=== PATIENT | male | born 1930 | race Caucasian/White ===

== ENCOUNTER 2017-01-03 09:32 | Emergency (ER) | payer OTHER ==
[~2017-01-03 09:32] MED LIST: /ESOM40CA OR; /TAMS4CA; /TAMS4CA OR; /TIOT18INH INH; /WARF5TA; ACET65TA; ADVODART; ALBU17IN INH; ALBU83IN INH; ALBUTEROL; ALBUTEROL INH; ALBUTEROL NEBS INH; ALLE25CA OR; AMLO10TA OR; AMLO10TA PO; APAP325T PO; ARIC10TA; ASPI325T OR; ASPI325T PO; AUGM875T27 PO; AVOD0.5C; AVOD0.5C OR; AVOD0.5C PO; AVODART; BABY81CH; CEFT500T OR; CEPH25SS PO; CORE3.12; COUM10TA; COUMADIN; DEMA20TA; DICL500C OR; DYNAPEN PO; EUCECRE2 TOP; FISH300C2 OR; FISH500C PO; FLOMAX 0.4; FLOVENT110; FOLI1TAB OR; FOLITAB11 PO; FURO20TA2 PO; GENT0.1C2 TOP; ISOS30BRAN OR; KLOR10TA OR; LAMISIL; LASI40TA OR; MOM PO; MULTCAP PO; MULTIVIT PO; MYSO50TA; MYSOLINE50; Macrobid; PATA0.2S; PRED10TA2 OR; PRED10TA2 PO; PRED20TA PO; PRED50TA2 PO; PRED5SOL2 PO; PRED5TAB PO; PRIM250T3; PRIM250T3 OR; PRIM250T5 PO; PRIMI25TA; PROA1AER INH; PROCARDI; SPIR1CAP INH; SPIRIVA; TAMS0.4C2 PO; THERGRAN; THIA100T OR; TRAM50TA2; TRIA TOP; TYLE325T5 PO; VENTAER IN; VICO5TAB; VITA100T92 PO; ZEBE5TAB; ZEST10TA; ZEST10TA4 PO
--- NOTE | 2017-01-03 12:45 | REP ---
PA and lateral chest: Comparison is 07/24/2015. There is chronic cardiomegaly, unchanged. There is a single lead pacemaker, unchanged. There is minor discoid atelectasis versus scarring in the left costophrenic angle as an interval change. There is a 1 cm nodular density adjacent to the cardiac apex, unchanged from PA and lateral views dating to 04/16/2012, therefore likely benign. There are no acute infiltrates or pleural effusions. The vikram and mediastinum are unchanged. There is grade 1 wedge shaped compression deformity of a mid thoracic vertebral body, not definitely present on 07/24/2015. I suspect there is compression deformity of a lower thoracic/upper lumbar vertebra, obscured by the diaphragms. This may have increased from 07/24/2015. Signed by Tab Calvillo MD 01/03/2017 12:36 P
--- NOTE | 2017-01-03 12:50 | REP ---
Thoracic spine two views both lateral projection: Comparisons are the lumbar spine dated 12/11/2013 and PA and lateral chest dated 07/24/2015. There is grade 1 compression of the T8 vertebral body as a change from 07/24/2015. There is grade 4 compression of the L1 vertebral body. This was grade II compression on 12/11/2013. There is demineralization and mild kyphosis. There are no lytic, blastic or destructive changes. There is multilevel mild degenerative disc disease in the thoracic spine. There is advanced degenerative disc disease in the visualized lumbar spine. Signed by Tab Calvillo MD 01/03/2017 12:41 P
[2017-01-03 12:58] LABS: BASO % 0.4 % (0.0-1.0); EOS # 0.2 K/mm3 (0.0-0.50); EOS % 3.2 % (0.0-3.0); LARGE UNSTAINED CELL # 0.1 K/mm3 (0.0-0.4); LARGE UNSTAINED CELL % 1.6 % (0.0-4.0); LYMPH # 0.8 K/mm3 (1.5-4.5); MEAN CORPUSCULAR HEMOGLOBIN 29.7 pg (27.0-33.0); MEAN CORPUSCULAR HGB CONC 32.2 g/dl (32.0-36.5); MEAN CORPUSCULAR VOLUME 92.1 fl (80.0-96.0); MONO # 0.3 K/mm3 (0.0-0.8); NEUTROPHILS # 4.9 K/mm3 (1.8-7.7); NEUTROPHILS % 76.8 % (36.0-66.0); PLATELET COUNT, AUTOMATED 104 k/mm3 (150-450); RED CELL DISTRIBUTION WIDTH 12.8 % (11.5-14.5); WHITE BLOOD COUNT 6.4 K/mm3 (4.0-10.0)
--- NOTE | 2017-01-03 13:12 | REP ---
CERVICAL SPINE, SEVEN VIEWS: HISTORY: Neck pain. The examination is very limited. The cervical spine is visualized from C1 to the C4-5 level in the lateral radiographs. The C2-3 through C4-5 intervertebral discs are decreased in height consistent with disc degeneration. The neural foramina are not well seen, however, there appears to be narrowing of the C3-6 neural foramina secondary to uncinate process hypertrophy. There are 3 mm of anterior subluxation of C4 on 5. IMPRESSION: Limited examination demonstrating degenerative change as described above. Signed by Castro Marte MD 01/03/2017 01:22 P
[2017-01-03 13:27] LABS: ANION GAP 8 MEQ/L (8-16); BLOOD UREA NITROGEN 21 MG/DL (7-18); CALCIUM LEVEL 8.3 MG/DL (8.8-10.2); CARBON DIOXIDE LEVEL 28 MEQ/L (21-32); CHLORIDE LEVEL 103 MEQ/L (98-107); CREATININE FOR GFR 1.06 MG/DL (0.70-1.30); GLOMERULAR FILTRATION RATE > 60.0 (>35); GLUCOSE, FASTING 96 MG/DL (83-110); POTASSIUM SERUM 4.3 MEQ/L (3.5-5.1); SODIUM LEVEL 139 MEQ/L (136-145)
--- NOTE | 2017-01-03 14:24 | EDDOCDS ---
Physician Documentation [facility] Name: David Salcedo Age: 86 yrs Sex: Male : 1930 Arrival Date: 01/03/2017 Time: 09:32 Bed 9 Private MD: [facility] Disposition: 01/03/17 14:05 Discharged to Home/Self Care. Impression: Wedge compression fracture of first lumbar vertebra, Wedge compression fracture of T7-T8 vertebra - T8, Thrombocytopenia, unspecified. - Condition is Stable. - Discharge Instructions: Back, Compression Fracture, Thrombocytopenia. - Prescriptions for Ultram 50 mg Oral tablet - take 0.5 tablet by ORAL route every 6 hours As needed as needed; 10 tablet. - Medication Reconciliation, Local Pharmacy Hours form. - Follow up: Emergency Department; When: As needed; Reason: Worsening of conditions. Follow up: Private Physician; When: 2 - 3 days; Reason: Wound/Symptom Recheck, Recheck today's complaints, Continuance of care. - Problem is new. - Symptoms are unchanged. Historical: - Allergies: Codeine Sulfate; Xarelto; - Home Meds: 1. albuterol sulfate 2.5 mg /3 mL (0.083 %) Inhl nebu prn 2. amlodipine 10 mg Oral tab 1 tab once daily 3. aspirin 325 mg Oral tab once daily 4. Avodart 0.5 mg oral cap 1 cap once daily 5. Fish Oil 1,000 mg Oral cap twice a day 6. Lasix 20 mg Oral tab 1 tab once daily 7. multivitamin Oral tab 1 tab daily 8. Ocuvite oral tab daily 9. primidone 250 mg Oral tab 0.5 tab bid 10. Probiotic oral daily 11. Spiriva with HandiHaler 18 mcg Inhl CpDv 1 cap once daily 12. tamsulosin 0.4 mg oral cp24 1 cap once daily 13. Tylenol 500mg Oral 2 tabs bid (Last dose: 01/03/2017 07:00) 14. Visine 0.05 % ophthalmic drop as needed 15. cephalexin 500 mg Oral cap 1 cap every 6 hours (Last dose: 01/03/2017 07:00) - PMHx: Atrial Fib; COPD; Dementia; DVT; ETOH; UTI; - PSHx: Knee surgery- Left; Knee surgery- Right; Pacemaker Insertion; Venous filter placed; - Social history: Smoking status: Chewing Tobacco No barriers to communication noted, The patient speaks fluent Serbian, Speaks appropriately for age. - Family history: Not pertinent. - : The pt / caregiver states he / she is not on anticoagulants. Home medication list is obtained from the patient. - Exposure Risk Screening:: None identified. Vital Signs: 01/03 09:34 BP 127 / 68; Pulse 89; Resp 18; Temp 97.6(O); Pulse Ox 97% on R/A; Weight 74.39 kg / ct3 164 lbs (R); Height 5 ft. 6 in. (167.64 cm) (R); Pain 6/10; 14:08 BP 161 / 96 (auto/); jmk 14:08 Pulse 78 MON; Pulse Ox 95% ; jmk 14:08 Resp 20; Temp 97.4; jmk 09:34 Body Mass Index 26.47 (74.39 kg, 167.64 cm) ct3 MDM: 11:09 Financial registration complete. lg 11:30 ECG WITH READING ER PHYS+CARDIAG ordered. EDMS 11:42 IV Saline Lock ordered. dt4 11:43 Chest, 2 View (pa\E\lat) Ordered. EDMS 11:43 Spine, Thoracic 3 Views Ordered. EDMS 11:43 Spine, Cervical Ordered. EDMS 11:43 Troponin Ordered. EDMS 11:43 Cardiac Injury Profile Ordered. EDMS 11:43 CBC with Diff Ordered. EDMS 11:43 Basic Metabolic Profile Ordered. EDMS 11:49 Selector Packer ordered. dt4 13:20 [facility] Payment Agreement was scanned into [employer] and attached to record. lg Signatures: Dispatcher [employer] EDMS Jona Espinosa,RN RN Darrel Rubio, Reg Reg lg Homar Weldon RN RN mlb1 Nahed Frances, PA-C PA-C dt4 The chart was reviewed and I authenticate all verbal orders and agree with the evaluation and treatment provided.Attachments: 13:20 [facility] [place] Agreement lg MTDD
--- NOTE | 2017-01-03 14:24 | EDDOCDS ---
Nurse's Notes [facility] Name: David Salcedo Age: 86 yrs Sex: Male : 1930 Arrival Date: 01/03/2017 Time: 09:32 Bed 9 Private MD: [facility] Diagnosis: Wedge compression fracture of first lumbar vertebra;Wedge compression fracture of T7-T8 vertebra-T8;Thrombocytopenia, unspecified Presentation: 01/03 09:42 Presenting complaint: Patient states: awful pain in my back and legs don't feel right. mlb1 Daughter states took patient to urgent care and was told right lower leg cellulitis and is on antibiotics. Last night patient complained of pain in lower back as though he had fallen but daughter doesn't state a witnessed fall. Patient continued to complain of pain in lower back so daughter brings in for evaluation. Adult Sepsis Screening: The patient does not have new or worsening altered mentation. Patient's respiratory rate is less than 22. Systolic blood pressure is greater than 100. Patient has a qSOFA score of 0- Negative Sepsis Screen. Suicide/Homicide risk assessment- the patient denies having any suicidal and/or homicidal ideations and does not present with any other emotional, behavioral or mental health complaints. Status: Patient is not a dental service technician or dependent. Transition of care: patient was not received from another setting of care. 09:42 Acuity: HOPE Level 4 mlb1 09:42 Method Of Arrival: Walkin/Carried/Asstd mlb1 11:44 Acuity level changed due to complexity of care. mlb1 11:44 Acuity: HOPE Level 3 mlb1 Triage Assessment: 09:46 General: Appears in no apparent distress, Behavior is cooperative. Pain: Location: back mlb1 Pain currently is 5 out of 10 on a pain scale. Respiratory: Airway is patent Respiratory effort is even, unlabored, Respiratory pattern is regular, symmetrical. Historical: - Allergies: Codeine Sulfate; Xarelto; - Home Meds: 1. albuterol sulfate 2.5 mg /3 mL (0.083 %) Inhl nebu prn 2. amlodipine 10 mg Oral tab 1 tab once daily 3. aspirin 325 mg Oral tab once daily 4. Avodart 0.5 mg oral cap 1 cap once daily 5. Fish Oil 1,000 mg Oral cap twice a day 6. Lasix 20 mg Oral tab 1 tab once daily 7. multivitamin Oral tab 1 tab daily 8. Ocuvite oral tab daily 9. primidone 250 mg Oral tab 0.5 tab bid 10. Probiotic oral daily 11. Spiriva with HandiHaler 18 mcg Inhl CpDv 1 cap once daily 12. tamsulosin 0.4 mg oral cp24 1 cap once daily 13. Tylenol 500mg Oral 2 tabs bid (Last dose: 01/03/2017 07:00) 14. Visine 0.05 % ophthalmic drop as needed 15. cephalexin 500 mg Oral cap 1 cap every 6 hours (Last dose: 01/03/2017 07:00) - PMHx: Atrial Fib; COPD; Dementia; DVT; ETOH; UTI; - PSHx: Knee surgery- Left; Knee surgery- Right; Pacemaker Insertion; Venous filter placed; - Social history: Smoking status: Chewing Tobacco No barriers to communication noted, The patient speaks fluent Armenian, Speaks appropriately for age. - Family history: Not pertinent. - : The pt / caregiver states he / she is not on anticoagulants. Home medication list is obtained from the patient. - Exposure Risk Screening:: None identified. Screenin:11 Screening information is obtained from the patient. Fall risk: No risks identified. jmk Assistance ADL's: requires no assistance with activities of daily living. Abuse/DV Screen: The patient / caregiver reports he/she is: not in a situation that causes fear, pain or injury. Nutritional screening: No deficits noted. Advance Directives: Currently, there is no health care proxy. There is no active DNR order. There is no living will. There is no Power of Hospital Coordinator. Advance directive information has not previously been placed in an [facility] medical record. home support is adequate. Assessment: 13:08 General: Appears Skin warm and dry color satisfactory. Moist pink oral mucosa. Abdomen jmk obese and non distended with bowel sounds present x 4. Denies pain to abdomen or to chest. right leg is swollen with redness and swelling distal to mid calf area. pulse intact x 2. 2 abrasions noted to medial aspect of ankle. DSD was in place and crusty drainage noted. deneis injury or pain presently. . Cardiovascular: Capillary refill < 3 seconds Clubbing of nail beds is absent Heart tones S1 S2 present. Respiratory: No deficits noted. Airway is patent Respiratory effort is even, Respiratory pattern is regular, Breath sounds are clear bilaterally. GI: Abdomen is obese, Bowel sounds present X 4 quads. 14:20 General: Appears wound care provided and tolerated well, receptive to discharge. family k member provided instructions. discharged via WC. Vital Signs: 09:34 BP 127 / 68; Pulse 89; Resp 18; Temp 97.6(O); Pulse Ox 97% on R/A; Weight 74.39 kg (R); ct3 Height 5 ft. 6 in. (167.64 cm) (R); Pain 6/10; 14:08 BP 161 / 96 (auto/); jmk 14:08 Pulse 78 MON; Pulse Ox 95% ; jmk 14:08 Resp 20; Temp 97.4; k 09:34 Body Mass Index 26.47 (74.39 kg, 167.64 cm) ct3 Vitals: 09:34 Log In Time: January 03, 2017 at 09:32. ct3 ED Course: 09:34 Patient visited by Valarie Bell PCA. ct3 09:34 [facility] is Private Physician. ct3 09:34 Patient moved to Waiting ct3 09:37 Patient moved to Pre RCE ct3 09:44 Triage Initiated mlb1 09:59 Patient moved to Triage 2 mlb1 09:59 Patient moved to Pre RCE mlb1 10:49 Patient moved to Triage 2 ct3 10:58 Nahed Frances [facility]-C [facility]. dt4 10:58 Anmol Weller MD is Attending Physician. dt4 10:58 Patient visited by Nahed Frances PA-C. dt4 11:31 Patient moved to PR2 / 26 ttb 11:42 Patient visited by Valarie Bell PCA. ct3 11:42 EKG done. (by ED staff). Reviewed by Nahed Frances PA-C. ct3 11:44 Celine Byrnes, RN is Primary Nurse. mlb1 11:44 Vandana Prieto,GABBY is Primary Nurse. mlb1 11:44 Patient moved to I1 / M1 mlb1 11:49 Patient moved to 9 dt4 12:58 Chest, 2 View (pa\E\lat) Returned. EDMS 12:58 Spine, Thoracic 3 Views Returned. EDMS 13:11 Inserted saline lock: 20 gauge in left antecubital area. jmk 13:19 Patient name changed from David\S\\S\Denisse\S\ to David\S\ \S\Denisse. EDMS 13:20 [facility] Payment Agreement was scanned into [employer] and attached to record. lg 13:48 Spine, Cervical Returned. EDMS 13:52 Patient visited by Nahed Frances PA-C. dt4 14:08 The patient / caregiver is instructed regarding the plan of care and ED course. jmk 14:08 Discontinued lock intact, bleeding controlled, pressure dressing applied, No jmk redness/swelling at site. No procedures done that require assistance. 14:15 Pt greeted and oriented to ED. Patient advised of names of staff involved in care, rs6 location of call granda, wait times and NPO status. Accompanied by Family Member, Patient has correct armband on for positive identification. Placed in gown. Bed in low position. Call light in reach. Side rails up X 1. lease attendant on. Pulse ox on. NIBP on. 14:16 Patient visited by Tenisha Staley PCA. rs6 14:16 Assisted with urinal. rs6 Order Results: Lab Order: Troponin; SPEC'M 01/03/17 12:27 Test: TROPONIN I; Value: < 0.02; Range: < 0.10; Units: NG/ML; Status: F Test Note: ; Troponin I Reference Interval for [employer] LOCI: 99th Percentile= 0.00-0.045 ng/ml Risk Stratification: <= 0.10 ng/ml Decreased Risk for Adverse Clinical Events. 0.10-1.50 ng/ml Increased Risk for Adverse Clinical Events. Evaluation of additional criterion and/or repeat testing in 2-6 hours is suggested to rule out myocardial damage. >= 1.50 ng/ml Indicative of Myocardial Injury. Lab Order: Cardiac Injury Profile; SPEC'M 01/03/17 12:27 Test: CPK CREATINE PHOSPHOKINASE; Value: 54; Range: 39-308; Units: U/L; Status: F Test: CK-MB VALUE MASS; Value: 1.9; Range: 0.0-3.6; Units: NG/ML; Status: F Test: MB/CK RELATIVE INDEX; Value: 3.51; Range: < OR =4; Status: F Test Note: ; DIAGNOSIS CRITERIA MMB ng/ml Relative Index (RI) NON-AMI < or = 5 N/A SINGLETON ZONE > 5 < or = 4 AMI > 5 > 4 Lab Order: CBC with Diff; EDELMIRA'Mayda 01/03/17 12:27 Test: WHITE BLOOD COUNT; Value: 6.4; Range: 4.0-10.0; Units: K/mm3; Status: F Test: RED BLOOD COUNT; Value: 4.79; Range: 4.30-6.10; Units: M/mm3; Status: F Test: HEMOGLOBIN; Value: 14.2; Range: 14.0-18.0; Units: g/dl; Status: F Test: HEMATOCRIT; Value: 44.2; Range: 42.0-52.0; Units: %; Status: F Test: MEAN CORPUSCULAR VOLUME; Value: 92.1; Range: 80.0-96.0; Units: fl; Status: F Test: MEAN CORPUSCULAR HEMOGLOBIN; Value: 29.7; Range: 27.0-33.0; Units: pg; Status: F Test: MEAN CORPUSCULAR HGB CONC; Value: 32.2; Range: 32.0-36.5; Units: g/dl; Status: F Test: RED CELL DISTRIBUTION WIDTH; Value: 12.8; Range: 11.5-14.5; Units: %; Status: F Test: PLATELET COUNT, AUTOMATED; Value: 104; Range: 150-450; Abnormal: Below low normal; Units: k/mm3; Status: F Test: NEUTROPHILS %; Value: 76.8; Range: 36.0-66.0; Abnormal: Above high normal; Units: %; Status: F Test: LYMPH %; Value: 13.0; Range: 24.0-44.0; Abnormal: Below low normal; Units: %; Status: F Test: MONO %; Value: 5.0; Range: 0.0-5.0; Units: %; Status: F Test: EOS %; Value: 3.2; Range: 0.0-3.0; Abnormal: Above high normal; Units: %; Status: F Test: BASO %; Value: 0.4; Range: 0.0-1.0; Units: %; Status: F Test: LARGE UNSTAINED CELL %; Value: 1.6; Range: 0.0-4.0; Units: %; Status: F Test: NEUTROPHILS #; Value: 4.9; Range: 1.8-7.7; Units: K/mm3; Status: F Test: LYMPH #; Value: 0.8; Range: 1.5-4.5; Abnormal: Below low normal; Units: K/mm3; Status: F Test: MONO #; Value: 0.3; Range: 0.0-0.8; Units: K/mm3; Status: F Test: EOS #; Value: 0.2; Range: 0.0-0.50; Units: K/mm3; Status: F Test: BASO #; Value: 0.0; Range: 0.0-0.2; Units: K/mm3; Status: F Test: LARGE UNSTAINED CELL #; Value: 0.1; Range: 0.0-0.4; Units: K/mm3; Status: F Lab Order: Basic Metabolic Profile; [facility] 01/03/17 12:27 Test: GLUCOSE, FASTING; Value: 96; Range: 83-110; Units: MG/DL; Status: F Test: BLOOD UREA NITROGEN; Value: 21; Range: 7-18; Abnormal: Above high normal; Units: MG/DL; Status: F Test: CREATININE FOR GFR; Value: 1.06; Range: 0.70-1.30; Units: MG/DL; Status: F Test: GLOMERULAR FILTRATION RATE; Value: > 60.0; Range: >35; Status: F Test: SODIUM LEVEL; Value: 139; Range: 136-145; Units: MEQ/L; Status: F Test: POTASSIUM SERUM; Value: 4.3; Range: 3.5-5.1; Units: MEQ/L; Status: F Test: CHLORIDE LEVEL; Value: 103; Range: 98-107; Units: MEQ/L; Status: F Test: CARBON DIOXIDE LEVEL; Value: 28; Range: 21-32; Units: MEQ/L; Status: F Test: ANION GAP; Value: 8; Range: 8-16; Units: MEQ/L; Status: F Test: CALCIUM LEVEL; Value: 8.3; Range: 8.8-10.2; Abnormal: Below low normal; Units: MG/DL; Status: F Test Note: ; Units are mL/min/1.73 m2 Chronic Kidney Disease Staging per NKF: Stage I & II GFR >=60 Normal to Mildly Decreased Stage III GFR 30-59 Moderately Decreased Stage IV GFR 15-29 Severely Decreased Stage V GFR <15 Very Little GFR Left ESRD GFR <15 on FREN[facility]ORD BINDER Radiology Order: Chest, 2 View (pa\E\lat) Test: Chest, 2 View (pa\E\lat) REASON FOR EXAMINATION: Chest Pain;Shortness of Breath; PA and lateral chest:; ; Comparison is 07/24/2015.; ; There is chronic cardiomegaly, unchanged. There is a single lead pacemaker,; unchanged.; ; There is minor discoid atelectasis versus scarring in the left costophrenic angle; as an interval change.; ; There is a 1 cm nodular density adjacent to the cardiac apex, unchanged from PA; and lateral views dating to 04/16/2012, therefore likely benign.; ; There are no acute infiltrates or pleural effusions. The vikram and mediastinum; are unchanged.; ; There is grade 1 wedge shaped compression deformity of a mid thoracic vertebral; body, not definitely present on 07/24/2015.; ; I suspect there is compression deformity of a lower thoracic/upper lumbar; vertebra, obscured by the diaphragms. This may have increased from 07/24/2015.; ; ; Signed by; Tab Calvillo MD 01/03/2017 12:36 P; Radiology Order: Spine, Thoracic 3 Views Test: Spine, Thoracic 3 Views REASON FOR EXAMINATION: upper back pain; Thoracic spine two views both lateral projection:; ; Comparisons are the lumbar spine dated 12/11/2013 and PA and lateral chest dated; 07/24/2015.; ; There is grade 1 compression of the T8 vertebral body as a change from; 07/24/2015.; ; There is grade 4 compression of the L1 vertebral body. This was grade II; compression on 12/11/2013.; ; There is demineralization and mild kyphosis.; ; There are no lytic, blastic or destructive changes. There is multilevel mild; degenerative disc disease in the thoracic spine.; ; There is advanced degenerative disc disease in the visualized lumbar spine.; ; ; Signed by; Tab Calvillo MD 01/03/2017 12:41 P; Radiology Order: Spine, Cervical Test: Spine, Cervical REASON FOR EXAMINATION: upper back, lower c-spine pain; CERVICAL SPINE, SEVEN VIEWS:; ; HISTORY: Neck pain.; ; The examination is very limited. The cervical spine is visualized from C1 to the; C4-5 level in the lateral radiographs. The C2-3 through C4-5 intervertebral; discs are decreased in height consistent with disc degeneration. The neural; foramina are not well seen, however, there appears to be narrowing of the C3-6; neural foramina secondary to uncinate process hypertrophy. There are 3 mm of; anterior subluxation of C4 on 5.; ; IMPRESSION:; ; Limited examination demonstrating degenerative change as described above.; ; ; Signed by; Castro Marte MD 01/03/2017 01:22 P; Outcome: 14:05 Discharge ordered by Provider. dt4 14:08 Discharge Assessment: Patient awake, alert and oriented x 3. No cognitive and/or k functional deficits noted. Patient verbalized understanding of disposition instructions. patient administered narcotics - no. The following High Risk Discharge criteria are identified: None. Discharged to home via wheelchair, with family. Condition: good. Discharge instructions given to patient, Instructed on discharge instructions, follow up and referral plans. medication usage, Demonstrated understanding of instructions, medications, Pt was receptive of discharge instructions/ teaching. Prescriptions given X 1. No special radiology studies were completed. Property :Personal belongings accompany Pt. 14:23 Patient left the ED. [facility] Signatures: Dispatcher [employer] EDMS Jona Espinosa,RN Darrel George, Homar Liu lg RN RN mlb1 Valarie Bell, DRIVER ENGINEER DRIVER ENGINEER ct3 Lizzette Renee RN RN dianab Nahed Frances, PA-C PA-C dt4 Tenisha Staley, DRIVER ENGINEER DRIVER ENGINEER rs6 [facility]
--- NOTE | 2017-01-03 21:55 | ECGEPIP ---
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
[2017-01-04] MEDS ORDERED: METAL LOCK LOOP XX ONE (02:52)
--- NOTE | 2017-01-05 15:24 | EDDOCDS ---
Physician Documentation [facility] Name: David Salcedo Age: 86 yrs Sex: Male : 1930 Arrival Date: 01/03/2017 Time: 09:32 Bed 9 Private MD: Dennis [facility] Disposition: 01/03/17 14:05 Discharged to Home/Self Care. Impression: Wedge compression fracture of first lumbar vertebra, Wedge compression fracture of T7-T8 vertebra - T8, Thrombocytopenia, unspecified. - Condition is Stable. - Discharge Instructions: Back, Compression Fracture, Thrombocytopenia. - Prescriptions for Ultram 50 mg Oral tablet - take 0.5 tablet by ORAL route every 6 hours As needed as needed; 10 tablet. - Medication Reconciliation, Local Pharmacy Hours form. - Follow up: Emergency Department; When: As needed; Reason: Worsening of conditions. Follow up: Private Physician; When: 2 - 3 days; Reason: Wound/Symptom Recheck, Recheck today's complaints, Continuance of care. - Problem is new. - Symptoms are unchanged. Historical: - Allergies: Codeine Sulfate; Xarelto; - Home Meds: 1. albuterol sulfate 2.5 mg /3 mL (0.083 %) Inhl nebu prn 2. amlodipine 10 mg Oral tab 1 tab once daily 3. aspirin 325 mg Oral tab once daily 4. Avodart 0.5 mg oral cap 1 cap once daily 5. Fish Oil 1,000 mg Oral cap twice a day 6. Lasix 20 mg Oral tab 1 tab once daily 7. multivitamin Oral tab 1 tab daily 8. Ocuvite oral tab daily 9. primidone 250 mg Oral tab 0.5 tab bid 10. Probiotic oral daily 11. Spiriva with HandiHaler 18 mcg Inhl CpDv 1 cap once daily 12. tamsulosin 0.4 mg oral cp24 1 cap once daily 13. Tylenol 500mg Oral 2 tabs bid (Last dose: 01/03/2017 07:00) 14. Visine 0.05 % ophthalmic drop as needed 15. cephalexin 500 mg Oral cap 1 cap every 6 hours (Last dose: 01/03/2017 07:00) - PMHx: Atrial Fib; COPD; Dementia; DVT; ETOH; UTI; - PSHx: Knee surgery- Left; Knee surgery- Right; Pacemaker Insertion; Venous filter placed; - Social history: Smoking status: Chewing Tobacco No barriers to communication noted, The patient speaks fluent Serbian, Speaks appropriately for age. - Family history: Not pertinent. - : The pt / caregiver states he / she is not on anticoagulants. Home medication list is obtained from the patient. - Exposure Risk Screening:: None identified. Vital Signs: 01/03 09:34 BP 127 / 68; Pulse 89; Resp 18; Temp 97.6(O); Pulse Ox 97% on R/A; Weight 74.39 kg / ct3 164 lbs (R); Height 5 ft. 6 in. (167.64 cm) (R); Pain 6/10; 14:08 BP 161 / 96 (auto/); jmk 14:08 Pulse 78 MON; Pulse Ox 95% ; jmk 14:08 Resp 20; Temp 97.4; jmk 09:34 Body Mass Index 26.47 (74.39 kg, 167.64 cm) ct3 MDM: 11:09 Financial registration complete. lg 11:30 ECG WITH READING ER PHYS+CARDIAG ordered. EDMS 11:42 IV Saline Lock ordered. dt4 11:43 Chest, 2 View (pa\E\lat) Ordered. EDMS 11:43 Spine, Thoracic 3 Views Ordered. EDMS 11:43 Spine, Cervical Ordered. EDMS 11:43 Troponin Ordered. EDMS 11:43 Cardiac Injury Profile Ordered. EDMS 11:43 CBC with Diff Ordered. EDMS 11:43 Basic Metabolic Profile Ordered. EDMS 11:49 [place] ordered. dt4 13:20 [facility] Payment Agreement was scanned into [employer] and attached to record. lg 01/04 09:15 T-Sheet-- Draft Copy was scanned into [employer]ku and attached to record. gb 09:15 ECG/EKG was scanned into [employer] and attached to record. gb 09:16 Radiology Report was scanned into [employer] and attached to record. gb Signatures: Dispatcher [employer] EDJona Ch,Karlie Fragoso RN, Reg Reg gb Darrel Andrade, Reg Reg lg Homar Weldon RN RN mlb1 Nahed Frances, PAAntoinetteC PA-C dt4 The chart was reviewed and I authenticate all verbal orders and agree with the evaluation and treatment provided.Attachments: 01/03 13:20 [facility] Payment Agreement lg 01/04 09:15 T-Sheet-- Draft Copy gb 09:15 ECG/EKG gb Chart Complete MTDD
--- NOTE | 2017-01-05 15:24 | EDDOCDS ---
Physician Documentation [facility] Name: David Salcedo Age: 86 yrs Sex: Male : 1930 Arrival Date: 01/03/2017 Time: 09:32 Bed 9 Private MD: Dennis [facility] Disposition: 01/03/17 14:05 Discharged to Home/Self Care. Impression: Wedge compression fracture of first lumbar vertebra, Wedge compression fracture of T7-T8 vertebra - T8, Thrombocytopenia, unspecified. - Condition is Stable. - Discharge Instructions: Back, Compression Fracture, Thrombocytopenia. - Prescriptions for Ultram 50 mg Oral tablet - take 0.5 tablet by ORAL route every 6 hours As needed as needed; 10 tablet. - Medication Reconciliation, Local Pharmacy Hours form. - Follow up: Emergency Department; When: As needed; Reason: Worsening of conditions. Follow up: Private Physician; When: 2 - 3 days; Reason: Wound/Symptom Recheck, Recheck today's complaints, Continuance of care. - Problem is new. - Symptoms are unchanged. Historical: - Allergies: Codeine Sulfate; Xarelto; - Home Meds: 1. albuterol sulfate 2.5 mg /3 mL (0.083 %) Inhl nebu prn 2. amlodipine 10 mg Oral tab 1 tab once daily 3. aspirin 325 mg Oral tab once daily 4. Avodart 0.5 mg oral cap 1 cap once daily 5. Fish Oil 1,000 mg Oral cap twice a day 6. Lasix 20 mg Oral tab 1 tab once daily 7. multivitamin Oral tab 1 tab daily 8. Ocuvite oral tab daily 9. primidone 250 mg Oral tab 0.5 tab bid 10. Probiotic oral daily 11. Spiriva with HandiHaler 18 mcg Inhl CpDv 1 cap once daily 12. tamsulosin 0.4 mg oral cp24 1 cap once daily 13. Tylenol 500mg Oral 2 tabs bid (Last dose: 01/03/2017 07:00) 14. Visine 0.05 % ophthalmic drop as needed 15. cephalexin 500 mg Oral cap 1 cap every 6 hours (Last dose: 01/03/2017 07:00) - PMHx: Atrial Fib; COPD; Dementia; DVT; ETOH; UTI; - PSHx: Knee surgery- Left; Knee surgery- Right; Pacemaker Insertion; Venous filter placed; - Social history: Smoking status: Chewing Tobacco No barriers to communication noted, The patient speaks fluent Kazakh, Speaks appropriately for age. - Family history: Not pertinent. - : The pt / caregiver states he / she is not on anticoagulants. Home medication list is obtained from the patient. - Exposure Risk Screening:: None identified. Vital Signs: 01/03 09:34 BP 127 / 68; Pulse 89; Resp 18; Temp 97.6(O); Pulse Ox 97% on R/A; Weight 74.39 kg / ct3 164 lbs (R); Height 5 ft. 6 in. (167.64 cm) (R); Pain 6/10; 14:08 BP 161 / 96 (auto/); jmk 14:08 Pulse 78 MON; Pulse Ox 95% ; jmk 14:08 Resp 20; Temp 97.4; jmk 09:34 Body Mass Index 26.47 (74.39 kg, 167.64 cm) ct3 MDM: 11:09 Financial registration complete. lg 11:30 ECG WITH READING ER PHYS+CARDIAG ordered. EDMS 11:42 IV Saline Lock ordered. dt4 11:43 Chest, 2 View (pa\E\lat) Ordered. EDMS 11:43 Spine, Thoracic 3 Views Ordered. EDMS 11:43 Spine, Cervical Ordered. EDMS 11:43 Troponin Ordered. EDMS 11:43 Cardiac Injury Profile Ordered. EDMS 11:43 CBC with Diff Ordered. EDMS 11:43 Basic Metabolic Profile Ordered. EDMS 11:49 Supervisor Pole [employer] ordered. dt4 13:20 [facility] Payment Agreement was scanned into [employer] and attached to record. lg 01/04 09:15 T-Sheet-- Draft Copy was scanned into [employer] and attached to record. gb 09:15 ECG/EKG was scanned into [employer] and attached to record. gb 09:16 Radiology Report was scanned into [employer] and attached to record. gb Signatures: Dispatcher [employer] EDJona Ch,Karlie Fragoso RN, Reg Reg gb Darrel Andrade, Reg Reg lg Homar Weldon RN RN mlb1 Nahed Frances, PAAntoinetteC PA-C dt4 The chart was reviewed and I authenticate all verbal orders and agree with the evaluation and treatment provided.Attachments: 01/03 13:20 [facility] Payment Agreement lg 01/04 09:15 T-Sheet-- Draft Copy gb 09:15 ECG/EKG gb Chart Complete MTDD
--- NOTE | 2017-01-05 15:24 | EDDOCDS ---
Nurse's Notes [facility] Name: David Velazquez Age: 86 yrs Sex: Male : 1930 Arrival Date: 01/03/2017 Time: 09:32 Bed 9 Private MD: Dennis [facility] Diagnosis: Wedge compression fracture of first lumbar vertebra;Wedge compression fracture of T7-T8 vertebra-T8;Thrombocytopenia, unspecified Presentation: 01/03 09:42 Presenting complaint: Patient states: awful pain in my back and legs don't feel right. mlb1 Daughter states took patient to urgent care and was told right lower leg cellulitis and is on antibiotics. Last night patient complained of pain in lower back as though he had fallen but daughter doesn't state a witnessed fall. Patient continued to complain of pain in lower back so daughter brings in for evaluation. Adult Sepsis Screening: The patient does not have new or worsening altered mentation. Patient's respiratory rate is less than 22. Systolic blood pressure is greater than 100. Patient has a qSOFA score of 0- Negative Sepsis Screen. Suicide/Homicide risk assessment- the patient denies having any suicidal and/or homicidal ideations and does not present with any other emotional, behavioral or mental health complaints. Status: Patient is not a automotive service professional or dependent. Transition of care: patient was not received from another setting of care. 09:42 Acuity: HOPE Level 4 mlb1 09:42 Method Of Arrival: Walkin/Carried/Asstd mlb1 11:44 Acuity level changed due to complexity of care. mlb1 11:44 Acuity: HOPE Level 3 mlb1 Triage Assessment: 09:46 General: Appears in no apparent distress, Behavior is cooperative. Pain: Location: back mlb1 Pain currently is 5 out of 10 on a pain scale. Respiratory: Airway is patent Respiratory effort is even, unlabored, Respiratory pattern is regular, symmetrical. Historical: - Allergies: Codeine Sulfate; Xarelto; - Home Meds: 1. albuterol sulfate 2.5 mg /3 mL (0.083 %) Inhl nebu prn 2. amlodipine 10 mg Oral tab 1 tab once daily 3. aspirin 325 mg Oral tab once daily 4. Avodart 0.5 mg oral cap 1 cap once daily 5. Fish Oil 1,000 mg Oral cap twice a day 6. Lasix 20 mg Oral tab 1 tab once daily 7. multivitamin Oral tab 1 tab daily 8. Ocuvite oral tab daily 9. primidone 250 mg Oral tab 0.5 tab bid 10. Probiotic oral daily 11. Spiriva with HandiHaler 18 mcg Inhl CpDv 1 cap once daily 12. tamsulosin 0.4 mg oral cp24 1 cap once daily 13. Tylenol 500mg Oral 2 tabs bid (Last dose: 01/03/2017 07:00) 14. Visine 0.05 % ophthalmic drop as needed 15. cephalexin 500 mg Oral cap 1 cap every 6 hours (Last dose: 01/03/2017 07:00) - PMHx: Atrial Fib; COPD; Dementia; DVT; ETOH; UTI; - PSHx: Knee surgery- Left; Knee surgery- Right; Pacemaker Insertion; Venous filter placed; - Social history: Smoking status: Chewing Tobacco No barriers to communication noted, The patient speaks fluent Divehi, Speaks appropriately for age. - Family history: Not pertinent. - : The pt / caregiver states he / she is not on anticoagulants. Home medication list is obtained from the patient. - Exposure Risk Screening:: None identified. Screenin:11 Screening information is obtained from the patient. Fall risk: No risks identified. jmk Assistance ADL's: requires no assistance with activities of daily living. Abuse/DV Screen: The patient / caregiver reports he/she is: not in a situation that causes fear, pain or injury. Nutritional screening: No deficits noted. Advance Directives: Currently, there is no health care proxy. There is no active DNR order. There is no living will. There is no Power of Heavy Mobile Equipment Operator. Advance directive information has not previously been placed in an [facility] medical record. home support is adequate. Assessment: 13:08 General: Appears Skin warm and dry color satisfactory. Moist pink oral mucosa. Abdomen jmk obese and non distended with bowel sounds present x 4. Denies pain to abdomen or to chest. right leg is swollen with redness and swelling distal to mid calf area. pulse intact x 2. 2 abrasions noted to medial aspect of ankle. DSD was in place and crusty drainage noted. deneis injury or pain presently. . Cardiovascular: Capillary refill < 3 seconds Clubbing of nail beds is absent Heart tones S1 S2 present. Respiratory: No deficits noted. Airway is patent Respiratory effort is even, Respiratory pattern is regular, Breath sounds are clear bilaterally. GI: Abdomen is obese, Bowel sounds present X 4 quads. 14:20 General: Appears wound care provided and tolerated well, receptive to discharge. family k member provided instructions. discharged via WC. Vital Signs: 09:34 BP 127 / 68; Pulse 89; Resp 18; Temp 97.6(O); Pulse Ox 97% on R/A; Weight 74.39 kg (R); ct3 Height 5 ft. 6 in. (167.64 cm) (R); Pain 6/10; 14:08 BP 161 / 96 (auto/); jmk 14:08 Pulse 78 MON; Pulse Ox 95% ; jmk 14:08 Resp 20; Temp 97.4; k 09:34 Body Mass Index 26.47 (74.39 kg, 167.64 cm) ct3 Vitals: 09:34 Log In Time: January 03, 2017 at 09:32. ct3 ED Course: 09:34 Patient visited by Valarie Bell PCA. ct3 09:34 [facility] is Private Physician. ct3 09:34 Patient moved to Waiting ct3 09:37 Patient moved to Pre RCE ct3 09:44 Triage Initiated mlb1 09:59 Patient moved to Triage 2 mlb1 09:59 Patient moved to Pre RCE mlb1 10:49 Patient moved to Triage 2 ct3 10:58 Nahed Frances [facility]. dt4 10:58 Anmol Weller MD is Attending Physician. dt4 10:58 Patient visited by Nahed Frances PA-C. dt4 11:31 Patient moved to PR2 / 26 ttb 11:42 Patient visited by Valarie Bell PCA. ct3 11:42 EKG done. (by ED staff). Reviewed by Nahed Frances PA-C. ct3 11:44 Celine Byrnes, RN is Primary Nurse. mlb1 11:44 Vandana Prieto,GABBY is Primary Nurse. mlb1 11:44 Patient moved to I1 / M1 mlb1 11:49 Patient moved to 9 dt4 12:58 Chest, 2 View (pa\E\lat) Returned. EDMS 12:58 Spine, Thoracic 3 Views Returned. EDMS 13:11 Inserted saline lock: 20 gauge in left antecubital area. jmk 13:19 Patient name changed from David\S\\S\Lidiacibrandi\S\ to David\S\ \S\Denisse. EDMS 13:20 [facility] Payment Agreement was scanned into [employer] and attached to record. lg 13:48 Spine, Cervical Returned. EDMS 13:52 Patient visited by Nahed Frances PA-C. dt4 14:08 The patient / caregiver is instructed regarding the plan of care and ED course. jmk 14:08 Discontinued lock intact, bleeding controlled, pressure dressing applied, No jmk redness/swelling at site. No procedures done that require assistance. 14:15 Pt greeted and oriented to ED. Patient advised of names of staff involved in care, rs6 location of call granda, wait times and NPO status. Accompanied by Family Member, Patient has correct armband on for positive identification. Placed in gown. Bed in low position. Call light in reach. Side rails up X 1. panel monitor on. Pulse ox on. NIBP on. 14:16 Patient visited by Tenisha Staley PCA. rs6 14:16 Assisted with urinal. rs6 22:11 EKG-ADULT Returned. EDMS 02/09 09:15 T-Sheet-- Draft Copy was scanned into Global Active and attached to record. gb 09:15 ECG/EKG was scanned into Global Active and attached to record. gb 09:16 Radiology Report was scanned into Global Active and attached to record. gb Order Results: Lab Order: Troponin; SPEC'M 01/03/17 12:27 Test: TROPONIN I; Value: < 0.02; Range: < 0.10; Units: NG/ML; Status: F Test Note: ; Troponin I Reference Interval for [employer] LOCI: 99th Percentile= 0.00-0.045 ng/ml Risk Stratification: <= 0.10 ng/ml Decreased Risk for Adverse Clinical Events. 0.10-1.50 ng/ml Increased Risk for Adverse Clinical Events. Evaluation of additional criterion and/or repeat testing in 2-6 hours is suggested to rule out myocardial damage. >= 1.50 ng/ml Indicative of Myocardial Injury. Lab Order: Cardiac Injury Profile; SPEC'M 01/03/17 12:27 Test: CPK CREATINE PHOSPHOKINASE; Value: 54; Range: 39-308; Units: U/L; Status: F Test: CK-MB VALUE MASS; Value: 1.9; Range: 0.0-3.6; Units: NG/ML; Status: F Test: MB/CK RELATIVE INDEX; Value: 3.51; Range: < OR =4; Status: F Test Note: ; DIAGNOSIS CRITERIA MMB ng/ml Relative Index (RI) NON-AMI < or = 5 N/A SINGLETON ZONE > 5 < or = 4 AMI > 5 > 4 Lab Order: CBC with Diff; SPEC'M 01/03/17 12:27 Test: WHITE BLOOD COUNT; Value: 6.4; Range: 4.0-10.0; Units: K/mm3; Status: F Test: RED BLOOD COUNT; Value: 4.79; Range: 4.30-6.10; Units: M/mm3; Status: F Test: HEMOGLOBIN; Value: 14.2; Range: 14.0-18.0; Units: g/dl; Status: F Test: HEMATOCRIT; Value: 44.2; Range: 42.0-52.0; Units: %; Status: F Test: MEAN CORPUSCULAR VOLUME; Value: 92.1; Range: 80.0-96.0; Units: fl; Status: F Test: MEAN CORPUSCULAR HEMOGLOBIN; Value: 29.7; Range: 27.0-33.0; Units: pg; Status: F Test: MEAN CORPUSCULAR HGB CONC; Value: 32.2; Range: 32.0-36.5; Units: g/dl; Status: F Test: RED CELL DISTRIBUTION WIDTH; Value: 12.8; Range: 11.5-14.5; Units: %; Status: F Test: PLATELET COUNT, AUTOMATED; Value: 104; Range: 150-450; Abnormal: Below low normal; Units: k/mm3; Status: F Test: NEUTROPHILS %; Value: 76.8; Range: 36.0-66.0; Abnormal: Above high normal; Units: %; Status: F Test: LYMPH %; Value: 13.0; Range: 24.0-44.0; Abnormal: Below low normal; Units: %; Status: F Test: MONO %; Value: 5.0; Range: 0.0-5.0; Units: %; Status: F Test: EOS %; Value: 3.2; Range: 0.0-3.0; Abnormal: Above high normal; Units: %; Status: F Test: BASO %; Value: 0.4; Range: 0.0-1.0; Units: %; Status: F Test: LARGE UNSTAINED CELL %; Value: 1.6; Range: 0.0-4.0; Units: %; Status: F Test: NEUTROPHILS #; Value: 4.9; Range: 1.8-7.7; Units: K/mm3; Status: F Test: LYMPH #; Value: 0.8; Range: 1.5-4.5; Abnormal: Below low normal; Units: K/mm3; Status: F Test: MONO #; Value: 0.3; Range: 0.0-0.8; Units: K/mm3; Status: F Test: EOS #; Value: 0.2; Range: 0.0-0.50; Units: K/mm3; Status: F Test: BASO #; Value: 0.0; Range: 0.0-0.2; Units: K/mm3; Status: F Test: LARGE UNSTAINED CELL #; Value: 0.1; Range: 0.0-0.4; Units: K/mm3; Status: F Lab Order: Basic Metabolic Profile; SPEC'M 01/03/17 12:27 Test: GLUCOSE, FASTING; Value: 96; Range: 83-110; Units: MG/DL; Status: F Test: BLOOD UREA NITROGEN; Value: 21; Range: 7-18; Abnormal: Above high normal; Units: MG/DL; Status: F Test: CREATININE FOR GFR; Value: 1.06; Range: 0.70-1.30; Units: MG/DL; Status: F Test: GLOMERULAR FILTRATION RATE; Value: > 60.0; Range: >35; Status: F Test: SODIUM LEVEL; Value: 139; Range: 136-145; Units: MEQ/L; Status: F Test: POTASSIUM SERUM; Value: 4.3; Range: 3.5-5.1; Units: MEQ/L; Status: F Test: CHLORIDE LEVEL; Value: 103; Range: 98-107; Units: MEQ/L; Status: F Test: CARBON DIOXIDE LEVEL; Value: 28; Range: 21-32; Units: MEQ/L; Status: F Test: ANION GAP; Value: 8; Range: 8-16; Units: MEQ/L; Status: F Test: CALCIUM LEVEL; Value: 8.3; Range: 8.8-10.2; Abnormal: Below low normal; Units: MG/DL; Status: F Test Note: ; Units are mL/min/1.73 m2 Chronic Kidney Disease Staging per NKF: Stage I & II GFR >=60 Normal to Mildly Decreased Stage III GFR 30-59 Moderately Decreased Stage IV GFR 15-29 Severely Decreased Stage V GFR <15 Very Little GFR Left ESRD GFR <15 on SENIOR REVENUE ACCOUNTANT Radiology Order: EKG-ADULT Test: EKG-ADULT REASON FOR EXAMINATION: Chest Pain;Shortness of Breath; Stationary ECG Study; [facility] - ED; ; Test Date: 2017-01-03; Pat Name: DAVID VELAZQUEZ Department:; Room: -; Gender: M Lehr Cutter: ct; : 1930 Requested By: NAHED Bloom PA-C; Order Number: [id number] Reading MD: Sophie De La Cruz; Measurements; Intervals Lutts; Rate: 78 P: 106; SC: 259 QRS: -86; QRSD: 179 T: 84; QT: 446; QTc: 509; Interpretive Statements; ELECTRONIC VENTRICULAR PACEMAKER; ABNORMAL RHYTHM ECG; AFIB UNDERLYING; SIMILAR 04/21/15; Electronically Signed On 01-03-2017 21:55:27 EST by Sophie De La Cruz; Radiology Order: Chest, 2 View (pa\E\lat) Test: Chest, 2 View (pa\E\lat) REASON FOR EXAMINATION: Chest Pain;Shortness of Breath; PA and lateral chest:; ; Comparison is 07/24/2015.; ; There is chronic cardiomegaly, unchanged. There is a single lead pacemaker,; unchanged.; ; There is minor discoid atelectasis versus scarring in the left costophrenic angle; as an interval change.; ; There is a 1 cm nodular density adjacent to the cardiac apex, unchanged from PA; and lateral views dating to 04/16/2012, therefore likely benign.; ; There are no acute infiltrates or pleural effusions. The vikram and mediastinum; are unchanged.; ; There is grade 1 wedge shaped compression deformity of a mid thoracic vertebral; body, not definitely present on 07/24/2015.; ; I suspect there is compression deformity of a lower thoracic/upper lumbar; vertebra, obscured by the diaphragms. This may have increased from 07/24/2015.; ; ; Signed by; Tab Calvillo MD 01/03/2017 12:36 P; Radiology Order: Spine, Thoracic 3 Views Test: Spine, Thoracic 3 Views REASON FOR EXAMINATION: upper back pain; Thoracic spine two views both lateral projection:; ; Comparisons are the lumbar spine dated 12/11/2013 and PA and lateral chest dated; 07/24/2015.; ; There is grade 1 compression of the T8 vertebral body as a change from; 07/24/2015.; ; There is grade 4 compression of the L1 vertebral body. This was grade II; compression on 12/11/2013.; ; There is demineralization and mild kyphosis.; ; There are no lytic, blastic or destructive changes. There is multilevel mild; degenerative disc disease in the thoracic spine.; ; There is advanced degenerative disc disease in the visualized lumbar spine.; ; ; Signed by; Tab Calvillo MD 01/03/2017 12:41 P; Radiology Order: Spine, Cervical Test: Spine, Cervical REASON FOR EXAMINATION: upper back, lower c-spine pain; CERVICAL SPINE, SEVEN VIEWS:; ; HISTORY: Neck pain.; ; The examination is very limited. The cervical spine is visualized from C1 to the; C4-5 level in the lateral radiographs. The C2-3 through C4-5 intervertebral; discs are decreased in height consistent with disc degeneration. The neural; foramina are not well seen, however, there appears to be narrowing of the C3-6; neural foramina secondary to uncinate process hypertrophy. There are 3 mm of; anterior subluxation of C4 on 5.; ; IMPRESSION:; ; Limited examination demonstrating degenerative change as described above.; ; ; Signed by; Castro Marte MD 01/03/2017 01:22 P; Outcome: 01/03 14:05 Discharge ordered by Provider. dt4 14:08 Discharge Assessment: Patient awake, alert and oriented x 3. No cognitive and/or jmk functional deficits noted. Patient verbalized understanding of disposition instructions. patient administered narcotics - no. The following High Risk Discharge criteria are identified: None. Discharged to home via wheelchair, with family. Condition: good. Discharge instructions given to patient, Instructed on discharge instructions, follow up and referral plans. medication usage, Demonstrated understanding of instructions, medications, Pt was receptive of discharge instructions/ teaching. Prescriptions given X 1. No special radiology studies were completed. Property :Personal belongings accompany Pt. 14:23 Patient left the ED. justo Signatures: Dispatcher Med[employer] EDMS Jona Espinosa,RN RN Karlie Lazaro, Reg Reg gb Darrel Andrade, Reg Reg lg Homar Weldon RN RN mlb1 Valarie Bell, FISHERIES ENFORCEMENT OFFICER FISHERIES ENFORCEMENT OFFICER ct3 Lizzette Renee, RN RN ttb Nahed Frances, PA-C PA-C dt4 Tenisha Staley, FISHERIES ENFORCEMENT OFFICER FISHERIES ENFORCEMENT OFFICER rs6 Chart Complete MTDD
== END 2017-01-03 14:23 | disposition home or self-care (01) ==
LOC: M ED 09:32
DX: S22.060A Wedge compression fracture of T7-T8 vertebra, initial encounter for closed fracture (principal); S32.010A Wedge compression fracture of first lumbar vertebra, initial encounter for closed fracture; X58.XXXA Exposure to other specified factors, initial encounter; Y92.89 Other specified places as the place of occurrence of the external cause; Y93.89 Activity, other specified; Y99.8 Other external cause status; M54.9 Dorsalgia, unspecified; D69.6 Thrombocytopenia, unspecified; R07.9 Chest pain, unspecified; R06.02 Shortness of breath; I48.91 Unspecified atrial fibrillation; J44.9 Chronic obstructive pulmonary disease, unspecified; F03.90 Unspecified dementia, unspecified severity, without behavioral disturbance, psychotic disturbance, mood disturbance, and anxiety; Z95.0 Presence of cardiac pacemaker; F17.220 Nicotine dependence, chewing tobacco, uncomplicated; Z88.8 Allergy status to other drugs, medicaments and biological substances; Z88.5 Allergy status to narcotic agent; Z86.718 Personal history of other venous thrombosis and embolism; Z87.440 Personal history of urinary (tract) infections; Z79.899 Other long term (current) drug therapy; Z79.82 Long term (current) use of aspirin; Z79.2 Long term (current) use of antibiotics

== ENCOUNTER 2017-01-07 23:34 | Emergency (ER) | payer OTHER ==
[2017-01-08] MEDS ORDERED: fentaNYL 100 MCG/2 ML INJECTION (J3010) As Ordered ONE (00:09)
[2017-01-08 00:33] LABS: BASO % 0.6 % (0.0-1.0); EOS # 0.3 K/mm3 (0.0-0.50); EOS % 4.7 % (0.0-3.0); LARGE UNSTAINED CELL # 0.1 K/mm3 (0.0-0.4); LARGE UNSTAINED CELL % 1.2 % (0.0-4.0); LYMPH # 0.9 K/mm3 (1.5-4.5); LYMPH % 13.3 % (24.0-44.0); MEAN CORPUSCULAR HEMOGLOBIN 29.1 pg (27.0-33.0); MEAN CORPUSCULAR VOLUME 90.9 fl (80.0-96.0); MONO # 0.4 K/mm3 (0.0-0.8); NEUTROPHILS # 4.7 K/mm3 (1.8-7.7); NEUTROPHILS % 74.2 % (36.0-66.0); PLATELET COUNT, AUTOMATED 104 k/mm3 (150-450); RED CELL DISTRIBUTION WIDTH 12.9 % (11.5-14.5); WHITE BLOOD COUNT 6.3 K/mm3 (4.0-10.0)
[2017-01-08 00:52] LABS: ANION GAP 9 MEQ/L (8-16); BLOOD UREA NITROGEN 32 MG/DL (7-18); CALCIUM LEVEL 8.2 MG/DL (8.8-10.2); CARBON DIOXIDE LEVEL 26 MEQ/L (21-32); CHLORIDE LEVEL 103 MEQ/L (98-107); CREATININE FOR GFR 1.19 MG/DL (0.70-1.30); GLOMERULAR FILTRATION RATE > 60.0 (>35); GLUCOSE, FASTING 95 MG/DL (83-110); POTASSIUM SERUM 4.4 MEQ/L (3.5-5.1); SODIUM LEVEL 138 MEQ/L (136-145)
[2017-01-08] MEDS ORDERED: IPRATROPIUM 0.5MG/ALBUTEROL 2.5MG INH SOL UD 3ML (DUONEB)(J7620) As Ordered ONE (01:45)
[2017-01-08] MEDS ORDERED: ISOVUE-370 76% 100ML VIAL (Q9967) As Ordered ONE (02:17)
--- NOTE | 2017-01-08 03:20 | REPUSA ---
CLINICAL HISTORY: Dyspnea, exclude PE. TECHNIQUE: Multiple incremental axial, coronal and oblique images are obtained from the thoracic inle t to the upper abdomen. Intravenous contrast material was administered as per pulmonary embolism prot ocol. COMMENTS: There is excellent opacification of pulmonary arterial system without evidence for pulmonary embolism . Aorta is of normal caliber without evidence for dissection or aneurysm. There is no evidence of pleural or parenchymal mass. Small left pleural effusion. Left lower lobe con solidation more prominent in the posterior/medial aspect of the left lower lobe. There is no evidence of hilar or mediastinal lymphadenopathy. The heart and great vessels are within normal limits. Pacem susana wires are in good position. Images of the upper abdomen demonstrate no evidence of adrenal mass. The bony structures are free of lytic or blastic lesions. Multilevel degenerative changes are seen in volving the visualized thoracolumbar spine. Atelectatic changes of the right lower lobe. Scattered calcifications are seen involving the aorta and major branches compatible with atherosclero sis. Interposition of the colon to the liver and the right hemidiaphragm. IMPRESSION: No evidence for pulmonary embolism. Left lower lobe consolidation. Please evaluate to exclude pneumonia. Small left pleural effusion. Thank you for your kind referral of this patient.
[2017-01-08] MEDS ORDERED: OXYCODONE/APAP 5MG/325MG(BULK) 1 TAB TAB As Ordered ONE (04:02)
--- NOTE | 2017-01-08 04:39 | EDDOCDS ---
Physician Documentation [facility] Name: David Salcedo Age: 86 yrs Sex: Male : 1930 Arrival Date: 01/07/2017 Time: 23:34 Bed 3 Private MD: [facility] Disposition: 01/08/17 03:46 Discharged to Home/Self Care. Impression: Low back pain - due to multiple subacute compression fractures previously diagnosed, Shortness of breath - due to back pain, improved.. - Condition is Stable. - Discharge Instructions: Back, Compression Fracture, Shortness of Breath, Shortness of Breath, [id number]. - Prescriptions for Percocet 5- 325 mg Oral Tablet - take 1 tablet by ORAL route every 6 hours As needed MDD: 4 tabs; 20 tablet. - Medication Reconciliation, Local Pharmacy Hours form. - Follow up: [facility]; When: 2 - 3 days; Reason: Continuance of care. - Problem is an acute exacerbation. - Symptoms have improved. Historical: - Allergies: Codeine Sulfate; Xarelto; - Home Meds: 1. cephalexin 500 mg Oral cap 1 cap every 6 hours 2. albuterol sulfate 2.5 mg /3 mL (0.083 %) Inhl nebu prn 3. amlodipine 10 mg Oral tab 1 tab once daily 4. aspirin 325 mg Oral tab once daily 5. tamsulosin 0.4 mg oral cp24 1 cap once daily 6. Lasix 20 mg Oral tab 1 tab once daily 7. Avodart 0.5 mg oral cap 1 cap once daily 8. Visine 0.05 % ophthalmic drop as needed 9. primidone 250 mg Oral tab 0.5 tab bid 10. amlodipine 10 mg Oral tab 1 tab once daily 11. Spiriva with HandiHaler 18 mcg Inhl CpDv 1 cap once daily 12. Fish Oil 1,000 mg Oral cap twice a day 13. Probiotic oral daily 14. multivitamin Oral tab 1 tab daily 15. Ocuvite oral tab daily 16. 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 - Family history: Not pertinent. - : The pt / caregiver states he / she is not on anticoagulants. Home medication list is obtained from family members. - Exposure Risk Screening:: None identified. Vital Signs: 01/07 23:41 BP 177 / 101 RA Sitting (auto/reg); Pulse 83 MON; Resp 22 S; Temp 98.7(TE); Pulse Ox cln 98% on R/A; Weight 83.91 kg / 184.99 lbs (R); Height 5 ft. 9 in. (175.26 cm) (R); Pain 7/10; 01/08 00:00 BP 174 / 84 (auto/); tm5 00:00 Pulse 71 MON; Pulse Ox 95% ; tm5 00:18 BP 174 / 84; Pulse 78; Resp 22; Pulse Ox 95% on R/A; tm5 00:18 BP 157 / 86 (auto/); tm5 00:18 Pulse 80 MON; Pulse Ox 94% ; tm5 00:48 BP 151 / 84 (auto/); tm5 00:48 Pulse 71 MON; Resp 22 S; Pulse Ox 93% on R/A; Pain 0/10; tm5 01:18 BP 160 / 83 (auto/); tm5 01:18 Pulse 75 MON; Pulse Ox 96% ; tm5 01:48 BP 158 / 84 (auto/); tm5 01:48 Pulse 71 MON; Resp 22 S; Pulse Ox 95% on R/A; Pain 0/10; tm5 02:24 BP 153 / 77 (auto/); tm5 02:24 Pulse 82 MON; tm5 02:54 BP 165 / 84 (auto/); tm5 02:54 Pulse 75 MON; Resp 22 S; Pulse Ox 94% on R/A; tm5 04:36 BP 152 / 78; Pulse 70; Resp 18; Temp 98.6(O); Pulse Ox 95% on R/A; Pain 0/10; tm5 01/07 23:41 Body Mass Index 27.32 (83.91 kg, 175.26 cm) cln MDM: 01/07 23:45 ECG WITH READING ER PHYS+CARDIAG ordered. EDMS 01/08 00:07 Cashier Ticket Selling/Pulse Ox/q 30 min VS ordered. mm11 00:07 IV Saline Lock ordered. mm11 00:07 Rhythm Strip to chart ordered. mm11 00:07 Undress patient appropriately for examination ordered. mm11 00:07 fentaNYL (PF) 75 mcg IVP once ordered. mm11 00:08 B-Type Natiuretic Peptide Ordered. EDMS 00:08 Basic Metabolic Profile Ordered. EDMS 00:08 CBC with Diff Ordered. EDMS 00:08 Cardiac Injury Profile Ordered. EDMS 00:08 Troponin Ordered. EDMS 00:08 portable chest Ordered. EDMS 00:53 Basic Metabolic Profile Reviewed. mm11 00:53 CBC with Diff Reviewed. mm11 00:53 Cardiac Injury Profile Reviewed. mm11 00:53 Troponin Reviewed. mm11 00:59 CT Chest Angio R/O PE Ordered. EDMS 01:05 Financial registration complete. slh 01:35 B-Type Natiuretic Peptide Reviewed. mm11 01:36 Albuterol-Ipratropium 3 ml Inhalation once ordered. mm11 01:36 Call Respiratory ordered. mm11 01:40 Call Respiratory complete. tm5 01:49 [facility] Payment Agreement was scanned into [employer] and attached to record. [facility] 03:39 oxyCODONE-acetaminophen 4 pack 5 mg-325 mg 1 packets PO once; Dispense with pt, take as mm11 per instruction on package ordered. Administered Medications: 00:18 Drug: fentaNYL (PF) 75 mcg [fentanyl (PF) 50 mcg/mL injection solution (1.5 mL)] Route: tm5 IVP; Site: right forearm; 00:45 Follow up: Response: No Adverse Reaction; Pain is resolved tm5 01:49 Drug: Albuterol-Ipratropium 3 ml [ipratropium-albuterol 0.5 mg-3 mg(2.5 mg base)/3 mL [facility] nebulization soln (3 mL)] Route: Inhalation; 04:35 Drug: oxyCODONE-acetaminophen 4 pack 1 packets [oxycodone-acetaminophen 5 mg-325 mg 5 tablet (1 tabs)] {Co-Signature: mv5 (Yanira Ann RN).} {Note: dispensed to pt's daughter for pt's pain control at home.} Route: PO; 04:36 Follow up: Response: Med's dispensed home tm5 Signatures: Dispatcher [employer] EDKY Brandon Nunez DO DO mm11 Rosalinda Dia [facility] Tatianna Pulliam RN RN 5 Joey Dove jh6 Yanira Ann RN mv5 The chart was reviewed and I authenticate all verbal orders and agree with the evaluation and treatment provided.Attachments: 01:49 [facility] [place] [facility] MTDD
--- NOTE | 2017-01-08 04:39 | EDDOCDS ---
Nurse's Notes [facility] Name: David Salcedo Age: 86 yrs Sex: Male : 1930 Arrival Date: 01/07/2017 Time: 23:34 Bed 3 Private MD: [facility] Diagnosis: Low back pain-due to multiple subacute compression fractures previously diagnosed;Shortness of breath-due to back pain, improved. Presentation: 01/07 23:37 Presenting complaint: EMS states: per EMS pt here with SOB tonight, initial Resp rate tm5 was 38, "hurts to breath x 2 days" per pt, O2 NRB was placed on pt with 99% O2 sat, IV saline lock #22 to right wrist, Paced on monitoring and evaluation advisor, BG FS 83, no meds given by EMS. Adult Sepsis Screening: The patient does not have new or worsening altered mentation. Patient's respiratory rate is less than 22. Systolic blood pressure is less than or equal to 100 (1 point). Patient has a qSOFA score of 0- Negative Sepsis Screen. Suicide/Homicide risk assessment- the patient denies having any suicidal and/or homicidal ideations and does not present with any other emotional, behavioral or mental health complaints. Status: Patient is not a public services assistant or dependent. Transition of care: patient was not received from another setting of care. 23:37 Acuity: HOPE Level 3 tm5 23:37 Method Of Arrival: Ambulance tm5 Triage Assessment: 23:46 General: Appears in no apparent distress, Behavior is appropriate for age, cooperative. tm5 Pain: Denies pain. The patient is triaged at the bedside. See Assessment in Nurses Notes section of ED record. Neurological: Level of Consciousness is awake, alert, Oriented to person, place, time. Cardiovascular: Rhythm is with capture. Respiratory: Onset: The symptoms/episode began/occurred 2 days ago or more, Airway is patent Respiratory effort is even, unlabored, Respiratory pattern is regular, symmetrical, Breath sounds are clear bilaterally. Breath sounds are diminished bilaterally. GI: No deficits noted. : No deficits noted. Derm: Skin is pink, warm & dry. Historical: - Allergies: Codeine Sulfate; Xarelto; - Home Meds: 1. cephalexin 500 mg Oral cap 1 cap every 6 hours 2. albuterol sulfate 2.5 mg /3 mL (0.083 %) Inhl nebu prn 3. amlodipine 10 mg Oral tab 1 tab once daily 4. aspirin 325 mg Oral tab once daily 5. tamsulosin 0.4 mg oral cp24 1 cap once daily 6. Lasix 20 mg Oral tab 1 tab once daily 7. Avodart 0.5 mg oral cap 1 cap once daily 8. Visine 0.05 % ophthalmic drop as needed 9. primidone 250 mg Oral tab 0.5 tab bid 10. amlodipine 10 mg Oral tab 1 tab once daily 11. Spiriva with HandiHaler 18 mcg Inhl CpDv 1 cap once daily 12. Fish Oil 1,000 mg Oral cap twice a day 13. Probiotic oral daily 14. multivitamin Oral tab 1 tab daily 15. Ocuvite oral tab daily 16. 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 - Family history: Not pertinent. - : The pt / caregiver states he / she is not on anticoagulants. Home medication list is obtained from family members. - Exposure Risk Screening:: None identified. Screenin:49 Screening information is obtained from the patient. Fall risk: At risk due to prior tm5 history of falls. Assistance ADL's: requires no assistance with activities of daily living. Abuse/DV Screen: The patient / caregiver reports he/she is: not in a situation that causes fear, pain or injury. Nutritional screening: No deficits noted. Advance Directives: Currently, there is a health care proxy, Daughter Komal. There is an active DNR order but there is no copy available at this time. home support is adequate. Assessment: 23:49 General: see triage assessment . Cardiovascular: Rhythm is with capture. tm5 01/08 04:36 Reassessment: Patient appears in no apparent distress at this time. Patient states tm5 feeling better. Patient states symptoms have improved. Vital Signs: 01/07 23:41 BP 177 / 101 RA Sitting (auto/reg); Pulse 83 MON; Resp 22 S; Temp 98.7(TE); Pulse Ox cln 98% on R/A; Weight 83.91 kg (R); Height 5 ft. 9 in. (175.26 cm) (R); Pain 7/10; 01/08 00:00 BP 174 / 84 (auto/); tm5 00:00 Pulse 71 MON; Pulse Ox 95% ; tm5 00:18 BP 174 / 84; Pulse 78; Resp 22; Pulse Ox 95% on R/A; tm5 00:18 BP 157 / 86 (auto/); tm5 00:18 Pulse 80 MON; Pulse Ox 94% ; tm5 00:48 BP 151 / 84 (auto/); tm5 00:48 Pulse 71 MON; Resp 22 S; Pulse Ox 93% on R/A; Pain 0/10; tm5 01:18 BP 160 / 83 (auto/); tm5 01:18 Pulse 75 MON; Pulse Ox 96% ; tm5 01:48 BP 158 / 84 (auto/); tm5 01:48 Pulse 71 MON; Resp 22 S; Pulse Ox 95% on R/A; Pain 0/10; tm5 02:24 BP 153 / 77 (auto/); tm5 02:24 Pulse 82 MON; tm5 02:54 BP 165 / 84 (auto/); tm5 02:54 Pulse 75 MON; Resp 22 S; Pulse Ox 94% on R/A; tm5 04:36 BP 152 / 78; Pulse 70; Resp 18; Temp 98.6(O); Pulse Ox 95% on R/A; Pain 0/10; tm5 02 23:41 Body Mass Index 27.32 (83.91 kg, 175.26 cm) cln Vitals: 01/07 23:46 Log In Time N/A - ambulance arrival. tm5 ED Course: 23:35 Patient visited by Meghan Acosta PCA. wallace 23:35 Patient moved to Waiting wallace 23:36 [facility] is Private Physician. wallace 23:36 Patient moved to 3 wallace 23:37 Brandon Nunez DO is Attending Physician. mm11 23:37 Patient visited by Brandon Nunez DO. mm11 23:37 Patient visited by Tatianna Pulliam RN. tm5 23:41 Triage Initiated tm5 23:42 Patient visited by Vicki Jacobson PCA. cln 23:42 Pt greeted and oriented to ED. Patient advised of names of staff involved in care, cln location of call granda, wait times and NPO status. Accompanied by Family Member, Patient has correct armband on for positive identification. Placed in gown. Bed in low position. Call light in reach. Side rails up X 1. 23:46 Family accompanied patient. tm5 23:49 Awaiting ED physician evaluation. tm5 23:49 The patient / caregiver is instructed regarding the plan of care and ED course. Cardiac tm5 monitor on. Pulse ox on. NIBP on. Warm blanket given. Pillow given. 23:49 Maintain field IV. Dressing intact. Good blood return noted. Site clean & dry. Gauge & tm5 site: #22 left lower forearm . EKG done. (by ED staff). Reviewed by Brandon Nunez DO. 01/08 00:06 Patient visited by Brandon Nunez DO. mm11 00:17 Patient visited by Tatianna Pulliam RN. tm5 00:18 Troponin Sent. tm5 00:18 Cardiac Injury Profile Sent. tm5 00:18 CBC with Diff Sent. tm5 00:18 Basic Metabolic Profile Sent. tm5 00:18 B-Type Natiuretic Peptide Sent. tm5 00:18 Labs drawn. (by ED staff). Sent per order to lab. tm5 00:58 Patient visited by Brandon Nunez DO. mm11 01:14 Patient visited by Tatianna Pulliam,GABBY. tm5 01:14 Inserted saline lock: 18 gauge in right forearm The patient tolerated the procedure tm5 well. 01:48 Patient name changed from David\\S\\\\S\\Denisse\\S\\ to David\\S\\ \\S\\Denisse. EDMS 01:49 [place] [place] was scanned into ([employer] and attached to record. [facility] 02:20 Patient visited by Brandon Nunez DO. mm11 02:56 Patient visited by Tatianna Pulliam,GABBY. tm5 03:33 CT Chest Angio R/O PE Returned. EDMS 03:39 Patient visited by Brandon Nunez DO. mm11 03:45 [facility] is Referral Physician. mm11 04:36 Discontinued lock intact, bleeding controlled, pressure dressing applied, No tm5 redness/swelling at site. 04:36 No procedures done that require assistance. tm5 Administered Medications: 00:18 Drug: fentaNYL (PF) 75 mcg [fentanyl (PF) 50 mcg/mL injection solution (1.5 mL)] Route: tm5 IVP; Site: right forearm; 00:45 Follow up: Response: No Adverse Reaction; Pain is resolved tm5 01:49 Drug: Albuterol-Ipratropium 3 ml [ipratropium-albuterol 0.5 mg-3 mg(2.5 mg base)/3 mL jh6 nebulization soln (3 mL)] Route: Inhalation; 04:35 Drug: oxyCODONE-acetaminophen 4 pack 1 packets [oxycodone-acetaminophen 5 mg-325 mg tm5 tablet (1 tabs)] {Co-Signature: mv5 (Yanira Ann RN).} {Note: dispensed to pt's daughter for pt's pain control at home.} Route: PO; 04:36 Follow up: Response: Med's dispensed home tm5 RT: 01:49 Initial Med Neb Given as ordered Patient was instructed and evaluated on procedure jh6 Patient tolerated procedure well without adverse effect. Respiratory: Airway is patent Respiratory effort is even, unlabored, Respiratory pattern is regular symmetrical, Breath sounds are diminished in right upper lobe, left upper lobe, right middle lobe, left lower lobe and right lower lobe Breath sounds with wheezes in right upper lobe, left upper lobe, right middle lobe, left lower lobe and right lower lobe at expiration. 02:01 Respiratory: Airway is patent Respiratory effort is even, unlabored, Respiratory jh6 pattern is regular symmetrical, Breath sounds are coarse in right upper lobe, left upper lobe, right middle lobe, left lower lobe and right lower lobe. Order Results: Lab Order: B-Type Natiuretic Peptide; SPEC'M 01/08/17 00:17 Test: BRAIN NATRIURETIC PEPTIDE; Value: 227; Range: <100; Abnormal: Above high normal; Units: PG/ML; Status: F Lab Order: Basic Metabolic Profile; SPEC'M 01/08/17 00:17 Test: GLUCOSE, FASTING; Value: 95; Range: 83-110; Units: MG/DL; Status: F Test: BLOOD UREA NITROGEN; Value: 32; Range: 7-18; Abnormal: Above high normal; Units: MG/DL; Status: F Test: CREATININE FOR GFR; Value: 1.19; Range: 0.70-1.30; Units: MG/DL; Status: F Test: GLOMERULAR FILTRATION RATE; Value: > 60.0; Range: >35; Status: F Test: SODIUM LEVEL; Value: 138; Range: 136-145; Units: MEQ/L; Status: F Test: POTASSIUM SERUM; Value: 4.4; Range: 3.5-5.1; Units: MEQ/L; Status: F Test: CHLORIDE LEVEL; Value: 103; Range: 98-107; Units: MEQ/L; Status: F Test: CARBON DIOXIDE LEVEL; Value: 26; Range: 21-32; Units: MEQ/L; Status: F Test: ANION GAP; Value: 9; Range: 8-16; Units: MEQ/L; Status: F Test: CALCIUM LEVEL; Value: 8.2; Range: 8.8-10.2; Abnormal: Below low normal; Units: MG/DL; Status: F Test Note: ; Units are mL/min/1.73 m2 Chronic Kidney Disease Staging per NKF: Stage I & II GFR >=60 Normal to Mildly Decreased Stage III GFR 30-59 Moderately Decreased Stage IV GFR 15-29 Severely Decreased Stage V GFR <15 Very Little GFR Left ESRD GFR <15 on SHANK BONER Lab Order: CBC with Diff; SPEC'M 01/08/17 00:17 Test: WHITE BLOOD COUNT; Value: 6.3; Range: 4.0-10.0; Units: K/mm3; Status: F Test: RED BLOOD COUNT; Value: 4.80; Range: 4.30-6.10; Units: M/mm3; Status: F Test: HEMOGLOBIN; Value: 14.0; Range: 14.0-18.0; Units: g/dl; Status: F Test: HEMATOCRIT; Value: 43.6; Range: 42.0-52.0; Units: %; Status: F Test: MEAN CORPUSCULAR VOLUME; Value: 90.9; Range: 80.0-96.0; Units: fl; Status: F Test: MEAN CORPUSCULAR HEMOGLOBIN; Value: 29.1; Range: 27.0-33.0; Units: pg; Status: F Test: MEAN CORPUSCULAR HGB CONC; Value: 32.0; Range: 32.0-36.5; Units: g/dl; Status: F Test: RED CELL DISTRIBUTION WIDTH; Value: 12.9; Range: 11.5-14.5; Units: %; Status: F Test: PLATELET COUNT, AUTOMATED; Value: 104; Range: 150-450; Abnormal: Below low normal; Units: k/mm3; Status: F Test: NEUTROPHILS %; Value: 74.2; Range: 36.0-66.0; Abnormal: Above high normal; Units: %; Status: F Test: LYMPH %; Value: 13.3; Range: 24.0-44.0; Abnormal: Below low normal; Units: %; Status: F Test: MONO %; Value: 6.0; Range: 0.0-5.0; Abnormal: Above high normal; Units: %; Status: F Test: EOS %; Value: 4.7; Range: 0.0-3.0; Abnormal: Above high normal; Units: %; Status: F Test: BASO %; Value: 0.6; Range: 0.0-1.0; Units: %; Status: F Test: LARGE UNSTAINED CELL %; Value: 1.2; Range: 0.0-4.0; Units: %; Status: F Test: NEUTROPHILS #; Value: 4.7; Range: 1.8-7.7; Units: K/mm3; Status: F Test: LYMPH #; Value: 0.9; Range: 1.5-4.5; Abnormal: Below low normal; Units: K/mm3; Status: F Test: MONO #; Value: 0.4; Range: 0.0-0.8; Units: K/mm3; Status: F Test: EOS #; Value: 0.3; Range: 0.0-0.50; Units: K/mm3; Status: F Test: BASO #; Value: 0.0; Range: 0.0-0.2; Units: K/mm3; Status: F Test: LARGE UNSTAINED CELL #; Value: 0.1; Range: 0.0-0.4; Units: K/mm3; Status: F Lab Order: Cardiac Injury Profile; SPEC'M 01/08/17 00:17 Test: CPK CREATINE PHOSPHOKINASE; Value: 59; Range: 39-308; Units: U/L; Status: F Test: CK-MB VALUE MASS; Value: 2.0; Range: 0.0-3.6; Units: NG/ML; Status: F Test: MB/CK RELATIVE INDEX; Value: 3.38; Range: < OR =4; Status: F Test Note: ; DIAGNOSIS CRITERIA MMB ng/ml Relative Index (RI) NON-AMI < or = 5 N/A SINGLETON ZONE > 5 < or = 4 AMI > 5 > 4 Lab Order: Troponin; SPEC'M 01/08/17 00:17 Test: TROPONIN I; Value: < 0.02; Range: < 0.10; Units: NG/ML; Status: F Test Note: ; Troponin I Reference Interval for [facility] LOCI: 99th Percentile= 0.00-0.045 ng/ml Risk Stratification: <= 0.10 ng/ml Decreased Risk for Adverse Clinical Events. 0.10-1.50 ng/ml Increased Risk for Adverse Clinical Events. Evaluation of additional criterion and/or repeat testing in 2-6 hours is suggested to rule out myocardial damage. >= 1.50 ng/ml Indicative of Myocardial Injury. Radiology Order: CT Chest Angio R/O PE Test: CT Chest Angio R/O PE REASON FOR EXAMINATION: Shortness of Breath; ; CLINICAL HISTORY: Dyspnea, exclude PE.; TECHNIQUE: Multiple incremental axial, coronal and oblique images are obtained from the thoracic inle; t to the upper abdomen. Intravenous contrast material was administered as per pulmonary embolism prot; ocol.; COMMENTS:; There is excellent opacification of pulmonary arterial system without evidence for pulmonary embolism; . Aorta is of normal caliber without evidence for dissection or aneurysm.; There is no evidence of pleural or parenchymal mass. Small left pleural effusion. Left lower lobe con; solidation more prominent in the posterior/medial aspect of the left lower lobe. There is no evidence; of hilar or mediastinal lymphadenopathy. The heart and great vessels are within normal limits. Pacem; susana wires are in good position.; Images of the upper abdomen demonstrate no evidence of adrenal mass.; The bony structures are free of lytic or blastic lesions. Multilevel degenerative changes are seen in; volving the visualized thoracolumbar spine.; Atelectatic changes of the right lower lobe.; Scattered calcifications are seen involving the aorta and major branches compatible with atherosclero; sis.; Interposition of the colon to the liver and the right hemidiaphragm.; IMPRESSION:; No evidence for pulmonary embolism.; Left lower lobe consolidation. Please evaluate to exclude pneumonia.; Small left pleural effusion.; Thank you for your kind referral of this patient.; ; Outcome: 03:46 Discharge ordered by Provider. mm11 04:36 Discharge Assessment: Patient awake, alert and oriented x 3. No cognitive and/or tm5 functional deficits noted. Patient verbalized understanding of disposition instructions. patient administered narcotics - yes. Pt provided with safe discharge. The following High Risk Discharge criteria are identified: None. Discharged to home via wheelchair, with family. Condition: good Condition: stable Condition: improved. Discharge instructions given to patient, Instructed on discharge instructions, follow up and referral plans. medication usage, no driving heavy equipment, Demonstrated understanding of instructions, medications, Pt was receptive of discharge instructions/ teaching. Prescriptions given X 1. CT Study completed. Property :Personal belongings accompany Pt. 04:37 Patient left the ED. tm5 Signatures: Dispatcher [employer] EDMS Brandon Nunez, DO mm11 Meghan Acosta, ELECTRIC REFRIGERATOR PREPARER ELECTRIC REFRIGERATOR PREPARER Joey Dimas jh6 Rosalinda Dia Crystal, ELECTRIC REFRIGERATOR PREPARER ELECTRIC REFRIGERATOR PREPARER Tatianna Henderson RN RN tm5 Yanira Ann RN mv5 MTDD
--- NOTE | 2017-01-08 08:02 | REP ---
Clinical: Acute shortness of breath . Comparison: 01/03/2017 . Findings: The mediastinum and cardiac silhouette are stable and within normal limits for portable technique. Pacemaker in stable position. Left lower lobe/retrocardiac consolidation cannot be excluded. No effusion. No pneumothorax. Chronic stable changes noted. Skeletal structures are intact. Impression: Cannot exclude medial left lower lobe/retrocardiac infiltrate. Signed by Collin Rod MD 01/08/2017 07:53 A
--- NOTE | 2017-01-08 08:32 | ECGEPIP ---
Stationary ECG Study [facility] - ED Test Date: 2017-01-07 Pat Name: YESICA VELAZQUEZ Department: Room: - Gender: M Violin Repairer: : 1930 Requested By: NYASIA Barber Order Number: [id number] Reading MD: Sophie De La Cruz Measurements Intervals [place] Rate: 75 P: GA: 0 QRS: -82 QRSD: 180 T: 85 QT: 449 QTc: 503 Interpretive Statements ELECTRONIC VENTRICULAR PACEMAKER ABNORMAL RHYTHM ECG UNDERLYING ATRIAL FIB SIMILAR 01/03/17 Electronically Signed On 01-08-2017 8:32:05 EST by Sophie De La Cruz
--- NOTE | 2017-01-10 05:39 | EDDOCDS ---
Physician Documentation [facility] Name: Daivd Salcedo Age: 86 yrs Sex: Male : 1930 Arrival Date: 01/07/2017 Time: 23:34 Bed 3 Private MD: [facility] Disposition: 01/08/17 03:46 Discharged to Home/Self Care. Impression: Low back pain - due to multiple subacute compression fractures previously diagnosed, Shortness of breath - due to back pain, improved.. - Condition is Stable. - Discharge Instructions: Back, Compression Fracture, Shortness of Breath, Shortness of Breath, [id number]. - Prescriptions for Percocet 5- 325 mg Oral Tablet - take 1 tablet by ORAL route every 6 hours As needed MDD: 4 tabs; 20 tablet. - Medication Reconciliation, Local Pharmacy Hours form. - Follow up: [facility]; When: 2 - 3 days; Reason: Continuance of care. - Problem is an acute exacerbation. - Symptoms have improved. Historical: - Allergies: Codeine Sulfate; Xarelto; - Home Meds: 1. cephalexin 500 mg Oral cap 1 cap every 6 hours 2. albuterol sulfate 2.5 mg /3 mL (0.083 %) Inhl nebu prn 3. amlodipine 10 mg Oral tab 1 tab once daily 4. aspirin 325 mg Oral tab once daily 5. tamsulosin 0.4 mg oral cp24 1 cap once daily 6. Lasix 20 mg Oral tab 1 tab once daily 7. Avodart 0.5 mg oral cap 1 cap once daily 8. Visine 0.05 % ophthalmic drop as needed 9. primidone 250 mg Oral tab 0.5 tab bid 10. amlodipine 10 mg Oral tab 1 tab once daily 11. Spiriva with HandiHaler 18 mcg Inhl CpDv 1 cap once daily 12. Fish Oil 1,000 mg Oral cap twice a day 13. Probiotic oral daily 14. multivitamin Oral tab 1 tab daily 15. Ocuvite oral tab daily 16. 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 - Family history: Not pertinent. - : The pt / caregiver states he / she is not on anticoagulants. Home medication list is obtained from family members. - Exposure Risk Screening:: None identified. Vital Signs: 01/07 23:41 BP 177 / 101 RA Sitting (auto/reg); Pulse 83 MON; Resp 22 S; Temp 98.7(TE); Pulse Ox cln 98% on R/A; Weight 83.91 kg / 184.99 lbs (R); Height 5 ft. 9 in. (175.26 cm) (R); Pain 7/10; 01/08 00:00 BP 174 / 84 (auto/); tm5 00:00 Pulse 71 MON; Pulse Ox 95% ; tm5 00:18 BP 174 / 84; Pulse 78; Resp 22; Pulse Ox 95% on R/A; tm5 00:18 BP 157 / 86 (auto/); tm5 00:18 Pulse 80 MON; Pulse Ox 94% ; tm5 00:48 BP 151 / 84 (auto/); tm5 00:48 Pulse 71 MON; Resp 22 S; Pulse Ox 93% on R/A; Pain 0/10; tm5 01:18 BP 160 / 83 (auto/); tm5 01:18 Pulse 75 MON; Pulse Ox 96% ; tm5 01:48 BP 158 / 84 (auto/); tm5 01:48 Pulse 71 MON; Resp 22 S; Pulse Ox 95% on R/A; Pain 0/10; tm5 02:24 BP 153 / 77 (auto/); tm5 02:24 Pulse 82 MON; tm5 02:54 BP 165 / 84 (auto/); tm5 02:54 Pulse 75 MON; Resp 22 S; Pulse Ox 94% on R/A; tm5 04:36 BP 152 / 78; Pulse 70; Resp 18; Temp 98.6(O); Pulse Ox 95% on R/A; Pain 0/10; tm5 01/07 23:41 Body Mass Index 27.32 (83.91 kg, 175.26 cm) cln MDM: 01/07 23:45 ECG WITH READING ER PHYS+CARDIAG ordered. EDMS 01/08 00:07 Bedspread Cutter Hand/Pulse Ox/q 30 min VS ordered. mm11 00:07 IV Saline Lock ordered. mm11 00:07 Rhythm Strip to chart ordered. mm11 00:07 Undress patient appropriately for examination ordered. mm11 00:07 fentaNYL (PF) 75 mcg IVP once ordered. mm11 00:08 B-Type Natiuretic Peptide Ordered. EDMS 00:08 Basic Metabolic Profile Ordered. EDMS 00:08 CBC with Diff Ordered. EDMS 00:08 Cardiac Injury Profile Ordered. EDMS 00:08 Troponin Ordered. EDMS 00:08 portable chest Ordered. EDMS 00:53 Basic Metabolic Profile Reviewed. mm11 00:53 CBC with Diff Reviewed. mm11 00:53 Cardiac Injury Profile Reviewed. mm11 00:53 Troponin Reviewed. mm11 00:59 CT Chest Angio R/O PE Ordered. EDMS 01:05 Financial registration complete. slh 01:35 B-Type Natiuretic Peptide Reviewed. mm11 01:36 Albuterol-Ipratropium 3 ml Inhalation once ordered. mm11 01:36 Call Respiratory ordered. mm11 01:40 Call Respiratory complete. tm5 01:49 [facility] [place] Agreement was scanned into [employer] and attached to record. [facility] 03:39 oxyCODONE-acetaminophen 4 pack 5 mg-325 mg 1 packets PO once; Dispense with pt, take as mm11 per instruction on package ordered. 11:00 T-Sheet-- Draft Copy was scanned into [employer] and attached to record. gb 11:00 ECG/EKG was scanned into [employer] and attached to record. 11:00 PCR was scanned into [employer] and attached to record. 11: Rhythm Strip was scanned into [employer] and attached to record. 01/09 15:23 PCR was scanned into [employer] and attached to record. gb Administered Medications: 01/08 00:18 Drug: fentaNYL (PF) 75 mcg [fentanyl (PF) 50 mcg/mL injection solution (1.5 mL)] Route: tm5 IVP; Site: right forearm; 00:45 Follow up: Response: No Adverse Reaction; Pain is resolved tm5 01:49 Drug: Albuterol-Ipratropium 3 ml [ipratropium-albuterol 0.5 mg-3 mg(2.5 mg base)/3 mL jh6 nebulization soln (3 mL)] Route: Inhalation; 04:35 Drug: oxyCODONE-acetaminophen 4 pack 1 packets [oxycodone-acetaminophen 5 mg-325 mg tm5 tablet (1 tabs)] {Co-Signature: mv5 (Yanira Ann RN).} {Note: dispensed to pt's daughter for pt's pain control at home.} Route: PO; 04:36 Follow up: Response: Med's dispensed home tm5 Signatures: Dispatcher [employer] EDKarlie Vides, Reg Reg gb Brandon Nunez, DO mm11 Rosalinda Dia [facility] Tatianna Pulliam RN RN tm5 Joey Dove 6 Yanira Ann RN mv5 The chart was reviewed and I authenticate all verbal orders and agree with the evaluation and treatment provided.Attachments: 01:49 [facility] Payment Agreement [facility] 11:00 T-Sheet-- Draft Copy 11:00 ECG/EKG Chart Complete MTDD
--- NOTE | 2017-01-10 05:39 | EDDOCDS ---
Nurse's Notes [facility] Name: David Velazquez Age: 86 yrs Sex: Male : 1930 Arrival Date: 01/07/2017 Time: 23:34 Bed 3 Private MD: [facility] Diagnosis: Low back pain-due to multiple subacute compression fractures previously diagnosed;Shortness of breath-due to back pain, improved. Presentation: 01/07 23:37 Presenting complaint: EMS states: per EMS pt here with SOB tonight, initial Resp rate tm5 was 38, "hurts to breath x 2 days" per pt, O2 NRB was placed on pt with 99% O2 sat, IV saline lock #22 to right wrist, Paced on air sampling and monitoring, BG FS 83, no meds given by EMS. Adult Sepsis Screening: The patient does not have new or worsening altered mentation. Patient's respiratory rate is less than 22. Systolic blood pressure is less than or equal to 100 (1 point). Patient has a qSOFA score of 0- Negative Sepsis Screen. Suicide/Homicide risk assessment- the patient denies having any suicidal and/or homicidal ideations and does not present with any other emotional, behavioral or mental health complaints. Status: Patient is not a sales and service technician or dependent. Transition of care: patient was not received from another setting of care. 23:37 Acuity: HOPE Level 3 tm5 23:37 Method Of Arrival: Ambulance tm5 Triage Assessment: 23:46 General: Appears in no apparent distress, Behavior is appropriate for age, cooperative. tm5 Pain: Denies pain. The patient is triaged at the bedside. See Assessment in Nurses Notes section of ED record. Neurological: Level of Consciousness is awake, alert, Oriented to person, place, time. Cardiovascular: Rhythm is with capture. Respiratory: Onset: The symptoms/episode began/occurred 2 days ago or more, Airway is patent Respiratory effort is even, unlabored, Respiratory pattern is regular, symmetrical, Breath sounds are clear bilaterally. Breath sounds are diminished bilaterally. GI: No deficits noted. : No deficits noted. Derm: Skin is pink, warm & dry. Historical: - Allergies: Codeine Sulfate; Xarelto; - Home Meds: 1. cephalexin 500 mg Oral cap 1 cap every 6 hours 2. albuterol sulfate 2.5 mg /3 mL (0.083 %) Inhl nebu prn 3. amlodipine 10 mg Oral tab 1 tab once daily 4. aspirin 325 mg Oral tab once daily 5. tamsulosin 0.4 mg oral cp24 1 cap once daily 6. Lasix 20 mg Oral tab 1 tab once daily 7. Avodart 0.5 mg oral cap 1 cap once daily 8. Visine 0.05 % ophthalmic drop as needed 9. primidone 250 mg Oral tab 0.5 tab bid 10. amlodipine 10 mg Oral tab 1 tab once daily 11. Spiriva with HandiHaler 18 mcg Inhl CpDv 1 cap once daily 12. Fish Oil 1,000 mg Oral cap twice a day 13. Probiotic oral daily 14. multivitamin Oral tab 1 tab daily 15. Ocuvite oral tab daily 16. 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 - Family history: Not pertinent. - : The pt / caregiver states he / she is not on anticoagulants. Home medication list is obtained from family members. - Exposure Risk Screening:: None identified. Screenin:49 Screening information is obtained from the patient. Fall risk: At risk due to prior tm5 history of falls. Assistance ADL's: requires no assistance with activities of daily living. Abuse/DV Screen: The patient / caregiver reports he/she is: not in a situation that causes fear, pain or injury. Nutritional screening: No deficits noted. Advance Directives: Currently, there is a health care proxy, Daughter Komal. There is an active DNR order but there is no copy available at this time. home support is adequate. Assessment: 23:49 General: see triage assessment . Cardiovascular: Rhythm is with capture. tm5 01/08 04:36 Reassessment: Patient appears in no apparent distress at this time. Patient states tm5 feeling better. Patient states symptoms have improved. Vital Signs: 01/07 23:41 BP 177 / 101 RA Sitting (auto/reg); Pulse 83 MON; Resp 22 S; Temp 98.7(TE); Pulse Ox cln 98% on R/A; Weight 83.91 kg (R); Height 5 ft. 9 in. (175.26 cm) (R); Pain 7/10; 01/08 00:00 BP 174 / 84 (auto/); tm5 00:00 Pulse 71 MON; Pulse Ox 95% ; tm5 00:18 BP 174 / 84; Pulse 78; Resp 22; Pulse Ox 95% on R/A; tm5 00:18 BP 157 / 86 (auto/); tm5 00:18 Pulse 80 MON; Pulse Ox 94% ; tm5 00:48 BP 151 / 84 (auto/); tm5 00:48 Pulse 71 MON; Resp 22 S; Pulse Ox 93% on R/A; Pain 0/10; tm5 01:18 BP 160 / 83 (auto/); tm5 01:18 Pulse 75 MON; Pulse Ox 96% ; tm5 01:48 BP 158 / 84 (auto/); tm5 01:48 Pulse 71 MON; Resp 22 S; Pulse Ox 95% on R/A; Pain 0/10; tm5 02:24 BP 153 / 77 (auto/); tm5 02:24 Pulse 82 MON; tm5 02:54 BP 165 / 84 (auto/); tm5 02:54 Pulse 75 MON; Resp 22 S; Pulse Ox 94% on R/A; tm5 04:36 BP 152 / 78; Pulse 70; Resp 18; Temp 98.6(O); Pulse Ox 95% on R/A; Pain 0/10; tm5 02 23:41 Body Mass Index 27.32 (83.91 kg, 175.26 cm) cln Vitals: 01/07 23:46 Log In Time N/A - ambulance arrival. tm5 ED Course: 23:35 Patient visited by Meghan Acosta PCA. wallace 23:35 Patient moved to Waiting wallace 23:36 [facility] is Private Physician. wallace 23:36 Patient moved to 3 wallace 23:37 Nyasia Nunez DO is Attending Physician. mm11 23:37 Patient visited by Nyasia Nunez DO. mm11 23:37 Patient visited by Tatianna Pulliam RN. tm5 23:41 Triage Initiated tm5 23:42 Patient visited by Vicki Jacobson PCA. cln 23:42 Pt greeted and oriented to ED. Patient advised of names of staff involved in care, cln location of call granda, wait times and NPO status. Accompanied by Family Member, Patient has correct armband on for positive identification. Placed in gown. Bed in low position. Call light in reach. Side rails up X 1. 23:46 Family accompanied patient. tm5 23:49 Awaiting ED physician evaluation. tm5 23:49 The patient / caregiver is instructed regarding the plan of care and ED course. Cardiac tm5 monitor on. Pulse ox on. NIBP on. Warm blanket given. Pillow given. 23:49 Maintain field IV. Dressing intact. Good blood return noted. Site clean & dry. Gauge & tm5 site: #22 left lower forearm . EKG done. (by ED staff). Reviewed by Nyasia Nunez DO. 01/08 00:06 Patient visited by Nyasia Nunez DO. mm11 00:17 Patient visited by Tatianna Pulliam,GABBY. tm5 00:18 Troponin Sent. tm5 00:18 Cardiac Injury Profile Sent. tm5 00:18 CBC with Diff Sent. tm5 00:18 Basic Metabolic Profile Sent. tm5 00:18 B-Type Natiuretic Peptide Sent. tm5 00:18 Labs drawn. (by ED staff). Sent per order to lab. tm5 00:58 Patient visited by Nyasia Nunez DO. mm11 01:14 Patient visited by Tatianna Pulliam,GABBY. tm5 01:14 Inserted saline lock: 18 gauge in right forearm The patient tolerated the procedure tm5 well. 01:48 Patient name changed from David\\S\\\\S\\Denisse\\S\\ to David\\S\\ \\S\\Denisse. EDMS 01:49 [facility] Payment Agreement was scanned into [employer] and attached to record. [facility] 02:20 Patient visited by Nyasia Nunez DO. mm11 02:56 Patient visited by Tatianna Pulliam,GABBY. tm5 03:33 CT Chest Angio R/O PE Returned. EDMS 03:39 Patient visited by Nyasia Nunez DO. mm11 03:45 [facility] is Referral Physician. mm11 04:36 Discontinued lock intact, bleeding controlled, pressure dressing applied, No tm5 redness/swelling at site. 04:36 No procedures done that require assistance. tm5 08:10 portable chest Returned. EDMS 08:34 EKG-ADULT Returned. EDMS 11:00 T-Sheet-- Draft Copy was scanned into [employer] and attached to record. gb 11:00 ECG/EKG was scanned into [employer] and attached to record. gb 11:00 PCR was scanned into [employer] and attached to record. gb 11:01 Rhythm Strip was scanned into [employer] and attached to record. gb 01/09 15:23 PCR was scanned into [employer] and attached to record. gb Administered Medications: 01/08 00:18 Drug: fentaNYL (PF) 75 mcg [fentanyl (PF) 50 mcg/mL injection solution (1.5 mL)] Route: tm5 IVP; Site: right forearm; 00:45 Follow up: Response: No Adverse Reaction; Pain is resolved tm5 01:49 Drug: Albuterol-Ipratropium 3 ml [ipratropium-albuterol 0.5 mg-3 mg(2.5 mg base)/3 mL jh6 nebulization soln (3 mL)] Route: Inhalation; 04:35 Drug: oxyCODONE-acetaminophen 4 pack 1 packets [oxycodone-acetaminophen 5 mg-325 mg tm5 tablet (1 tabs)] {Co-Signature: mv5 (Yanira Ann RN).} {Note: dispensed to pt's daughter for pt's pain control at home.} Route: PO; 04:36 Follow up: Response: Med's dispensed home tm5 Attachments: 11:01 Rhythm Strip gb RT: 01/08 01:49 Initial Med Neb Given as ordered Patient was instructed and evaluated on procedure jh6 Patient tolerated procedure well without adverse effect. Respiratory: Airway is patent Respiratory effort is even, unlabored, Respiratory pattern is regular symmetrical, Breath sounds are diminished in right upper lobe, left upper lobe, right middle lobe, left lower lobe and right lower lobe Breath sounds with wheezes in right upper lobe, left upper lobe, right middle lobe, left lower lobe and right lower lobe at expiration. 02:01 Respiratory: Airway is patent Respiratory effort is even, unlabored, Respiratory 6 pattern is regular symmetrical, Breath sounds are coarse in right upper lobe, left upper lobe, right middle lobe, left lower lobe and right lower lobe. Order Results: Lab Order: B-Type Natiuretic Peptide; SPEC'M 01/08/17 00:17 Test: BRAIN NATRIURETIC PEPTIDE; Value: 227; Range: <100; Abnormal: Above high normal; Units: PG/ML; Status: F Lab Order: Basic Metabolic Profile; SPEC01/08/17 00:17 Test: GLUCOSE, FASTING; Value: 95; Range: 83-110; Units: MG/DL; Status: F Test: BLOOD UREA NITROGEN; Value: 32; Range: 7-18; Abnormal: Above high normal; Units: MG/DL; Status: F Test: CREATININE FOR GFR; Value: 1.19; Range: 0.70-1.30; Units: MG/DL; Status: F Test: GLOMERULAR FILTRATION RATE; Value: > 60.0; Range: >35; Status: F Test: SODIUM LEVEL; Value: 138; Range: 136-145; Units: MEQ/L; Status: F Test: POTASSIUM SERUM; Value: 4.4; Range: 3.5-5.1; Units: MEQ/L; Status: F Test: CHLORIDE LEVEL; Value: 103; Range: 98-107; Units: MEQ/L; Status: F Test: CARBON DIOXIDE LEVEL; Value: 26; Range: 21-32; Units: MEQ/L; Status: F Test: ANION GAP; Value: 9; Range: 8-16; Units: MEQ/L; Status: F Test: CALCIUM LEVEL; Value: 8.2; Range: 8.8-10.2; Abnormal: Below low normal; Units: MG/DL; Status: F Test Note: ; Units are mL/min/1.73 m2 Chronic Kidney Disease Staging per NKF: Stage I & II GFR >=60 Normal to Mildly Decreased Stage III GFR 30-59 Moderately Decreased Stage IV GFR 15-29 Severely Decreased Stage V GFR <15 Very Little GFR Left ESRD GFR <15 on SECONDARY SPANISH TEACHER Lab Order: CBC with Diff; SPEC01/08/17 00:17 Test: WHITE BLOOD COUNT; Value: 6.3; Range: 4.0-10.0; Units: K/mm3; Status: F Test: RED BLOOD COUNT; Value: 4.80; Range: 4.30-6.10; Units: M/mm3; Status: F Test: HEMOGLOBIN; Value: 14.0; Range: 14.0-18.0; Units: g/dl; Status: F Test: HEMATOCRIT; Value: 43.6; Range: 42.0-52.0; Units: %; Status: F Test: MEAN CORPUSCULAR VOLUME; Value: 90.9; Range: 80.0-96.0; Units: fl; Status: F Test: MEAN CORPUSCULAR HEMOGLOBIN; Value: 29.1; Range: 27.0-33.0; Units: pg; Status: F Test: MEAN CORPUSCULAR HGB CONC; Value: 32.0; Range: 32.0-36.5; Units: g/dl; Status: F Test: RED CELL DISTRIBUTION WIDTH; Value: 12.9; Range: 11.5-14.5; Units: %; Status: F Test: PLATELET COUNT, AUTOMATED; Value: 104; Range: 150-450; Abnormal: Below low normal; Units: k/mm3; Status: F Test: NEUTROPHILS %; Value: 74.2; Range: 36.0-66.0; Abnormal: Above high normal; Units: %; Status: F Test: LYMPH %; Value: 13.3; Range: 24.0-44.0; Abnormal: Below low normal; Units: %; Status: F Test: MONO %; Value: 6.0; Range: 0.0-5.0; Abnormal: Above high normal; Units: %; Status: F Test: EOS %; Value: 4.7; Range: 0.0-3.0; Abnormal: Above high normal; Units: %; Status: F Test: BASO %; Value: 0.6; Range: 0.0-1.0; Units: %; Status: F Test: LARGE UNSTAINED CELL %; Value: 1.2; Range: 0.0-4.0; Units: %; Status: F Test: NEUTROPHILS #; Value: 4.7; Range: 1.8-7.7; Units: K/mm3; Status: F Test: LYMPH #; Value: 0.9; Range: 1.5-4.5; Abnormal: Below low normal; Units: K/mm3; Status: F Test: MONO #; Value: 0.4; Range: 0.0-0.8; Units: K/mm3; Status: F Test: EOS #; Value: 0.3; Range: 0.0-0.50; Units: K/mm3; Status: F Test: BASO #; Value: 0.0; Range: 0.0-0.2; Units: K/mm3; Status: F Test: LARGE UNSTAINED CELL #; Value: 0.1; Range: 0.0-0.4; Units: K/mm3; Status: F Lab Order: Cardiac Injury Profile; SPEC'M 01/08/17 00:17 Test: CPK CREATINE PHOSPHOKINASE; Value: 59; Range: 39-308; Units: U/L; Status: F Test: CK-MB VALUE MASS; Value: 2.0; Range: 0.0-3.6; Units: NG/ML; Status: F Test: MB/CK RELATIVE INDEX; Value: 3.38; Range: < OR =4; Status: F Test Note: ; DIAGNOSIS CRITERIA MMB ng/ml Relative Index (RI) NON-AMI < or = 5 N/A SINGLETON ZONE > 5 < or = 4 AMI > 5 > 4 Lab Order: Troponin; SPEC'M 01/08/17 00:17 Test: TROPONIN I; Value: < 0.02; Range: < 0.10; Units: NG/ML; Status: F Test Note: ; Troponin I Reference Interval for [employer] LOCI: 99th Percentile= 0.00-0.045 ng/ml Risk Stratification: <= 0.10 ng/ml Decreased Risk for Adverse Clinical Events. 0.10-1.50 ng/ml Increased Risk for Adverse Clinical Events. Evaluation of additional criterion and/or repeat testing in 2-6 hours is suggested to rule out myocardial damage. >= 1.50 ng/ml Indicative of Myocardial Injury. Radiology Order: EKG-ADULT Test: EKG-ADULT REASON FOR EXAMINATION: Shortness of Breath; Stationary ECG Study; [facility] - ED; ; Test Date: 2017-01-07; Pat Name: DAVID VELAZQUEZ Department:; Room: -; Gender: M Environmental [employer] Sanitarian: ct; : 1930 Requested By: NYASIA Barber; Order Number: [id number] Reading MD: Sophie De La Cruz; Measurements; Intervals [place]; Rate: 75 P:; ND: 0 QRS: -82; QRSD: 180 T: 85; QT: 449; QTc: 503; Interpretive Statements; ELECTRONIC VENTRICULAR PACEMAKER; ABNORMAL RHYTHM ECG; UNDERLYING ATRIAL FIB; SIMILAR 01/03/17; Electronically Signed On 01-08-2017 8:32:05 EST by Sophie De La Cruz; Radiology Order: portable chest Test: portable chest REASON FOR EXAMINATION: Shortness of Breath; Clinical: Acute shortness of breath .; ; Comparison: 01/03/2017 .; ; Findings:; The mediastinum and cardiac silhouette are stable and within normal limits for; portable technique. Pacemaker in stable position. Left lower lobe/retrocardiac; consolidation cannot be excluded. No effusion. No pneumothorax. Chronic stable; changes noted. Skeletal structures are intact.; ; Impression:; Cannot exclude medial left lower lobe/retrocardiac infiltrate.; ; ; Signed by; Collin Rod MD 01/08/2017 07:53 A; Radiology Order: CT Chest Angio R/O PE Test: CT Chest Angio R/O PE REASON FOR EXAMINATION: Shortness of Breath; ; CLINICAL HISTORY: Dyspnea, exclude PE.; TECHNIQUE: Multiple incremental axial, coronal and oblique images are obtained from the thoracic inle; t to the upper abdomen. Intravenous contrast material was administered as per pulmonary embolism prot; ocol.; COMMENTS:; There is excellent opacification of pulmonary arterial system without evidence for pulmonary embolism; . Aorta is of normal caliber without evidence for dissection or aneurysm.; There is no evidence of pleural or parenchymal mass. Small left pleural effusion. Left lower lobe con; solidation more prominent in the posterior/medial aspect of the left lower lobe. There is no evidence; of hilar or mediastinal lymphadenopathy. The heart and great vessels are within normal limits. Pacem; susana wires are in good position.; Images of the upper abdomen demonstrate no evidence of adrenal mass.; The bony structures are free of lytic or blastic lesions. Multilevel degenerative changes are seen in; volving the visualized thoracolumbar spine.; Atelectatic changes of the right lower lobe.; Scattered calcifications are seen involving the aorta and major branches compatible with atherosclero; sis.; Interposition of the colon to the liver and the right hemidiaphragm.; IMPRESSION:; No evidence for pulmonary embolism.; Left lower lobe consolidation. Please evaluate to exclude pneumonia.; Small left pleural effusion.; Thank you for your kind referral of this patient.; ; Outcome: 03:46 Discharge ordered by Provider. mm11 04:36 Discharge Assessment: Patient awake, alert and oriented x 3. No cognitive and/or tm5 functional deficits noted. Patient verbalized understanding of disposition instructions. patient administered narcotics - yes. Pt provided with safe discharge. The following High Risk Discharge criteria are identified: None. Discharged to home via wheelchair, with family. Condition: good Condition: stable Condition: improved. Discharge instructions given to patient, Instructed on discharge instructions, follow up and referral plans. medication usage, no driving heavy equipment, Demonstrated understanding of instructions, medications, Pt was receptive of discharge instructions/ teaching. Prescriptions given X 1. CT Study completed. Property :Personal belongings accompany Pt. 04:37 Patient left the ED. tm5 Signatures: Dispatcher [employer] EDMS Karlie Soriano, Reg Reg Nyasia Coreas, DO WOLFF mm11 Meghan Acosta, WINDOWS SERVER ENGINEER WINDOWS SERVER ENGINEER Joey Dimas jh6 Rosalinda Dia Crystal, WINDOWS SERVER ENGINEER WINDOWS SERVER ENGINEER Tatianna Henderson RN RN tm5 Yanira Ann RN mv5 Chart Complete NUVANCE HEALTHElisabeth
--- NOTE | 2017-01-10 05:39 | EDDOCDS ---
Physician Documentation Name: David Salcedo Age: 86 yrs Sex: Male : 1930 Arrival Date: 01/07/2017 Time: 23:34 Bed 3 Private MD: [facility] Disposition: 01/08/17 03:46 Discharged to Home/Self Care. Impression: Low back pain - due to multiple subacute compression fractures previously diagnosed, Shortness of breath - due to back pain, improved.. - Condition is Stable. - Discharge Instructions: Back, Compression Fracture, Shortness of Breath, Shortness of Breath, Vato-mq-Wxow. - Prescriptions for Percocet 5- 325 mg Oral Tablet - take 1 tablet by ORAL route every 6 hours As needed MDD: 4 tabs; 20 tablet. - Medication Reconciliation, Local Pharmacy Hours form. - Follow up: [facility]; When: 2 - 3 days; Reason: Continuance of care. - Problem is an acute exacerbation. - Symptoms have improved. Historical: - Allergies: Codeine Sulfate; Xarelto; - Home Meds: 1. cephalexin 500 mg Oral cap 1 cap every 6 hours 2. albuterol sulfate 2.5 mg /3 mL (0.083 %) Inhl nebu prn 3. amlodipine 10 mg Oral tab 1 tab once daily 4. aspirin 325 mg Oral tab once daily 5. tamsulosin 0.4 mg oral cp24 1 cap once daily 6. Lasix 20 mg Oral tab 1 tab once daily 7. Avodart 0.5 mg oral cap 1 cap once daily 8. Visine 0.05 % ophthalmic drop as needed 9. primidone 250 mg Oral tab 0.5 tab bid 10. amlodipine 10 mg Oral tab 1 tab once daily 11. Spiriva with HandiHaler 18 mcg Inhl CpDv 1 cap once daily 12. Fish Oil 1,000 mg Oral cap twice a day 13. Probiotic oral daily 14. multivitamin Oral tab 1 tab daily 15. Ocuvite oral tab daily 16. 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 - Family history: Not pertinent. - : The pt / caregiver states he / she is not on anticoagulants. Home medication list is obtained from family members. - Exposure Risk Screening:: None identified. Vital Signs: 01/07 23:41 BP 177 / 101 RA Sitting (auto/reg); Pulse 83 MON; Resp 22 S; Temp 98.7(TE); Pulse Ox cln 98% on R/A; Weight 83.91 kg / 184.99 lbs (R); Height 5 ft. 9 in. (175.26 cm) (R); Pain 7/10; 01/08 00:00 BP 174 / 84 (auto/); tm5 00:00 Pulse 71 MON; Pulse Ox 95% ; tm5 00:18 BP 174 / 84; Pulse 78; Resp 22; Pulse Ox 95% on R/A; tm5 00:18 BP 157 / 86 (auto/); tm5 00:18 Pulse 80 MON; Pulse Ox 94% ; tm5 00:48 BP 151 / 84 (auto/); tm5 00:48 Pulse 71 MON; Resp 22 S; Pulse Ox 93% on R/A; Pain 0/10; tm5 01:18 BP 160 / 83 (auto/); tm5 01:18 Pulse 75 MON; Pulse Ox 96% ; tm5 01:48 BP 158 / 84 (auto/); tm5 01:48 Pulse 71 MON; Resp 22 S; Pulse Ox 95% on R/A; Pain 0/10; tm5 02:24 BP 153 / 77 (auto/); tm5 02:24 Pulse 82 MON; tm5 02:54 BP 165 / 84 (auto/); tm5 02:54 Pulse 75 MON; Resp 22 S; Pulse Ox 94% on R/A; tm5 04:36 BP 152 / 78; Pulse 70; Resp 18; Temp 98.6(O); Pulse Ox 95% on R/A; Pain 0/10; tm5 01/07 23:41 Body Mass Index 27.32 (83.91 kg, 175.26 cm) cln MDM: 01/07 23:45 ECG WITH READING ER PHYS+CARDIAG ordered. EDMS 01/08 00:07 Roll Forming Machine Set Up Mechanic/Pulse Ox/q 30 min VS ordered. mm11 00:07 IV Saline Lock ordered. mm11 00:07 Rhythm Strip to chart ordered. mm11 00:07 Undress patient appropriately for examination ordered. mm11 00:07 fentaNYL (PF) 75 mcg IVP once ordered. mm11 00:08 B-Type Natiuretic Peptide Ordered. EDMS 00:08 Basic Metabolic Profile Ordered. EDMS 00:08 CBC with Diff Ordered. EDMS 00:08 Cardiac Injury Profile Ordered. EDMS 00:08 Troponin Ordered. EDMS 00:08 portable chest Ordered. EDMS 00:53 Basic Metabolic Profile Reviewed. mm11 00:53 CBC with Diff Reviewed. mm11 00:53 Cardiac Injury Profile Reviewed. mm11 00:53 Troponin Reviewed. mm11 00:59 CT Chest Angio R/O PE Ordered. EDMS 01:05 Financial registration complete. slh 01:35 B-Type Natiuretic Peptide Reviewed. mm11 01:36 Albuterol-Ipratropium 3 ml Inhalation once ordered. mm11 01:36 Call Respiratory ordered. mm11 01:40 Call Respiratory complete. tm5 01:49 [place] Agreement was scanned into [employer] and attached to record. [facility] 03:39 oxyCODONE-acetaminophen 4 pack 5 mg-325 mg 1 packets PO once; Dispense with pt, take as mm11 per instruction on package ordered. 11:00 T-Sheet-- Draft Copy was scanned into [employer] and attached to record. gb 11:00 ECG/EKG was scanned into [employer] and attached to record. 11:00 PCR was scanned into [employer] and attached to record. 11: Rhythm Strip was scanned into [employer] and attached to record. 01/09 15:23 PCR was scanned into [employer] and attached to record. gb Administered Medications: 01/08 00:18 Drug: fentaNYL (PF) 75 mcg [fentanyl (PF) 50 mcg/mL injection solution (1.5 mL)] Route: tm5 IVP; Site: right forearm; 00:45 Follow up: Response: No Adverse Reaction; Pain is resolved tm5 01:49 Drug: Albuterol-Ipratropium 3 ml [ipratropium-albuterol 0.5 mg-3 mg(2.5 mg base)/3 mL jh6 nebulization soln (3 mL)] Route: Inhalation; 04:35 Drug: oxyCODONE-acetaminophen 4 pack 1 packets [oxycodone-acetaminophen 5 mg-325 mg tm5 tablet (1 tabs)] {Co-Signature: [email or web address] (Yanira Ann RN).} {Note: dispensed to pt's daughter for pt's pain control at home.} Route: PO; 04:36 Follow up: Response: Med's dispensed home tm5 Signatures: Dispatcher [employer] EDKarlie Vides, Reg Reg gb Brandon Nunez, DO mm11 Rosalinda Dia [facility] Tatianna Pulliam RN RN tm5 Joey Dove 6 Yanira Ann RN mv5 The chart was reviewed and I authenticate all verbal orders and agree with the evaluation and treatment provided.Attachments: 01:49 [facility] Payment Agreement [facility] 11:00 T-Sheet-- Draft Copy 11:00 ECG/EKG Chart Complete MTDD
--- NOTE | 2017-01-10 15:55 | EDDOCDS ---
Physician Documentation [facility] Name: David Salcedo Age: 86 yrs Sex: Male : 1930 Arrival Date: 01/07/2017 Time: 23:34 Bed 3 Private MD: [facility] Disposition: 01/08/17 03:46 Discharged to Home/Self Care. Impression: Low back pain - due to multiple subacute compression fractures previously diagnosed, Shortness of breath - due to back pain, improved.. - Condition is Stable. - Discharge Instructions: Back, Compression Fracture, Shortness of Breath, Shortness of Breath, Qget-my-Lxfm. - Prescriptions for Percocet 5- 325 mg Oral Tablet - take 1 tablet by ORAL route every 6 hours As needed MDD: 4 tabs; 20 tablet. - Medication Reconciliation, Local Pharmacy Hours form. - Follow up: [facility]; When: 2 - 3 days; Reason: Continuance of care. - Problem is an acute exacerbation. - Symptoms have improved. Historical: - Allergies: Codeine Sulfate; Xarelto; - Home Meds: 1. cephalexin 500 mg Oral cap 1 cap every 6 hours 2. albuterol sulfate 2.5 mg /3 mL (0.083 %) Inhl nebu prn 3. amlodipine 10 mg Oral tab 1 tab once daily 4. aspirin 325 mg Oral tab once daily 5. tamsulosin 0.4 mg oral cp24 1 cap once daily 6. Lasix 20 mg Oral tab 1 tab once daily 7. Avodart 0.5 mg oral cap 1 cap once daily 8. Visine 0.05 % ophthalmic drop as needed 9. primidone 250 mg Oral tab 0.5 tab bid 10. amlodipine 10 mg Oral tab 1 tab once daily 11. Spiriva with HandiHaler 18 mcg Inhl CpDv 1 cap once daily 12. Fish Oil 1,000 mg Oral cap twice a day 13. Probiotic oral daily 14. multivitamin Oral tab 1 tab daily 15. Ocuvite oral tab daily 16. 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 - Family history: Not pertinent. - : The pt / caregiver states he / she is not on anticoagulants. Home medication list is obtained from family members. - Exposure Risk Screening:: None identified. Vital Signs: 01/07 23:41 BP 177 / 101 RA Sitting (auto/reg); Pulse 83 MON; Resp 22 S; Temp 98.7(TE); Pulse Ox cln 98% on R/A; Weight 83.91 kg / 184.99 lbs (R); Height 5 ft. 9 in. (175.26 cm) (R); Pain 7/10; 01/08 00:00 BP 174 / 84 (auto/); tm5 00:00 Pulse 71 MON; Pulse Ox 95% ; tm5 00:18 BP 174 / 84; Pulse 78; Resp 22; Pulse Ox 95% on R/A; tm5 00:18 BP 157 / 86 (auto/); tm5 00:18 Pulse 80 MON; Pulse Ox 94% ; tm5 00:48 BP 151 / 84 (auto/); tm5 00:48 Pulse 71 MON; Resp 22 S; Pulse Ox 93% on R/A; Pain 0/10; tm5 01:18 BP 160 / 83 (auto/); tm5 01:18 Pulse 75 MON; Pulse Ox 96% ; tm5 01:48 BP 158 / 84 (auto/); tm5 01:48 Pulse 71 MON; Resp 22 S; Pulse Ox 95% on R/A; Pain 0/10; tm5 02:24 BP 153 / 77 (auto/); tm5 02:24 Pulse 82 MON; tm5 02:54 BP 165 / 84 (auto/); tm5 02:54 Pulse 75 MON; Resp 22 S; Pulse Ox 94% on R/A; tm5 04:36 BP 152 / 78; Pulse 70; Resp 18; Temp 98.6(O); Pulse Ox 95% on R/A; Pain 0/10; tm5 01/07 23:41 Body Mass Index 27.32 (83.91 kg, 175.26 cm) cln MDM: 01/07 23:45 ECG WITH READING ER PHYS+CARDIAG ordered. EDMS 01/08 00:07 Scales Inspector/Pulse Ox/q 30 min VS ordered. mm11 00:07 IV Saline Lock ordered. mm11 00:07 Rhythm Strip to chart ordered. mm11 00:07 Undress patient appropriately for examination ordered. mm11 00:07 fentaNYL (PF) 75 mcg IVP once ordered. mm11 00:08 B-Type Natiuretic Peptide Ordered. EDMS 00:08 Basic Metabolic Profile Ordered. EDMS 00:08 CBC with Diff Ordered. EDMS 00:08 Cardiac Injury Profile Ordered. EDMS 00:08 Troponin Ordered. EDMS 00:08 portable chest Ordered. EDMS 00:53 Basic Metabolic Profile Reviewed. mm11 00:53 CBC with Diff Reviewed. mm11 00:53 Cardiac Injury Profile Reviewed. mm11 00:53 Troponin Reviewed. mm11 00:59 CT Chest Angio R/O PE Ordered. EDMS 01:05 Financial registration complete. slh 01:35 B-Type Natiuretic Peptide Reviewed. mm11 01:36 Albuterol-Ipratropium 3 ml Inhalation once ordered. mm11 01:36 Call Respiratory ordered. mm11 01:40 Call Respiratory complete. tm5 01:49 [facility] [place] Payment Agreement was scanned into sharing.it and attached to record. [facility] 03:39 oxyCODONE-acetaminophen 4 pack 5 mg-325 mg 1 packets PO once; Dispense with pt, take as mm11 per instruction on package ordered. 11:00 T-Sheet-- Draft Copy was scanned into sharing[employer]it and attached to record. gb 11:00 ECG/EKG was scanned into sharing[employer]it and attached to record. 11:00 PCR was scanned into sharing[employer]it and attached to record. 11: Rhythm Strip was scanned into sharing[employer]it and attached to record. 01/09 15:23 PCR was scanned into sharing[employer]it and attached to record. gb Administered Medications: 01/08 00:18 Drug: fentaNYL (PF) 75 mcg [fentanyl (PF) 50 mcg/mL injection solution (1.5 mL)] Route: tm5 IVP; Site: right forearm; 00:45 Follow up: Response: No Adverse Reaction; Pain is resolved tm5 01:49 Drug: Albuterol-Ipratropium 3 ml [ipratropium-albuterol 0.5 mg-3 mg(2.5 mg base)/3 mL jh6 nebulization soln (3 mL)] Route: Inhalation; 04:35 Drug: oxyCODONE-acetaminophen 4 pack 1 packets [oxycodone-acetaminophen 5 mg-325 mg tm5 tablet (1 tabs)] {Co-Signature: [email or web address] (Yanira Ann RN).} {Note: dispensed to pt's daughter for pt's pain control at home.} Route: PO; 04:36 Follow up: Response: Med's dispensed home tm5 Addendum: 01/10/2017 15:54 Radiology Callback: Radiology results faxed to primary care physician/provider. [facility] faxed formal report of cxr for fu mlg. Signatures: Dispatcher [employer] Ansley Rainey MD MD Karlie Soriano, Reg Reg gb Brandon Nunez, DO mm11 Rosalinda Dia TonyaRN RN tm5 Joey Dove 6 Yanira Ann RN mv5 The chart was reviewed and I authenticate all verbal orders and agree with the evaluation and treatment provided.Attachments: 01/08 01:49 [facility] Payment Agreement [facility] 11:00 T-Sheet-- Draft Copy 11:00 ECG/EKG MTDD
--- NOTE | 2017-01-10 15:55 | EDDOCDS ---
Physician Documentation [facility] Name: David Salcedo Age: 86 yrs Sex: Male : 1930 Arrival Date: 01/07/2017 Time: 23:34 Bed 3 Private MD: [facility] Disposition: 01/08/17 03:46 Discharged to Home/Self Care. Impression: Low back pain - due to multiple subacute compression fractures previously diagnosed, Shortness of breath - due to back pain, improved.. - Condition is Stable. - Discharge Instructions: Back, Compression Fracture, Shortness of Breath, Shortness of Breath, Qqvt-fz-Xymg. - Prescriptions for Percocet 5- 325 mg Oral Tablet - take 1 tablet by ORAL route every 6 hours As needed MDD: 4 tabs; 20 tablet. - Medication Reconciliation, Local Pharmacy Hours form. - Follow up: [facility]; When: 2 - 3 days; Reason: Continuance of care. - Problem is an acute exacerbation. - Symptoms have improved. Historical: - Allergies: Codeine Sulfate; Xarelto; - Home Meds: 1. cephalexin 500 mg Oral cap 1 cap every 6 hours 2. albuterol sulfate 2.5 mg /3 mL (0.083 %) Inhl nebu prn 3. amlodipine 10 mg Oral tab 1 tab once daily 4. aspirin 325 mg Oral tab once daily 5. tamsulosin 0.4 mg oral cp24 1 cap once daily 6. Lasix 20 mg Oral tab 1 tab once daily 7. Avodart 0.5 mg oral cap 1 cap once daily 8. Visine 0.05 % ophthalmic drop as needed 9. primidone 250 mg Oral tab 0.5 tab bid 10. amlodipine 10 mg Oral tab 1 tab once daily 11. Spiriva with HandiHaler 18 mcg Inhl CpDv 1 cap once daily 12. Fish Oil 1,000 mg Oral cap twice a day 13. Probiotic oral daily 14. multivitamin Oral tab 1 tab daily 15. Ocuvite oral tab daily 16. 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 - Family history: Not pertinent. - : The pt / caregiver states he / she is not on anticoagulants. Home medication list is obtained from family members. - Exposure Risk Screening:: None identified. Vital Signs: 01/07 23:41 BP 177 / 101 RA Sitting (auto/reg); Pulse 83 MON; Resp 22 S; Temp 98.7(TE); Pulse Ox cln 98% on R/A; Weight 83.91 kg / 184.99 lbs (R); Height 5 ft. 9 in. (175.26 cm) (R); Pain 7/10; 01/08 00:00 BP 174 / 84 (auto/); tm5 00:00 Pulse 71 MON; Pulse Ox 95% ; tm5 00:18 BP 174 / 84; Pulse 78; Resp 22; Pulse Ox 95% on R/A; tm5 00:18 BP 157 / 86 (auto/); tm5 00:18 Pulse 80 MON; Pulse Ox 94% ; tm5 00:48 BP 151 / 84 (auto/); tm5 00:48 Pulse 71 MON; Resp 22 S; Pulse Ox 93% on R/A; Pain 0/10; tm5 01:18 BP 160 / 83 (auto/); tm5 01:18 Pulse 75 MON; Pulse Ox 96% ; tm5 01:48 BP 158 / 84 (auto/); tm5 01:48 Pulse 71 MON; Resp 22 S; Pulse Ox 95% on R/A; Pain 0/10; tm5 02:24 BP 153 / 77 (auto/); tm5 02:24 Pulse 82 MON; tm5 02:54 BP 165 / 84 (auto/); tm5 02:54 Pulse 75 MON; Resp 22 S; Pulse Ox 94% on R/A; tm5 04:36 BP 152 / 78; Pulse 70; Resp 18; Temp 98.6(O); Pulse Ox 95% on R/A; Pain 0/10; tm5 01/07 23:41 Body Mass Index 27.32 (83.91 kg, 175.26 cm) cln MDM: 01/07 23:45 ECG WITH READING ER PHYS+CARDIAG ordered. EDMS 01/08 00:07 Raw Stock Machine Loader/Pulse Ox/q 30 min VS ordered. mm11 00:07 IV Saline Lock ordered. mm11 00:07 Rhythm Strip to chart ordered. mm11 00:07 Undress patient appropriately for examination ordered. mm11 00:07 fentaNYL (PF) 75 mcg IVP once ordered. mm11 00:08 B-Type Natiuretic Peptide Ordered. EDMS 00:08 Basic Metabolic Profile Ordered. EDMS 00:08 CBC with Diff Ordered. EDMS 00:08 Cardiac Injury Profile Ordered. EDMS 00:08 Troponin Ordered. EDMS 00:08 portable chest Ordered. EDMS 00:53 Basic Metabolic Profile Reviewed. mm11 00:53 CBC with Diff Reviewed. mm11 00:53 Cardiac Injury Profile Reviewed. mm11 00:53 Troponin Reviewed. mm11 00:59 CT Chest Angio R/O PE Ordered. EDMS 01:05 Financial registration complete. slh 01:35 B-Type Natiuretic Peptide Reviewed. mm11 01:36 Albuterol-Ipratropium 3 ml Inhalation once ordered. mm11 01:36 Call Respiratory ordered. mm11 01:40 Call Respiratory complete. tm5 01:49 [facility] [place] Payment Agreement was scanned into [employer] and attached to record. [facility] 03:39 oxyCODONE-acetaminophen 4 pack 5 mg-325 mg 1 packets PO once; Dispense with pt, take as mm11 per instruction on package ordered. 11:00 T-Sheet-- Draft Copy was scanned into [employer] and attached to record. gb 11:00 ECG/EKG was scanned into [employer] and attached to record. 11:00 PCR was scanned into [employer] and attached to record. 11: Rhythm Strip was scanned into [employer] and attached to record. 01/09 15:23 PCR was scanned into [employer] and attached to record. gb Administered Medications: 01/08 00:18 Drug: fentaNYL (PF) 75 mcg [fentanyl (PF) 50 mcg/mL injection solution (1.5 mL)] Route: tm5 IVP; Site: right forearm; 00:45 Follow up: Response: No Adverse Reaction; Pain is resolved tm5 01:49 Drug: Albuterol-Ipratropium 3 ml [ipratropium-albuterol 0.5 mg-3 mg(2.5 mg base)/3 mL jh6 nebulization soln (3 mL)] Route: Inhalation; 04:35 Drug: oxyCODONE-acetaminophen 4 pack 1 packets [oxycodone-acetaminophen 5 mg-325 mg tm5 tablet (1 tabs)] {Co-Signature: [email or web address] (Yanira Ann RN).} {Note: dispensed to pt's daughter for pt's pain control at home.} Route: PO; 04:36 Follow up: Response: Med's dispensed home tm5 Addendum: 01/10/2017 15:54 Radiology Callback: Radiology results faxed to primary care physician/provider. [facility] faxed formal report of cxr for fu mlg. Signatures: Dispatcher [employer] Ansley Rainey MD MD Karlie Soriano, Reg Reg gb Brandon Nunez, DO mm11 Rosalinda Dia TonyaRN RN tm5 Joey Dove 6 Yanira Ann RN mv5 The chart was reviewed and I authenticate all verbal orders and agree with the evaluation and treatment provided.Attachments: 01/08 01:49 [facility] Payment Agreement [facility] 11:00 T-Sheet-- Draft Copy 11:00 ECG/EKG MTDD
--- NOTE | 2017-01-10 15:56 | EDDOCDS ---
Physician Documentation [facility] Name: David Salcedo Age: 86 yrs Sex: Male : 1930 Arrival Date: 01/07/2017 Time: 23:34 Bed 3 Private MD: [facility] Disposition: 01/08/17 03:46 Discharged to Home/Self Care. Impression: Low back pain - due to multiple subacute compression fractures previously diagnosed, Shortness of breath - due to back pain, improved.. - Condition is Stable. - Discharge Instructions: Back, Compression Fracture, Shortness of Breath, Shortness of Breath, Gjbv-gd-Pefw. - Prescriptions for Percocet 5- 325 mg Oral Tablet - take 1 tablet by ORAL route every 6 hours As needed MDD: 4 tabs; 20 tablet. - Medication Reconciliation, Local Pharmacy Hours form. - Follow up: [facility]; When: 2 - 3 days; Reason: Continuance of care. - Problem is an acute exacerbation. - Symptoms have improved. Historical: - Allergies: Codeine Sulfate; Xarelto; - Home Meds: 1. cephalexin 500 mg Oral cap 1 cap every 6 hours 2. albuterol sulfate 2.5 mg /3 mL (0.083 %) Inhl nebu prn 3. amlodipine 10 mg Oral tab 1 tab once daily 4. aspirin 325 mg Oral tab once daily 5. tamsulosin 0.4 mg oral cp24 1 cap once daily 6. Lasix 20 mg Oral tab 1 tab once daily 7. Avodart 0.5 mg oral cap 1 cap once daily 8. Visine 0.05 % ophthalmic drop as needed 9. primidone 250 mg Oral tab 0.5 tab bid 10. amlodipine 10 mg Oral tab 1 tab once daily 11. Spiriva with HandiHaler 18 mcg Inhl CpDv 1 cap once daily 12. Fish Oil 1,000 mg Oral cap twice a day 13. Probiotic oral daily 14. multivitamin Oral tab 1 tab daily 15. Ocuvite oral tab daily 16. 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 - Family history: Not pertinent. - : The pt / caregiver states he / she is not on anticoagulants. Home medication list is obtained from family members. - Exposure Risk Screening:: None identified. Vital Signs: 01/07 23:41 BP 177 / 101 RA Sitting (auto/reg); Pulse 83 MON; Resp 22 S; Temp 98.7(TE); Pulse Ox cln 98% on R/A; Weight 83.91 kg / 184.99 lbs (R); Height 5 ft. 9 in. (175.26 cm) (R); Pain 7/10; 01/08 00:00 BP 174 / 84 (auto/); tm5 00:00 Pulse 71 MON; Pulse Ox 95% ; tm5 00:18 BP 174 / 84; Pulse 78; Resp 22; Pulse Ox 95% on R/A; tm5 00:18 BP 157 / 86 (auto/); tm5 00:18 Pulse 80 MON; Pulse Ox 94% ; tm5 00:48 BP 151 / 84 (auto/); tm5 00:48 Pulse 71 MON; Resp 22 S; Pulse Ox 93% on R/A; Pain 0/10; tm5 01:18 BP 160 / 83 (auto/); tm5 01:18 Pulse 75 MON; Pulse Ox 96% ; tm5 01:48 BP 158 / 84 (auto/); tm5 01:48 Pulse 71 MON; Resp 22 S; Pulse Ox 95% on R/A; Pain 0/10; tm5 02:24 BP 153 / 77 (auto/); tm5 02:24 Pulse 82 MON; tm5 02:54 BP 165 / 84 (auto/); tm5 02:54 Pulse 75 MON; Resp 22 S; Pulse Ox 94% on R/A; tm5 04:36 BP 152 / 78; Pulse 70; Resp 18; Temp 98.6(O); Pulse Ox 95% on R/A; Pain 0/10; tm5 01/07 23:41 Body Mass Index 27.32 (83.91 kg, 175.26 cm) cln MDM: 01/07 23:45 ECG WITH READING ER PHYS+CARDIAG ordered. EDMS 01/08 00:07 Deputy Prosecuting Attorney/Pulse Ox/q 30 min VS ordered. mm11 00:07 IV Saline Lock ordered. mm11 00:07 Rhythm Strip to chart ordered. mm11 00:07 Undress patient appropriately for examination ordered. mm11 00:07 fentaNYL (PF) 75 mcg IVP once ordered. mm11 00:08 B-Type Natiuretic Peptide Ordered. EDMS 00:08 Basic Metabolic Profile Ordered. EDMS 00:08 CBC with Diff Ordered. EDMS 00:08 Cardiac Injury Profile Ordered. EDMS 00:08 Troponin Ordered. EDMS 00:08 portable chest Ordered. EDMS 00:53 Basic Metabolic Profile Reviewed. mm11 00:53 CBC with Diff Reviewed. mm11 00:53 Cardiac Injury Profile Reviewed. mm11 00:53 Troponin Reviewed. mm11 00:59 CT Chest Angio R/O PE Ordered. EDMS 01:05 Financial registration complete. slh 01:35 B-Type Natiuretic Peptide Reviewed. mm11 01:36 Albuterol-Ipratropium 3 ml Inhalation once ordered. mm11 01:36 Call Respiratory ordered. mm11 01:40 Call Respiratory complete. tm5 01:49 [facility] [place] Agreement was scanned into [employer] and attached to record. [facility] 03:39 oxyCODONE-acetaminophen 4 pack 5 mg-325 mg 1 packets PO once; Dispense with pt, take as mm11 per instruction on package ordered. 11:00 T-Sheet-- Draft Copy was scanned into MY[employer] and attached to record. gb 11:00 ECG/EKG was scanned into [employer] and attached to record. 11:00 PCR was scanned into [employer] and attached to record. 11: Rhythm Strip was scanned into [employer] and attached to record. 01/09 15:23 PCR was scanned into [employer] and attached to record. gb Administered Medications: 01/08 00:18 Drug: fentaNYL (PF) 75 mcg [fentanyl (PF) 50 mcg/mL injection solution (1.5 mL)] Route: tm5 IVP; Site: right forearm; 00:45 Follow up: Response: No Adverse Reaction; Pain is resolved tm5 01:49 Drug: Albuterol-Ipratropium 3 ml [ipratropium-albuterol 0.5 mg-3 mg(2.5 mg base)/3 mL jh6 nebulization soln (3 mL)] Route: Inhalation; 04:35 Drug: oxyCODONE-acetaminophen 4 pack 1 packets [oxycodone-acetaminophen 5 mg-325 mg tm5 tablet (1 tabs)] {Co-Signature: [email or web address] (Yanira Ann RN).} {Note: dispensed to pt's daughter for pt's pain control at home.} Route: PO; 04:36 Follow up: Response: Med's dispensed home tm5 Addendum: 01/10/2017 15:54 Radiology Callback: Radiology results faxed to primary care physician/provider. [facility] faxed formal report of cxr for fu mlg. Signatures: Dispatcher [employer] Ansley Rainey MD MD Karlie Soriano, Reg Reg Brandon Coreas, DO mm11 Rosalinda Dia [facility] Tatianna PulliamRN RN tm5 Joey Dove [facility] Yanira Ann RN mv5 The chart was reviewed and I authenticate all verbal orders and agree with the evaluation and treatment provided.Corrections: (The following items were deleted from the chart) 15:55 15:54 Radiology Callback: Radiology results faxed to primary care physician/provider. [facility] faxed formal report of cxr for fu mlg, ml Attachments: 01/08 01:49 [facility] Payment Agreement [facility] 11:00 T-Sheet-- Draft Copy 11:00 ECG/EKG MTDD
--- NOTE | 2017-01-10 15:56 | EDDOCDS ---
Nurse's Notes [facility] Name: David Velazquez Age: 86 yrs Sex: Male : 1930 Arrival Date: 01/07/2017 Time: 23:34 Bed 3 Private MD: [facility] Diagnosis: Low back pain-due to multiple subacute compression fractures previously diagnosed;Shortness of breath-due to back pain, improved. Presentation: 01/07 23:37 Presenting complaint: EMS states: per EMS pt here with SOB tonight, initial Resp rate tm5 was 38, "hurts to breath x 2 days" per pt, O2 NRB was placed on pt with 99% O2 sat, IV saline lock #22 to right wrist, Paced on vehicle monitor technician, BG FS 83, no meds given by EMS. Adult Sepsis Screening: The patient does not have new or worsening altered mentation. Patient's respiratory rate is less than 22. Systolic blood pressure is less than or equal to 100 (1 point). Patient has a qSOFA score of 0- Negative Sepsis Screen. Suicide/Homicide risk assessment- the patient denies having any suicidal and/or homicidal ideations and does not present with any other emotional, behavioral or mental health complaints. Status: Patient is not a general service technician or dependent. Transition of care: patient was not received from another setting of care. 23:37 Acuity: HOPE Level 3 tm5 23:37 Method Of Arrival: Ambulance tm5 Triage Assessment: 23:46 General: Appears in no apparent distress, Behavior is appropriate for age, cooperative. tm5 Pain: Denies pain. The patient is triaged at the bedside. See Assessment in Nurses Notes section of ED record. Neurological: Level of Consciousness is awake, alert, Oriented to person, place, time. Cardiovascular: Rhythm is with capture. Respiratory: Onset: The symptoms/episode began/occurred 2 days ago or more, Airway is patent Respiratory effort is even, unlabored, Respiratory pattern is regular, symmetrical, Breath sounds are clear bilaterally. Breath sounds are diminished bilaterally. GI: No deficits noted. : No deficits noted. Derm: Skin is pink, warm & dry. Historical: - Allergies: Codeine Sulfate; Xarelto; - Home Meds: 1. cephalexin 500 mg Oral cap 1 cap every 6 hours 2. albuterol sulfate 2.5 mg /3 mL (0.083 %) Inhl nebu prn 3. amlodipine 10 mg Oral tab 1 tab once daily 4. aspirin 325 mg Oral tab once daily 5. tamsulosin 0.4 mg oral cp24 1 cap once daily 6. Lasix 20 mg Oral tab 1 tab once daily 7. Avodart 0.5 mg oral cap 1 cap once daily 8. Visine 0.05 % ophthalmic drop as needed 9. primidone 250 mg Oral tab 0.5 tab bid 10. amlodipine 10 mg Oral tab 1 tab once daily 11. Spiriva with HandiHaler 18 mcg Inhl CpDv 1 cap once daily 12. Fish Oil 1,000 mg Oral cap twice a day 13. Probiotic oral daily 14. multivitamin Oral tab 1 tab daily 15. Ocuvite oral tab daily 16. 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 - Family history: Not pertinent. - : The pt / caregiver states he / she is not on anticoagulants. Home medication list is obtained from family members. - Exposure Risk Screening:: None identified. Screenin:49 Screening information is obtained from the patient. Fall risk: At risk due to prior tm5 history of falls. Assistance ADL's: requires no assistance with activities of daily living. Abuse/DV Screen: The patient / caregiver reports he/she is: not in a situation that causes fear, pain or injury. Nutritional screening: No deficits noted. Advance Directives: Currently, there is a health care proxy, Daughter Komal. There is an active DNR order but there is no copy available at this time. home support is adequate. Assessment: 23:49 General: see triage assessment . Cardiovascular: Rhythm is with capture. tm5 01/08 04:36 Reassessment: Patient appears in no apparent distress at this time. Patient states tm5 feeling better. Patient states symptoms have improved. Vital Signs: 01/07 23:41 BP 177 / 101 RA Sitting (auto/reg); Pulse 83 MON; Resp 22 S; Temp 98.7(TE); Pulse Ox cln 98% on R/A; Weight 83.91 kg (R); Height 5 ft. 9 in. (175.26 cm) (R); Pain 7/10; 01/08 00:00 BP 174 / 84 (auto/); tm5 00:00 Pulse 71 MON; Pulse Ox 95% ; tm5 00:18 BP 174 / 84; Pulse 78; Resp 22; Pulse Ox 95% on R/A; tm5 00:18 BP 157 / 86 (auto/); tm5 00:18 Pulse 80 MON; Pulse Ox 94% ; tm5 00:48 BP 151 / 84 (auto/); tm5 00:48 Pulse 71 MON; Resp 22 S; Pulse Ox 93% on R/A; Pain 0/10; tm5 01:18 BP 160 / 83 (auto/); tm5 01:18 Pulse 75 MON; Pulse Ox 96% ; tm5 01:48 BP 158 / 84 (auto/); tm5 01:48 Pulse 71 MON; Resp 22 S; Pulse Ox 95% on R/A; Pain 0/10; tm5 02:24 BP 153 / 77 (auto/); tm5 02:24 Pulse 82 MON; tm5 02:54 BP 165 / 84 (auto/); tm5 02:54 Pulse 75 MON; Resp 22 S; Pulse Ox 94% on R/A; tm5 04:36 BP 152 / 78; Pulse 70; Resp 18; Temp 98.6(O); Pulse Ox 95% on R/A; Pain 0/10; tm5 02 23:41 Body Mass Index 27.32 (83.91 kg, 175.26 cm) cln Vitals: 01/07 23:46 Log In Time N/A - ambulance arrival. tm5 ED Course: 23:35 Patient visited by Meghan Acosta PCA. wallace 23:35 Patient moved to Waiting wallace 23:36 [facility] is Private Physician. wallace 23:36 Patient moved to 3 wallace 23:37 Nyasia Nunez DO is Attending Physician. mm11 23:37 Patient visited by Nyasia Nunez DO. mm11 23:37 Patient visited by Tatianna Pulliam RN. tm5 23:41 Triage Initiated tm5 23:42 Patient visited by Vicki Jacobson PCA. cln 23:42 Pt greeted and oriented to ED. Patient advised of names of staff involved in care, cln location of call granda, wait times and NPO status. Accompanied by Family Member, Patient has correct armband on for positive identification. Placed in gown. Bed in low position. Call light in reach. Side rails up X 1. 23:46 Family accompanied patient. tm5 23:49 Awaiting ED physician evaluation. tm5 23:49 The patient / caregiver is instructed regarding the plan of care and ED course. Cardiac tm5 monitor on. Pulse ox on. NIBP on. Warm blanket given. Pillow given. 23:49 Maintain field IV. Dressing intact. Good blood return noted. Site clean & dry. Gauge & tm5 site: #22 left lower forearm . EKG done. (by ED staff). Reviewed by Nyasia Nunez DO. 01/08 00:06 Patient visited by Nyasia Nunez DO. mm11 00:17 Patient visited by Tatianna Pulliam,GABBY. tm5 00:18 Troponin Sent. tm5 00:18 Cardiac Injury Profile Sent. tm5 00:18 CBC with Diff Sent. tm5 00:18 Basic Metabolic Profile Sent. tm5 00:18 B-Type Natiuretic Peptide Sent. tm5 00:18 Labs drawn. (by ED staff). Sent per order to lab. tm5 00:58 Patient visited by Nyasia Nunez DO. mm11 01:14 Patient visited by Tatianna Pulliam,GABBY. tm5 01:14 Inserted saline lock: 18 gauge in right forearm The patient tolerated the procedure tm5 well. 01:48 Patient name changed from David\\S\\\\S\\Denisse\\S\\ to David\\S\\ \\S\\Denisse. EDMS 01:49 [facility] Payment Agreement was scanned into [employer] and attached to record. [facility] 02:20 Patient visited by Nyasia Nunez DO. mm11 02:56 Patient visited by Tatianna Pulliam,GABBY. tm5 03:33 CT Chest Angio R/O PE Returned. EDMS 03:39 Patient visited by Nyasia Nunez DO. mm11 03:45 [facility] is Referral Physician. mm11 04:36 Discontinued lock intact, bleeding controlled, pressure dressing applied, No tm5 redness/swelling at site. 04:36 No procedures done that require assistance. tm5 08:10 portable chest Returned. EDMS 08:34 EKG-ADULT Returned. EDMS 11:00 T-Sheet-- Draft Copy was scanned into [employer] and attached to record. gb 11:00 ECG/EKG was scanned into [employer] and attached to record. gb 11:00 PCR was scanned into [employer] and attached to record. gb 11:01 Rhythm Strip was scanned into [employer] and attached to record. gb 01/09 15:23 PCR was scanned into [employer] and attached to record. gb Administered Medications: 01/08 00:18 Drug: fentaNYL (PF) 75 mcg [fentanyl (PF) 50 mcg/mL injection solution (1.5 mL)] Route: tm5 IVP; Site: right forearm; 00:45 Follow up: Response: No Adverse Reaction; Pain is resolved tm5 01:49 Drug: Albuterol-Ipratropium 3 ml [ipratropium-albuterol 0.5 mg-3 mg(2.5 mg base)/3 mL jh6 nebulization soln (3 mL)] Route: Inhalation; 04:35 Drug: oxyCODONE-acetaminophen 4 pack 1 packets [oxycodone-acetaminophen 5 mg-325 mg tm5 tablet (1 tabs)] {Co-Signature: mv5 (Yanira Ann RN).} {Note: dispensed to pt's daughter for pt's pain control at home.} Route: PO; 04:36 Follow up: Response: Med's dispensed home tm5 Attachments: 11:01 Rhythm Strip gb RT: 01/08 01:49 Initial Med Neb Given as ordered Patient was instructed and evaluated on procedure jh6 Patient tolerated procedure well without adverse effect. Respiratory: Airway is patent Respiratory effort is even, unlabored, Respiratory pattern is regular symmetrical, Breath sounds are diminished in right upper lobe, left upper lobe, right middle lobe, left lower lobe and right lower lobe Breath sounds with wheezes in right upper lobe, left upper lobe, right middle lobe, left lower lobe and right lower lobe at expiration. 02:01 Respiratory: Airway is patent Respiratory effort is even, unlabored, Respiratory 6 pattern is regular symmetrical, Breath sounds are coarse in right upper lobe, left upper lobe, right middle lobe, left lower lobe and right lower lobe. Order Results: Lab Order: B-Type Natiuretic Peptide; SPEC'M 01/08/17 00:17 Test: BRAIN NATRIURETIC PEPTIDE; Value: 227; Range: <100; Abnormal: Above high normal; Units: PG/ML; Status: F Lab Order: Basic Metabolic Profile; SPEC01/08/17 00:17 Test: GLUCOSE, FASTING; Value: 95; Range: 83-110; Units: MG/DL; Status: F Test: BLOOD UREA NITROGEN; Value: 32; Range: 7-18; Abnormal: Above high normal; Units: MG/DL; Status: F Test: CREATININE FOR GFR; Value: 1.19; Range: 0.70-1.30; Units: MG/DL; Status: F Test: GLOMERULAR FILTRATION RATE; Value: > 60.0; Range: >35; Status: F Test: SODIUM LEVEL; Value: 138; Range: 136-145; Units: MEQ/L; Status: F Test: POTASSIUM SERUM; Value: 4.4; Range: 3.5-5.1; Units: MEQ/L; Status: F Test: CHLORIDE LEVEL; Value: 103; Range: 98-107; Units: MEQ/L; Status: F Test: CARBON DIOXIDE LEVEL; Value: 26; Range: 21-32; Units: MEQ/L; Status: F Test: ANION GAP; Value: 9; Range: 8-16; Units: MEQ/L; Status: F Test: CALCIUM LEVEL; Value: 8.2; Range: 8.8-10.2; Abnormal: Below low normal; Units: MG/DL; Status: F Test Note: ; Units are mL/min/1.73 m2 Chronic Kidney Disease Staging per NKF: Stage I & II GFR >=60 Normal to Mildly Decreased Stage III GFR 30-59 Moderately Decreased Stage IV GFR 15-29 Severely Decreased Stage V GFR <15 Very Little GFR Left ESRD GFR <15 on COMPOSITION TILE LAYER Lab Order: CBC with Diff; SPEC01/08/17 00:17 Test: WHITE BLOOD COUNT; Value: 6.3; Range: 4.0-10.0; Units: K/mm3; Status: F Test: RED BLOOD COUNT; Value: 4.80; Range: 4.30-6.10; Units: M/mm3; Status: F Test: HEMOGLOBIN; Value: 14.0; Range: 14.0-18.0; Units: g/dl; Status: F Test: HEMATOCRIT; Value: 43.6; Range: 42.0-52.0; Units: %; Status: F Test: MEAN CORPUSCULAR VOLUME; Value: 90.9; Range: 80.0-96.0; Units: fl; Status: F Test: MEAN CORPUSCULAR HEMOGLOBIN; Value: 29.1; Range: 27.0-33.0; Units: pg; Status: F Test: MEAN CORPUSCULAR HGB CONC; Value: 32.0; Range: 32.0-36.5; Units: g/dl; Status: F Test: RED CELL DISTRIBUTION WIDTH; Value: 12.9; Range: 11.5-14.5; Units: %; Status: F Test: PLATELET COUNT, AUTOMATED; Value: 104; Range: 150-450; Abnormal: Below low normal; Units: k/mm3; Status: F Test: NEUTROPHILS %; Value: 74.2; Range: 36.0-66.0; Abnormal: Above high normal; Units: %; Status: F Test: LYMPH %; Value: 13.3; Range: 24.0-44.0; Abnormal: Below low normal; Units: %; Status: F Test: MONO %; Value: 6.0; Range: 0.0-5.0; Abnormal: Above high normal; Units: %; Status: F Test: EOS %; Value: 4.7; Range: 0.0-3.0; Abnormal: Above high normal; Units: %; Status: F Test: BASO %; Value: 0.6; Range: 0.0-1.0; Units: %; Status: F Test: LARGE UNSTAINED CELL %; Value: 1.2; Range: 0.0-4.0; Units: %; Status: F Test: NEUTROPHILS #; Value: 4.7; Range: 1.8-7.7; Units: K/mm3; Status: F Test: LYMPH #; Value: 0.9; Range: 1.5-4.5; Abnormal: Below low normal; Units: K/mm3; Status: F Test: MONO #; Value: 0.4; Range: 0.0-0.8; Units: K/mm3; Status: F Test: EOS #; Value: 0.3; Range: 0.0-0.50; Units: K/mm3; Status: F Test: BASO #; Value: 0.0; Range: 0.0-0.2; Units: K/mm3; Status: F Test: LARGE UNSTAINED CELL #; Value: 0.1; Range: 0.0-0.4; Units: K/mm3; Status: F Lab Order: Cardiac Injury Profile; SPEC'M 01/08/17 00:17 Test: CPK CREATINE PHOSPHOKINASE; Value: 59; Range: 39-308; Units: U/L; Status: F Test: CK-MB VALUE MASS; Value: 2.0; Range: 0.0-3.6; Units: NG/ML; Status: F Test: MB/CK RELATIVE INDEX; Value: 3.38; Range: < OR =4; Status: F Test Note: ; DIAGNOSIS CRITERIA MMB ng/ml Relative Index (RI) NON-AMI < or = 5 N/A SINGLETON ZONE > 5 < or = 4 AMI > 5 > 4 Lab Order: Troponin; SPEC'M 01/08/17 00:17 Test: TROPONIN I; Value: < 0.02; Range: < 0.10; Units: NG/ML; Status: F Test Note: ; Troponin I Reference Interval for Dermal Life LOCI: 99th Percentile= 0.00-0.045 ng/ml Risk Stratification: <= 0.10 ng/ml Decreased Risk for Adverse Clinical Events. 0.10-1.50 ng/ml Increased Risk for Adverse Clinical Events. Evaluation of additional criterion and/or repeat testing in 2-6 hours is suggested to rule out myocardial damage. >= 1.50 ng/ml Indicative of Myocardial Injury. Radiology Order: EKG-ADULT Test: EKG-ADULT REASON FOR EXAMINATION: Shortness of Breath; Stationary ECG Study; [facility] - ED; ; Test Date: 2017-01-07; Pat Name: DAVID VELAZQUEZ Department:; Room: -; Gender: M Residential Therapist: ct; : 1930 Requested By: NYASIA Barber; Order Number: [id number] Reading MD: Sophie De La Cruz; Measurements; Intervals [place]; Rate: 75 P:; KS: 0 QRS: -82; QRSD: 180 T: 85; QT: 449; QTc: 503; Interpretive Statements; ELECTRONIC VENTRICULAR PACEMAKER; ABNORMAL RHYTHM ECG; UNDERLYING ATRIAL FIB; SIMILAR 01/03/17; Electronically Signed On 01-08-2017 8:32:05 EST by Sophie De La Cruz; Radiology Order: portable chest Test: portable chest REASON FOR EXAMINATION: Shortness of Breath; Clinical: Acute shortness of breath .; ; Comparison: 01/03/2017 .; ; Findings:; The mediastinum and cardiac silhouette are stable and within normal limits for; portable technique. Pacemaker in stable position. Left lower lobe/retrocardiac; consolidation cannot be excluded. No effusion. No pneumothorax. Chronic stable; changes noted. Skeletal structures are intact.; ; Impression:; Cannot exclude medial left lower lobe/retrocardiac infiltrate.; ; ; Signed by; Collin Rod MD 01/08/2017 07:53 A; Radiology Order: CT Chest Angio R/O PE Test: CT Chest Angio R/O PE REASON FOR EXAMINATION: Shortness of Breath; ; CLINICAL HISTORY: Dyspnea, exclude PE.; TECHNIQUE: Multiple incremental axial, coronal and oblique images are obtained from the thoracic inle; t to the upper abdomen. Intravenous contrast material was administered as per pulmonary embolism prot; ocol.; COMMENTS:; There is excellent opacification of pulmonary arterial system without evidence for pulmonary embolism; . Aorta is of normal caliber without evidence for dissection or aneurysm.; There is no evidence of pleural or parenchymal mass. Small left pleural effusion. Left lower lobe con; solidation more prominent in the posterior/medial aspect of the left lower lobe. There is no evidence; of hilar or mediastinal lymphadenopathy. The heart and great vessels are within normal limits. Pacem; susaan wires are in good position.; Images of the upper abdomen demonstrate no evidence of adrenal mass.; The bony structures are free of lytic or blastic lesions. Multilevel degenerative changes are seen in; volving the visualized thoracolumbar spine.; Atelectatic changes of the right lower lobe.; Scattered calcifications are seen involving the aorta and major branches compatible with atherosclero; sis.; Interposition of the colon to the liver and the right hemidiaphragm.; IMPRESSION:; No evidence for pulmonary embolism.; Left lower lobe consolidation. Please evaluate to exclude pneumonia.; Small left pleural effusion.; Thank you for your kind referral of this patient.; ; Outcome: 03:46 Discharge ordered by Provider. mm11 04:36 Discharge Assessment: Patient awake, alert and oriented x 3. No cognitive and/or tm5 functional deficits noted. Patient verbalized understanding of disposition instructions. patient administered narcotics - yes. Pt provided with safe discharge. The following High Risk Discharge criteria are identified: None. Discharged to home via wheelchair, with family. Condition: good Condition: stable Condition: improved. Discharge instructions given to patient, Instructed on discharge instructions, follow up and referral plans. medication usage, no driving heavy equipment, Demonstrated understanding of instructions, medications, Pt was receptive of discharge instructions/ teaching. Prescriptions given X 1. CT Study completed. Property :Personal belongings accompany Pt. 04:37 Patient left the ED. tm5 Signatures: Dispatcher [employer] EDMS Karlie Soriano, Reg Reg Nyasia Coreas, DO WOLFF mm11 Meghan Acosta, EYELETTER EYELETTER Joey Dimas 6 Rosalinda Dia Crystal, EYELETTER EYELETTER Tatianna Henderson,GABBY RN tm5 Yanira Ann RN mv5 BEVERLY
--- NOTE | 2017-01-10 15:56 | EDDOCDS ---
Physician Documentation [facility] Name: David Salcedo Age: 86 yrs Sex: Male : 1930 Arrival Date: 01/07/2017 Time: 23:34 Bed 3 Private MD: [facility] Disposition: 01/08/17 03:46 Discharged to Home/Self Care. Impression: Low back pain - due to multiple subacute compression fractures previously diagnosed, Shortness of breath - due to back pain, improved.. - Condition is Stable. - Discharge Instructions: Back, Compression Fracture, Shortness of Breath, Shortness of Breath, Qoke-bg-Ltdh. - Prescriptions for Percocet 5- 325 mg Oral Tablet - take 1 tablet by ORAL route every 6 hours As needed MDD: 4 tabs; 20 tablet. - Medication Reconciliation, Local Pharmacy Hours form. - Follow up: [facility]; When: 2 - 3 days; Reason: Continuance of care. - Problem is an acute exacerbation. - Symptoms have improved. Historical: - Allergies: Codeine Sulfate; Xarelto; - Home Meds: 1. cephalexin 500 mg Oral cap 1 cap every 6 hours 2. albuterol sulfate 2.5 mg /3 mL (0.083 %) Inhl nebu prn 3. amlodipine 10 mg Oral tab 1 tab once daily 4. aspirin 325 mg Oral tab once daily 5. tamsulosin 0.4 mg oral cp24 1 cap once daily 6. Lasix 20 mg Oral tab 1 tab once daily 7. Avodart 0.5 mg oral cap 1 cap once daily 8. Visine 0.05 % ophthalmic drop as needed 9. primidone 250 mg Oral tab 0.5 tab bid 10. amlodipine 10 mg Oral tab 1 tab once daily 11. Spiriva with HandiHaler 18 mcg Inhl CpDv 1 cap once daily 12. Fish Oil 1,000 mg Oral cap twice a day 13. Probiotic oral daily 14. multivitamin Oral tab 1 tab daily 15. Ocuvite oral tab daily 16. 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 - Family history: Not pertinent. - : The pt / caregiver states he / she is not on anticoagulants. Home medication list is obtained from family members. - Exposure Risk Screening:: None identified. Vital Signs: 01/07 23:41 BP 177 / 101 RA Sitting (auto/reg); Pulse 83 MON; Resp 22 S; Temp 98.7(TE); Pulse Ox cln 98% on R/A; Weight 83.91 kg / 184.99 lbs (R); Height 5 ft. 9 in. (175.26 cm) (R); Pain 7/10; 01/08 00:00 BP 174 / 84 (auto/); tm5 00:00 Pulse 71 MON; Pulse Ox 95% ; tm5 00:18 BP 174 / 84; Pulse 78; Resp 22; Pulse Ox 95% on R/A; tm5 00:18 BP 157 / 86 (auto/); tm5 00:18 Pulse 80 MON; Pulse Ox 94% ; tm5 00:48 BP 151 / 84 (auto/); tm5 00:48 Pulse 71 MON; Resp 22 S; Pulse Ox 93% on R/A; Pain 0/10; tm5 01:18 BP 160 / 83 (auto/); tm5 01:18 Pulse 75 MON; Pulse Ox 96% ; tm5 01:48 BP 158 / 84 (auto/); tm5 01:48 Pulse 71 MON; Resp 22 S; Pulse Ox 95% on R/A; Pain 0/10; tm5 02:24 BP 153 / 77 (auto/); tm5 02:24 Pulse 82 MON; tm5 02:54 BP 165 / 84 (auto/); tm5 02:54 Pulse 75 MON; Resp 22 S; Pulse Ox 94% on R/A; tm5 04:36 BP 152 / 78; Pulse 70; Resp 18; Temp 98.6(O); Pulse Ox 95% on R/A; Pain 0/10; tm5 01/07 23:41 Body Mass Index 27.32 (83.91 kg, 175.26 cm) cln MDM: 01/07 23:45 ECG WITH READING ER PHYS+CARDIAG ordered. EDMS 01/08 00:07 Audio Installer/Pulse Ox/q 30 min VS ordered. mm11 00:07 IV Saline Lock ordered. mm11 00:07 Rhythm Strip to chart ordered. mm11 00:07 Undress patient appropriately for examination ordered. mm11 00:07 fentaNYL (PF) 75 mcg IVP once ordered. mm11 00:08 B-Type Natiuretic Peptide Ordered. EDMS 00:08 Basic Metabolic Profile Ordered. EDMS 00:08 CBC with Diff Ordered. EDMS 00:08 Cardiac Injury Profile Ordered. EDMS 00:08 Troponin Ordered. EDMS 00:08 portable chest Ordered. EDMS 00:53 Basic Metabolic Profile Reviewed. mm11 00:53 CBC with Diff Reviewed. mm11 00:53 Cardiac Injury Profile Reviewed. mm11 00:53 Troponin Reviewed. mm11 00:59 CT Chest Angio R/O PE Ordered. EDMS 01:05 Financial registration complete. slh 01:35 B-Type Natiuretic Peptide Reviewed. mm11 01:36 Albuterol-Ipratropium 3 ml Inhalation once ordered. mm11 01:36 Call Respiratory ordered. mm11 01:40 Call Respiratory complete. tm5 01:49 [facility] Payment Agreement was scanned into [employer] and attached to record. [facility] 03:39 oxyCODONE-acetaminophen 4 pack 5 mg-325 mg 1 packets PO once; Dispense with pt, take as mm11 per instruction on package ordered. 11:00 T-Sheet-- Draft Copy was scanned into [employer] and attached to record. gb 11:00 ECG/EKG was scanned into [employer] and attached to record. 11:00 PCR was scanned into [employer] and attached to record. 11: Rhythm Strip was scanned into [employer] and attached to record. 01/09 15:23 PCR was scanned into [employer] and attached to record. gb Administered Medications: 01/08 00:18 Drug: fentaNYL (PF) 75 mcg [fentanyl (PF) 50 mcg/mL injection solution (1.5 mL)] Route: tm5 IVP; Site: right forearm; 00:45 Follow up: Response: No Adverse Reaction; Pain is resolved tm5 01:49 Drug: Albuterol-Ipratropium 3 ml [ipratropium-albuterol 0.5 mg-3 mg(2.5 mg base)/3 mL jh6 nebulization soln (3 mL)] Route: Inhalation; 04:35 Drug: oxyCODONE-acetaminophen 4 pack 1 packets [oxycodone-acetaminophen 5 mg-325 mg tm5 tablet (1 tabs)] {Co-Signature: mv5 (Yanira Ann RN).} {Note: dispensed to pt's daughter for pt's pain control at home.} Route: PO; 04:36 Follow up: Response: Med's dispensed home tm5 Addendum: 01/10/2017 15:54 Radiology Callback: Radiology results faxed to primary care physician/provider. [facility] faxed formal report of cxr for fu mlg. Signatures: Dispatcher [employer] Ansley Rainey MD MD Karlie Soriano, Reg Reg Brandon Coreas, DO mm11 Rosalinda Dia [facility] Tatianna PulliamRN RN tm5 Joey Dove [facility] Yanira Ann RN mv5 The chart was reviewed and I authenticate all verbal orders and agree with the evaluation and treatment provided.Corrections: (The following items were deleted from the chart) 15:55 15:54 Radiology Callback: Radiology results faxed to primary care physician/provider. [facility] faxed formal report of cxr for fu mlg, ml Attachments: 01/08 01:49 [facility] Payment Agreement [facility] 11:00 T-Sheet-- Draft Copy 11:00 ECG/EKG MTDD
--- NOTE | 2017-01-10 15:57 | EDDOCDS ---
Nurse's Notes [facility] Name: David Velazquez Age: 86 yrs Sex: Male : 1930 Arrival Date: 01/07/2017 Time: 23:34 Bed 3 Private MD: [facility] Diagnosis: Low back pain-due to multiple subacute compression fractures previously diagnosed;Shortness of breath-due to back pain, improved. Presentation: 01/07 23:37 Presenting complaint: EMS states: per EMS pt here with SOB tonight, initial Resp rate tm5 was 38, "hurts to breath x 2 days" per pt, O2 NRB was placed on pt with 99% O2 sat, IV saline lock #22 to right wrist, Paced on quality assurance monitor, BG FS 83, no meds given by EMS. Adult Sepsis Screening: The patient does not have new or worsening altered mentation. Patient's respiratory rate is less than 22. Systolic blood pressure is less than or equal to 100 (1 point). Patient has a qSOFA score of 0- Negative Sepsis Screen. Suicide/Homicide risk assessment- the patient denies having any suicidal and/or homicidal ideations and does not present with any other emotional, behavioral or mental health complaints. Status: Patient is not a relocation services specialist or dependent. Transition of care: patient was not received from another setting of care. 23:37 Acuity: HOPE Level 3 tm5 23:37 Method Of Arrival: Ambulance tm5 Triage Assessment: 23:46 General: Appears in no apparent distress, Behavior is appropriate for age, cooperative. tm5 Pain: Denies pain. The patient is triaged at the bedside. See Assessment in Nurses Notes section of ED record. Neurological: Level of Consciousness is awake, alert, Oriented to person, place, time. Cardiovascular: Rhythm is with capture. Respiratory: Onset: The symptoms/episode began/occurred 2 days ago or more, Airway is patent Respiratory effort is even, unlabored, Respiratory pattern is regular, symmetrical, Breath sounds are clear bilaterally. Breath sounds are diminished bilaterally. GI: No deficits noted. : No deficits noted. Derm: Skin is pink, warm & dry. Historical: - Allergies: Codeine Sulfate; Xarelto; - Home Meds: 1. cephalexin 500 mg Oral cap 1 cap every 6 hours 2. albuterol sulfate 2.5 mg /3 mL (0.083 %) Inhl nebu prn 3. amlodipine 10 mg Oral tab 1 tab once daily 4. aspirin 325 mg Oral tab once daily 5. tamsulosin 0.4 mg oral cp24 1 cap once daily 6. Lasix 20 mg Oral tab 1 tab once daily 7. Avodart 0.5 mg oral cap 1 cap once daily 8. Visine 0.05 % ophthalmic drop as needed 9. primidone 250 mg Oral tab 0.5 tab bid 10. amlodipine 10 mg Oral tab 1 tab once daily 11. Spiriva with HandiHaler 18 mcg Inhl CpDv 1 cap once daily 12. Fish Oil 1,000 mg Oral cap twice a day 13. Probiotic oral daily 14. multivitamin Oral tab 1 tab daily 15. Ocuvite oral tab daily 16. 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 - Family history: Not pertinent. - : The pt / caregiver states he / she is not on anticoagulants. Home medication list is obtained from family members. - Exposure Risk Screening:: None identified. Screenin:49 Screening information is obtained from the patient. Fall risk: At risk due to prior tm5 history of falls. Assistance ADL's: requires no assistance with activities of daily living. Abuse/DV Screen: The patient / caregiver reports he/she is: not in a situation that causes fear, pain or injury. Nutritional screening: No deficits noted. Advance Directives: Currently, there is a health care proxy, Daughter Komal. There is an active DNR order but there is no copy available at this time. home support is adequate. Assessment: 23:49 General: see triage assessment . Cardiovascular: Rhythm is with capture. tm5 01/08 04:36 Reassessment: Patient appears in no apparent distress at this time. Patient states tm5 feeling better. Patient states symptoms have improved. Vital Signs: 01/07 23:41 BP 177 / 101 RA Sitting (auto/reg); Pulse 83 MON; Resp 22 S; Temp 98.7(TE); Pulse Ox cln 98% on R/A; Weight 83.91 kg (R); Height 5 ft. 9 in. (175.26 cm) (R); Pain 7/10; 01/08 00:00 BP 174 / 84 (auto/); tm5 00:00 Pulse 71 MON; Pulse Ox 95% ; tm5 00:18 BP 174 / 84; Pulse 78; Resp 22; Pulse Ox 95% on R/A; tm5 00:18 BP 157 / 86 (auto/); tm5 00:18 Pulse 80 MON; Pulse Ox 94% ; tm5 00:48 BP 151 / 84 (auto/); tm5 00:48 Pulse 71 MON; Resp 22 S; Pulse Ox 93% on R/A; Pain 0/10; tm5 01:18 BP 160 / 83 (auto/); tm5 01:18 Pulse 75 MON; Pulse Ox 96% ; tm5 01:48 BP 158 / 84 (auto/); tm5 01:48 Pulse 71 MON; Resp 22 S; Pulse Ox 95% on R/A; Pain 0/10; tm5 02:24 BP 153 / 77 (auto/); tm5 02:24 Pulse 82 MON; tm5 02:54 BP 165 / 84 (auto/); tm5 02:54 Pulse 75 MON; Resp 22 S; Pulse Ox 94% on R/A; tm5 04:36 BP 152 / 78; Pulse 70; Resp 18; Temp 98.6(O); Pulse Ox 95% on R/A; Pain 0/10; tm5 02 23:41 Body Mass Index 27.32 (83.91 kg, 175.26 cm) cln Vitals: 01/07 23:46 Log In Time N/A - ambulance arrival. tm5 ED Course: 23:35 Patient visited by Meghan Acosta PCA. wallace 23:35 Patient moved to Waiting wallace 23:36 [facility] is Private Physician. wallace 23:36 Patient moved to 3 wallace 23:37 Nyasia Nunez DO is Attending Physician. mm11 23:37 Patient visited by Nyasia Nunez DO. mm11 23:37 Patient visited by Tatianna Pulliam RN. tm5 23:41 Triage Initiated tm5 23:42 Patient visited by Vicki Jacobson PCA. cln 23:42 Pt greeted and oriented to ED. Patient advised of names of staff involved in care, cln location of call granda, wait times and NPO status. Accompanied by Family Member, Patient has correct armband on for positive identification. Placed in gown. Bed in low position. Call light in reach. Side rails up X 1. 23:46 Family accompanied patient. tm5 23:49 Awaiting ED physician evaluation. tm5 23:49 The patient / caregiver is instructed regarding the plan of care and ED course. Cardiac tm5 monitor on. Pulse ox on. NIBP on. Warm blanket given. Pillow given. 23:49 Maintain field IV. Dressing intact. Good blood return noted. Site clean & dry. Gauge & tm5 site: #22 left lower forearm . EKG done. (by ED staff). Reviewed by Nyasia Nunez DO. 01/08 00:06 Patient visited by Nyasia Nunez DO. mm11 00:17 Patient visited by Tatianna Pulliam,GABBY. tm5 00:18 Troponin Sent. tm5 00:18 Cardiac Injury Profile Sent. tm5 00:18 CBC with Diff Sent. tm5 00:18 Basic Metabolic Profile Sent. tm5 00:18 B-Type Natiuretic Peptide Sent. tm5 00:18 Labs drawn. (by ED staff). Sent per order to lab. tm5 00:58 Patient visited by Nyasia Nunez DO. mm11 01:14 Patient visited by Tatianna Pulliam,GABBY. tm5 01:14 Inserted saline lock: 18 gauge in right forearm The patient tolerated the procedure tm5 well. 01:48 Patient name changed from David\\S\\\\S\\Denisse\\S\\ to David\\S\\ \\S\\Denisse. EDMS 01:49 [facility] Payment Agreement was scanned into Endoc[employer]ar and attached to record. [facility] 02:20 Patient visited by Nyasia Nunez DO. mm11 02:56 Patient visited by Tatianna Pulliam,GABBY. tm5 03:33 CT Chest Angio R/O PE Returned. EDMS 03:39 Patient visited by Nyasia Nunez DO. mm11 03:45 [facility] is Referral Physician. mm11 04:36 Discontinued lock intact, bleeding controlled, pressure dressing applied, No tm5 redness/swelling at site. 04:36 No procedures done that require assistance. tm5 08:10 portable chest Returned. EDMS 08:34 EKG-ADULT Returned. EDMS 11:00 T-Sheet-- Draft Copy was scanned into [employer] and attached to record. gb 11:00 ECG/EKG was scanned into MEDHOST and attached to record. gb 11:00 PCR was scanned into MEDHOST and attached to record. gb 11:01 Rhythm Strip was scanned into MEDHOST and attached to record. gb 01/09 15:23 PCR was scanned into MEDHOST and attached to record. gb Administered Medications: 01/08 00:18 Drug: fentaNYL (PF) 75 mcg [fentanyl (PF) 50 mcg/mL injection solution (1.5 mL)] Route: tm5 IVP; Site: right forearm; 00:45 Follow up: Response: No Adverse Reaction; Pain is resolved tm5 01:49 Drug: Albuterol-Ipratropium 3 ml [ipratropium-albuterol 0.5 mg-3 mg(2.5 mg base)/3 mL jh6 nebulization soln (3 mL)] Route: Inhalation; 04:35 Drug: oxyCODONE-acetaminophen 4 pack 1 packets [oxycodone-acetaminophen 5 mg-325 mg tm5 tablet (1 tabs)] {Co-Signature: mv5 (Yanira Ann RN).} {Note: dispensed to pt's daughter for pt's pain control at home.} Route: PO; 04:36 Follow up: Response: Med's dispensed home tm5 Attachments: 11:01 Rhythm Strip gb RT: 01/08 01:49 Initial Med Neb Given as ordered Patient was instructed and evaluated on procedure jh6 Patient tolerated procedure well without adverse effect. Respiratory: Airway is patent Respiratory effort is even, unlabored, Respiratory pattern is regular symmetrical, Breath sounds are diminished in right upper lobe, left upper lobe, right middle lobe, left lower lobe and right lower lobe Breath sounds with wheezes in right upper lobe, left upper lobe, right middle lobe, left lower lobe and right lower lobe at expiration. 02:01 Respiratory: Airway is patent Respiratory effort is even, unlabored, Respiratory 6 pattern is regular symmetrical, Breath sounds are coarse in right upper lobe, left upper lobe, right middle lobe, left lower lobe and right lower lobe. Order Results: Lab Order: B-Type Natiuretic Peptide; SPEC'M 01/08/17 00:17 Test: BRAIN NATRIURETIC PEPTIDE; Value: 227; Range: <100; Abnormal: Above high normal; Units: PG/ML; Status: F Lab Order: Basic Metabolic Profile; SPEC01/08/17 00:17 Test: GLUCOSE, FASTING; Value: 95; Range: 83-110; Units: MG/DL; Status: F Test: BLOOD UREA NITROGEN; Value: 32; Range: 7-18; Abnormal: Above high normal; Units: MG/DL; Status: F Test: CREATININE FOR GFR; Value: 1.19; Range: 0.70-1.30; Units: MG/DL; Status: F Test: GLOMERULAR FILTRATION RATE; Value: > 60.0; Range: >35; Status: F Test: SODIUM LEVEL; Value: 138; Range: 136-145; Units: MEQ/L; Status: F Test: POTASSIUM SERUM; Value: 4.4; Range: 3.5-5.1; Units: MEQ/L; Status: F Test: CHLORIDE LEVEL; Value: 103; Range: 98-107; Units: MEQ/L; Status: F Test: CARBON DIOXIDE LEVEL; Value: 26; Range: 21-32; Units: MEQ/L; Status: F Test: ANION GAP; Value: 9; Range: 8-16; Units: MEQ/L; Status: F Test: CALCIUM LEVEL; Value: 8.2; Range: 8.8-10.2; Abnormal: Below low normal; Units: MG/DL; Status: F Test Note: ; Units are mL/min/1.73 m2 Chronic Kidney Disease Staging per NKF: Stage I & II GFR >=60 Normal to Mildly Decreased Stage III GFR 30-59 Moderately Decreased Stage IV GFR 15-29 Severely Decreased Stage V GFR <15 Very Little GFR Left ESRD GFR <15 on WEB MARKETING MANAGER Lab Order: CBC with Diff; SPEC01/08/17 00:17 Test: WHITE BLOOD COUNT; Value: 6.3; Range: 4.0-10.0; Units: K/mm3; Status: F Test: RED BLOOD COUNT; Value: 4.80; Range: 4.30-6.10; Units: M/mm3; Status: F Test: HEMOGLOBIN; Value: 14.0; Range: 14.0-18.0; Units: g/dl; Status: F Test: HEMATOCRIT; Value: 43.6; Range: 42.0-52.0; Units: %; Status: F Test: MEAN CORPUSCULAR VOLUME; Value: 90.9; Range: 80.0-96.0; Units: fl; Status: F Test: MEAN CORPUSCULAR HEMOGLOBIN; Value: 29.1; Range: 27.0-33.0; Units: pg; Status: F Test: MEAN CORPUSCULAR HGB CONC; Value: 32.0; Range: 32.0-36.5; Units: g/dl; Status: F Test: RED CELL DISTRIBUTION WIDTH; Value: 12.9; Range: 11.5-14.5; Units: %; Status: F Test: PLATELET COUNT, AUTOMATED; Value: 104; Range: 150-450; Abnormal: Below low normal; Units: k/mm3; Status: F Test: NEUTROPHILS %; Value: 74.2; Range: 36.0-66.0; Abnormal: Above high normal; Units: %; Status: F Test: LYMPH %; Value: 13.3; Range: 24.0-44.0; Abnormal: Below low normal; Units: %; Status: F Test: MONO %; Value: 6.0; Range: 0.0-5.0; Abnormal: Above high normal; Units: %; Status: F Test: EOS %; Value: 4.7; Range: 0.0-3.0; Abnormal: Above high normal; Units: %; Status: F Test: BASO %; Value: 0.6; Range: 0.0-1.0; Units: %; Status: F Test: LARGE UNSTAINED CELL %; Value: 1.2; Range: 0.0-4.0; Units: %; Status: F Test: NEUTROPHILS #; Value: 4.7; Range: 1.8-7.7; Units: K/mm3; Status: F Test: LYMPH #; Value: 0.9; Range: 1.5-4.5; Abnormal: Below low normal; Units: K/mm3; Status: F Test: MONO #; Value: 0.4; Range: 0.0-0.8; Units: K/mm3; Status: F Test: EOS #; Value: 0.3; Range: 0.0-0.50; Units: K/mm3; Status: F Test: BASO #; Value: 0.0; Range: 0.0-0.2; Units: K/mm3; Status: F Test: LARGE UNSTAINED CELL #; Value: 0.1; Range: 0.0-0.4; Units: K/mm3; Status: F Lab Order: Cardiac Injury Profile; SPEC'M 01/08/17 00:17 Test: CPK CREATINE PHOSPHOKINASE; Value: 59; Range: 39-308; Units: U/L; Status: F Test: CK-MB VALUE MASS; Value: 2.0; Range: 0.0-3.6; Units: NG/ML; Status: F Test: MB/CK RELATIVE INDEX; Value: 3.38; Range: < OR =4; Status: F Test Note: ; DIAGNOSIS CRITERIA MMB ng/ml Relative Index (RI) NON-AMI < or = 5 N/A SINGLETON ZONE > 5 < or = 4 AMI > 5 > 4 Lab Order: Troponin; SPEC'M 01/08/17 00:17 Test: TROPONIN I; Value: < 0.02; Range: < 0.10; Units: NG/ML; Status: F Test Note: ; Troponin I Reference Interval for Expertcloud[employer]de LOCI: 99th Percentile= 0.00-0.045 ng/ml Risk Stratification: <= 0.10 ng/ml Decreased Risk for Adverse Clinical Events. 0.10-1.50 ng/ml Increased Risk for Adverse Clinical Events. Evaluation of additional criterion and/or repeat testing in 2-6 hours is suggested to rule out myocardial damage. >= 1.50 ng/ml Indicative of Myocardial Injury. Radiology Order: EKG-ADULT Test: EKG-ADULT REASON FOR EXAMINATION: Shortness of Breath; Stationary ECG Study; [facility] - ED; ; Test Date: 2017-01-07; Pat Name: DAVID VELAZQUEZ Department:; Room: -; Gender: M Sessions Clerk: ct; : 1930 Requested By: NYASIA Barber; Order Number: [id number] Reading MD: Sophie De La Cruz; Measurements; Intervals [place]; Rate: 75 P:; UT: 0 QRS: -82; QRSD: 180 T: 85; QT: 449; QTc: 503; Interpretive Statements; ELECTRONIC VENTRICULAR PACEMAKER; ABNORMAL RHYTHM ECG; UNDERLYING ATRIAL FIB; SIMILAR 01/03/17; Electronically Signed On 01-08-2017 8:32:05 EST by Sophie De La Cruz; Radiology Order: portable chest Test: portable chest REASON FOR EXAMINATION: Shortness of Breath; Clinical: Acute shortness of breath .; ; Comparison: 01/03/2017 .; ; Findings:; The mediastinum and cardiac silhouette are stable and within normal limits for; portable technique. Pacemaker in stable position. Left lower lobe/retrocardiac; consolidation cannot be excluded. No effusion. No pneumothorax. Chronic stable; changes noted. Skeletal structures are intact.; ; Impression:; Cannot exclude medial left lower lobe/retrocardiac infiltrate.; ; ; Signed by; Collin Rod MD 01/08/2017 07:53 A; Radiology Order: CT Chest Angio R/O PE Test: CT Chest Angio R/O PE REASON FOR EXAMINATION: Shortness of Breath; ; CLINICAL HISTORY: Dyspnea, exclude PE.; TECHNIQUE: Multiple incremental axial, coronal and oblique images are obtained from the thoracic inle; t to the upper abdomen. Intravenous contrast material was administered as per pulmonary embolism prot; ocol.; COMMENTS:; There is excellent opacification of pulmonary arterial system without evidence for pulmonary embolism; . Aorta is of normal caliber without evidence for dissection or aneurysm.; There is no evidence of pleural or parenchymal mass. Small left pleural effusion. Left lower lobe con; solidation more prominent in the posterior/medial aspect of the left lower lobe. There is no evidence; of hilar or mediastinal lymphadenopathy. The heart and great vessels are within normal limits. Pacem; susana wires are in good position.; Images of the upper abdomen demonstrate no evidence of adrenal mass.; The bony structures are free of lytic or blastic lesions. Multilevel degenerative changes are seen in; volving the visualized thoracolumbar spine.; Atelectatic changes of the right lower lobe.; Scattered calcifications are seen involving the aorta and major branches compatible with atherosclero; sis.; Interposition of the colon to the liver and the right hemidiaphragm.; IMPRESSION:; No evidence for pulmonary embolism.; Left lower lobe consolidation. Please evaluate to exclude pneumonia.; Small left pleural effusion.; Thank you for your kind referral of this patient.; ; Outcome: 03:46 Discharge ordered by Provider. mm11 04:36 Discharge Assessment: Patient awake, alert and oriented x 3. No cognitive and/or tm5 functional deficits noted. Patient verbalized understanding of disposition instructions. patient administered narcotics - yes. Pt provided with safe discharge. The following High Risk Discharge criteria are identified: None. Discharged to home via wheelchair, with family. Condition: good Condition: stable Condition: improved. Discharge instructions given to patient, Instructed on discharge instructions, follow up and referral plans. medication usage, no driving heavy equipment, Demonstrated understanding of instructions, medications, Pt was receptive of discharge instructions/ teaching. Prescriptions given X 1. CT Study completed. Property :Personal belongings accompany Pt. 04:37 Patient left the ED. tm5 Signatures: Dispatcher Med[employer] EDMS Karlie Soriano, Reg Reg Nyasia Coreas, DO WOLFF mm11 Meghan Acosta, WRAP KNITTING MACHINE OPERATOR WRAP KNITTING MACHINE OPERATOR Joey Dimas jh6 Rosalinda Dia Crystal, WRAP KNITTING MACHINE OPERATOR WRAP KNITTING MACHINE OPERATOR Tatianna Henderson RN RN tm5 Yanira Ann RN mv5 Chart Complete [facility]
--- NOTE | 2017-01-10 15:57 | EDDOCDS ---
Physician Documentation [facility] Name: David Salcedo Age: 86 yrs Sex: Male : 1930 Arrival Date: 01/07/2017 Time: 23:34 Bed 3 Private MD: [facility] Disposition: 01/08/17 03:46 Discharged to Home/Self Care. Impression: Low back pain - due to multiple subacute compression fractures previously diagnosed, Shortness of breath - due to back pain, improved.. - Condition is Stable. - Discharge Instructions: Back, Compression Fracture, Shortness of Breath, Shortness of Breath, Awcs-ce-Cbky. - Prescriptions for Percocet 5- 325 mg Oral Tablet - take 1 tablet by ORAL route every 6 hours As needed MDD: 4 tabs; 20 tablet. - Medication Reconciliation, Local Pharmacy Hours form. - Follow up: [facility]; When: 2 - 3 days; Reason: Continuance of care. - Problem is an acute exacerbation. - Symptoms have improved. Historical: - Allergies: Codeine Sulfate; Xarelto; - Home Meds: 1. cephalexin 500 mg Oral cap 1 cap every 6 hours 2. albuterol sulfate 2.5 mg /3 mL (0.083 %) Inhl nebu prn 3. amlodipine 10 mg Oral tab 1 tab once daily 4. aspirin 325 mg Oral tab once daily 5. tamsulosin 0.4 mg oral cp24 1 cap once daily 6. Lasix 20 mg Oral tab 1 tab once daily 7. Avodart 0.5 mg oral cap 1 cap once daily 8. Visine 0.05 % ophthalmic drop as needed 9. primidone 250 mg Oral tab 0.5 tab bid 10. amlodipine 10 mg Oral tab 1 tab once daily 11. Spiriva with HandiHaler 18 mcg Inhl CpDv 1 cap once daily 12. Fish Oil 1,000 mg Oral cap twice a day 13. Probiotic oral daily 14. multivitamin Oral tab 1 tab daily 15. Ocuvite oral tab daily 16. 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 - Family history: Not pertinent. - : The pt / caregiver states he / she is not on anticoagulants. Home medication list is obtained from family members. - Exposure Risk Screening:: None identified. Vital Signs: 01/07 23:41 BP 177 / 101 RA Sitting (auto/reg); Pulse 83 MON; Resp 22 S; Temp 98.7(TE); Pulse Ox cln 98% on R/A; Weight 83.91 kg / 184.99 lbs (R); Height 5 ft. 9 in. (175.26 cm) (R); Pain 7/10; 01/08 00:00 BP 174 / 84 (auto/); tm5 00:00 Pulse 71 MON; Pulse Ox 95% ; tm5 00:18 BP 174 / 84; Pulse 78; Resp 22; Pulse Ox 95% on R/A; tm5 00:18 BP 157 / 86 (auto/); tm5 00:18 Pulse 80 MON; Pulse Ox 94% ; tm5 00:48 BP 151 / 84 (auto/); tm5 00:48 Pulse 71 MON; Resp 22 S; Pulse Ox 93% on R/A; Pain 0/10; tm5 01:18 BP 160 / 83 (auto/); tm5 01:18 Pulse 75 MON; Pulse Ox 96% ; tm5 01:48 BP 158 / 84 (auto/); tm5 01:48 Pulse 71 MON; Resp 22 S; Pulse Ox 95% on R/A; Pain 0/10; tm5 02:24 BP 153 / 77 (auto/); tm5 02:24 Pulse 82 MON; tm5 02:54 BP 165 / 84 (auto/); tm5 02:54 Pulse 75 MON; Resp 22 S; Pulse Ox 94% on R/A; tm5 04:36 BP 152 / 78; Pulse 70; Resp 18; Temp 98.6(O); Pulse Ox 95% on R/A; Pain 0/10; tm5 01/07 23:41 Body Mass Index 27.32 (83.91 kg, 175.26 cm) cln MDM: 01/07 23:45 ECG WITH READING ER PHYS+CARDIAG ordered. EDMS 01/08 00:07 Interlacer/Pulse Ox/q 30 min VS ordered. mm11 00:07 IV Saline Lock ordered. mm11 00:07 Rhythm Strip to chart ordered. mm11 00:07 Undress patient appropriately for examination ordered. mm11 00:07 fentaNYL (PF) 75 mcg IVP once ordered. mm11 00:08 B-Type Natiuretic Peptide Ordered. EDMS 00:08 Basic Metabolic Profile Ordered. EDMS 00:08 CBC with Diff Ordered. EDMS 00:08 Cardiac Injury Profile Ordered. EDMS 00:08 Troponin Ordered. EDMS 00:08 portable chest Ordered. EDMS 00:53 Basic Metabolic Profile Reviewed. mm11 00:53 CBC with Diff Reviewed. mm11 00:53 Cardiac Injury Profile Reviewed. mm11 00:53 Troponin Reviewed. mm11 00:59 CT Chest Angio R/O PE Ordered. EDMS 01:05 Financial registration complete. slh 01:35 B-Type Natiuretic Peptide Reviewed. mm11 01:36 Albuterol-Ipratropium 3 ml Inhalation once ordered. mm11 01:36 Call Respiratory ordered. mm11 01:40 Call Respiratory complete. tm5 01:49 [facility] Payment Agreement was scanned into [employer] and attached to record. [facility] 03:39 oxyCODONE-acetaminophen 4 pack 5 mg-325 mg 1 packets PO once; Dispense with pt, take as mm11 per instruction on package ordered. 11:00 T-Sheet-- Draft Copy was scanned into [employer] and attached to record. gb 11:00 ECG/EKG was scanned into [employer] and attached to record. 11:00 PCR was scanned into [employer] and attached to record. 11: Rhythm Strip was scanned into [employer] and attached to record. 01/09 15:23 PCR was scanned into [employer] and attached to record. gb Administered Medications: 01/08 00:18 Drug: fentaNYL (PF) 75 mcg [fentanyl (PF) 50 mcg/mL injection solution (1.5 mL)] Route: tm5 IVP; Site: right forearm; 00:45 Follow up: Response: No Adverse Reaction; Pain is resolved tm5 01:49 Drug: Albuterol-Ipratropium 3 ml [ipratropium-albuterol 0.5 mg-3 mg(2.5 mg base)/3 mL jh6 nebulization soln (3 mL)] Route: Inhalation; 04:35 Drug: oxyCODONE-acetaminophen 4 pack 1 packets [oxycodone-acetaminophen 5 mg-325 mg tm5 tablet (1 tabs)] {Co-Signature: mv5 (Yanira Ann RN).} {Note: dispensed to pt's daughter for pt's pain control at home.} Route: PO; 04:36 Follow up: Response: Med's dispensed home tm5 Addendum: 01/10/2017 15:54 Radiology Callback: Radiology results faxed to primary care physician/provider. [facility] faxed formal report of cxr for fu mlg. Signatures: Dispatcher [employer] Ansley Rainey MD MD Karlie Soriano, Reg Reg Brandon Coreas, DO mm11 Rosalinda Dia [facility] Tatianna PulliamRN RN tm5 Joey Dove [facility] Yanira Ann RN mv5 The chart was reviewed and I authenticate all verbal orders and agree with the evaluation and treatment provided.Corrections: (The following items were deleted from the chart) 15:55 15:54 Radiology Callback: Radiology results faxed to primary care physician/provider. [facility] faxed formal report of cxr for fu mlg, ml Attachments: 01/08 01:49 [facility] Payment Agreement [facility] 11:00 T-Sheet-- Draft Copy 11:00 ECG/EKG Chart Complete MTDD
--- NOTE | 2017-01-10 15:57 | EDDOCDS ---
Physician Documentation [facility] Name: David Salcedo Age: 86 yrs Sex: Male : 1930 Arrival Date: 01/07/2017 Time: 23:34 Bed 3 Private MD: [facility] Disposition: 01/08/17 03:46 Discharged to Home/Self Care. Impression: Low back pain - due to multiple subacute compression fractures previously diagnosed, Shortness of breath - due to back pain, improved.. - Condition is Stable. - Discharge Instructions: Back, Compression Fracture, Shortness of Breath, Shortness of Breath, [id number]. - Prescriptions for Percocet 5- 325 mg Oral Tablet - take 1 tablet by ORAL route every 6 hours As needed MDD: 4 tabs; 20 tablet. - Medication Reconciliation, Local Pharmacy Hours form. - Follow up: [facility]; When: 2 - 3 days; Reason: Continuance of care. - Problem is an acute exacerbation. - Symptoms have improved. Historical: - Allergies: Codeine Sulfate; Xarelto; - Home Meds: 1. cephalexin 500 mg Oral cap 1 cap every 6 hours 2. albuterol sulfate 2.5 mg /3 mL (0.083 %) Inhl nebu prn 3. amlodipine 10 mg Oral tab 1 tab once daily 4. aspirin 325 mg Oral tab once daily 5. tamsulosin 0.4 mg oral cp24 1 cap once daily 6. Lasix 20 mg Oral tab 1 tab once daily 7. Avodart 0.5 mg oral cap 1 cap once daily 8. Visine 0.05 % ophthalmic drop as needed 9. primidone 250 mg Oral tab 0.5 tab bid 10. amlodipine 10 mg Oral tab 1 tab once daily 11. Spiriva with HandiHaler 18 mcg Inhl CpDv 1 cap once daily 12. Fish Oil 1,000 mg Oral cap twice a day 13. Probiotic oral daily 14. multivitamin Oral tab 1 tab daily 15. Ocuvite oral tab daily 16. 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 - Family history: Not pertinent. - : The pt / caregiver states he / she is not on anticoagulants. Home medication list is obtained from family members. - Exposure Risk Screening:: None identified. Vital Signs: 01/07 23:41 BP 177 / 101 RA Sitting (auto/reg); Pulse 83 MON; Resp 22 S; Temp 98.7(TE); Pulse Ox cln 98% on R/A; Weight 83.91 kg / 184.99 lbs (R); Height 5 ft. 9 in. (175.26 cm) (R); Pain 7/10; 01/08 00:00 BP 174 / 84 (auto/); tm5 00:00 Pulse 71 MON; Pulse Ox 95% ; tm5 00:18 BP 174 / 84; Pulse 78; Resp 22; Pulse Ox 95% on R/A; tm5 00:18 BP 157 / 86 (auto/); tm5 00:18 Pulse 80 MON; Pulse Ox 94% ; tm5 00:48 BP 151 / 84 (auto/); tm5 00:48 Pulse 71 MON; Resp 22 S; Pulse Ox 93% on R/A; Pain 0/10; tm5 01:18 BP 160 / 83 (auto/); tm5 01:18 Pulse 75 MON; Pulse Ox 96% ; tm5 01:48 BP 158 / 84 (auto/); tm5 01:48 Pulse 71 MON; Resp 22 S; Pulse Ox 95% on R/A; Pain 0/10; tm5 02:24 BP 153 / 77 (auto/); tm5 02:24 Pulse 82 MON; tm5 02:54 BP 165 / 84 (auto/); tm5 02:54 Pulse 75 MON; Resp 22 S; Pulse Ox 94% on R/A; tm5 04:36 BP 152 / 78; Pulse 70; Resp 18; Temp 98.6(O); Pulse Ox 95% on R/A; Pain 0/10; tm5 01/07 23:41 Body Mass Index 27.32 (83.91 kg, 175.26 cm) cln MDM: 01/07 23:45 ECG WITH READING ER PHYS+CARDIAG ordered. EDMS 01/08 00:07 Starting Gate Driver/Pulse Ox/q 30 min VS ordered. mm11 00:07 IV Saline Lock ordered. mm11 00:07 Rhythm Strip to chart ordered. mm11 00:07 Undress patient appropriately for examination ordered. mm11 00:07 fentaNYL (PF) 75 mcg IVP once ordered. mm11 00:08 B-Type Natiuretic Peptide Ordered. EDMS 00:08 Basic Metabolic Profile Ordered. EDMS 00:08 CBC with Diff Ordered. EDMS 00:08 Cardiac Injury Profile Ordered. EDMS 00:08 Troponin Ordered. EDMS 00:08 portable chest Ordered. EDMS 00:53 Basic Metabolic Profile Reviewed. mm11 00:53 CBC with Diff Reviewed. mm11 00:53 Cardiac Injury Profile Reviewed. mm11 00:53 Troponin Reviewed. mm11 00:59 CT Chest Angio R/O PE Ordered. EDMS 01:05 Financial registration complete. slh 01:35 B-Type Natiuretic Peptide Reviewed. mm11 01:36 Albuterol-Ipratropium 3 ml Inhalation once ordered. mm11 01:36 Call Respiratory ordered. mm11 01:40 Call Respiratory complete. tm5 01:49 [facility] [place] Agreement was scanned into [employer] and attached to record. [facility] 03:39 oxyCODONE-acetaminophen 4 pack 5 mg-325 mg 1 packets PO once; Dispense with pt, take as mm11 per instruction on package ordered. 11:00 T-Sheet-- Draft Copy was scanned into [employer] and attached to record. gb 11:00 ECG/EKG was scanned into [employer] and attached to record. 11:00 PCR was scanned into [employer] and attached to record. 11: Rhythm Strip was scanned into [employer] and attached to record. 01/09 15:23 PCR was scanned into [employer] and attached to record. gb Administered Medications: 01/08 00:18 Drug: fentaNYL (PF) 75 mcg [fentanyl (PF) 50 mcg/mL injection solution (1.5 mL)] Route: tm5 IVP; Site: right forearm; 00:45 Follow up: Response: No Adverse Reaction; Pain is resolved tm5 01:49 Drug: Albuterol-Ipratropium 3 ml [ipratropium-albuterol 0.5 mg-3 mg(2.5 mg base)/3 mL jh6 nebulization soln (3 mL)] Route: Inhalation; 04:35 Drug: oxyCODONE-acetaminophen 4 pack 1 packets [oxycodone-acetaminophen 5 mg-325 mg tm5 tablet (1 tabs)] {Co-Signature: mv5 (Yanira Ann RN).} {Note: dispensed to pt's daughter for pt's pain control at home.} Route: PO; 04:36 Follow up: Response: Med's dispensed home tm5 Addendum: 01/10/2017 15:54 Radiology Callback: Radiology results faxed to primary care physician/provider. [facility] faxed formal report of cxr for fu mlg. Signatures: Dispatcher [employer] Ansley Rainey MD MD Karlie Soriano, Reg Reg Brandon Coreas, DO mm11 Rosalinda Dia [facility] Tatianna PulliamRN RN tm5 Joey Dove [facility] Yanira Ann RN mv5 The chart was reviewed and I authenticate all verbal orders and agree with the evaluation and treatment provided.Corrections: (The following items were deleted from the chart) 15:55 15:54 Radiology Callback: Radiology results faxed to primary care physician/provider. [facility] faxed formal report of cxr for fu mlg, ml Attachments: 01/08 01:49 [facility] Payment Agreement [facility] 11:00 T-Sheet-- Draft Copy 11:00 ECG/EKG Chart Complete MTDD
== END 2017-01-08 04:37 | disposition home or self-care (01) ==
LOC: M ED 23:34
DX: M54.5 Low back pain (principal); R06.02 Shortness of breath; I48.91 Unspecified atrial fibrillation; J44.9 Chronic obstructive pulmonary disease, unspecified; F03.90 Unspecified dementia, unspecified severity, without behavioral disturbance, psychotic disturbance, mood disturbance, and anxiety; Z95.0 Presence of cardiac pacemaker; Z86.718 Personal history of other venous thrombosis and embolism; Z87.440 Personal history of urinary (tract) infections; F17.228 Nicotine dependence, chewing tobacco, with other nicotine-induced disorders; Z79.51 Long term (current) use of inhaled steroids; Z79.82 Long term (current) use of aspirin; Z79.899 Other long term (current) drug therapy; Z88.2 Allergy status to sulfonamides; Z88.5 Allergy status to narcotic agent; Z88.8 Allergy status to other drugs, medicaments and biological substances
CPT/HCPCS: 36415; 71010; 71275; 80048; 82550; 82553; 83880; 84484; 85025; 93005; 93041; 94640; 96374; 99285; J3010; Q9967

== ENCOUNTER 2017-01-18 17:53 | Emergency (ER) | payer OTHER ==
[2017-01-18] MEDS ORDERED: PERCOCET 5MG/325MG TAB As Ordered ONE ×2 (18:38→21:03)
--- NOTE | 2017-01-18 19:02 | REP ---
Clinical: Chest pain. Technique: PA and lateral. Comparison: 01/08/2017. Findings: Mediastinum and cardiac silhouette are stable. Mild cardiomegaly and evidence for pacemaker unchanged. Lung chavez demonstrate chronic changes including pleural plaque overlying the right upper lung zone and trace bibasilar fibroatelectatic changes. No consolidation, effusion, or pneumothorax. Skeletal structures stable. Impression: Bibasilar fibroatelectatic changes (left greater than right) may represent acute and/or chronic change. Signed by Collin Rod MD 01/18/2017 06:53 P
[2017-01-18 20:03] LABS: BASO % 0.6 % (0.0-1.0); EOS # 0.2 K/mm3 (0.0-0.50); EOS % 5.1 % (0.0-3.0); LARGE UNSTAINED CELL # 0.1 K/mm3 (0.0-0.4); LARGE UNSTAINED CELL % 1.4 % (0.0-4.0); LYMPH % 20.5 % (24.0-44.0); MEAN CORPUSCULAR HEMOGLOBIN 30.3 pg (27.0-33.0); MEAN CORPUSCULAR HGB CONC 33.3 g/dl (32.0-36.5); MEAN CORPUSCULAR VOLUME 90.9 fl (80.0-96.0); MONO # 0.2 K/mm3 (0.0-0.8); NEUTROPHILS % 67.3 % (36.0-66.0); PLATELET COUNT, AUTOMATED 131 k/mm3 (150-450); WHITE BLOOD COUNT 4.4 K/mm3 (4.0-10.0)
[2017-01-18 20:41] LABS: ANION GAP 9 MEQ/L (8-16); BLOOD UREA NITROGEN 25 MG/DL (7-18); CALCIUM LEVEL 8.3 MG/DL (8.8-10.2); CARBON DIOXIDE LEVEL 24 MEQ/L (21-32); CHLORIDE LEVEL 106 MEQ/L (98-107); CREATININE FOR GFR 1.01 MG/DL (0.70-1.30); GLOMERULAR FILTRATION RATE > 60.0 (>35); GLUCOSE, FASTING 101 MG/DL (83-110); POTASSIUM SERUM 4.5 MEQ/L (3.5-5.1); SODIUM LEVEL 139 MEQ/L (136-145)
--- NOTE | 2017-01-18 21:23 | EDDOCDS ---
Nurse's Notes [facility] Name: David Salcedo Age: 86 yrs Sex: Male : 1930 Arrival Date: 01/18/2017 Time: 17:53 Bed 6 Private MD: Diagnosis: Low back pain Presentation: 01/18 18:07 Presenting complaint: Child states: was seen here on January 07 for back pain and 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 He just finished his pain killer Oxy yesterday so using salon pas and lidocaine patches which helped good today but tonight he is getting panicky 'cause can't breathe and pain in back is building up. Acute neurological deficits are not present. Mechanism of Injury: No Mechanism of Injury. Adult Sepsis Screening: The patient does not have new or worsening altered mentation. Patient's respiratory rate is less than 22. Systolic blood pressure is greater than 100. Patient has a qSOFA score of 0- Negative Sepsis Screen. Suicide/Homicide risk assessment- the patient denies having any suicidal and/or homicidal ideations and does not present with any other emotional, behavioral or mental health complaints. Status: Patient is not a sales and service associate or dependent. Transition of care: patient was not received from another setting of care. 18:07 Acuity: HOPE Level 3 [facility] 18:07 Method Of Arrival: Wheelchair [facility] Triage Assessment: 18:12 General: Appears in no apparent distress, comfortable, Behavior is appropriate for age, [facility] cooperative. Pain: Location: back Pain currently is 8 out of 10 on a pain scale. Respiratory: Airway is patent Respiratory effort is even, unlabored, Respiratory pattern is regular, symmetrical. Musculoskeletal: Range of motion guarded torso due to back pain. Historical: - Allergies: Codeine Sulfate; Xarelto; - Home Meds: 1. albuterol sulfate 2.5 mg /3 mL (0.083 %) Inhl nebu prn 2. amlodipine 10 mg Oral tab 1 tab once daily 3. amlodipine 10 mg Oral tab 1 tab once daily 4. aspirin 325 mg Oral tab once daily 5. Avodart 0.5 mg oral cap 1 cap once daily 6. Fish Oil 1,000 mg Oral cap twice a day 7. Lasix 20 mg Oral tab 1 tab once daily 8. multivitamin Oral tab 1 tab daily 9. Ocuvite oral tab daily 10. primidone 250 mg Oral tab 0.5 tab bid 11. Probiotic oral daily 12. Spiriva with HandiHaler 18 mcg Inhl CpDv 1 cap once daily 13. tamsulosin 0.4 mg oral cp24 1 cap once daily 14. Tylenol 500mg Oral 2 tabs bid 15. Visine 0.05 % ophthalmic drop as needed 16. cephalexin 500 mg Oral cap 1 cap every 6 hours 17. 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 - Family history: Not pertinent. - : The pt / caregiver states he / she is not on anticoagulants. Home medication list is obtained from the patient. - Exposure Risk Screening:: None identified. Screenin:00 Screening information is obtained from the patient. Screening information is obtained cf2 from family members. Fall risk: At risk due to age. Assistance ADL's: requires no assistance with activities of daily living. Abuse/DV Screen: The patient / caregiver reports he/she is: not in a situation that causes fear, pain or injury. Nutritional screening: No deficits noted. Advance Directives: Further advance directive information is declined. home support is adequate. Assessment: 18:41 General: Appears in no apparent distress, Behavior is appropriate for age, cooperative. jo3 Neurological: Level of Consciousness is awake, alert, Oriented to person, place, time. EENT: No deficits noted. Cardiovascular: Rhythm is regular. Cardiovascular: Chest pain is denied. Respiratory: Airway is patent Respiratory effort is even, unlabored, Breath sounds are diminished bilaterally. : No deficits noted. Derm: Skin is pink, warm & dry. 21:20 Reassessment: Patient states feeling better. Patient states symptoms have improved. cf2 Adult Sepsis Screening: The patient does not have new or worsening altered mentation. Patient's respiratory rate is less than 22. Systolic blood pressure is greater than 100. Patient has a qSOFA score of 0- Negative Sepsis Screen. Vital Signs: 17:55 BP 155 / 85; Pulse 75; Resp 20; Temp 96.4(O); Pulse Ox 99% on R/A; Weight 74.39 kg (R); lr2 Height 5 ft. 6 in. (167.64 cm) (R); Pain 7/10; 19:00 Pulse 76 MON; Pulse Ox 99% ; cf2 19:05 Pulse 70 MON; Pulse Ox 98% ; cf2 19:11 Pulse 68 MON; Pulse Ox 98% ; cf2 19:19 Pulse 70 MON; Pulse Ox 98% ; cf2 19:25 BP 154 / 90 (auto/); cf2 19:25 Pulse 70 MON; Pulse Ox 98% ; cf2 19:32 Pulse 70 MON; Pulse Ox 97% ; cf2 19:37 Pulse 70 MON; Pulse Ox 96% ; cf2 19:42 Pulse 70 MON; Pulse Ox 98% ; cf2 19:55 BP 161 / 105 (auto/); cf2 19:55 Pulse 80 MON; Pulse Ox 98% ; cf2 19:56 Pulse 70 MON; Pulse Ox 98% ; cf2 20:08 Pulse 80 MON; Pulse Ox 98% ; cf2 20:16 Pulse 72 MON; Pulse Ox 98% ; cf2 20:25 BP 159 / 93 (auto/); cf2 20:25 Pulse 74 MON; Pulse Ox 98% ; cf2 20:29 Pulse 72 MON; Pulse Ox 97% ; cf2 20:35 Pulse 68 MON; Pulse Ox 97% ; cf2 20:40 Pulse 68 MON; Pulse Ox 97% ; cf2 20:47 Pulse 72 MON; Pulse Ox 98% ; cf2 20:55 BP 158 / 93 (auto/); cf2 20:55 Pulse 68 MON; Pulse Ox 98% ; cf2 21:05 BP 162 / 102; Pulse 73; Resp 18; Temp 96.3(O); Pulse Ox 98% on R/A; Pain 0/10; mdr 21:08 BP 162 / 102 (auto/); cf2 21:08 Pulse 74 MON; Pulse Ox 97% ; cf2 21:11 Pulse 70 MON; Pulse Ox 97% ; cf2 21:16 Pulse 68 MON; Pulse Ox 98% ; cf2 17:55 Body Mass Index 26.47 (74.39 kg, 167.64 cm) lr2 Vitals: 17:55 Log In Time: January 18, 2017 at 17:53. lr2 ED Course: 17:55 Patient visited by Lucia Weir. lr2 17:55 Patient moved to Waiting lr2 17:57 Patient moved to Pre RCE lr2 18:10 Triage Initiated h 18:15 Patient moved to 6 [facility] 18:30 site monitor on. Pulse ox on. NIBP on. dem1 18:36 Kim Vigil FNP is PHCP. le 18:37 Patient visited by Kim Vigil FNP. le 18:37 Patient visited by Kim Vigil FNP. le 18:44 Patient visited by Celine Mariano,GABBY. jo3 18:55 [facility] Payment Agreement was scanned into [employer] and attached to record. [id number] 18:57 Patient name changed from David\S\\S\Agaciewski\S\ to David\S\ \S\Agaciewski. EDMS 19:00 The patient / caregiver is instructed regarding the plan of care and ED course. cf2 19:00 No IV's were initiated during this patient's visit. No procedures done that require cf2 assistance. 19:03 Mary Love,GABBY is Primary Nurse. cf2 19:03 Patient visited by Mary Love,GABYB. cf2 19:37 Patient visited by Mary Love,GABBY. cf2 19:44 Chest, 2 View (pa\E\lat) Returned. EDMS 19:57 CBC with Diff Sent. cf2 19:57 BMP Sent. cf2 20:17 Patient visited by Mary oLve,GABBY. cf2 20:18 CARDIAC INJURY PROFILE Sent. cf2 20:18 TROPONIN Sent. cf2 20:38 Patient visited by Mary Love,GABBY. cf2 21:02 [facility] is Referral Physician. le 21:11 Patient visited by Barrett Ortega PCA. mdr 21:20 Patient visited by Mary Love,GABBY. cf2 21:23 Nasir June DO is Attending Physician. cf2 Administered Medications: 18:40 Drug: oxyCODONE-acetaminophen 1 tabs [oxycodone-acetaminophen 5 mg-325 mg tablet (1 jo3 tabs)] Route: PO; 20:18 Follow up: Response: Pain is decreased cf2 21:05 Drug: oxyCODONE-acetaminophen 1 tabs [oxycodone-acetaminophen 5 mg-325 mg tablet (1 cf2 tabs)] Route: PO; 21:20 Follow up: Response: Pt left department before re-evaluation is appropriate cf2 Order Results: Lab Order: CBC with Diff; SPEC'M 01/18/17 19:51 Test: WHITE BLOOD COUNT; Value: 4.4; Range: 4.0-10.0; Units: K/mm3; Status: F Test: RED BLOOD COUNT; Value: 4.77; Range: 4.30-6.10; Units: M/mm3; Status: F Test: HEMOGLOBIN; Value: 14.4; Range: 14.0-18.0; Units: g/dl; Status: F Test: HEMATOCRIT; Value: 43.4; Range: 42.0-52.0; Units: %; Status: F Test: MEAN CORPUSCULAR VOLUME; Value: 90.9; Range: 80.0-96.0; Units: fl; Status: F Test: MEAN CORPUSCULAR HEMOGLOBIN; Value: 30.3; Range: 27.0-33.0; Units: pg; Status: F Test: MEAN CORPUSCULAR HGB CONC; Value: 33.3; Range: 32.0-36.5; Units: g/dl; Status: F Test: RED CELL DISTRIBUTION WIDTH; Value: 13.0; Range: 11.5-14.5; Units: %; Status: F Test: PLATELET COUNT, AUTOMATED; Value: 131; Range: 150-450; Abnormal: Below low normal; Units: k/mm3; Status: F Test: NEUTROPHILS %; Value: 67.3; Range: 36.0-66.0; Abnormal: Above high normal; Units: %; Status: F Test: LYMPH %; Value: 20.5; Range: 24.0-44.0; Abnormal: Below low normal; Units: %; Status: F Test: MONO %; Value: 5.0; Range: 0.0-5.0; Units: %; Status: F Test: EOS %; Value: 5.1; Range: 0.0-3.0; Abnormal: Above high normal; Units: %; Status: F Test: BASO %; Value: 0.6; Range: 0.0-1.0; Units: %; Status: F Test: LARGE UNSTAINED CELL %; Value: 1.4; Range: 0.0-4.0; Units: %; Status: F Test: NEUTROPHILS #; Value: 3.0; Range: 1.8-7.7; Units: K/mm3; Status: F Test: LYMPH #; Value: 1.0; Range: 1.5-4.5; Abnormal: Below low normal; Units: K/mm3; Status: F Test: MONO #; Value: 0.2; Range: 0.0-0.8; Units: K/mm3; Status: F Test: EOS #; Value: 0.2; Range: 0.0-0.50; Units: K/mm3; Status: F Test: BASO #; Value: 0.0; Range: 0.0-0.2; Units: K/mm3; Status: F Test: LARGE UNSTAINED CELL #; Value: 0.1; Range: 0.0-0.4; Units: K/mm3; Status: F Lab Order: [facility]; SPEC'M 01/18/17 19:51 Test: GLUCOSE, FASTING; Value: 101; Range: 83-110; Units: MG/DL; Status: F Test: BLOOD UREA NITROGEN; Value: 25; Range: 7-18; Abnormal: Above high normal; Units: MG/DL; Status: F Test: CREATININE FOR GFR; Value: 1.01; Range: 0.70-1.30; Units: MG/DL; Status: F Test: GLOMERULAR FILTRATION RATE; Value: > 60.0; Range: >35; Status: F Test: SODIUM LEVEL; Value: 139; Range: 136-145; Units: MEQ/L; Status: F Test: POTASSIUM SERUM; Value: 4.5; Range: 3.5-5.1; Units: MEQ/L; Status: F Test: CHLORIDE LEVEL; Value: 106; Range: 98-107; Units: MEQ/L; Status: F Test: CARBON DIOXIDE LEVEL; Value: 24; Range: 21-32; Units: MEQ/L; Status: F Test: ANION GAP; Value: 9; Range: 8-16; Units: MEQ/L; Status: F Test: CALCIUM LEVEL; Value: 8.3; Range: 8.8-10.2; Abnormal: Below low normal; Units: MG/DL; Status: F Test Note: ; Units are mL/min/1.73 m2 Chronic Kidney Disease Staging per NKF: Stage I & II GFR >=60 Normal to Mildly Decreased Stage III GFR 30-59 Moderately Decreased Stage IV GFR 15-29 Severely Decreased Stage V GFR <15 Very Little GFR Left ESRD GFR <15 on MINUTE CLERK Lab Order: CARDIAC INJURY PROFILE; SPEC'M 01/18/17 19:51 Test: CPK CREATINE PHOSPHOKINASE; Value: 50; Range: 39-308; Units: U/L; Status: F Test: CK-MB VALUE MASS; Value: 2.3; Range: 0.0-3.6; Units: NG/ML; Status: F Test: MB/CK RELATIVE INDEX; Value: 4.60; Range: < OR =4; Abnormal: Above high normal; Status: F Test Note: ; DIAGNOSIS CRITERIA MMB ng/ml Relative Index (RI) NON-AMI < or = 5 N/A SINGLETON ZONE > 5 < or = 4 AMI > 5 > 4 Lab Order: TROPONIN; SPEC'M 01/18/17 19:51 Test: TROPONIN I; Value: < 0.02; Range: < 0.10; Units: NG/ML; Status: F Test Note: ; Troponin I Reference Interval for [employer] LOCI: 99th Percentile= 0.00-0.045 ng/ml Risk Stratification: <= 0.10 ng/ml Decreased Risk for Adverse Clinical Events. 0.10-1.50 ng/ml Increased Risk for Adverse Clinical Events. Evaluation of additional criterion and/or repeat testing in 2-6 hours is suggested to rule out myocardial damage. >= 1.50 ng/ml Indicative of Myocardial Injury. Radiology Order: Chest, 2 View (pa\E\lat) Test: Chest, 2 View (pa\E\lat) REASON FOR EXAMINATION: Chest Pain; Clinical: Chest pain.; ; Technique: PA and lateral.; ; Comparison: 01/08/2017.; ; Findings:; Mediastinum and cardiac silhouette are stable. Mild cardiomegaly and evidence; for pacemaker unchanged. Lung chavez demonstrate chronic changes including; pleural plaque overlying the right upper lung zone and trace bibasilar; fibroatelectatic changes. No consolidation, effusion, or pneumothorax. Skeletal; structures stable.; ; Impression:; Bibasilar fibroatelectatic changes (left greater than right) may represent acute; and/or chronic change.; ; ; Signed by; Collin Rod MD 01/18/2017 06:53 P; Outcome: 19:00 Discharge Assessment: Patient awake, alert and oriented x 3. No cognitive and/or cf2 functional deficits noted. Patient verbalized understanding of disposition instructions. Patient awake and alert. Oriented to person, place and time. patient administered narcotics - yes. Pt provided with safe discharge. The following High Risk Discharge criteria are identified: None. Discharged to home ambulatory, with family. Condition: stable. Discharge instructions given to patient, family, Instructed on discharge instructions, follow up and referral plans. medication usage, Demonstrated understanding of instructions, medications, Pt was receptive of discharge instructions/ teaching. Prescriptions given X 1. No special radiology studies were completed. Property :Personal belongings accompany Pt. 21:02 Discharge ordered by Provider. le 21:23 Patient left the ED. 2 Signatures: Dispatcher [employer] EDMS Celine MarianoRN RN jo3 Kim Vigil, PHARMACY DIRECTOR PHARMACY DIRECTOR Magaly Gama demKait Salazar,RN RN lili Barrett Ortega, WHISTLE PUNK WHISTLE PUNK Danelle Marcelino, Reg Reg [id number] Mary LoveRN RN cf2 Lucia Weir2 Corrections: (The following items were deleted from the chart) 20:00 19:57 TROPONIN+LAB sent. 2 EDMS 20:00 19:57 CARDIAC INJURY PROFILE+LAB sent. 2 EDMS MTDD
--- NOTE | 2017-01-18 21:23 | EDDOCDS ---
Physician Documentation [facility] Name: David Salcedo Age: 86 yrs Sex: Male : 1930 Arrival Date: 01/18/2017 Time: 17:53 Bed 6 Private MD: Disposition: 01/18 21:10 Critical Care: Critical care not applicable. le Disposition: 01/18/17 21:02 Discharged to Home/Self Care. Impression: Low back pain. - Condition is Stable. - Discharge Instructions: Back Pain, Adult, Shortness of Breath. - Prescriptions for Percocet 5- 325 mg Oral Tablet - take 1 tablet by ORAL route every 6 hours As needed MDD: 4 tabs; 20 tablet. - Medication Reconciliation, Local Pharmacy Hours form. - Follow up: [facility]; When: Call to arrange an appointment; Reason: Recheck today's complaints, Continuance of care. - Problem is an acute exacerbation. - Symptoms have improved. - Notes: Return to the ED for any further concerns Historical: - Allergies: Codeine Sulfate; Xarelto; - Home Meds: 1. albuterol sulfate 2.5 mg /3 mL (0.083 %) Inhl nebu prn 2. amlodipine 10 mg Oral tab 1 tab once daily 3. amlodipine 10 mg Oral tab 1 tab once daily 4. aspirin 325 mg Oral tab once daily 5. Avodart 0.5 mg oral cap 1 cap once daily 6. Fish Oil 1,000 mg Oral cap twice a day 7. Lasix 20 mg Oral tab 1 tab once daily 8. multivitamin Oral tab 1 tab daily 9. Ocuvite oral tab daily 10. primidone 250 mg Oral tab 0.5 tab bid 11. Probiotic oral daily 12. Spiriva with HandiHaler 18 mcg Inhl CpDv 1 cap once daily 13. tamsulosin 0.4 mg oral cp24 1 cap once daily 14. Tylenol 500mg Oral 2 tabs bid 15. Visine 0.05 % ophthalmic drop as needed 16. cephalexin 500 mg Oral cap 1 cap every 6 hours 17. 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 - Family history: Not pertinent. - : The pt / caregiver states he / she is not on anticoagulants. Home medication list is obtained from the patient. - Exposure Risk Screening:: None identified. Vital Signs: 17:55 BP 155 / 85; Pulse 75; Resp 20; Temp 96.4(O); Pulse Ox 99% on R/A; Weight 74.39 kg / lr2 164 lbs (R); Height 5 ft. 6 in. (167.64 cm) (R); Pain 7/10; 19:00 Pulse 76 MON; Pulse Ox 99% ; cf2 19:05 Pulse 70 MON; Pulse Ox 98% ; cf2 19:11 Pulse 68 MON; Pulse Ox 98% ; cf2 19:19 Pulse 70 MON; Pulse Ox 98% ; cf2 19:25 BP 154 / 90 (auto/); cf2 19:25 Pulse 70 MON; Pulse Ox 98% ; cf2 19:32 Pulse 70 MON; Pulse Ox 97% ; cf2 19:37 Pulse 70 MON; Pulse Ox 96% ; cf2 19:42 Pulse 70 MON; Pulse Ox 98% ; cf2 19:55 BP 161 / 105 (auto/); cf2 19:55 Pulse 80 MON; Pulse Ox 98% ; cf2 19:56 Pulse 70 MON; Pulse Ox 98% ; cf2 20:08 Pulse 80 MON; Pulse Ox 98% ; cf2 20:16 Pulse 72 MON; Pulse Ox 98% ; cf2 20:25 BP 159 / 93 (auto/); cf2 20:25 Pulse 74 MON; Pulse Ox 98% ; cf2 20:29 Pulse 72 MON; Pulse Ox 97% ; cf2 20:35 Pulse 68 MON; Pulse Ox 97% ; cf2 20:40 Pulse 68 MON; Pulse Ox 97% ; cf2 20:47 Pulse 72 MON; Pulse Ox 98% ; cf2 20:55 BP 158 / 93 (auto/); cf2 20:55 Pulse 68 MON; Pulse Ox 98% ; cf2 21:05 BP 162 / 102; Pulse 73; Resp 18; Temp 96.3(O); Pulse Ox 98% on R/A; Pain 0/10; mdr 21:08 BP 162 / 102 (auto/); cf2 21:08 Pulse 74 MON; Pulse Ox 97% ; cf2 21:11 Pulse 70 MON; Pulse Ox 97% ; cf2 21:16 Pulse 68 MON; Pulse Ox 98% ; cf2 17:55 Body Mass Index 26.47 (74.39 kg, 167.64 cm) lr2 MDM: 18:37 Chest, 2 View (pa\E\lat) Ordered. EDMS 18:38 oxyCODONE-acetaminophen 5 mg-325 mg 1 tabs PO once ordered. le 18:54 Financial registration complete. [id number] 18:55 [facility] Payment Agreement was scanned into [employer] and attached to record. ks16 19:46 CBC with Diff Ordered. EDMS 19:46 BMP Ordered. EDMS 20:00 CARDIAC INJURY PROFILE Ordered. EDMS 20:00 TROPONIN Ordered. EDMS 20:41 CBC with Diff Reviewed. le 20:41 Chest, 2 View (pa\E\lat) Reviewed. le 20:59 BMP Reviewed. le 20:59 CARDIAC INJURY PROFILE Reviewed. le 20:59 TROPONIN Reviewed. le 21:01 oxyCODONE-acetaminophen 5 mg-325 mg 1 tabs PO once ordered. le Administered Medications: 18:40 Drug: oxyCODONE-acetaminophen 1 tabs [oxycodone-acetaminophen 5 mg-325 mg tablet (1 jo3 tabs)] Route: PO; 20:18 Follow up: Response: Pain is decreased cf2 21:05 Drug: oxyCODONE-acetaminophen 1 tabs [oxycodone-acetaminophen 5 mg-325 mg tablet (1 cf2 tabs)] Route: PO; 21:20 Follow up: Response: Pt left department before re-evaluation is appropriate cf2 Signatures: Dispatcher [employer] EDSC Celine Mariano RN RN jo3 Westcott, Lisa, FNP Kait NavarreteRN GAB[facility] Danelle Shane, Reg Reg ks16 Mary LoveRN RN cf2 The chart was reviewed and I authenticate all verbal orders and agree with the evaluation and treatment provided.Corrections: (The following items were deleted from the chart) 20:00 19:48 TROPONIN+LAB ordered. EDMS EDMS 20:00 19:48 CARDIAC INJURY PROFILE+LAB ordered. EDMS EDMS Attachments: 18:55 [facility] Payment Agreement [email or web address] MTDD
--- NOTE | 2017-01-20 22:23 | EDDOCDS ---
Physician Documentation [facility] Name: David Salcedo Age: 86 yrs Sex: Male : 1930 Arrival Date: 01/18/2017 Time: 17:53 Bed 6 Private MD: Disposition: 01/18 21:10 Critical Care: Critical care not applicable. le Disposition: 01/18/17 21:02 Discharged to Home/Self Care. Impression: Low back pain. - Condition is Stable. - Discharge Instructions: Back Pain, Adult, Shortness of Breath. - Prescriptions for Percocet 5- 325 mg Oral Tablet - take 1 tablet by ORAL route every 6 hours As needed MDD: 4 tabs; 20 tablet. - Medication Reconciliation, Local Pharmacy Hours form. - Follow up: [facility]; When: Call to arrange an appointment; Reason: Recheck today's complaints, Continuance of care. - Problem is an acute exacerbation. - Symptoms have improved. - Notes: Return to the ED for any further concerns Historical: - Allergies: Codeine Sulfate; Xarelto; - Home Meds: 1. albuterol sulfate 2.5 mg /3 mL (0.083 %) Inhl nebu prn 2. amlodipine 10 mg Oral tab 1 tab once daily 3. amlodipine 10 mg Oral tab 1 tab once daily 4. aspirin 325 mg Oral tab once daily 5. Avodart 0.5 mg oral cap 1 cap once daily 6. Fish Oil 1,000 mg Oral cap twice a day 7. Lasix 20 mg Oral tab 1 tab once daily 8. multivitamin Oral tab 1 tab daily 9. Ocuvite oral tab daily 10. primidone 250 mg Oral tab 0.5 tab bid 11. Probiotic oral daily 12. Spiriva with HandiHaler 18 mcg Inhl CpDv 1 cap once daily 13. tamsulosin 0.4 mg oral cp24 1 cap once daily 14. Tylenol 500mg Oral 2 tabs bid 15. Visine 0.05 % ophthalmic drop as needed 16. cephalexin 500 mg Oral cap 1 cap every 6 hours 17. 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 - Family history: Not pertinent. - : The pt / caregiver states he / she is not on anticoagulants. Home medication list is obtained from the patient. - Exposure Risk Screening:: None identified. Vital Signs: 17:55 BP 155 / 85; Pulse 75; Resp 20; Temp 96.4(O); Pulse Ox 99% on R/A; Weight 74.39 kg / lr2 164 lbs (R); Height 5 ft. 6 in. (167.64 cm) (R); Pain 7/10; 19:00 Pulse 76 MON; Pulse Ox 99% ; cf2 19:05 Pulse 70 MON; Pulse Ox 98% ; cf2 19:11 Pulse 68 MON; Pulse Ox 98% ; cf2 19:19 Pulse 70 MON; Pulse Ox 98% ; cf2 19:25 BP 154 / 90 (auto/); cf2 19:25 Pulse 70 MON; Pulse Ox 98% ; cf2 19:32 Pulse 70 MON; Pulse Ox 97% ; cf2 19:37 Pulse 70 MON; Pulse Ox 96% ; cf2 19:42 Pulse 70 MON; Pulse Ox 98% ; cf2 19:55 BP 161 / 105 (auto/); cf2 19:55 Pulse 80 MON; Pulse Ox 98% ; cf2 19:56 Pulse 70 MON; Pulse Ox 98% ; cf2 20:08 Pulse 80 MON; Pulse Ox 98% ; cf2 20:16 Pulse 72 MON; Pulse Ox 98% ; cf2 20:25 BP 159 / 93 (auto/); cf2 20:25 Pulse 74 MON; Pulse Ox 98% ; cf2 20:29 Pulse 72 MON; Pulse Ox 97% ; cf2 20:35 Pulse 68 MON; Pulse Ox 97% ; cf2 20:40 Pulse 68 MON; Pulse Ox 97% ; cf2 20:47 Pulse 72 MON; Pulse Ox 98% ; cf2 20:55 BP 158 / 93 (auto/); cf2 20:55 Pulse 68 MON; Pulse Ox 98% ; cf2 21:05 BP 162 / 102; Pulse 73; Resp 18; Temp 96.3(O); Pulse Ox 98% on R/A; Pain 0/10; mdr 21:08 BP 162 / 102 (auto/); cf2 21:08 Pulse 74 MON; Pulse Ox 97% ; cf2 21:11 Pulse 70 MON; Pulse Ox 97% ; cf2 21:16 Pulse 68 MON; Pulse Ox 98% ; cf2 17:55 Body Mass Index 26.47 (74.39 kg, 167.64 cm) lr2 MDM: 18:37 Chest, 2 View (pa\E\lat) Ordered. EDMS 18:38 oxyCODONE-acetaminophen 5 mg-325 mg 1 tabs PO once ordered. le 18:54 Financial registration complete. [email or web address] 18:55 [facility] Payment Agreement was scanned into [employer] and attached to record. ks16 19:46 CBC with Diff Ordered. EDMS 19:46 BMP Ordered. EDMS 20:00 CARDIAC INJURY PROFILE Ordered. EDMS 20:00 TROPONIN Ordered. EDMS 20:41 CBC with Diff Reviewed. le 20:41 Chest, 2 View (pa\E\lat) Reviewed. le 20:59 BMP Reviewed. le 20:59 CARDIAC INJURY PROFILE Reviewed. le 20:59 TROPONIN Reviewed. le 21:01 oxyCODONE-acetaminophen 5 mg-325 mg 1 tabs PO once ordered. le 01/19 20:02 T-Sheet-- Draft Copy was scanned into [employer] and attached to record. klr Administered Medications: 01/18 18:40 Drug: oxyCODONE-acetaminophen 1 tabs [oxycodone-acetaminophen 5 mg-325 mg tablet (1 jo3 tabs)] Route: PO; 20:18 Follow up: Response: Pain is decreased cf2 21:05 Drug: oxyCODONE-acetaminophen 1 tabs [oxycodone-acetaminophen 5 mg-325 mg tablet (1 cf2 tabs)] Route: PO; 21:20 Follow up: Response: Pt left department before re-evaluation is appropriate cf2 Signatures: Dispatcher [employer] EDCeline Panchal RN RN jo3 Kim Vigil, WATCH MECHANIC WATCH MECHANIC Kait Castillo RN RN cjh Sorenson, Kimberly, Reg Reg ks16 Tayler Garcia klr Mary Love RN RN cf2 The chart was reviewed and I authenticate all verbal orders and agree with the evaluation and treatment provided.Corrections: (The following items were deleted from the chart) 20:00 19:48 TROPONIN+LAB ordered. EDMS EDMS 20:00 19:48 CARDIAC INJURY PROFILE+LAB ordered. EDMS EDMS Attachments: 18:55 [facility] Payment Agreement [email or web address] 01/19 20:02 T-Sheet-- Draft Copy klr Chart Complete MTDD
--- NOTE | 2017-01-20 22:23 | EDDOCDS ---
Physician Documentation [facility] Name: David Salcedo Age: 86 yrs Sex: Male : 1930 Arrival Date: 01/18/2017 Time: 17:53 Bed 6 Private MD: Disposition: 01/18 21:10 Critical Care: Critical care not applicable. le Disposition: 01/18/17 21:02 Discharged to Home/Self Care. Impression: Low back pain. - Condition is Stable. - Discharge Instructions: Back Pain, Adult, Shortness of Breath. - Prescriptions for Percocet 5- 325 mg Oral Tablet - take 1 tablet by ORAL route every 6 hours As needed MDD: 4 tabs; 20 tablet. - Medication Reconciliation, Local Pharmacy Hours form. - Follow up: [facility]; When: Call to arrange an appointment; Reason: Recheck today's complaints, Continuance of care. - Problem is an acute exacerbation. - Symptoms have improved. - Notes: Return to the ED for any further concerns Historical: - Allergies: Codeine Sulfate; Xarelto; - Home Meds: 1. albuterol sulfate 2.5 mg /3 mL (0.083 %) Inhl nebu prn 2. amlodipine 10 mg Oral tab 1 tab once daily 3. amlodipine 10 mg Oral tab 1 tab once daily 4. aspirin 325 mg Oral tab once daily 5. Avodart 0.5 mg oral cap 1 cap once daily 6. Fish Oil 1,000 mg Oral cap twice a day 7. Lasix 20 mg Oral tab 1 tab once daily 8. multivitamin Oral tab 1 tab daily 9. Ocuvite oral tab daily 10. primidone 250 mg Oral tab 0.5 tab bid 11. Probiotic oral daily 12. Spiriva with HandiHaler 18 mcg Inhl CpDv 1 cap once daily 13. tamsulosin 0.4 mg oral cp24 1 cap once daily 14. Tylenol 500mg Oral 2 tabs bid 15. Visine 0.05 % ophthalmic drop as needed 16. cephalexin 500 mg Oral cap 1 cap every 6 hours 17. 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 - Family history: Not pertinent. - : The pt / caregiver states he / she is not on anticoagulants. Home medication list is obtained from the patient. - Exposure Risk Screening:: None identified. Vital Signs: 17:55 BP 155 / 85; Pulse 75; Resp 20; Temp 96.4(O); Pulse Ox 99% on R/A; Weight 74.39 kg / lr2 164 lbs (R); Height 5 ft. 6 in. (167.64 cm) (R); Pain 7/10; 19:00 Pulse 76 MON; Pulse Ox 99% ; cf2 19:05 Pulse 70 MON; Pulse Ox 98% ; cf2 19:11 Pulse 68 MON; Pulse Ox 98% ; cf2 19:19 Pulse 70 MON; Pulse Ox 98% ; cf2 19:25 BP 154 / 90 (auto/); cf2 19:25 Pulse 70 MON; Pulse Ox 98% ; cf2 19:32 Pulse 70 MON; Pulse Ox 97% ; cf2 19:37 Pulse 70 MON; Pulse Ox 96% ; cf2 19:42 Pulse 70 MON; Pulse Ox 98% ; cf2 19:55 BP 161 / 105 (auto/); cf2 19:55 Pulse 80 MON; Pulse Ox 98% ; cf2 19:56 Pulse 70 MON; Pulse Ox 98% ; cf2 20:08 Pulse 80 MON; Pulse Ox 98% ; cf2 20:16 Pulse 72 MON; Pulse Ox 98% ; cf2 20:25 BP 159 / 93 (auto/); cf2 20:25 Pulse 74 MON; Pulse Ox 98% ; cf2 20:29 Pulse 72 MON; Pulse Ox 97% ; cf2 20:35 Pulse 68 MON; Pulse Ox 97% ; cf2 20:40 Pulse 68 MON; Pulse Ox 97% ; cf2 20:47 Pulse 72 MON; Pulse Ox 98% ; cf2 20:55 BP 158 / 93 (auto/); cf2 20:55 Pulse 68 MON; Pulse Ox 98% ; cf2 21:05 BP 162 / 102; Pulse 73; Resp 18; Temp 96.3(O); Pulse Ox 98% on R/A; Pain 0/10; mdr 21:08 BP 162 / 102 (auto/); cf2 21:08 Pulse 74 MON; Pulse Ox 97% ; cf2 21:11 Pulse 70 MON; Pulse Ox 97% ; cf2 21:16 Pulse 68 MON; Pulse Ox 98% ; cf2 17:55 Body Mass Index 26.47 (74.39 kg, 167.64 cm) lr2 MDM: 18:37 Chest, 2 View (pa\E\lat) Ordered. EDMS 18:38 oxyCODONE-acetaminophen 5 mg-325 mg 1 tabs PO once ordered. le 18:54 Financial registration complete. [email or web address] 18:55 [facility] Payment Agreement was scanned into [employer] and attached to record. ks16 19:46 CBC with Diff Ordered. EDMS 19:46 BMP Ordered. EDMS 20:00 CARDIAC INJURY PROFILE Ordered. EDMS 20:00 TROPONIN Ordered. EDMS 20:41 CBC with Diff Reviewed. le 20:41 Chest, 2 View (pa\E\lat) Reviewed. le 20:59 BMP Reviewed. le 20:59 CARDIAC INJURY PROFILE Reviewed. le 20:59 TROPONIN Reviewed. le 21:01 oxyCODONE-acetaminophen 5 mg-325 mg 1 tabs PO once ordered. le 01/19 20:02 T-Sheet-- Draft Copy was scanned into [employer] and attached to record. klr Administered Medications: 01/18 18:40 Drug: oxyCODONE-acetaminophen 1 tabs [oxycodone-acetaminophen 5 mg-325 mg tablet (1 jo3 tabs)] Route: PO; 20:18 Follow up: Response: Pain is decreased cf2 21:05 Drug: oxyCODONE-acetaminophen 1 tabs [oxycodone-acetaminophen 5 mg-325 mg tablet (1 cf2 tabs)] Route: PO; 21:20 Follow up: Response: Pt left department before re-evaluation is appropriate cf2 Signatures: Dispatcher [employer] EDCeline Panchal RN RN jo3 Kim Vigil, WEBSPHERE PROCESS SERVER DEVELOPER WEBSPHERE PROCESS SERVER DEVELOPER Kait Castillo RN RN cjh Sorenson, Kimberly, Reg Reg ks16 Tayler Garcia klr Mary Love RN RN cf2 The chart was reviewed and I authenticate all verbal orders and agree with the evaluation and treatment provided.Corrections: (The following items were deleted from the chart) 20:00 19:48 TROPONIN+LAB ordered. EDMS EDMS 20:00 19:48 CARDIAC INJURY PROFILE+LAB ordered. EDMS EDMS Attachments: 18:55 [facility] Payment Agreement [email or web address] 01/19 20:02 T-Sheet-- Draft Copy klr Chart Complete MTDD
--- NOTE | 2017-01-20 22:24 | EDDOCDS ---
Nurse's Notes 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 He just finished his pain killer Oxy yesterday so using salon pas and lidocaine patches which helped good today but tonight he is getting panicky 'cause can't breathe and pain in back is building up. Acute neurological deficits are not present. Mechanism of Injury: No Mechanism of Injury. Adult Sepsis Screening: The patient does not have new or worsening altered mentation. Patient's respiratory rate is less than 22. Systolic blood pressure is greater than 100. Patient has a qSOFA score of 0- Negative Sepsis Screen. Suicide/Homicide risk assessment- the patient denies having any suicidal and/or homicidal ideations and does not present with any other emotional, behavioral or mental health complaints. Status: Patient is not a social worker health services or dependent. Transition of care: patient was not received from another setting of care. 18:07 Acuity: HOPE Level 3 [facility] 18:07 Method Of Arrival: Wheelchair [facility] Triage Assessment: 18:12 General: Appears in no apparent distress, comfortable, Behavior is appropriate for age, [facility] cooperative. Pain: Location: back Pain currently is 8 out of 10 on a pain scale. Respiratory: Airway is patent Respiratory effort is even, unlabored, Respiratory pattern is regular, symmetrical. Musculoskeletal: Range of motion guarded torso due to back pain. Historical: - Allergies: Codeine Sulfate; Xarelto; - Home Meds: 1. albuterol sulfate 2.5 mg /3 mL (0.083 %) Inhl nebu prn 2. amlodipine 10 mg Oral tab 1 tab once daily 3. amlodipine 10 mg Oral tab 1 tab once daily 4. aspirin 325 mg Oral tab once daily 5. Avodart 0.5 mg oral cap 1 cap once daily 6. Fish Oil 1,000 mg Oral cap twice a day 7. Lasix 20 mg Oral tab 1 tab once daily 8. multivitamin Oral tab 1 tab daily 9. Ocuvite oral tab daily 10. primidone 250 mg Oral tab 0.5 tab bid 11. Probiotic oral daily 12. Spiriva with HandiHaler 18 mcg Inhl CpDv 1 cap once daily 13. tamsulosin 0.4 mg oral cp24 1 cap once daily 14. Tylenol 500mg Oral 2 tabs bid 15. Visine 0.05 % ophthalmic drop as needed 16. cephalexin 500 mg Oral cap 1 cap every 6 hours 17. 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 - Family history: Not pertinent. - : The pt / caregiver states he / she is not on anticoagulants. Home medication list is obtained from the patient. - Exposure Risk Screening:: None identified. Screenin:00 Screening information is obtained from the patient. Screening information is obtained cf2 from family members. Fall risk: At risk due to age. Assistance ADL's: requires no assistance with activities of daily living. Abuse/DV Screen: The patient / caregiver reports he/she is: not in a situation that causes fear, pain or injury. Nutritional screening: No deficits noted. Advance Directives: Further advance directive information is declined. home support is adequate. Assessment: 18:41 General: Appears in no apparent distress, Behavior is appropriate for age, cooperative. jo3 Neurological: Level of Consciousness is awake, alert, Oriented to person, place, time. EENT: No deficits noted. Cardiovascular: Rhythm is regular. Cardiovascular: Chest pain is denied. Respiratory: Airway is patent Respiratory effort is even, unlabored, Breath sounds are diminished bilaterally. : No deficits noted. Derm: Skin is pink, warm & dry. 21:20 Reassessment: Patient states feeling better. Patient states symptoms have improved. cf2 Adult Sepsis Screening: The patient does not have new or worsening altered mentation. Patient's respiratory rate is less than 22. Systolic blood pressure is greater than 100. Patient has a qSOFA score of 0- Negative Sepsis Screen. Vital Signs: 17:55 BP 155 / 85; Pulse 75; Resp 20; Temp 96.4(O); Pulse Ox 99% on R/A; Weight 74.39 kg (R); lr2 Height 5 ft. 6 in. (167.64 cm) (R); Pain 7/10; 19:00 Pulse 76 MON; Pulse Ox 99% ; cf2 19:05 Pulse 70 MON; Pulse Ox 98% ; cf2 19:11 Pulse 68 MON; Pulse Ox 98% ; cf2 19:19 Pulse 70 MON; Pulse Ox 98% ; cf2 19:25 BP 154 / 90 (auto/); cf2 19:25 Pulse 70 MON; Pulse Ox 98% ; cf2 19:32 Pulse 70 MON; Pulse Ox 97% ; cf2 19:37 Pulse 70 MON; Pulse Ox 96% ; cf2 19:42 Pulse 70 MON; Pulse Ox 98% ; cf2 19:55 BP 161 / 105 (auto/); cf2 19:55 Pulse 80 MON; Pulse Ox 98% ; cf2 19:56 Pulse 70 MON; Pulse Ox 98% ; cf2 20:08 Pulse 80 MON; Pulse Ox 98% ; cf2 20:16 Pulse 72 MON; Pulse Ox 98% ; cf2 20:25 BP 159 / 93 (auto/); cf2 20:25 Pulse 74 MON; Pulse Ox 98% ; cf2 20:29 Pulse 72 MON; Pulse Ox 97% ; cf2 20:35 Pulse 68 MON; Pulse Ox 97% ; cf2 20:40 Pulse 68 MON; Pulse Ox 97% ; cf2 20:47 Pulse 72 MON; Pulse Ox 98% ; cf2 20:55 BP 158 / 93 (auto/); cf2 20:55 Pulse 68 MON; Pulse Ox 98% ; cf2 21:05 BP 162 / 102; Pulse 73; Resp 18; Temp 96.3(O); Pulse Ox 98% on R/A; Pain 0/10; mdr 21:08 BP 162 / 102 (auto/); cf2 21:08 Pulse 74 MON; Pulse Ox 97% ; cf2 21:11 Pulse 70 MON; Pulse Ox 97% ; cf2 21:16 Pulse 68 MON; Pulse Ox 98% ; cf2 17:55 Body Mass Index 26.47 (74.39 kg, 167.64 cm) lr2 Vitals: 17:55 Log In Time: January 18, 2017 at 17:53. lr2 ED Course: 17:55 Patient visited by Lucia Weir. lr2 17:55 Patient moved to Waiting lr2 17:57 Patient moved to Pre RCE lr2 18:10 Triage Initiated h 18:15 Patient moved to 6 [facility] 18:30 youth nutritional monitor on. Pulse ox on. NIBP on. dem1 18:36 [facility] le 18:37 Patient visited by Kim Vigil FNP. le 18:37 Patient visited by Kim Vigil FNP. le 18:44 Patient visited by Celine Mariano,GABBY. jo3 18:55 [facility] Payment Agreement was scanned into [employer] and attached to record. [id number] 18:57 Patient name changed from David\S\\S\Agaciewski\S\ to David\S\ \S\Agaciewski. EDMS 19:00 The patient / caregiver is instructed regarding the plan of care and ED course. cf2 19:00 No IV's were initiated during this patient's visit. No procedures done that require cf2 assistance. 19:03 Mary Love,GABBY is Primary Nurse. cf2 19:03 Patient visited by Mary Love,GABBY. cf2 19:37 Patient visited by Mary Love,GABBY. cf2 19:44 Chest, 2 View (pa\E\lat) Returned. EDMS 19:57 CBC with Diff Sent. cf2 19:57 BMP Sent. cf2 20:17 Patient visited by Mary Love,GABBY. cf2 20:18 CARDIAC INJURY PROFILE Sent. cf2 20:18 TROPONIN Sent. cf2 20:38 Patient visited by Mary Love,GABBY. cf2 21:02 [facility] is Referral Physician. le 21:11 Patient visited by Barrett Ortega PCA. mdr 21:20 Patient visited by Mary Love,GABBY. cf2 21:23 Nasir June DO is Attending Physician. cf2 01/19 20:02 T-Sheet-- Draft Copy was scanned into [employer] and attached to record. klr Administered Medications: 01/18 18:40 Drug: oxyCODONE-acetaminophen 1 tabs [oxycodone-acetaminophen 5 mg-325 mg tablet (1 jo3 tabs)] Route: PO; 20:18 Follow up: Response: Pain is decreased cf2 21:05 Drug: oxyCODONE-acetaminophen 1 tabs [oxycodone-acetaminophen 5 mg-325 mg tablet (1 cf2 tabs)] Route: PO; 21:20 Follow up: Response: Pt left department before re-evaluation is appropriate cf2 Order Results: Lab Order: CBC with Diff; SPEC'M 01/18/17 19:51 Test: WHITE BLOOD COUNT; Value: 4.4; Range: 4.0-10.0; Units: K/mm3; Status: F Test: RED BLOOD COUNT; Value: 4.77; Range: 4.30-6.10; Units: M/mm3; Status: F Test: HEMOGLOBIN; Value: 14.4; Range: 14.0-18.0; Units: g/dl; Status: F Test: HEMATOCRIT; Value: 43.4; Range: 42.0-52.0; Units: %; Status: F Test: MEAN CORPUSCULAR VOLUME; Value: 90.9; Range: 80.0-96.0; Units: fl; Status: F Test: MEAN CORPUSCULAR HEMOGLOBIN; Value: 30.3; Range: 27.0-33.0; Units: pg; Status: F Test: MEAN CORPUSCULAR HGB CONC; Value: 33.3; Range: 32.0-36.5; Units: g/dl; Status: F Test: RED CELL DISTRIBUTION WIDTH; Value: 13.0; Range: 11.5-14.5; Units: %; Status: F Test: PLATELET COUNT, AUTOMATED; Value: 131; Range: 150-450; Abnormal: Below low normal; Units: k/mm3; Status: F Test: NEUTROPHILS %; Value: 67.3; Range: 36.0-66.0; Abnormal: Above high normal; Units: %; Status: F Test: LYMPH %; Value: 20.5; Range: 24.0-44.0; Abnormal: Below low normal; Units: %; Status: F Test: MONO %; Value: 5.0; Range: 0.0-5.0; Units: %; Status: F Test: EOS %; Value: 5.1; Range: 0.0-3.0; Abnormal: Above high normal; Units: %; Status: F Test: BASO %; Value: 0.6; Range: 0.0-1.0; Units: %; Status: F Test: LARGE UNSTAINED CELL %; Value: 1.4; Range: 0.0-4.0; Units: %; Status: F Test: NEUTROPHILS #; Value: 3.0; Range: 1.8-7.7; Units: K/mm3; Status: F Test: LYMPH #; Value: 1.0; Range: 1.5-4.5; Abnormal: Below low normal; Units: K/mm3; Status: F Test: MONO #; Value: 0.2; Range: 0.0-0.8; Units: K/mm3; Status: F Test: EOS #; Value: 0.2; Range: 0.0-0.50; Units: K/mm3; Status: F Test: BASO #; Value: 0.0; Range: 0.0-0.2; Units: K/mm3; Status: F Test: LARGE UNSTAINED CELL #; Value: 0.1; Range: 0.0-0.4; Units: K/mm3; Status: F Lab Order: [facility]; SPEC'M 01/18/17 19:51 Test: GLUCOSE, FASTING; Value: 101; Range: 83-110; Units: MG/DL; Status: F Test: BLOOD UREA NITROGEN; Value: 25; Range: 7-18; Abnormal: Above high normal; Units: MG/DL; Status: F Test: CREATININE FOR GFR; Value: 1.01; Range: 0.70-1.30; Units: MG/DL; Status: F Test: GLOMERULAR FILTRATION RATE; Value: > 60.0; Range: >35; Status: F Test: SODIUM LEVEL; Value: 139; Range: 136-145; Units: MEQ/L; Status: F Test: POTASSIUM SERUM; Value: 4.5; Range: 3.5-5.1; Units: MEQ/L; Status: F Test: CHLORIDE LEVEL; Value: 106; Range: 98-107; Units: MEQ/L; Status: F Test: CARBON DIOXIDE LEVEL; Value: 24; Range: 21-32; Units: MEQ/L; Status: F Test: ANION GAP; Value: 9; Range: 8-16; Units: MEQ/L; Status: F Test: CALCIUM LEVEL; Value: 8.3; Range: 8.8-10.2; Abnormal: Below low normal; Units: MG/DL; Status: F Test Note: ; Units are mL/min/1.73 m2 Chronic Kidney Disease Staging per NKF: Stage I & II GFR >=60 Normal to Mildly Decreased Stage III GFR 30-59 Moderately Decreased Stage IV GFR 15-29 Severely Decreased Stage V GFR <15 Very Little GFR Left ESRD GFR <15 on FACTORY MANAGER Lab Order: CARDIAC INJURY PROFILE; SPEC'M 01/18/17 19:51 Test: CPK CREATINE PHOSPHOKINASE; Value: 50; Range: 39-308; Units: U/L; Status: F Test: CK-MB VALUE MASS; Value: 2.3; Range: 0.0-3.6; Units: NG/ML; Status: F Test: MB/CK RELATIVE INDEX; Value: 4.60; Range: < OR =4; Abnormal: Above high normal; Status: F Test Note: ; DIAGNOSIS CRITERIA MMB ng/ml Relative Index (RI) NON-AMI < or = 5 N/A SINGLETON ZONE > 5 < or = 4 AMI > 5 > 4 Lab Order: TROPONIN; SPEC'M 01/18/17 19:51 Test: TROPONIN I; Value: < 0.02; Range: < 0.10; Units: NG/ML; Status: F Test Note: ; Troponin I Reference Interval for ImmunGene LOCI: 99th Percentile= 0.00-0.045 ng/ml Risk Stratification: <= 0.10 ng/ml Decreased Risk for Adverse Clinical Events. 0.10-1.50 ng/ml Increased Risk for Adverse Clinical Events. Evaluation of additional criterion and/or repeat testing in 2-6 hours is suggested to rule out myocardial damage. >= 1.50 ng/ml Indicative of Myocardial Injury. Radiology Order: Chest, 2 View (pa\E\lat) Test: Chest, 2 View (pa\E\lat) REASON FOR EXAMINATION: Chest Pain; Clinical: Chest pain.; ; Technique: PA and lateral.; ; Comparison: 01/08/2017.; ; Findings:; Mediastinum and cardiac silhouette are stable. Mild cardiomegaly and evidence; for pacemaker unchanged. Lung chavez demonstrate chronic changes including; pleural plaque overlying the right upper lung zone and trace bibasilar; fibroatelectatic changes. No consolidation, effusion, or pneumothorax. Skeletal; structures stable.; ; Impression:; Bibasilar fibroatelectatic changes (left greater than right) may represent acute; and/or chronic change.; ; ; Signed by; Collin Rod MD 01/18/2017 06:53 P; Outcome: 19:00 Discharge Assessment: Patient awake, alert and oriented x 3. No cognitive and/or cf2 functional deficits noted. Patient verbalized understanding of disposition instructions. Patient awake and alert. Oriented to person, place and time. patient administered narcotics - yes. Pt provided with safe discharge. The following High Risk Discharge criteria are identified: None. Discharged to home ambulatory, with family. Condition: stable. Discharge instructions given to patient, family, Instructed on discharge instructions, follow up and referral plans. medication usage, Demonstrated understanding of instructions, medications, Pt was receptive of discharge instructions/ teaching. Prescriptions given X 1. No special radiology studies were completed. Property :Personal belongings accompany Pt. 21:02 Discharge ordered by Provider. le 21:23 Patient left the ED. cf2 Signatures: Dispatcher [employer] EDMS Celine MarianoRN RN [email or web address] Kim Vigil, CORE BLOWER Magaly Latif JaneRN RN [facility] Barrett Ortega, [employer] Danelle Marcelino, Reg Reg [email or web address] Tayler Garcia Christina, RN RN [email or web address] Lucia Weir2 Corrections: (The following items were deleted from the chart) 20:00 19:57 TROPONIN+LAB sent. cf2 EDMS 20:00 19:57 CARDIAC INJURY PROFILE+LAB sent. cf2 EDMS Chart Complete MTDD
== END 2017-01-18 21:23 | disposition home or self-care (01) ==
LOC: M ED 17:53
DX: R06.02 Shortness of breath (principal); M54.9 Dorsalgia, unspecified; I51.7 Cardiomegaly; I48.91 Unspecified atrial fibrillation; J44.9 Chronic obstructive pulmonary disease, unspecified; F03.90 Unspecified dementia, unspecified severity, without behavioral disturbance, psychotic disturbance, mood disturbance, and anxiety; Z95.0 Presence of cardiac pacemaker; Z86.718 Personal history of other venous thrombosis and embolism; F17.228 Nicotine dependence, chewing tobacco, with other nicotine-induced disorders; Z79.82 Long term (current) use of aspirin; Z79.899 Other long term (current) drug therapy; Z88.2 Allergy status to sulfonamides; Z88.5 Allergy status to narcotic agent; Z88.8 Allergy status to other drugs, medicaments and biological substances

== ENCOUNTER 2017-01-22 21:33 | Emergency (ER) | payer OTHER ==
--- NOTE | 2017-01-23 00:40 | REPUSA ---
CT of the lumbar spine without contrast Clinical history: Pain. Technique: Multiple axial CT images were obtained through the lumbar spine without administration of contrast. Coronal and sagittal 3-D reconstructed images were also obtained. Findings: The lumbar vertebral bodies are in satisfactory positioning. There is moderate dextroscoliosis apprec iated, with the apex at L2. No acute fractures demonstrated. Intervertebral disc spaces are moderatel y narrowed at L1/L2, L2/L3, L3/L4, and L5/S1. Disc osteophyte is seen at these levels. Chronic severe compression fracture of T12 is appreciated,. There is no evidence of facet subluxation. The neural f oramen appear grossly patent. The spinal canal demonstrates normal caliber and contour without eviden ce of spinal stenosis. The surrounding soft tissues are within normal limits. Impression: 1. No acute fracture. 2. Severe chronic compression fracture of T12. 3. Severe multilevel degenerative disc disease with disc osteophyte complexes in the lumbar spine as described. Scoliosis as well. No discrete evidence of central canal stenosis. If there is further cli nical concern however, MRI would be recommended.
--- NOTE | 2017-01-23 03:08 | EDDOCDS ---
Nurse's Notes [facility] Name: David Salcedo Age: 86 yrs Sex: Male : 1930 Arrival Date: 01/22/2017 Time: 21:33 Bed 5 Private MD: Diagnosis: Other nonspecific abnormal finding of lung field-chronic scarring of lung;Osteoarthritis, unspecified site-spine Presentation: 01/22 21:37 Presenting complaint: EMS states: patient reporting difficulty breathing. Patient has nn1 bilateral leg infections noted by EMS. Patient placed on 15L nonrebreather, patient became more alert following O2 administration. EMS reports patient was 98% on RA. Patient coming from home. Presenting complaint: EMS states: FSBS 162. Bilateral 18G IVs established. Per daughter this is patients 3rd time in ED this week. Suicide/Homicide risk assessment- the patient denies having any suicidal and/or homicidal ideations and does not present with any other emotional, behavioral or mental health complaints. 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 Transition of care: patient was not received from another setting of care. Care prior to arrival: Medications administered prior to arrival: 100mL normal saline. IV initiated. Saline lock initiated. Glucose check. 162 Oxygen administered by EMS. 21:37 Method Of Arrival: Ambulance nn1 21:37 Acuity: HOPE Level 2 nn1 21:40 Adult Sepsis Screening: The patient does not have new or worsening altered mentation. nn1 Patient's respiratory rate is less than 22. Systolic blood pressure is greater than 100. Patient has a qSOFA score of 0- Negative Sepsis Screen. Triage Assessment: 21:47 General: Appears ill, Behavior is appropriate for age, cooperative. Pain: Location: mid nn1 back Pain currently is 7 out of 10 on a pain scale. Pain began 2-3 days ago. The patient is triaged at the bedside. See Assessment in Nurses Notes section of ED record. Neurological: 21:56 Respiratory: Onset: The symptoms/episode began/occurred Family reports this has been nn1 ongoing for some time, patient becomes anxious when he is unable to breathe. 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 Derm: Skin is dusky, Cellulitis noted in bilateral lower extremities from mid calf to toes. Family reports they have been treating infection for over a year. Historical: - Allergies: Codeine Sulfate; Xarelto; - Home Meds: 1. albuterol sulfate 2.5 mg /3 mL (0.083 %) Inhl nebu prn 2. amlodipine 10 mg Oral tab 1 tab once daily 3. aspirin 325 mg Oral tab once daily 4. Avodart 0.5 mg oral cap 1 cap once daily 5. cephalexin 500 mg Oral cap 1 cap every 6 hours 6. Fish Oil 1,000 mg Oral cap twice a day 7. Lasix 20 mg Oral tab 1 tab once daily 8. Mucinex 600 mg oral Ta12 2 tabs every 12 hours 9. multivitamin Oral tab 1 tab daily 10. Ocuvite oral tab daily 11. primidone 250 mg Oral tab 0.5 tab bid 12. Probiotic oral daily 13. Spiriva with HandiHaler 18 mcg Inhl CpDv 1 cap once daily 14. tamsulosin 0.4 mg oral cp24 1 cap once daily 15. Tylenol 500mg Oral 2 tabs bid 16. 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 - Social history: Smoking status: Patient states former smoker of tobacco. No barriers to communication noted, The patient speaks fluent Wolof, Speaks appropriately for age. - : The pt / caregiver states he / she is not on anticoagulants. Home medication list is obtained from family members, the facility MAR. - Hospitalizations: : No recent hospitalization is reported. - Exposure Risk Screening:: None identified. - Immunization history:: All immunizations up-to-date. - Family history: Not pertinent. - Social history:: the patient is a former smoker, the patient does not drink alcohol. Screenin/28 02:52 Screening information is obtained from the patient, family members. Fall risk: At risk nn1 due to gait disturbance. Assistance ADL's: Requires assistance with meal preparation, this assistance is provided by family members, bathing, assistance is provided by family members, dressing, assistance is provided by family members, toileting, assistance is provided by family members, ambulation, assistance is provided by family members, housework, assistance is provided by family members, medication administration, assistance is provided by family members. Abuse/DV Screen: The patient / caregiver reports he/she is: not in a situation that causes fear, pain or injury. Nutritional screening: No deficits noted. Advance Directives: There is no active DNR order. home support is adequate. Assessment: 01/22 21:58 General: Appears ill, uncomfortable. Pain: Pain currently is 6 out of 10 on a pain nn1 scale. Neurological: Level of Consciousness is awake, alert, obeys commands. Cardiovascular: Capillary refill < 3 seconds Heart tones S1 S2 present Rhythm is sinus rhythm Chest pain Patient reporting chest pain in left chest, will not specify severity or onset. . Respiratory: Airway is patent Respiratory effort is even, labored, Respiratory pattern is regular, Patient 97% on RA. Denying SOB at this time. Breath sounds with rhonchi expiratory Reports shortness of breath pain with respiration. Derm: Skin is dusky. 23:08 General: Patient received Xrays. Provider approved patient to have something to eat and nn1 drink, patient given sandwich box. . Neurological: Level of Consciousness is awake, alert, Oriented to person, place, time. Respiratory: Airway is patent Respiratory effort is even, unlabored, Respiratory pattern is regular. Derm: Skin is dusky. 01/23 00:42 General: Appears to be sleeping. General: Family aware that we are awaiting CT results nn1 at this time. Patient sleeping, comfortable.. Respiratory: Airway is patent Respiratory effort is even, unlabored, Respiratory pattern is regular, symmetrical. Derm: Skin is dusky. 02:51 General: Appears in no apparent distress, Behavior is appropriate for age, cooperative. nn1 General: Patient assisted to bedside commode prior to discharge. . Neurological: Level of Consciousness is awake, alert, obeys commands, Oriented to person, place, time. Respiratory: Airway is patent Respiratory effort is even, unlabored, Respiratory pattern is regular, symmetrical. Derm: Skin is dusky. 02:54 Adult Sepsis Screening: The patient does not have new or worsening altered mentation. nn1 Patient's respiratory rate is less than 22. Systolic blood pressure is greater than 100. Patient has a qSOFA score of 0- Negative Sepsis Screen. Vital Signs: 01/22 21:46 BP 151 / 83; Pulse 71; Resp 18; Temp 97.1(TE); Pulse Ox 98% on R/A; Weight 74.84 kg; nn1 Height 5 ft. 4 in. (162.56 cm); Pain 6/10; 22:01 BP 144 / 79 (auto/); nn1 22:02 Pulse 82 MON; Pulse Ox 94% ; nn1 22:02 Pulse 69; Resp 18; Pulse Ox 98% on R/A; nn1 01/23 02:52 BP 139 / 78; Pulse 70; Resp 18; Temp 96.2(O); Pulse Ox 100% on R/A; nn1 01/22 21:46 Body Mass Index 28.32 (74.84 kg, 162.56 cm) nn1 Vitals: 01/22 21:46 Log In Time N/A - ambulance arrival. nn1 ED Course: 21:34 Patient visited by Meme Kelley, Manager Of Broadcast Content. ml3 21:34 Patient moved to Waiting ml3 21:34 Patient moved to 5 ml3 21:40 Braden Earl MD is Attending Physician. pc 21:41 Triage Initiated nn1 22:00 Maintain field IV. Dressing intact. Site clean & dry. Gauge & site: 18G RAc . nn1 22:08 Patient visited by James Tarango RN. nn1 22:15 Patient visited by Braden Earl MD. pc 22:23 Patient moved to Radiology tmb 23:21 Patient moved to 5 tmb 23:22 Patient visited by James Tarango RN. nn1 01/23 00:23 Patient visited by James Tarango RN. nn1 00:40 Attending Physician role handed off by Braden Earl MD cs11 00:40 Nasir June DO is Attending Physician. cs11 01:12 CT Spine, Lumbar W/o Contrast Returned. EDMS 01:25 Patient visited by James Tarango RN. nn1 01:28 Patient name changed from David\S\\S\Agaromeoki\S\ to David\S\ \S\Denisse. EDMS 01:29 [facility] Payment Agreement was scanned into [employer] and attached to record. [facility] 02:27 Patient visited by James Tarango RN. nn1 02:54 The patient / caregiver is instructed regarding the plan of care and ED course. nn1 02:54 No procedures done that require assistance. nn1 02:54 Discontinued IV lock intact, bleeding controlled, pressure dressing applied, No nn1 redness/swelling at site. Order Results: Radiology Order: CT Spine, Lumbar W/o Contrast Test: CT Spine, Lumbar W/o Contrast REASON FOR EXAMINATION: pain, compression fractures on xray; ; CT of the lumbar spine without contrast; Clinical history: Pain.; Technique: Multiple axial CT images were obtained through the lumbar spine without administration of; contrast. Coronal and sagittal 3-D reconstructed images were also obtained.; Findings:; The lumbar vertebral bodies are in satisfactory positioning. There is moderate dextroscoliosis apprec; iated, with the apex at L2. No acute fractures demonstrated. Intervertebral disc spaces are moderatel; y narrowed at L1/L2, L2/L3, L3/L4, and L5/S1. Disc osteophyte is seen at these levels. Chronic severe; compression fracture of T12 is appreciated,. There is no evidence of facet subluxation. The neural f; oramen appear grossly patent. The spinal canal demonstrates normal caliber and contour without eviden; ce of spinal stenosis. The surrounding soft tissues are within normal limits.; Impression:; 1. No acute fracture.; 2. Severe chronic compression fracture of T12.; 3. Severe multilevel degenerative disc disease with disc osteophyte complexes in the lumbar spine as; described. Scoliosis as well. No discrete evidence of central canal stenosis. If there is further cli; nical concern however, MRI would be recommended.; ; Outcome: 02:30 Discharge ordered by Provider. cs11 02:53 Discharge Assessment: Patient awake, alert and oriented x 3. No cognitive and/or nn1 functional deficits noted. Patient verbalized understanding of disposition instructions. patient administered narcotics - no. The following High Risk Discharge criteria are identified: None. Discharged to home via wheelchair, with family. Condition: stable Condition: unchanged. CT Study completed. Property :Personal belongings accompany Pt. 03:07 Patient left the ED. nn1 Signatures: Dispatcher [employer] EDMS Braden Earl MD MD pc Lopresti, Mary-Elizabeth, Manager Of Broadcast Content Unit ml3 Nasir June DO DO cs11 Carlos Llanos Sandra slh Nunez, Nikkole,RN RN nn1 Corrections: (The following items were deleted from the chart) 01/22 21:41 21:35 Presenting complaint: nn1 nn1 MTDD
--- NOTE | 2017-01-23 03:08 | EDDOCDS ---
Physician Documentation [facility] Name: David Salcedo Age: 86 yrs Sex: Male : 1930 Arrival Date: 01/22/2017 Time: 21:33 Bed 5 Private MD: Disposition: 01/23/17 02:30 Discharged to Home/Self Care. Impression: Other nonspecific abnormal finding of lung field - chronic scarring of lung, Osteoarthritis, unspecified site - spine. - Condition is Stable. - Medication Reconciliation, Local Pharmacy Hours form. - Follow up: Private Physician; When: Call to arrange an appointment; Reason: Recheck today's complaints. - Problem is chronic. - Symptoms are unchanged. HPI: 01/22 22:31 This 86 yrs old Male presents to ER via Ambulance with complaints of pc Breathing Difficulty. 22:31 The history is obtained from the patient's family/friend. A reliable history and/or pc examination was not able to be obtained, due to baseline dementia. He has been having mid back pain for 3 weeks, with multiple ED visits and a visit to his PCP. He has multiple wedge fractures of his T spine that are old but that have progressed recently. He has been having back pain and then becomes SOB. His daughter says he gets very anxious. His pain meds were just increased recently and with a question of a LLL pneumonia on CT, he was started on ABX. He had an episode of mid-back pain tonight, became SOB and his family called EMS. He received oxygen en route. On arrival to the ED, he is no longer dyspneic and his PO is 97% on room air, his RR is 14. Historical: - Allergies: Codeine Sulfate; Xarelto; - Home Meds: 1. albuterol sulfate 2.5 mg /3 mL (0.083 %) Inhl nebu prn 2. amlodipine 10 mg Oral tab 1 tab once daily 3. aspirin 325 mg Oral tab once daily 4. Avodart 0.5 mg oral cap 1 cap once daily 5. cephalexin 500 mg Oral cap 1 cap every 6 hours 6. Fish Oil 1,000 mg Oral cap twice a day 7. Lasix 20 mg Oral tab 1 tab once daily 8. Mucinex 600 mg oral Ta12 2 tabs every 12 hours 9. multivitamin Oral tab 1 tab daily 10. Ocuvite oral tab daily 11. primidone 250 mg Oral tab 0.5 tab bid 12. Probiotic oral daily 13. Spiriva with HandiHaler 18 mcg Inhl CpDv 1 cap once daily 14. tamsulosin 0.4 mg oral cp24 1 cap once daily 15. Tylenol 500mg Oral 2 tabs bid 16. 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 - Social history: Smoking status: Patient states former smoker of tobacco. No barriers to communication noted, The patient speaks fluent Lao, Speaks appropriately for age. - : The pt / caregiver states he / she is not on anticoagulants. Home medication list is obtained from family members, the facility MAR. - Hospitalizations: : No recent hospitalization is reported. - Exposure Risk Screening:: None identified. - Immunization history:: All immunizations up-to-date. - Family history: Not pertinent. - Social history:: the patient is a former smoker, the patient does not drink alcohol. ROS: 01/23 00:05 All systems are negative except as listed. pc Exam: 00:05 General Appearance: no acute distress, alert. pc 00:05 EENT: normal eye inspection, ears, nose and throat normal, pharynx normal, mucous membranes moist 00:05 Neck: The exam reveals no acute abnormalities. ROM is normal and painless. No nuchal rigidity is noted.. 00:05 Respiratory: no respiratory distress, normal breath sounds. 00:05 CVS: regular pulse rate, regular rhythm, normal S1 and S2, no murmurs, strong peripheral pulses. 00:05 Abdomen: soft, non-tender, no organomegaly, normal bowel sounds. 00:05 Back: normal inspection. 00:05 Skin: skin color is normal, warm, dry. 00:05 Extremities: The extremities have a grossly normal appearance, are non-tender, without acute ROM abnormalities. 00:05 Neuro: no motor deficits, no sensory deficits. Vital Signs: 01/22 21:46 BP 151 / 83; Pulse 71; Resp 18; Temp 97.1(TE); Pulse Ox 98% on R/A; Weight 74.84 kg / nn1 164.99 lbs; Height 5 ft. 4 in. (162.56 cm); Pain 6/10; 22:01 BP 144 / 79 (auto/); nn1 22:02 Pulse 82 MON; Pulse Ox 94% ; nn1 22:02 Pulse 69; Resp 18; Pulse Ox 98% on R/A; nn1 01/23 02:52 BP 139 / 78; Pulse 70; Resp 18; Temp 96.2(O); Pulse Ox 100% on R/A; nn1 01/22 21:46 Body Mass Index 28.32 (74.84 kg, 162.56 cm) nn1 MDM: 01/22 22:16 Spine. Lumbosacral, Complete Ordered. EDMS 22:21 Chest, 2 View (pa\E\lat) Ordered. EDMS 22:58 CT Spine, Lumbar W/o Contrast Ordered. EDMS 22:58 CT Chest Without Contrast Ordered. EDMS 23:50 Financial registration complete. [facility] 01/23 00:05 Differential Diagnosis: back pain due to acute on chronic fractures, COPD, dementia, pc anxiety reaction. Plan: imaging. Data reviewed: old medical records, vital signs, nurses notes, all radiology studies and available results. Test interpretation: X-RAY - interpreted by me, 1 view chest chronic obstructive pulmonary disease pattern, LS-Spine old fractures, no acute interpreted by Radiologist and personally reviewed, Chest CT; stable and unchanged LLL consolidation dating back to 2012; COPD, old T spine fractures, else nad. 01:29 [facility] Payment Agreement was scanned into [employer] and attached to record. [facility] 02:23 ED course: Asked to follow up on imaging done. CT L spine shows not acute process. CT cs11 chest shows old scarring - no acute process. Pt comfortable in room. CT scan reports were unfortunately delayed in receiving because of [employer]. Signatures: Dispatcher [facility] EDVT Braden Earl MD MD pc Schiff, Craig, DO DO cs11 Rosalinda Dia [facility] James TarangoRN RN nn1 The chart was reviewed and I authenticate all verbal orders and agree with the evaluation and treatment provided.Corrections: (The following items were deleted from the chart) 00:05 00:02 -Blood Culture (Adults Only), peripheral from different site, or from pc device/port/PICC etc. if present ordered. pc 00:06 00:03 CBC WITH DIFFERENTIAL+LAB ordered. EDMS EDMS 00: 00:03 BASIC METABOLIC PROFILE+LAB ordered. EDMS EDMS 00: 00:03 -BLOOD CULTURES+CHELSY ordered. EDMS EDMS Attachments: 01:29 [place] [place] Payment Agreement [facility] MTDD
--- NOTE | 2017-01-23 07:54 | REPUSA ---
CT of the chest without contrast Clinical statement: Shortness of breath. Technique: Multiple axial CT images were obtained with 5 mm cuts through the chest without administra tion of contrast. Comparison: 01/08/2017. Findings: There is no thoracic lymphadenopathy. The visualized portions of the thyroid gland is unrem arkable. There are no pericardial or pleural effusions. Consolidation is noted in the medial aspect o f the left lower lobe, and grossly unchanged since the prior study. Limited imaging of the upper abdo men does not demonstrate any acute abnormalities. There are no acute osseous lesions. Chronic severe compression fractures are noted at T7 and T12. Impression: 1. Consolidation in the medial aspect of the left lower lobe is grossly stable, likely representing s carring. However, follow-up is recommended. 2. No acute infiltrate or effusion. 3. Stable compression fractures at T7 and T12.
--- NOTE | 2017-01-23 10:00 | REP ---
LUMBAR SPINE SERIES: Five views. HISTORY: Trauma. FINDINGS: Five views of the lumbar spine demonstrate a dextroconvex rotoscoliotic curve. A vena cava [place] filter is noted in place. There is diffuse degenerative disc disease. There is progressive collapse of the T12 vertebral body when compared to the prior study of December 11, 2013. This does not appear to be a new fracture. No acute fracture is appreciated. Diffuse degenerative disc and osteoarthritic facet changes are noted. Sacrum is intact. There is moderate stool in the colon. Views are somewhat suboptimal due to patient positioning factors. The lateral view is obtained supine cross-table. Vascular calcification is seen in a normal caliber aorta. IMPRESSION: Progressive collapse and wedging of the T12 vertebral body. No acute fracture is seen. Scoliosis degenerative disc disease and osteoarthritic facet changes. Signed by Delgado Bee MD 01/23/2017 01:58 P
--- NOTE | 2017-01-23 10:01 | REP ---
Chest x-ray: Two views. History: Shortness of breath. Comparison chest x-ray January 18, 2017. Findings: Moderate cardiomegaly is again observed. A unipolar pacemaker remains in the right heart via the left side. EKG electrodes are seen. There are degenerative arthritic changes in the shoulders. There is diffuse osteoporosis. There is an old healed rib fracture of the 5th rib on the right. Pleural angles are sharp. No infiltrate is seen. Pulmonary vasculature is not increased. Impression: Moderate cardiomegaly with pacemaker. No acute disease. Signed by Delgado Bee MD 01/23/2017 01:58 P
--- NOTE | 2017-01-25 04:09 | EDDOCDS ---
Nurse's Notes [facility] Name: David Salcedo Age: 86 yrs Sex: Male : 1930 Arrival Date: 01/22/2017 Time: 21:33 Bed 5 Private MD: Diagnosis: Other nonspecific abnormal finding of lung field-chronic scarring of lung;Osteoarthritis, unspecified site-spine Presentation: 01/22 21:37 Presenting complaint: EMS states: patient reporting difficulty breathing. Patient has nn1 bilateral leg infections noted by EMS. Patient placed on 15L nonrebreather, patient became more alert following O2 administration. EMS reports patient was 98% on RA. Patient coming from home. Presenting complaint: EMS states: FSBS 162. Bilateral 18G IVs established. Per daughter this is patients 3rd time in ED this week. Suicide/Homicide risk assessment- the patient denies having any suicidal and/or homicidal ideations and does not present with any other emotional, behavioral or mental health complaints. 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 Transition of care: patient was not received from another setting of care. Care prior to arrival: Medications administered prior to arrival: 100mL normal saline. IV initiated. Saline lock initiated. Glucose check. 162 Oxygen administered by EMS. 21:37 Method Of Arrival: Ambulance nn1 21:37 Acuity: HOPE Level 2 nn1 21:40 Adult Sepsis Screening: The patient does not have new or worsening altered mentation. nn1 Patient's respiratory rate is less than 22. Systolic blood pressure is greater than 100. Patient has a qSOFA score of 0- Negative Sepsis Screen. Triage Assessment: 21:47 General: Appears ill, Behavior is appropriate for age, cooperative. Pain: Location: mid nn1 back Pain currently is 7 out of 10 on a pain scale. Pain began 2-3 days ago. The patient is triaged at the bedside. See Assessment in Nurses Notes section of ED record. Neurological: 21:56 Respiratory: Onset: The symptoms/episode began/occurred Family reports this has been nn1 ongoing for some time, patient becomes anxious when he is unable to breathe. 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 Derm: Skin is dusky, Cellulitis noted in bilateral lower extremities from mid calf to toes. Family reports they have been treating infection for over a year. Historical: - Allergies: Codeine Sulfate; Xarelto; - Home Meds: 1. albuterol sulfate 2.5 mg /3 mL (0.083 %) Inhl nebu prn 2. amlodipine 10 mg Oral tab 1 tab once daily 3. aspirin 325 mg Oral tab once daily 4. Avodart 0.5 mg oral cap 1 cap once daily 5. cephalexin 500 mg Oral cap 1 cap every 6 hours 6. Fish Oil 1,000 mg Oral cap twice a day 7. Lasix 20 mg Oral tab 1 tab once daily 8. Mucinex 600 mg oral Ta12 2 tabs every 12 hours 9. multivitamin Oral tab 1 tab daily 10. Ocuvite oral tab daily 11. primidone 250 mg Oral tab 0.5 tab bid 12. Probiotic oral daily 13. Spiriva with HandiHaler 18 mcg Inhl CpDv 1 cap once daily 14. tamsulosin 0.4 mg oral cp24 1 cap once daily 15. Tylenol 500mg Oral 2 tabs bid 16. 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 - Social history: Smoking status: Patient states former smoker of tobacco. No barriers to communication noted, The patient speaks fluent Hebrew, Speaks appropriately for age. - : The pt / caregiver states he / she is not on anticoagulants. Home medication list is obtained from family members, the facility MAR. - Hospitalizations: : No recent hospitalization is reported. - Exposure Risk Screening:: None identified. - Immunization history:: All immunizations up-to-date. - Family history: Not pertinent. - Social history:: the patient is a former smoker, the patient does not drink alcohol. Screenin/28 02:52 Screening information is obtained from the patient, family members. Fall risk: At risk nn1 due to gait disturbance. Assistance ADL's: Requires assistance with meal preparation, this assistance is provided by family members, bathing, assistance is provided by family members, dressing, assistance is provided by family members, toileting, assistance is provided by family members, ambulation, assistance is provided by family members, housework, assistance is provided by family members, medication administration, assistance is provided by family members. Abuse/DV Screen: The patient / caregiver reports he/she is: not in a situation that causes fear, pain or injury. Nutritional screening: No deficits noted. Advance Directives: There is no active DNR order. home support is adequate. Assessment: 01/22 21:58 General: Appears ill, uncomfortable. Pain: Pain currently is 6 out of 10 on a pain nn1 scale. Neurological: Level of Consciousness is awake, alert, obeys commands. Cardiovascular: Capillary refill < 3 seconds Heart tones S1 S2 present Rhythm is sinus rhythm Chest pain Patient reporting chest pain in left chest, will not specify severity or onset. . Respiratory: Airway is patent Respiratory effort is even, labored, Respiratory pattern is regular, Patient 97% on RA. Denying SOB at this time. Breath sounds with rhonchi expiratory Reports shortness of breath pain with respiration. Derm: Skin is dusky. 23:08 General: Patient received Xrays. Provider approved patient to have something to eat and nn1 drink, patient given sandwich box. . Neurological: Level of Consciousness is awake, alert, Oriented to person, place, time. Respiratory: Airway is patent Respiratory effort is even, unlabored, Respiratory pattern is regular. Derm: Skin is dusky. 01/23 00:42 General: Appears to be sleeping. General: Family aware that we are awaiting CT results nn1 at this time. Patient sleeping, comfortable.. Respiratory: Airway is patent Respiratory effort is even, unlabored, Respiratory pattern is regular, symmetrical. Derm: Skin is dusky. 02:51 General: Appears in no apparent distress, Behavior is appropriate for age, cooperative. nn1 General: Patient assisted to bedside commode prior to discharge. . Neurological: Level of Consciousness is awake, alert, obeys commands, Oriented to person, place, time. Respiratory: Airway is patent Respiratory effort is even, unlabored, Respiratory pattern is regular, symmetrical. Derm: Skin is dusky. 02:54 Adult Sepsis Screening: The patient does not have new or worsening altered mentation. nn1 Patient's respiratory rate is less than 22. Systolic blood pressure is greater than 100. Patient has a qSOFA score of 0- Negative Sepsis Screen. Vital Signs: 01/22 21:46 BP 151 / 83; Pulse 71; Resp 18; Temp 97.1(TE); Pulse Ox 98% on R/A; Weight 74.84 kg; nn1 Height 5 ft. 4 in. (162.56 cm); Pain 6/10; 22:01 BP 144 / 79 (auto/); nn1 22:02 Pulse 82 MON; Pulse Ox 94% ; nn1 22:02 Pulse 69; Resp 18; Pulse Ox 98% on R/A; nn1 01/23 02:52 BP 139 / 78; Pulse 70; Resp 18; Temp 96.2(O); Pulse Ox 100% on R/A; nn1 01/22 21:46 Body Mass Index 28.32 (74.84 kg, 162.56 cm) nn1 Vitals: 01/22 21:46 Log In Time N/A - ambulance arrival. nn1 ED Course: 21:34 Patient visited by Meme Kelley, Food And Nutrition Teacher. ml3 21:34 Patient moved to Waiting ml3 21:34 Patient moved to 5 ml3 21:40 Braden Earl MD is Attending Physician. pc 21:41 Triage Initiated nn1 22:00 Maintain field IV. Dressing intact. Site clean & dry. Gauge & site: 18G RAc . nn1 22:08 Patient visited by James Tarango RN. nn1 22:15 Patient visited by Braden Earl MD. pc 22:23 Patient moved to Radiology tmb 23:21 Patient moved to 5 tmb 23:22 Patient visited by James Tarango RN. nn1 01/23 00:23 Patient visited by James Tarango RN. nn1 00:40 Attending Physician role handed off by Braden Earl MD cs11 00:40 Nasir June DO is Attending Physician. cs11 01:12 CT Spine, Lumbar W/o Contrast Returned. EDMS 01:25 Patient visited by James Tarango RN. nn1 01:28 Patient name changed from David\S\\S\Agaromeoki\S\ to David\S\ \S\Denisse. EDMS 01:29 [facility] Payment Agreement was scanned into [employer] and attached to record. [facility] 02:27 Patient visited by James Tarango RN. nn1 02:54 The patient / caregiver is instructed regarding the plan of care and ED course. nn1 02:54 No procedures done that require assistance. nn1 02:54 Discontinued IV lock intact, bleeding controlled, pressure dressing applied, No nn1 redness/swelling at site. 08:01 CT Chest Without Contrast Returned. EDMS 10:01 Spine. Lumbosacral, Complete Returned. EDMS 10:01 Chest, 2 View (pa\E\lat) Returned. EDMS Order Results: Radiology Order: Spine. Lumbosacral, Complete Test: Spine. Lumbosacral, Complete REASON FOR EXAMINATION: Trauma; LUMBAR SPINE SERIES: Five views.; ; HISTORY: Trauma.; ; FINDINGS: Five views of the lumbar spine demonstrate a dextroconvex; rotoscoliotic curve. A vena cava Marlene filter is noted in place. There is; diffuse degenerative disc disease. There is progressive collapse of the T12; vertebral body when compared to the prior study of December 11, 2013. This does; not appear to be a new fracture. No acute fracture is appreciated. Diffuse; degenerative disc and osteoarthritic facet changes are noted. Sacrum is intact.; There is moderate stool in the colon. Views are somewhat suboptimal due to; patient positioning factors. The lateral view is obtained supine cross-table.; Vascular calcification is seen in a normal caliber aorta.; ; IMPRESSION: Progressive collapse and wedging of the T12 vertebral body. No acute; fracture is seen. Scoliosis degenerative disc disease and osteoarthritic facet; changes.; ; ; Signed by; Delgado Bee MD 01/23/2017 01:58 P; Radiology Order: Chest, 2 View (pa\E\lat) Test: Chest, 2 View (pa\E\lat) REASON FOR EXAMINATION: Shortness of Breath; Chest x-ray: Two views.; ; History: Shortness of breath.; ; Comparison chest x-ray January 18, 2017.; ; Findings: Moderate cardiomegaly is again observed. A unipolar pacemaker remains; in the right heart via the left side. EKG electrodes are seen. There are; degenerative arthritic changes in the shoulders. There is diffuse osteoporosis.; There is an old healed rib fracture of the 5th rib on the right. Pleural angles; are sharp. No infiltrate is seen. Pulmonary vasculature is not increased.; ; Impression:; ; Moderate cardiomegaly with pacemaker. No acute disease.; ; ; Signed by; Delgado Bee MD 01/23/2017 01:58 P; Radiology Order: CT Spine, Lumbar W/o Contrast Test: CT Spine, Lumbar W/o Contrast REASON FOR EXAMINATION: pain, compression fractures on xray; ; CT of the lumbar spine without contrast; Clinical history: Pain.; Technique: Multiple axial CT images were obtained through the lumbar spine without administration of; contrast. Coronal and sagittal 3-D reconstructed images were also obtained.; Findings:; The lumbar vertebral bodies are in satisfactory positioning. There is moderate dextroscoliosis apprec; iated, with the apex at L2. No acute fractures demonstrated. Intervertebral disc spaces are moderatel; y narrowed at L1/L2, L2/L3, L3/L4, and L5/S1. Disc osteophyte is seen at these levels. Chronic severe; compression fracture of T12 is appreciated,. There is no evidence of facet subluxation. The neural f; oramen appear grossly patent. The spinal canal demonstrates normal caliber and contour without eviden; ce of spinal stenosis. The surrounding soft tissues are within normal limits.; Impression:; 1. No acute fracture.; 2. Severe chronic compression fracture of T12.; 3. Severe multilevel degenerative disc disease with disc osteophyte complexes in the lumbar spine as; described. Scoliosis as well. No discrete evidence of central canal stenosis. If there is further cli; nical concern however, MRI would be recommended.; ; Radiology Order: CT Chest Without Contrast Test: CT Chest Without Contrast REASON FOR EXAMINATION: SOB, recent LLL consolidation only seen on CT; ; CT of the chest without contrast; Clinical statement: Shortness of breath.; Technique: Multiple axial CT images were obtained with 5 mm cuts through the chest without administra; tion of contrast.; Comparison: 01/08/2017.; Findings: There is no thoracic lymphadenopathy. The visualized portions of the thyroid gland is unrem; arkable. There are no pericardial or pleural effusions. Consolidation is noted in the medial aspect o; f the left lower lobe, and grossly unchanged since the prior study. Limited imaging of the upper abdo; men does not demonstrate any acute abnormalities. There are no acute osseous lesions. Chronic severe; compression fractures are noted at T7 and T12.; Impression:; 1. Consolidation in the medial aspect of the left lower lobe is grossly stable, likely representing s; carring. However, follow-up is recommended.; 2. No acute infiltrate or effusion.; 3. Stable compression fractures at T7 and T12.; ; Outcome: 02:30 Discharge ordered by Provider. cs11 02:53 Discharge Assessment: Patient awake, alert and oriented x 3. No cognitive and/or nn1 functional deficits noted. Patient verbalized understanding of disposition instructions. patient administered narcotics - no. The following High Risk Discharge criteria are identified: None. Discharged to home via wheelchair, with family. Condition: stable Condition: unchanged. CT Study completed. Property :Personal belongings accompany Pt. 03:07 Patient left the ED. nn1 Signatures: Dispatcher [employer] EDMS Braden Earl MD MD pc Lopresti, Mary-Elizabeth, Food And Nutrition Teacher Unit ml3 Nasir June DO DO cs11 Carlos Llanos Sandra slh Nunez, Nikkole,RN RN nn1 Corrections: (The following items were deleted from the chart) 01/22 21:41 21:35 Presenting complaint: nn1 nn1 Chart Complete MTDD
--- NOTE | 2017-01-25 04:09 | EDDOCDS ---
Physician Documentation [facility] Name: David Salcedo Age: 86 yrs Sex: Male : 1930 Arrival Date: 01/22/2017 Time: 21:33 Bed 5 Private MD: Disposition: 01/23/17 02:30 Discharged to Home/Self Care. Impression: Other nonspecific abnormal finding of lung field - chronic scarring of lung, Osteoarthritis, unspecified site - spine. - Condition is Stable. - Medication Reconciliation, Local Pharmacy Hours form. - Follow up: Private Physician; When: Call to arrange an appointment; Reason: Recheck today's complaints. - Problem is chronic. - Symptoms are unchanged. HPI: 01/22 22:31 This 86 yrs old Male presents to ER via Ambulance with complaints of pc Breathing Difficulty. 22:31 The history is obtained from the patient's family/friend. A reliable history and/or pc examination was not able to be obtained, due to baseline dementia. He has been having mid back pain for 3 weeks, with multiple ED visits and a visit to his PCP. He has multiple wedge fractures of his T spine that are old but that have progressed recently. He has been having back pain and then becomes SOB. His daughter says he gets very anxious. His pain meds were just increased recently and with a question of a LLL pneumonia on CT, he was started on ABX. He had an episode of mid-back pain tonight, became SOB and his family called EMS. He received oxygen en route. On arrival to the ED, he is no longer dyspneic and his PO is 97% on room air, his RR is 14. Historical: - Allergies: Codeine Sulfate; Xarelto; - Home Meds: 1. albuterol sulfate 2.5 mg /3 mL (0.083 %) Inhl nebu prn 2. amlodipine 10 mg Oral tab 1 tab once daily 3. aspirin 325 mg Oral tab once daily 4. Avodart 0.5 mg oral cap 1 cap once daily 5. cephalexin 500 mg Oral cap 1 cap every 6 hours 6. Fish Oil 1,000 mg Oral cap twice a day 7. Lasix 20 mg Oral tab 1 tab once daily 8. Mucinex 600 mg oral Ta12 2 tabs every 12 hours 9. multivitamin Oral tab 1 tab daily 10. Ocuvite oral tab daily 11. primidone 250 mg Oral tab 0.5 tab bid 12. Probiotic oral daily 13. Spiriva with HandiHaler 18 mcg Inhl CpDv 1 cap once daily 14. tamsulosin 0.4 mg oral cp24 1 cap once daily 15. Tylenol 500mg Oral 2 tabs bid 16. 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 - Social history: Smoking status: Patient states former smoker of tobacco. No barriers to communication noted, The patient speaks fluent Vietnamese, Speaks appropriately for age. - : The pt / caregiver states he / she is not on anticoagulants. Home medication list is obtained from family members, the facility MAR. - Hospitalizations: : No recent hospitalization is reported. - Exposure Risk Screening:: None identified. - Immunization history:: All immunizations up-to-date. - Family history: Not pertinent. - Social history:: the patient is a former smoker, the patient does not drink alcohol. ROS: 01/23 00:05 All systems are negative except as listed. pc Exam: 00:05 General Appearance: no acute distress, alert. pc 00:05 EENT: normal eye inspection, ears, nose and throat normal, pharynx normal, mucous membranes moist 00:05 Neck: The exam reveals no acute abnormalities. ROM is normal and painless. No nuchal rigidity is noted.. 00:05 Respiratory: no respiratory distress, normal breath sounds. 00:05 CVS: regular pulse rate, regular rhythm, normal S1 and S2, no murmurs, strong peripheral pulses. 00:05 Abdomen: soft, non-tender, no organomegaly, normal bowel sounds. 00:05 Back: normal inspection. 00:05 Skin: skin color is normal, warm, dry. 00:05 Extremities: The extremities have a grossly normal appearance, are non-tender, without acute ROM abnormalities. 00:05 Neuro: no motor deficits, no sensory deficits. Vital Signs: 01/22 21:46 BP 151 / 83; Pulse 71; Resp 18; Temp 97.1(TE); Pulse Ox 98% on R/A; Weight 74.84 kg / nn1 164.99 lbs; Height 5 ft. 4 in. (162.56 cm); Pain 6/10; 22:01 BP 144 / 79 (auto/); nn1 22:02 Pulse 82 MON; Pulse Ox 94% ; nn1 22:02 Pulse 69; Resp 18; Pulse Ox 98% on R/A; nn1 01/23 02:52 BP 139 / 78; Pulse 70; Resp 18; Temp 96.2(O); Pulse Ox 100% on R/A; nn1 01/22 21:46 Body Mass Index 28.32 (74.84 kg, 162.56 cm) nn1 MDM: 01/22 22:16 Spine. Lumbosacral, Complete Ordered. EDMS 22:21 Chest, 2 View (pa\E\lat) Ordered. EDMS 22:58 CT Spine, Lumbar W/o Contrast Ordered. EDMS 22:58 CT Chest Without Contrast Ordered. EDMS 23:50 Financial registration complete. [facility] 01/23 00:05 Differential Diagnosis: back pain due to acute on chronic fractures, COPD, dementia, pc anxiety reaction. Plan: imaging. Data reviewed: old medical records, vital signs, nurses notes, all radiology studies and available results. Test interpretation: X-RAY - interpreted by me, 1 view chest chronic obstructive pulmonary disease pattern, LS-Spine old fractures, no acute interpreted by Radiologist and personally reviewed, Chest CT; stable and unchanged LLL consolidation dating back to 2012; COPD, old T spine fractures, else nad. 01:29 [facility] Payment Agreement was scanned into [employer] and attached to record. [facility] 02:23 ED course: Asked to follow up on imaging done. CT L spine shows not acute process. CT cs11 chest shows old scarring - no acute process. Pt comfortable in room. CT scan reports were unfortunately delayed in receiving because of [employer]. Signatures: [facility] Braden Earl MD MD pc Schiff, Craig, DO DO cs11 Rosalinda Dia [facility] James TarangoRN RN nn1 The chart was reviewed and I authenticate all verbal orders and agree with the evaluation and treatment provided.Corrections: (The following items were deleted from the chart) 00:05 00:02 -Blood Culture (Adults Only), peripheral from different site, or from pc device/port/PICC etc. if present ordered. pc 00:06 00:03 CBC WITH DIFFERENTIAL+LAB ordered. EDMS EDMS 00: 00:03 BASIC METABOLIC PROFILE+LAB ordered. EDMS EDMS 00: 00:03 -BLOOD CULTURES+CHELSY ordered. EDMS EDMS Attachments: 01:29 [facility] [facility] Chart Complete MTDD
--- NOTE | 2017-01-25 04:09 | EDDOCDS ---
Physician Documentation [facility] Name: David Salcedo Age: 86 yrs Sex: Male : 1930 Arrival Date: 01/22/2017 Time: 21:33 Bed 5 Private MD: Disposition: 01/23/17 02:30 Discharged to Home/Self Care. Impression: Other nonspecific abnormal finding of lung field - chronic scarring of lung, Osteoarthritis, unspecified site - spine. - Condition is Stable. - Medication Reconciliation, Local Pharmacy Hours form. - Follow up: Private Physician; When: Call to arrange an appointment; Reason: Recheck today's complaints. - Problem is chronic. - Symptoms are unchanged. HPI: 01/22 22:31 This 86 yrs old Male presents to ER via Ambulance with complaints of pc Breathing Difficulty. 22:31 The history is obtained from the patient's family/friend. A reliable history and/or pc examination was not able to be obtained, due to baseline dementia. He has been having mid back pain for 3 weeks, with multiple ED visits and a visit to his PCP. He has multiple wedge fractures of his T spine that are old but that have progressed recently. He has been having back pain and then becomes SOB. His daughter says he gets very anxious. His pain meds were just increased recently and with a question of a LLL pneumonia on CT, he was started on ABX. He had an episode of mid-back pain tonight, became SOB and his family called EMS. He received oxygen en route. On arrival to the ED, he is no longer dyspneic and his PO is 97% on room air, his RR is 14. Historical: - Allergies: Codeine Sulfate; Xarelto; - Home Meds: 1. albuterol sulfate 2.5 mg /3 mL (0.083 %) Inhl nebu prn 2. amlodipine 10 mg Oral tab 1 tab once daily 3. aspirin 325 mg Oral tab once daily 4. Avodart 0.5 mg oral cap 1 cap once daily 5. cephalexin 500 mg Oral cap 1 cap every 6 hours 6. Fish Oil 1,000 mg Oral cap twice a day 7. Lasix 20 mg Oral tab 1 tab once daily 8. Mucinex 600 mg oral Ta12 2 tabs every 12 hours 9. multivitamin Oral tab 1 tab daily 10. Ocuvite oral tab daily 11. primidone 250 mg Oral tab 0.5 tab bid 12. Probiotic oral daily 13. Spiriva with HandiHaler 18 mcg Inhl CpDv 1 cap once daily 14. tamsulosin 0.4 mg oral cp24 1 cap once daily 15. Tylenol 500mg Oral 2 tabs bid 16. 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 - Social history: Smoking status: Patient states former smoker of tobacco. No barriers to communication noted, The patient speaks fluent Bel[place]ian, Speaks appropriately for age. - : The pt / caregiver states he / she is not on anticoagulants. Home medication list is obtained from family members, the facility MAR. - Hospitalizations: : No recent hospitalization is reported. - Exposure Risk Screening:: None identified. - Immunization history:: All immunizations up-to-date. - Family history: Not pertinent. - Social history:: the patient is a former smoker, the patient does not drink alcohol. ROS: 01/23 00:05 All systems are negative except as listed. pc Exam: 00:05 General Appearance: no acute distress, alert. pc 00:05 EENT: normal eye inspection, ears, nose and throat normal, pharynx normal, mucous membranes moist 00:05 Neck: The exam reveals no acute abnormalities. ROM is normal and painless. No nuchal rigidity is noted.. 00:05 Respiratory: no respiratory distress, normal breath sounds. 00:05 CVS: regular pulse rate, regular rhythm, normal S1 and S2, no murmurs, strong peripheral pulses. 00:05 Abdomen: soft, non-tender, no organomegaly, normal bowel sounds. 00:05 Back: normal inspection. 00:05 Skin: skin color is normal, warm, dry. 00:05 Extremities: The extremities have a grossly normal appearance, are non-tender, without acute ROM abnormalities. 00:05 Neuro: no motor deficits, no sensory deficits. Vital Signs: 01/22 21:46 BP 151 / 83; Pulse 71; Resp 18; Temp 97.1(TE); Pulse Ox 98% on R/A; Weight 74.84 kg / nn1 164.99 lbs; Height 5 ft. 4 in. (162.56 cm); Pain 6/10; 22:01 BP 144 / 79 (auto/); nn1 22:02 Pulse 82 MON; Pulse Ox 94% ; nn1 22:02 Pulse 69; Resp 18; Pulse Ox 98% on R/A; nn1 01/23 02:52 BP 139 / 78; Pulse 70; Resp 18; Temp 96.2(O); Pulse Ox 100% on R/A; nn1 01/22 21:46 Body Mass Index 28.32 (74.84 kg, 162.56 cm) nn1 MDM: 01/22 22:16 Spine. Lumbosacral, Complete Ordered. EDMS 22:21 Chest, 2 View (pa\E\lat) Ordered. EDMS 22:58 CT Spine, Lumbar W/o Contrast Ordered. EDMS 22:58 CT Chest Without Contrast Ordered. EDMS 23:50 Financial registration complete. [facility] 01/23 00:05 Differential Diagnosis: back pain due to acute on chronic fractures, COPD, dementia, pc anxiety reaction. Plan: imaging. Data reviewed: old medical records, vital signs, nurses notes, all radiology studies and available results. Test interpretation: X-RAY - interpreted by me, 1 view chest chronic obstructive pulmonary disease pattern, LS-Spine old fractures, no acute interpreted by Radiologist and personally reviewed, Chest CT; stable and unchanged LLL consolidation dating back to 2012; COPD, old T spine fractures, else nad. 01:29 [facility] Payment Agreement was scanned into Edgar and attached to record. [facility] 02:23 ED course: Asked to follow up on imaging done. CT L spine shows not acute process. CT cs11 chest shows old scarring - no acute process. Pt comfortable in room. CT scan reports were unfortunately delayed in receiving because of [employer]. Signatures: Dis[facility] ED[facility] Braden Earl MD MD pc Schiff, Craig, DO DO cs11 Rosalinda Dia [facility] James TarangoRN RN nn1 The chart was reviewed and I authenticate all verbal orders and agree with the evaluation and treatment provided.Corrections: (The following items were deleted from the chart) 00:05 00:02 -Blood Culture (Adults Only), peripheral from different site, or from pc device/port/PICC etc. if present ordered. pc 00:06 00:03 CBC WITH DIFFERENTIAL+LAB ordered. EDMS EDMS 00: 00:03 BASIC METABOLIC PROFILE+LAB ordered. EDMS EDMS 00: 00:03 -BLOOD CULTURES+CHELSY ordered. EDMS EDMS Attachments: 01:29 [facility] [place] Agreement [facility] Chart Complete MTDD
== END 2017-01-23 03:07 | disposition home or self-care (01) ==
LOC: M ED 21:33
DX: R91.8 Other nonspecific abnormal finding of lung field (principal); M47.9 Spondylosis, unspecified; I48.91 Unspecified atrial fibrillation; J44.9 Chronic obstructive pulmonary disease, unspecified; F03.90 Unspecified dementia, unspecified severity, without behavioral disturbance, psychotic disturbance, mood disturbance, and anxiety; Z87.891 Personal history of nicotine dependence; Z86.718 Personal history of other venous thrombosis and embolism; Z95.0 Presence of cardiac pacemaker; Z96.641 Presence of right artificial hip joint; Z96.642 Presence of left artificial hip joint; Z92.240 Personal history of inhaled steroid therapy; Z79.82 Long term (current) use of aspirin; Z79.899 Other long term (current) drug therapy; Z88.5 Allergy status to narcotic agent; Z88.8 Allergy status to other drugs, medicaments and biological substances

== ENCOUNTER 2017-03-01 20:23 | Inpatient (IN) | payer OTHER ==
[~2017-03-01] VITALS: Ht 172.7 cm; Wt 80.6 kg
[2017-03-01 21:00] LABS: BASO % 0.5 % (0.0-1.0); EOS # 0.2 K/mm3 (0.0-0.50); EOS % 4.2 % (0.0-3.0); LARGE UNSTAINED CELL # 0.1 K/mm3 (0.0-0.4); LARGE UNSTAINED CELL % 2.2 % (0.0-4.0); LYMPH # 0.7 K/mm3 (1.5-4.5); LYMPH % 13.6 % (24.0-44.0); MEAN CORPUSCULAR HEMOGLOBIN 30.2 pg (27.0-33.0); MEAN CORPUSCULAR HGB CONC 32.6 g/dl (32.0-36.5); MEAN CORPUSCULAR VOLUME 92.7 fl (80.0-96.0); MONO # 0.2 K/mm3 (0.0-0.8); MONO % 4.6 % (0.0-5.0); NEUTROPHILS # 3.9 K/mm3 (1.8-7.7); PLATELET COUNT, AUTOMATED 101 k/mm3 (150-450); RED CELL DISTRIBUTION WIDTH 13.4 % (11.5-14.5); WHITE BLOOD COUNT 5.2 K/mm3 (4.0-10.0)
[2017-03-01] MEDS ORDERED: MORPHINE 2 MG/ML 1ML SYRINGE IV ONE ×2 (21:00→22:45)
[2017-03-01 21:06] LABS: INR 1.01
[2017-03-01 21:23] LABS: ALBUMIN 3.4 GM/DL (3.2-5.2); ALBUMIN/GLOBULIN RATIO 1.21 (1.00-1.93); ALKALINE PHOSPHATASE 157 U/L (45-117); ALT/SGPT 23 U/L (12-78); ANION GAP 3 MEQ/L (8-16); AST/SGOT 14 U/L (15-37); BILIRUBIN,TOTAL 0.5 MG/DL (0.2-1.0); BLOOD UREA NITROGEN 21 MG/DL (7-18); CALCIUM LEVEL 7.7 MG/DL (8.8-10.2); CARBON DIOXIDE LEVEL 29 MEQ/L (21-32); CHLORIDE LEVEL 101 MEQ/L (98-107); CREATININE FOR GFR 1.02 MG/DL (0.70-1.30); GLOMERULAR FILTRATION RATE > 60.0 (>35); GLUCOSE, FASTING 110 MG/DL (83-110); MAGNESIUM LEVEL 1.9 MG/DL (1.8-2.4); SODIUM LEVEL 133 MEQ/L (136-145); TOTAL PROTEIN 6.2 GM/DL (6.4-8.2)
[2017-03-01] MEDS ORDERED: OCUVTAB PO (22:34)
[2017-03-01] MEDS ORDERED: ACET50TAOT PO (22:34)
[2017-03-01] MEDS ORDERED: MOME0.1O20 EXT (22:34)
[2017-03-01] MEDS ORDERED: VISI0.054 OU (22:34)
[2017-03-01] MEDS ORDERED: INCR1INH INH (22:34)
[2017-03-01] MEDS ORDERED: FISH1000 PO (22:34)
[2017-03-01] MEDS ORDERED: BACITAB3 PO (22:34)
[2017-03-01] MEDS ORDERED: VITMTA PO (22:34)
[2017-03-01] MEDS ORDERED: AMLO10TA2 PO (22:34)
[2017-03-01] MEDS ORDERED: MUCI1TAB18 PO (22:34)
[2017-03-01] MEDS ORDERED: FLOM5CAP PO (22:34)
--- NOTE | 2017-03-01 23:07 | CR ---
DATE OF CONSULTATION: 03/01/2017 REASON FOR CONSULTATION: Left hip fracture after a mechanical fall. This is an 86-year-old male who was at home, where he lives with his nieces and some daughters outside of [place], who apparently was just getting up from a chair and possibly got tangled up with his dog and fell onto his left side. Complains of pain and soreness. Unable to ambulate. The soreness and pain is on the left hip and leg area. Also does complain of some left-sided chest wall pain. Does not complain of any numbness or tingling in his lower extremities. Does not complaint of loss of consciousness. Did not strike his head. Does not have any neck pain or soreness in his upper extremities. He was transferred here by ambulance and evaluated by the emergency room staff, and I was called to see him when they found a hip fracture on his x-ray. I have examined here today. Got the history from him and his daughter. PAST MEDICAL HISTORY: Significant for: 1. Atrial fibrillation with severe pulmonary hypertension. 2. Some moderate aortic stenosis. 3. History of a deep vein thrombosis (DVT) with inferior vena cava (IVC) filter in place. 4. Mild dementia. 5. Chronic obstructive pulmonary disease (COPD)/asthma. 6. Hypertension. 7. Chronic urinary tract infections (UTIs) with a bladder outlet obstruction. PAST SURGICAL HISTORY: 1. Bilateral total knee arthroplasties. 2. History of pacemaker placement. 3. IVC filter placement. MEDICATIONS AT HOME: Furosemide, amlodipine, ProAir, Spriva, Ellipta, tamsulosin, Avodart, calcitonin, albuterol. ALLERGIES: XARELTO. SOCIAL HISTORY: He is a former drinker and smoker but has not smoked or drank in many years. He lives with his supportive family. He gets his medical care through Dr. 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 REVIEW OF SYSTEMS: Otherwise per history of present illness (HPI) and the past medical history. When I examine him, he is an alert, elderly male complaining of soreness and pain in his left hip. I am at the bedside with his daughter. His temperature is 98.6, blood pressure is 151/87, respirations are 20. HEENT: He does wear glasses but there is no evidence of any trauma to his head. His extraocular muscles grossly were normal. His neck is nontender. He could lift his head up off the pillow and rotate either side. Upper extremity examination: He could elevate his arms up over head without obvious deformity, swelling, crepitance, or pain or soreness of the shoulder, humeri, elbows, forearms, or wrists. He does have some chest wall tenderness on the left side, but it does not hurt when he takes a deep breath. His left lower extremity is quite externally rotated, shortened, and tender along the left hip area with some moderate swelling, but he had a good dorsalis pedis pulse, 2+. He could move his toes, there is are chronic venous stasis changes in both lower extremities. They are reddened, but they are not indurated or edematous. His right lower extremity was atraumatic. His white count was 5.2, hematocrit of 43.9, platelets 101. Prothrombin time of 13.4. Sodium 133, potassium 5.0, chloride 101, bicarbonate 29, glucose 110, BUN 21, creatinine 1.02. X-ray of his left hip showed a peritrochanteric fracture that was displaced of the left proximal femur. The right hip did not show any evidence of a fracture. Chest x-ray to my eye is not formally read. I do not see any acute findings on his chest x-ray or obvious fractures. IMPRESSION: An 86-year-old male with an acute proximal peritrochanteric fracture of the hip with multiple other medical comorbidities. I discussed this with her daughter at the bedside and also discussed the case with Dr. Anna Amezcua, the hospitalist who is going to be admitting him, as well as with Dr. Alfaro. I would recommend for him when he is medically optimized to proceed with a fixation of his hip fracture. I think a cephalomedullary-type implant would be ideal for this fracture pattern, but doing fixation of his hip does require taking the risk of surgery. There is always a risk of anesthesia and damage to nerves and blood vessels, infection, failure of the bone to heal properly, embolism, heart attack, , amongst others. Daughter understands it, the patient understands it, and the daughter and the patient felt he was able to sign the consent, so he did so. We plan to proceed when he is felt to be medically optimized, hopefully tomorrow, but things may be delayed if cardiology needs to be involved and will wait for their opinion as well. If the surgery cannot proceed tomorrow or late tomorrow, one of my partner's may be assuming care of the surgery, which I discussed with his daughter, and they understand that.
[2017-03-01] MEDS ORDERED: ONDANSETRON 4MG/2ML VIAL (J2405) IV PRN (23:45)
[2017-03-02] VITALS (18 sets, daily range): BP systolic 106–188; BP diastolic 63–98; O2SAT 92
[2017-03-02] MEDS: D5W/0.45% SODIUM CHLORIDE 1,000 ML IV SCH ×2 (00:35→16:40)
[2017-03-02] MEDS: MORPHINE 2 MG/ML 1ML SYRINGE IV PRN ×4 (01:00→12:14)
--- NOTE | 2017-03-02 01:57 | HPE ---
DATE OF ADMISSION: 03/01/2017 PRIMARY CARE PROVIDER: Corine Parker PA-C. CHIEF COMPLAINT: Trip and fall at home with left-sided hip fracture. PAST MEDICAL HISTORY: 1. Chronic obstructive pulmonary disease (COPD). 2. Asthma. 3. Sleep apnea. Does not use continuous positive airway pressure (CPAP) any more. 4. Hypertension. 5. Atrial fibrillation. Has pacemaker in place. 6. BPH with history of urinary retention. 7. Dementia. 8. History of deep venous thrombosis (DVT) in 2010, 2011, and 2014. Has inferior vena cava (IVC) filter in place. 9. Chronic venous insufficiency. 10. Severe pulmonary hypertension. 11. Moderate calcific aortic stenosis. 12. Moderate mitral regurgitation. 13. Severe tricuspid regurgitation. 14. Compression fracture of T12 vertebra, chronic with chronic back pain. HISTORY OF PRESENT ILLNESS: This is an 86-year-old male who was at his usual state of health this evening sitting in his sofa. He tried to get up from the sofa. He tripped over his dog and fell on his left side. He was brought to the emergency room (ER) and found to have a left hip fracture. Patient was seen by orthopedics, Dr. Price, and is planned for surgery within the next 1-2 days. Patient denies any unusual cough or shortness of breath. Patient does have some baseline shortness of breath because of his COPD and his exercise tolerance is limited to walking with a cane within the room. He denied any chest pain. Denied any abdominal pain, nausea, vomiting or diarrhea. Denied any fever or chills. Patient denied any history of abnormal bleeding. Patient is not on any oral anticoagulation. Patient is being admitted for a left-sided hip fracture. PAST SURGICAL HISTORY: 1. Bilateral knee replacements. 2. Colonoscopy. 3. Cardiac pacemaker in 2014. ALLERGIES: XARELTO causes lactose intolerance. ACETAMINOPHEN/CODEINE causes confusion. FAMILY HISTORY: Nothing significant. SOCIAL HISTORY: Quit smoking many years ago. Does not abuse alcohol or recreational drugs. REVIEW OF SYSTEMS: All 10-point review of systems was negative except as mentioned in history of present illness (HPI). PHYSICAL EXAMINATION: VITAL SIGNS: Blood pressure 151/87, pulse 73, temperature 98.6, respiratory rate 20, pulse oximetry 95% in room air. GENERAL: Patient awake, alert, oriented times three, lying down in bed in mild distress due to pain. HEENT: Normocephalic, atraumatic. Moist mucous membranes. Anicteric eyes. CHEST: Clear to auscultation. CARDIOVASCULAR: S1, S2 regular. There is a systolic murmur present. ABDOMEN: Soft, nontender. Bowel sounds present. EXTREMITIES: Bipedal trace edema. There are chronic venous stasis changes in both the legs. LABORATORY DATA: WBC 5.2, hemoglobin 14.3, platelets 101. Sodium 133, potassium 5, chloride 101, bicarbonate 29, BUN 21, creatinine 1. Liver function tests normal. First set of cardiac enzymes negative. Calcium 7.7. Coagulation studies are normal. ASSESSMENT AND PLAN: This is an 86-year-old male admitted for left hip fracture. 1. Left hip fracture. Dr. Ej Price has seen the patient. Patient is awaiting surgery pending cardiological clearance, medical clearance. 2. Medical clearance cannot be given at this point. I have consulted Dr. Weller for cardiological evaluation in view of his severe pulmonary hypertension, moderate aortic stenosis. However, will keep the patient nothing by mouth. Maintain his intravenous (IV) fluids. 3. Hypertension has not been well controlled. Will hold amlodipine and Lasix at this point. 4. Chronic venous insufficiency. Will hold Lasix. Will restart after surgery. 5. History of deep venous thrombosis (DVT). Has inferior vena cava (IVC) filter in place. 6. Chronic atrial fibrillation. Has pacemaker. No issues at this point. 7. Chronic obstructive pulmonary disease (COPD). Will continue with Spiriva and albuterol ipratropium nebulizers. 8. Obstructive sleep apnea (ERWIN). Patient refuses to use continuous positive airway pressure (CPAP) and has not used it for many years. 9. DVT prophylaxis has been ordered. 10. Gastrointestinal (GI) prophylaxis has been ordered. 11. Pain control with morphine as needed.
[2017-03-02 07:03] LABS: BASO % 0.6 % (0.0-1.0); EOS # 0.2 K/mm3 (0.0-0.50); EOS % 2.9 % (0.0-3.0); LARGE UNSTAINED CELL # 0.1 K/mm3 (0.0-0.4); LARGE UNSTAINED CELL % 1.7 % (0.0-4.0); LYMPH # 0.8 K/mm3 (1.5-4.5); LYMPH % 13.4 % (24.0-44.0); MEAN CORPUSCULAR HEMOGLOBIN 29.8 pg (27.0-33.0); MEAN CORPUSCULAR HGB CONC 32.8 g/dl (32.0-36.5); MEAN CORPUSCULAR VOLUME 90.8 fl (80.0-96.0); MONO # 0.3 K/mm3 (0.0-0.8); MONO % 5.7 % (0.0-5.0); NEUTROPHILS % 75.7 % (36.0-66.0); PLATELET COUNT, AUTOMATED 103 k/mm3 (150-450); RED CELL DISTRIBUTION WIDTH 13.3 % (11.5-14.5); WHITE BLOOD COUNT 5.2 K/mm3 (4.0-10.0)
[2017-03-02 07:08] LABS: ANION GAP 5 MEQ/L (8-16); BLOOD UREA NITROGEN 20 MG/DL (7-18); CALCIUM LEVEL 7.6 MG/DL (8.8-10.2); CARBON DIOXIDE LEVEL 27 MEQ/L (21-32); CHLORIDE LEVEL 102 MEQ/L (98-107); GLOMERULAR FILTRATION RATE > 60.0 (>35); GLUCOSE, FASTING 114 MG/DL (83-110); POTASSIUM SERUM 4.7 MEQ/L (3.5-5.1); SODIUM LEVEL 134 MEQ/L (136-145)
[2017-03-02] MEDS: TIOTROPIUM INHALER/CAPSULE (SPIRIVA) INH SCH (07:20)
[2017-03-02] MEDS: IPRATROPIUM 0.5MG/ALBUTEROL 2.5MG INH SOL UD 3ML (DUONEB)(J7620) NEB SCH ×2 (07:20→16:00)
[2017-03-02] MEDS: PANTOPRAZOLE 40MG INJ (PROTONIX) (C9113) IV SCH (07:48)
--- NOTE | 2017-03-02 07:48 | ECGEPIP ---
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
--- NOTE | 2017-03-02 08:13 | REP ---
Bilateral hips and AP pelvis: Left hip two views: There is an intertrochanteric fracture with cephalad migration of the distal fracture fragment. No dislocation. Right hip two views: There is no fracture or dislocation. No femoral head deformity. No unusual calcifications or foreign bodies. Impression: Negative right hip. AP pelvis: No pelvic fractures are identified. The intertrochanteric fracture of the left hip is again identified. There is a [place] filter in the inferior vena cava. Signed by Tab Calvillo MD 03/02/2017 08:04 A
--- NOTE | 2017-03-02 08:14 | REP ---
Chest, single AP view, the patient supine: Comparison is 2016. Cardiomegaly and single lead pacemaker are again noted. The lung chavez are clear. The vikram, mediastinum, and bony thorax are unremarkable. Impression: No acute cardiopulmonary findings. Pacemaker and cardiomegaly are again noted. Signed by Tab Calvillo MD 03/02/2017 08:05 A
--- NOTE | 2017-03-02 09:20 | CR ---
DATE OF CONSULTATION: 03/02/2017 REFERRING PHYSICIAN: Dr. Price and Corine Lloyd. INDICATION: Preoperative clearance for open reduction internal fixation (ORIF). HISTORY OF PRESENT ILLNESS: Mr. Salcedo is an 86-year-old man who has severe chronic obstructive pulmonary disease (COPD) and sleep apnea, chronic atrial fibrillation and sick sinus syndrome with pacemaker placement. He tripped over his dog, fell and broke his left hip. I am being asked to provide cardiology clearance. The patient's performance status is poor at his baseline. He walks at home to the bathroom and from room to room many times a day without major difficulty, but if he should walk to the mailbox he would be gasping for air. He very unsteady on his feet at his baseline, but has not been using any walker or cane for support. From a cardiac perspective, he has known chronic atrial fibrillation and has a pacemaker. He has IVC filter and known intolerance of Xarelto and has not been chronically anticoagulated. There is no known coronary artery disease. He did have an echocardiogram in this facility in 2014 that revealed severe pulmonary hypertension, dilated right ventricle with severe TR, normal left ventricular systolic function and approximately moderate aortic stenosis. The study was interpreted by Dr. Mays. He does not have any known coronary artery disease to the best of my knowledge. PAST MEDICAL HISTORY: 1. COPD. 2. Sleep apnea, untreated. 3. Hypertension. 4. Chronic atrial fibrillation. 5. Benign prostatic hypertrophy (BPH). 6. Dementia. 7. History of multiple deep vein thromboses (DVTs) with IVC filter in place. 8. Secondary venous insufficiency. 9. Moderate aortic stenosis based on echo 2014, moderate MR based on same echocardiogram. SURGICAL HISTORY: 1. Positive for bilateral knee replacement. 2. Pacemaker placement. ALLERGIES: He has intolerance of XARELTO. FAMILY HISTORY: No longer relevant in his age. SOCIAL HISTORY: The patient has a remote history of smoking that was heavy though and there is also remote history of alcohol. He is a and lives in his house that he shares with his granddaughters family, several of children are very involved. HOME MEDICATIONS: - Tylenol as needed - albuterol as needed - amlodipine 10 mg a day - aspirin 325 a day - Avodart 0.5 a day - fish oil 1 gram twice a day - furosemide 20 mg a day - INCRUSE Ellipta inhalation - Mucinex as needed - multivitamin - primidone 125 twice a day - Flomax 0.4 in the evening. LABORATORY DATA: His CBC reveals hemoglobin of 11.9, hematocrit 36, platelet count 103,000 and WBC count 5.2. Basic metabolic panel is normal with the exception of mildly low sodium 134, glucose 114. He had two sets of negative cardiac enzymes. His INR was 1.0. The chest x-ray revealed cardiomegaly, appropriate position of single lead pacemaker, and no obvious congestive heart failure. Hip x-ray revealed fracture. ECG reveals atrial fibrillation with ventricular pacing. ASSESSMENT/PLAN: Mr. Salcedo is an 86-year-old man who has chronic atrial fibrillation that is not chronically anticoagulated due to history of bleeding and falls. He has had pacemaker and he is principally ventricular paced. He also more importantly has at least moderate aortic stenosis, moderate mitral insufficiency and probably severe pulmonary hypertension based on echocardiogram from 2 years ago. At his baseline, he can ambulate from room to room without major difficulty, but anything longer than that he will get profoundly short of breath. Currently, from a hemodynamic perspective, he appears reasonably well compensated. His vital signs reveal blood pressure 136/76, heart rate is 70s and paced. His JVP does not appear elevated and his saturation is low to mid 90s on room air. I do not appreciate any wheezes or crackles on lung exam, even though the air movement is fair and there are some large airway rhonchi and heart exam is quite muffled due to underlying COPD. I still do not appreciate any distinct mitral murmur, but there is not more than maybe 2/6 intensity systolic ejection murmur over the aortic valve. No evidence for ascites, and even though he has prominent stasis dermatitis of his gaytan, there is no significant peripheral edema. Neurologically he is oriented to person and place, but he has underlying dementia so a reasonable history is difficult to obtain. Consequently, most of the decision making was made between me and his daughter, who is one of his healthcare proxies. She tells me that all three children are listed on the form and they have in general agreement to proceed with surgery. I believe that it will be a high risk undertaking because of most importantly underlying severe pulmonary hypertension, but unfortunately his prognosis without surgery is dismal. There is also nothing that we can actually improve before he goes to the OR and consequently I do not believe there is a reason to postpone the procedure. There is few points I would like to make regarding perioperative management. If a lot of cautery is to be utilized I would apply a magnet over his pacemaker and leave it there for the duration of surgery. That will trigger asynchronous pacing and ensure that he does not have episodes of bradycardia. I would also recommend that attention is paid to volume because of severe pulmonary hypertension, hypovolemia is probably going to be poorly tolerated. His Lasix was held appropriately this morning, but if he should have episodes of hypotension, I would liberally use hydration. Otherwise, no further specific recommendations. My preference would be to provide at least short-term DVT prophylaxis either in the form of Coumadin for some alternative form, either Lovenox or potentially Eliquis. [place]
--- NOTE | 2017-03-02 10:17 | IPNPDOC ---
Subjective Date Seen The patient was seen on 03/02/17. Subjective Chief Complaint/HPI The patient is a 86-year-old male admitted with a reason for visit of Left Hip Fracture. Events since last encounter Pt this morning is in bed. His dgt is at bedside. She states that he did well through the night. They are eager to proceed with surgery. General: Reports: Fatigue Constitutional: Denies: Chills, Fever Pulmonary: Reports: Dyspnea (close to baseline.), Denies: Cough Cardiovascular: Denies: Chest Pain, Palpitations Gastrointestinal: Denies: Constipation, Diarrhea, Nausea, Vomiting Musculoskeletal: Reports: Leg Pain Neurological: Reports: Weakness Psych: Reports: Mood Normal Objective Physical Examination General Exam: Positive: Alert, No Acute Distress ENT Exam: Positive: Mucous membr. moist/pink Neck Exam: Positive: Supple, Negative: JVD Chest Exam: Positive: Rhonchi (scattered rhonchi throughout, mostly upper airway ), Negative: Clear to auscultation (diminished throughtout) Heart Exam: Positive: Irregular Rhythm Abdomen Exam: Positive: Normal bowel sounds, Soft, Negative: Tenderness Extremity Exam: Positive: Edema (trace BLE) Psych Exam: Positive: Mental status NL, Mood NL Assessment /Plan Problems (1) Hip fracture, left Status: Acute Response to Treatment: Stable Discussed With: Nurse, Senior Materials Scientist, Patient, Family with Pt Consent Problem Specific Plan: Consult Specialist, Monitor Clinically Problem Text: Pain currently controlled. Plan for OR later today with Ortho. Has been evaluated and cleared by Cardio. I met with the pt and his dgt Stella this morning and discussed surgery and recovery and the risks assoc with surgery. We also discussed the alternative of treating for pain control and the pt remaining bed bound. Pt is high risk for surgery based on his multiple comorbidities including severe pulm HTN and aortic stenosis. His outcome without surgery also remains poor and for this reason the family and willing to risk proceeding with surgery. In terms of medical optimization nothing further to offer, he is optimized, but remains high risk for surgery. (2) A-fib Status: Chronic Response to Treatment: Stable Problem Specific Plan: Monitor Clinically Problem Text: no anticoagulation d/t bleeding in the past. (3) ERWIN (obstructive sleep apnea) Status: Chronic Problem Specific Plan: Monitor Clinically Problem Text: Pt refuses treatment. (4) Dementia Status: Chronic Response to Treatment: Stable (5) HTN (hypertension) Status: Chronic Response to Treatment: Stable (6) History of DVT (deep vein thrombosis) Status: Chronic Response to Treatment: Stable Problem Specific Plan: Monitor Clinically Problem Text: Has IVC filter in place (7) COPD (chronic obstructive pulmonary disease) Status: Chronic Response to Treatment: Stable Problem Specific Plan: Monitor Clinically Problem Text: Cont Spiriva, nebs. Plan/VTE VTE Prophylaxis Ordered?: No (pre-op) VS, I&O, 24H, Fishbone Vital Signs/I&O Vital Signs Date Time Temp Pulse Resp B/P Pulse Ox O2 Delivery O2 Flow Rate FiO2 03/02/17 09:56 16 03/02/17 06:00 99.1 71 136/76 92 Room Air I&O- Last 24 Hours up to 6 AM 03/02/17 05:59 Intake Total 0 ml Output Total 0 ml Balance 0 ml Laboratory Data 24H LABS Laboratory Tests 2 03/01/17 20:49: Activated Partial Thromboplast Time 54.2H, Blood Urea Nitrogen 21H, Creatinine 1.02, Sodium Level 133L, Potassium Level 5.0, Chloride Level 101, Carbon Dioxide Level 29, Calcium Level 7.7L, Aspartate Amino Transf (AST/SGOT) 14L, Alanine Aminotransferase (ALT/SGPT) 23, Total Creatine Kinase 124, Alkaline Phosphatase 157H, Total Bilirubin 0.5, Total Protein 6.2L, Albumin 3.4, Albumin/ Globulin Ratio 1.21, Anion Gap 3L, White Blood Count 5.2, Red Blood Count 4.74, Hemoglobin 14.3, Hematocrit 43.9, Mean Corpuscular Volume 92.7, Mean Corpuscular Hemoglobin 30.2, Mean Corpuscular Hemoglobin Concent 32.6, Red Cell Distribution Width 13.4, Platelet Count 101L, Neutrophils (%) (Auto) 75.0H, Lymphocytes (%) (Auto) 13.6L, Monocytes (%) (Auto) 4.6, Eosinophils (%) (Auto) 4.2H, Basophils (%) (Auto) 0.5, Neutrophils # (Auto) 3.9, Lymphocytes # (Auto) 0.7L, Monocytes # (Auto) 0.2, Eosinophils # (Auto) 0.2, Basophils # (Auto) 0.0, Creatine Kinase MB 3.1, Creatine Kinase MB Relative Index 2.50, Ethyl Alcohol Level < 0.003, Glomerular Filtration Rate > 60.0, Large Unclassified Cells # 0.1 , Large Unclassified Cells % 2.2, Magnesium Level 1.9, Prothromb Time International Ratio 1.01, Prothrombin Time 13.4, Troponin I 0.02 03/02/17 06:17: Blood Urea Nitrogen 20H, Creatinine 0.90, Sodium Level 134L, Potassium Level 4.7 , Chloride Level 102, Carbon Dioxide Level 27, Calcium Level 7.6L, Total Creatine Kinase 81, Anion Gap 5L, White Blood Count 5.2, Red Blood Count 3.98L, Hemoglobin 11.9#L, Hematocrit 36.2L, Mean Corpuscular Volume 90.8, Mean Corpuscular Hemoglobin 29.8, Mean Corpuscular Hemoglobin Concent 32.8, Red Cell Distribution Width 13.3, Platelet Count 103L, Neutrophils (%) (Auto) 75.7H, Lymphocytes (%) (Auto) 13.4L, Monocytes (%) (Auto) 5.7H, Eosinophils (%) (Auto) 2.9, Basophils (%) (Auto) 0.6, Neutrophils # (Auto) 4.0, Lymphocytes # (Auto) 0.8L, Monocytes # (Auto) 0.3, Eosinophils # (Auto) 0.2, Basophils # (Auto) 0.0, Creatine Kinase MB 2.0, Creatine Kinase MB Relative Index 2.46, Glomerular Filtration Rate > 60.0, Large Unclassified Cells # 0.1, Large Unclassified Cells % 1.7, Troponin I < 0.02 CBC/BMP Laboratory Tests 03/01/17 20:49 Calcium Level 7.7 L, Aspartate Amino Transf (AST/SGOT) 14 L, Alanine Aminotransferase (ALT/SGPT) 23, Total Creatine Kinase 124, Alkaline Phosphatase 157 H, Total Bilirubin 0.5, Total Protein 6.2 L, Albumin 3.4, Red Blood Count 4.74, Mean Corpuscular Volume 92.7, Mean Corpuscular Hemoglobin 30.2, Mean Corpuscular Hemoglobin Concent 32.6, Red Cell Distribution Width 13.4, Neutrophils (%) (Auto) 75.0 H, Lymphocytes (%) (Auto) 13.6 L, Monocytes (%) ( Auto) 4.6, Eosinophils (%) (Auto) 4.2 H, Basophils (%) (Auto) 0.5, Neutrophils # (Auto) 3.9, Lymphocytes # (Auto) 0.7 L, Monocytes # (Auto) 0.2, Eosinophils # (Auto) 0.2, Basophils # (Auto) 0.0 03/02/17 06:17 Calcium Level 7.6 L, Total Creatine Kinase 81, Red Blood Count 3.98 L, Mean Corpuscular Volume 90.8, Mean Corpuscular Hemoglobin 29.8, Mean Corpuscular Hemoglobin Concent 32.8, Red Cell Distribution Width 13.3, Neutrophils (%) (Auto ) 75.7 H, Lymphocytes (%) (Auto) 13.4 L, Monocytes (%) (Auto) 5.7 H, Eosinophils (%) (Auto) 2.9, Basophils (%) (Auto) 0.6, Neutrophils # (Auto) 4.0, Lymphocytes # (Auto) 0.8 L, Monocytes # (Auto) 0.3, Eosinophils # (Auto) 0.2, Basophils # (Auto) 0.0 ASHTYN ROGERS PA-C Mar 02, 2017 10:17
[2017-03-02] MEDS ORDERED: ceFAZolin 1GM INJ (J0690) As Ordered ONE ×2 (13:52→15:02)
[2017-03-02] MEDS ORDERED: VASOPRESSIN INJ 20 UNITS/ML VIAL As Ordered ONE (15:52)
[2017-03-02] MEDS ORDERED: SODIUM BICARBONATE 8.4% INJ 50 ML SYRINGE As Ordered ONE (16:50)
[2017-03-02] MEDS ORDERED: MIDAZOLAM INJ 2 MG/2 ML VIAL (J2250) As Ordered ONE (16:50)
[2017-03-02] MEDS ORDERED: LIDOCAINE 2% W/EPIN INJ 20ML **PRES FREE As Ordered ONE (16:50)
[2017-03-02] MEDS ORDERED: PHENYLEPHRINE INJ 10MG/ML VIAL (J2370) As Ordered ONE (16:50)
[2017-03-02] MEDS ORDERED: fentaNYL 100 MCG/2 ML INJECTION (J3010) As Ordered ONE (16:50)
[2017-03-02] MEDS ORDERED: KETAMINE HCL 200 MG/20 ML VIAL As Ordered ONE (16:50)
[2017-03-02] MEDS ORDERED: FENTANYL 2MCG/ML BUPIVACAINE 0.0625% NACL 250ML CADD As Ordered ONE (17:49)
[2017-03-02] MEDS ORDERED: EPIDURAL/PCA KEYS XX PRN (18:00)
[2017-03-02] MEDS ORDERED: ONDANSETRON 4MG/2ML VIAL (J2405) IV PRN ×3 (18:00→19:30)
[2017-03-02] MEDS ORDERED: FENTANYL/BUPIVACAINE/NACL CADD 250 ML EPIDURAL SCH (18:00)
[2017-03-02] MEDS ORDERED: WALLBOXKEY XX PRN (18:00)
[2017-03-02] MEDS ORDERED: diphenhydrAMINE INJ 50MG/ML VIAL (J1200) IV PRN (18:00)
[2017-03-02] MEDS ORDERED: NALOXONE INJ 0.4 MG/1 ML VIAL (J2310) IV PRN (18:00)
[2017-03-02] MEDS ORDERED: METOCLOPRAMIDE INJ 10MG/2ML VIAL (J2765) IV PRN ×3 (18:00→19:30)
[2017-03-02] MEDS ORDERED: LR 1,000 ML IV SCH ×2 (18:15→19:19)
[2017-03-02] MEDS ORDERED: MORPHINE 2 MG/ML 1ML SYRINGE IV PRN ×2 (18:15→19:30)
[2017-03-02] MEDS ORDERED: fentaNYL 100 MCG/2 ML INJECTION (J3010) IV PRN ×2 (18:15→19:30)
[2017-03-02] MEDS ORDERED: PHENYLEPHRINE INJ 10MG/ML VIAL (J2370) IV SCH ×2 (18:15→19:19)
--- NOTE | 2017-03-02 20:31 | REP ---
Left femur series: Five views: History: Fracture fixation. 48 seconds of fluoroscopy time is reported. Findings: A sequence of five fluoroscopically obtained last image hold spot radiographs of the femur document intramedullary tamara and femoral neck screw fixation of intertrochanteric fracture right femur. Signed by Delgado Bee MD 03/03/2017 07:52 A
[2017-03-02] MEDS ORDERED: PHENYLEPHRINE HCL INJ 50 MG in D5W 500 ML IV SCH (20:45)
[2017-03-02] MEDS ORDERED: WARFARIN SOD 5 MG TAB PO SCH (21:00)
[2017-03-02] MEDS ORDERED: HALOPERIDOL 5 MG/ML VIAL (J1630) IM ONE (22:15)
[2017-03-03] VITALS (12 sets, daily range): BP systolic 133–187; BP diastolic 65–151
[2017-03-03] MEDS: IPRATROPIUM 0.5MG/ALBUTEROL 2.5MG INH SOL UD 3ML (DUONEB)(J7620) NEB SCH ×4 (00:09→23:28)
[2017-03-03 03:56] LABS: INR 1.28
[2017-03-03 04:08] LABS: BASO % 0.3 % (0.0-1.0); EOS # 0.1 K/mm3 (0.0-0.50); EOS % 0.9 % (0.0-3.0); LARGE UNSTAINED CELL # 0.1 K/mm3 (0.0-0.4); LARGE UNSTAINED CELL % 1.1 % (0.0-4.0); LYMPH # 0.7 K/mm3 (1.5-4.5); LYMPH % 8.7 % (24.0-44.0); MEAN CORPUSCULAR HEMOGLOBIN 29.4 pg (27.0-33.0); MEAN CORPUSCULAR HGB CONC 31.7 g/dl (32.0-36.5); MEAN CORPUSCULAR VOLUME 92.6 fl (80.0-96.0); MONO # 0.4 K/mm3 (0.0-0.8); MONO % 5.1 % (0.0-5.0); NEUTROPHILS # 6.4 K/mm3 (1.8-7.7); RED CELL DISTRIBUTION WIDTH 13.4 % (11.5-14.5); WHITE BLOOD COUNT 7.6 K/mm3 (4.0-10.0)
[2017-03-03 04:15] LABS: CALCIUM LEVEL 7.2 MG/DL (8.8-10.2); CREATININE FOR GFR 1.39 MG/DL (0.70-1.30); GLOMERULAR FILTRATION RATE 51.5 (>35); POTASSIUM SERUM 4.5 MEQ/L (3.5-5.1)
[2017-03-03] MEDS: D5W/0.45% SODIUM CHLORIDE 1,000 ML IV SCH ×2 (04:35→13:03)
[2017-03-03 04:39] LABS: PLATELET COUNT, AUTOMATED 86 k/mm3 (150-450)
[2017-03-03] MEDS ORDERED: HALOPERIDOL 5 MG/ML VIAL (J1630) IM ONE (05:15)
[2017-03-03] MEDS ORDERED: cefTRIAXone SOD 1 GM VIAL (J0696) IM SCH (06:00)
[2017-03-03] MEDS: cefTRIAXone SOD 1 GM in D5W MINI-BAG PLUS 50 ML IV SCH (06:28)
--- NOTE | 2017-03-03 07:00 | RO ---
DATE OF PROCEDURE: 03/02/2017 PREPROCEDURE DIAGNOSIS: Left peritrochanteric hip fracture. POSTPROCEDURE DIAGNOSIS: Left peritrochanteric left fracture. PROCEDURE: Left hip fracture fixation with cephalomedullary nail made by [employer], it is an intermediate nail 130 degrees with a 120 mm cephalomedullary screw. SURGEON: Dr. Tanvir Price ACCOUNTS MANAGER: ANESTHESIA: Epidural anesthetic. ANESTHESIA COMPLICATIONS: None. ESTIMATED BLOOD LOSS: 50 mL. PROCEDURE: 2 grams Kefzol given intravenously preoperatively and successful careful epidural anesthetic was established to maintain his blood pressure and once he was stabilized on his epidural, closed reduction on the fracture table was performed under fluoroscopic imaging confirming we had good reduction. His Johnson catheter was placed by myself carefully with a very small Johnson catheter. His left hip area was then prepped and draped in the usual sterile fashion. Then under fluoroscopic guidance, a small 1 inch incision was made proximal to the greater trochanter laterally with Bovie Cautery used to coagulate crossing vessels. Tensor fascia divided. The sharp awl was placed at the anterior one-third, posterior two-thirds junction of the greater trochanter and then the ball tip guide pin advanced down the femoral shaft confirmed by the fluoroscopic imaging. Then the proximal drill was placed and then the nail was placed and then a small stab incision was made for the cephalomedullary nail portion through the guide, and then the guide was advanced to the lateral femoral cortex and the threaded guide pin advanced up the center to the femoral neck into the center to the femoral head. We measured and call for a 120 mm nail and then the drill was placed. Then the nail was placed following the drill and the mallet was used to bring the nail up into the femoral head in good position. We then made a small stab incision aligned with the static locking hole and then advanced the drill sleeve down to the bone and under fluoroscopic image, the drill was used to drill and we measured off the drill at 42 mm. Thus a 42 mm screw was placed for the distal interlock. Then we removed the implant after tightening the proximal screw to fix the cephalomedullary portion of the nail in the femoral neck and I backed it off a quarter turn. All the guides were then removed. Fluoroscopic imaging confirmed good position of the fracture and the implant on multiple views, and then we irrigated the wounds, closed the tensor fascia with interrupted #1 PDS sutures, subdermal tissues were closed with interrupted #2-0 PDS sutures, skin was closed with jessika. Then a dry sterile bulky dressing was applied. Then he was taken out of traction off the fracture table to a stretcher and in good position. There were no intraoperative complications. Transferred to recovery room in stable condition.
[2017-03-03] MEDS: ACETAMINOPHEN TAB 650MG DOSE (2X325MG) PO PRN (07:40)
[2017-03-03] MEDS: TIOTROPIUM INHALER/CAPSULE (SPIRIVA) INH SCH (07:47)
[2017-03-03] MEDS: PANTOPRAZOLE 40MG INJ (PROTONIX) (C9113) IV SCH (08:15)
[2017-03-03] MEDS: MIRALAX *UNIT DOSE* 17GM PACKET PO SCH (08:15)
[2017-03-03] MEDS: SENOKOT S TAB PO SCH ×2 (08:15→22:20)
[2017-03-03] MEDS: MOM 30ML SUSPENSION UDC PO SCH (08:15)
--- NOTE | 2017-03-03 10:39 | IPN ---
DATE: 03/03/2017 Mr. Salcedo had his hip repair yesterday. It was done in epidural anesthesia and overall the procedure was relatively well tolerated. This morning, he is sleeping but he is arousable and when awake, answers basic questions appropriately. Denies any chest pain, shortness of breath or pain in his hip but he rapidly falls asleep when not stimulated. Vital signs: Blood pressure 136/65, heart rate is mostly in 70s ventricular paced rhythm. He had fever 100.8. He made over 200 mL of urine already. Weight is 72 kg. His JVP is not up. Lungs are relatively clear to auscultation even though he does have some wheezes and occasional large rhonchi. Heart: Exam though reveals regular rhythm with both apical as well as aortic murmur. Abdomen is soft, nontender. There is no peripheral edema. Stasis dermatitis unchanged. LABORATORY: His CBC: Hemoglobin 10.6, hematocrit 33.4, platelet count 86,000. Basic metabolic panel: Potassium 4.5, BUN 25, creatinine 1.4 for GFR 51 and glucose 139, INR is 1.3 ASSESSMENT/PLAN: Mr. Salcedo is an 86-year-old man who has known advanced COPD and sleep apnea that has been untreated due to poor compliance. He also has chronic atrial fibrillation and has pacemaker for sick sinus syndrome and is predominantly ventricular paced. He fell and broke his hip and underwent repair. So far the course has been relatively uneventful but I do expect that due to underlying dementia, advanced age and comorbidities, he will likely developed altered mental status changes with delirium. From cardiac perspective, I do not have much else to contribute. I would give him at least brief course of anticoagulation even though he has not been chronically anticoagulated due to risk of fall and some resulting bleeding but there has never been any massive internal bleeding as such. He does have IVC filter.
--- NOTE | 2017-03-03 11:12 | ECHO ---
DATE OF PROCEDURE: 03/03/2017 REFERRING PHYSICIAN: Dr. Sosa and Dr. Amezcua. INDICATION: Heart murmur. HEIGHT: 68 inches. WEIGHT: 164 pounds. DIMENSIONS: IVS: 1.4 LV: 4.6 LVPW: 1.4 LA: 5.3 Aorta: 3.7 RV: 4.4 FINDINGS: The study is of rather limited technical quality with very difficult visualization. Left ventricle is of normal size and probably normal systolic function based on fairly limited images. There is a septal wall motion abnormality due to underlying pacemaker driven rhythm. Right ventricle is large and somewhat hypokinetic. Both atria are severely enlarged. There is an artifact in right ventricle and right atrium consistent with pacemaker lead. Aortic valve was poorly visualized. It is definitely sclerotic and there is some restriction of mobility. Mitral valve exhibits degenerative abnormalities with mitral annular calcifications, but mobility of leaflets is preserved. Tricuspid valve appears normal. Pulmonic valve was not well seen. No pericardial effusion is noted. Inferior vena cava was not visualized. Aortic root is normal. Aortic arch and abdominal aorta were not visualized. Doppler interrogation of aortic valve reveals no insufficiency and approximately moderate stenosis. Peak gradient across the valve is 40 and mean gradient 26 mmHg. Unfortunately, there was no adequate signal from LVOT and consequently the aortic valve area cannot be calculated. There is only trivial mitral insufficiency and trace tricuspid insufficiency. Calculated pulmonary artery pressure is at least in low 40s or possibly higher which would correspond to moderate pulmonary hypertension. Pulmonic valve was not well seen and consequently I cannot comment on its function. Evaluation of diastolic function is inconclusive due to underlying atrial fibrillation and pacemaker driven rhythm. CONCLUSIONS: 1. Study is of limited technical quality. 2. Normal LV size with mild LVH and grossly preserved LV systolic function. 3. Probably moderate aortic stenosis (mean gradient 26 mmHg). 4. Dilated right ventricle. 5. Severe biatrial enlargement. 6. Only trace or mild mitral and tricuspid insufficiency. 7. Unable to estimate central venous pressure. 8. At least moderate pulmonary hypertension. COMMENT: Subacute bacterial endocarditis (SBE) prophylaxis is not recommended. MTDD
--- NOTE | 2017-03-03 11:19 | IPNPDOC ---
Subjective Date Seen The patient was seen on 03/03/17. Subjective Chief Complaint/HPI The patient is a 86-year-old male admitted with a reason for visit of Left Hip Fracture. Events since last encounter Patient is postop day 1 from right hip ORIF by Dr. Carney. Family notes that patient's pain is been controlled. He initially had difficulty with his blood pressures after surgery, and required brief ICU admission. However, pressures are now stable. Due to shortness of breath, Dr. Weller elected to perform an echocardiogram. Patient's family notes that he has a history of anxiety, worse at night. They have been trying to get him set up with a sleep study, however this has fallen by the wayside. Constitutional: Denies: Chills, Fever, Malaise Skin: Denies: Rash Pulmonary: Denies: Cough, Dyspnea Cardiovascular: Denies: Chest Pain, Orthopnea, Palpitations Gastrointestinal: Denies: Abdominal Pain, Constipation, Diarrhea, Nausea, Vomiting Genitourinary: Denies: Dysuria Other systems 10 point review systems otherwise negative Objective Physical Examination General Exam: Positive: Alert, No Acute Distress, Other (sleeping comfortably) ENT Exam: Positive: Mucous membr. moist/pink Neck Exam: Positive: Supple, Negative: JVD Chest Exam: Positive: Clear to auscultation, Diminished, Other (appears to have obstructive sleep apnea; retractions of the abdomen with inspiration and oral sounds of obstruction), Negative: Rales, Rhonchi, Wheezing Heart Exam: Positive: Irregular Rhythm, Murmurs (one out of 6 systolic ejection murmur), Normal S1, Normal S2, Rate Normal Abdomen Exam: Positive: Normal bowel sounds, Soft, Negative: Tenderness Extremity Exam: Positive: Edema (trace BLE) Psych Exam: Positive: Mental status NL, Mood NL Assessment /Plan Problems (1) Hip fracture, left Status: Acute Response to Treatment: Stable Discussed With: Nurse, Carpenter Ship, Patient, Family with Pt Consent Problem Specific Plan: Consult Specialist, Monitor Clinically Problem Text: Postop day [address] Carney. Pain controlled. Blood pressures now stable. -Transfer to [facility] (2) A-fib Status: Chronic Response to Treatment: Stable Problem Specific Plan: Monitor Clinically Problem Text: no anticoagulation d/t bleeding in the past. (3) ERWIN (obstructive sleep apnea) Status: Chronic Problem Specific Plan: Monitor Clinically Problem Text: Pt refuses treatment. Had a long, and shaheed discussion with patient's family members regarding patient's obvious obstructive sleep apnea. Indicated this is likely contributing to his increased shortness of breath and anxiety. Family indicated that they will discuss getting a sleep study with PCP. (4) Dementia Status: Chronic Response to Treatment: Stable (5) HTN (hypertension) Status: Chronic Response to Treatment: Stable (6) History of DVT (deep vein thrombosis) Status: Chronic Response to Treatment: Stable Problem Specific Plan: Monitor Clinically Problem Text: Has IVC filter in place (7) COPD (chronic obstructive pulmonary disease) Status: Chronic Response to Treatment: Stable Problem Specific Plan: Monitor Clinically Problem Text: Cont Spiriva, nebs. Plan/VTE VTE Prophylaxis Ordered?: No (pre-op) Plan/Urinary Catheter Reason for insertion/continuin: Perioperative Disposition Likely to rehabilitation; patient may be ready for physical therapy assessment tomorrow. VS, I&O, 24H, Fishbone Vital Signs/I&O Vital Signs Date Time Temp Pulse Resp B/P Pulse Ox O2 Delivery O2 Flow Rate FiO2 03/03/17 08:00 100.0 70 23 136/65 96 Nasal Cannula 2.0 I&O- Last 24 Hours up to 6 AM 03/03/17 06:00 Intake Total 3580 ml Output Total 615 ml Balance 2965 ml Laboratory Data 24H LABS Laboratory Tests 2 03/02/17 21:48: Creatine Kinase MB 2.9, Creatine Kinase MB Relative Index 1.79, Total Creatine Kinase 162#, Troponin I 0.02 03/02/17 23:43: Urine Amorphous Sediment , Urine Appearance HAZY, Urine Color AD, Urine pH 5.0, Urine Specific [place] 1.025, Urine Protein 2+H, Urine Glucose (UA) NEGATIVE, Urine Ketones NEGATIVE, Urine Urobilinogen 0.2, Urine Bilirubin NEGATIVE, Urine Leukocyte Esterase 1+H, Urine Bacteria (Auto) 1+H, Urine Blood 3 +H, Urine Calcium Carbonate Cryst(Auto) , Urine Calcium Oxalate Cryst (Auto) , Urine Calcium Phosphate Rosie (Auto) , Urine Cellular Casts , Urine Cystine Crystals , Urine Granular Casts (Auto) , Urine Hyaline Casts (Auto) 5, Urine Leucine Crystals , Urine Mucus (Auto) SMALL, Urine Nitrite NEGATIVE, Urine Oval Fat Bodies (Auto) , Urine RBC (Auto) TNTCH, Urine Renal Epithelial Cells , Urine Sperm (Auto) , Urine Squamous Epithelial Cells 0, Urine Transitional Epithelial Cells , Urine Trichomonas (Auto) , Urine Triple Phosphate Cryst (Auto ) , Urine Tyrosine Crystals , Urine Uric Acid Crystals (Auto) , Urine WBC (Auto ) 12H, Urine Waxy Casts (Auto) , Urine Yeast-Like Cells (Auto) 03/03/17 03:32: Creatine Kinase MB 3.7H, Creatine Kinase MB Relative Index 1.51, Total Creatine Kinase 244, Troponin I 0.02, Anion Gap 7L, White Blood Count 7.6, Red Blood Count 3.61L, Hemoglobin 10.6L, Hematocrit 33.4L, Mean Corpuscular Volume 92.6, Mean Corpuscular Hemoglobin 29.4, Mean Corpuscular Hemoglobin Concent 31.7L, Red Cell Distribution Width 13.4, Platelet Count 86L, Neutrophils (%) (Auto) 84.0H, Lymphocytes (%) (Auto) 8.7L, Monocytes (%) (Auto) 5.1H, Eosinophils (%) ( Auto) 0.9, Basophils (%) (Auto) 0.3, Neutrophils # (Auto) 6.4, Lymphocytes # ( Auto) 0.7L, Monocytes # (Auto) 0.4, Eosinophils # (Auto) 0.1, Basophils # (Auto ) 0.0, Blood Urea Nitrogen 25H, Creatinine 1.39#H, Sodium Level 133L, Potassium Level 4.5, Chloride Level 100, Carbon Dioxide Level 26, Calcium Level 7.2L, Glomerular Filtration Rate 51.5, Large Unclassified Cells # 0.1, Large Unclassified Cells % 1.1, Prothromb Time International Ratio 1.28, Prothrombin Time 16.1H CBC/BMP Laboratory Tests 03/03/17 03:32 Calcium Level 7.2 L, Total Creatine Kinase 244, Red Blood Count 3.61 L, Mean Corpuscular Volume 92.6, Mean Corpuscular Hemoglobin 29.4, Mean Corpuscular Hemoglobin Concent 31.7 L, Red Cell Distribution Width 13.4, Neutrophils (%) ( Auto) 84.0 H, Lymphocytes (%) (Auto) 8.7 L, Monocytes (%) (Auto) 5.1 H, Eosinophils (%) (Auto) 0.9, Basophils (%) (Auto) 0.3, Neutrophils # (Auto) 6.4, Lymphocytes # (Auto) 0.7 L, Monocytes # (Auto) 0.4, Eosinophils # (Auto) 0.1, Basophils # (Auto) 0.0 Microbiology Microbiology 03/03/17 Urine Culture, Received Pending ALDO WALLACE MD Mar 03, 2017 11:19
[2017-03-03] MEDS: ALBUTEROL SULFATE 2.5 MG/0.5 ML INH NEB SOLN NEB PRN (12:20)
[2017-03-03] MEDS ORDERED: diphenhydrAMINE 25 MG CAP PO PRN (13:30)
[2017-03-03] MEDS: PERCOCET 5MG/325MG TAB PO PRN ×3 (13:41→22:20)
[2017-03-03] MEDS: NICOTINE 7 MG/24 HR TRANSDERMAL TD SCH (14:40)
[2017-03-03] MEDS ORDERED: WARFARIN SOD 5 MG TAB PO ONE (17:00)
[2017-03-04] MEDS: ALBUTEROL SULFATE 2.5 MG/0.5 ML INH NEB SOLN NEB PRN (03:41)
[2017-03-04] MEDS: cefTRIAXone SOD 1 GM in D5W MINI-BAG PLUS 50 ML IV SCH (05:41)
[2017-03-04] MEDS: ACETAMINOPHEN TAB 650MG DOSE (2X325MG) PO PRN (05:41)
[2017-03-04 06:00] VITALS: BP 142/72
[2017-03-04 06:24] LABS: INR 2.3
[2017-03-04 06:39] LABS: ANION GAP 6 MEQ/L (8-16); BLOOD UREA NITROGEN 26 MG/DL (7-18); CALCIUM LEVEL 7.6 MG/DL (8.8-10.2); CARBON DIOXIDE LEVEL 26 MEQ/L (21-32); CHLORIDE LEVEL 102 MEQ/L (98-107); CREATININE FOR GFR 1.17 MG/DL (0.70-1.30); GLOMERULAR FILTRATION RATE > 60.0 (>35); GLUCOSE, FASTING 120 MG/DL (83-110); POTASSIUM SERUM 4.5 MEQ/L (3.5-5.1); SODIUM LEVEL 134 MEQ/L (136-145)
[2017-03-04 06:43] LABS: BASO % 0.4 % (0.0-1.0); EOS # 0.2 K/mm3 (0.0-0.50); EOS % 2.5 % (0.0-3.0); LARGE UNSTAINED CELL # 0.1 K/mm3 (0.0-0.4); LARGE UNSTAINED CELL % 1.7 % (0.0-4.0); LYMPH # 0.7 K/mm3 (1.5-4.5); LYMPH % 10.3 % (24.0-44.0); MEAN CORPUSCULAR HEMOGLOBIN 30.1 pg (27.0-33.0); MEAN CORPUSCULAR HGB CONC 32.2 g/dl (32.0-36.5); MEAN CORPUSCULAR VOLUME 93.4 fl (80.0-96.0); MONO # 0.4 K/mm3 (0.0-0.8); MONO % 6.6 % (0.0-5.0); NEUTROPHILS # 4.8 K/mm3 (1.8-7.7); NEUTROPHILS % 78.5 % (36.0-66.0); RED CELL DISTRIBUTION WIDTH 13.7 % (11.5-14.5); WHITE BLOOD COUNT 6.1 K/mm3 (4.0-10.0)
[2017-03-04 06:46] LABS: PLATELET COUNT, AUTOMATED 70 k/mm3 (150-450)
[2017-03-04] MEDS ORDERED: FUROSEMIDE 20 MG/2 ML VIAL (J1940) IV ONE (07:00)
[2017-03-04] MEDS: IPRATROPIUM 0.5MG/ALBUTEROL 2.5MG INH SOL UD 3ML (DUONEB)(J7620) NEB SCH ×3 (07:22→20:28)
[2017-03-04] MEDS: TIOTROPIUM INHALER/CAPSULE (SPIRIVA) INH SCH (07:22)
[2017-03-04] MEDS: MOM 30ML SUSPENSION UDC PO SCH (08:51)
[2017-03-04] MEDS: MIRALAX *UNIT DOSE* 17GM PACKET PO SCH (08:51)
[2017-03-04] MEDS: SENOKOT S TAB PO SCH ×2 (08:52→20:36)
[2017-03-04] MEDS: NICOTINE 7 MG/24 HR TRANSDERMAL TD SCH (08:52)
[2017-03-04] MEDS: PANTOPRAZOLE 40MG INJ (PROTONIX) (C9113) IV SCH (08:52)
--- NOTE | 2017-03-04 09:04 | REP ---
AP PORTABLE CHEST: 03/04/2017 at 04:54 AM. Clinical history: Dyspnea. Evaluate for pneumonia or pulmonary edema. Comparison: Portable chest 03/01/2017, CT chest 01/22/2017, two-view chest 01/22/2017. Findings: Single lead pacer over the left mid chest with lead tip terminating in the right ventricle. There is cardiomegaly with left atrial and ventricular enlargement. Some right heart enlargement is also suspected. The aorta is quite tortuous and ectatic with calcified arch. This is unchanged. Underlying fibrosis noted. Patchy basilar infiltrate on the right. Some venous hypertension noted without shaheed edema. No gross effusion. Posterior lower lobe infiltrate or effusion could be obscured on this portable chest. No other finding. Impression: 1. Cardiomegaly with left atrial and ventricular enlargement, some right heart enlargement, stable single lead pacer with lead tip in the right ventricle. 2. Some patchy infiltrate or atelectasis in the right base with some pulmonary venous hypertension. No shaheed pulmonary edema. 3. Tortuous, ectatic and calcified aorta, unchanged. Signed by Billy Lugo MD 03/04/2017 09:11 A
[2017-03-04] MEDS: PERCOCET 5MG/325MG TAB PO PRN ×2 (13:26→23:28)
[2017-03-04 14:00] VITALS: BP 150/73
--- NOTE | 2017-03-04 18:08 | IPNPDOC ---
Subjective Date Seen The patient was seen on 03/04/17. Subjective Chief Complaint/HPI The patient is a 86-year-old male admitted with a reason for visit of Left Hip Fracture. Events since last encounter Nursing called overnight for concern for difficulty with breathing. However, on review, it seems this was more obstructive sleep apnea related, and not worsening of his respiratory status while awake. Patient's continues to be quite somnolent today, and most of the HPI comes from nursing. Patient denies any pain. Constitutional: Reports: Fever (temp overnight), Denies: Chills Skin: Denies: Rash Pulmonary: Denies: Cough, Dyspnea Cardiovascular: Denies: Chest Pain, Orthopnea, Palpitations Gastrointestinal: Denies: Abdominal Pain, Constipation, Diarrhea, Nausea, Vomiting Genitourinary: Denies: Dysuria Other systems 10 point review systems otherwise negative Objective Physical Examination General Exam: Positive: Alert, No Acute Distress, Other (sleeping comfortably) ENT Exam: Positive: Mucous membr. moist/pink Neck Exam: Positive: Supple, Negative: JVD Chest Exam: Positive: Clear to auscultation, Diminished, Other (appears to have obstructive sleep apnea; retractions of the abdomen with inspiration and oral sounds of obstruction), Negative: Rales, Rhonchi, Wheezing Heart Exam: Positive: Irregular Rhythm, Murmurs (one out of 6 systolic ejection murmur), Normal S1, Normal S2, Rate Normal Abdomen Exam: Positive: Normal bowel sounds, Soft, Negative: Tenderness Extremity Exam: Positive: Edema (trace BLE) Psych Exam: Negative: Mental status NL (somnolent but arousable; responds to simple questions), Oriented x 3 Assessment /Plan Problems (1) Hip fracture, left Status: Acute Response to Treatment: Stable Discussed With: Nurse, Senior Manager, Patient, Family with Pt Consent Problem Specific Plan: Consult Specialist, Monitor Clinically Problem Text: Postop day [address] Carney. Pain controlled. Blood pressures now stable. Slight fever overnight. Initial concern for changes and respirations, however this was decided to be mostly due to ERWIN, not change in baseline. Patient was slightly volume overloaded from surgery, with somewhat increased vascular congestion on chest x-ray. - Monitor for fever - will need physical therapy evaluation when mentating (2) A-fib Status: Chronic Response to Treatment: Stable Problem Specific Plan: Monitor Clinically Problem Text: no anticoagulation d/t bleeding in the past. (3) ERWIN (obstructive sleep apnea) Status: Chronic Problem Specific Plan: Monitor Clinically Problem Text: Pt refuses treatment. Had a long, and shaheed discussion with patient's family members regarding patient's obvious obstructive sleep apnea. Indicated this is likely contributing to his increased shortness of breath and anxiety. Family indicated that they will discuss getting a sleep study with PCP. (4) Dementia Status: Chronic Response to Treatment: Stable (5) HTN (hypertension) Status: Chronic Response to Treatment: Stable (6) History of DVT (deep vein thrombosis) Status: Chronic Response to Treatment: Stable Problem Specific Plan: Monitor Clinically Problem Text: Has IVC filter in place (7) COPD (chronic obstructive pulmonary disease) Status: Chronic Response to Treatment: Stable Problem Specific Plan: Monitor Clinically Problem Text: Cont Spiriva, nebs. Plan/VTE VTE Prophylaxis Ordered?: No (pre-op) Plan/Urinary Catheter Reason for insertion/continuin: Perioperative VS, I&O, 24H, Fishbone Vital Signs/I&O Vital Signs Date Time Temp Pulse Resp B/P Pulse Ox O2 Delivery O2 Flow Rate FiO2 03/04/17 14:00 98.3 71 22 150/73 100 Nasal Cannula 2.0 I&O- Last 24 Hours up to 6 AM 03/04/17 06:00 Intake Total 1800 ml Output Total 435 ml Balance 1365 ml Laboratory Data 24H LABS Laboratory Tests 2 03/04/17 06:02: Anion Gap 6L, White Blood Count 6.1, Red Blood Count 3.05L, Hemoglobin 9.2L, Hematocrit 28.5L, Mean Corpuscular Volume 93.4, Mean Corpuscular Hemoglobin 30.1 , Mean Corpuscular Hemoglobin Concent 32.2, Red Cell Distribution Width 13.7, Platelet Count 70L, Neutrophils (%) (Auto) 78.5H, Lymphocytes (%) (Auto) 10.3L, Monocytes (%) (Auto) 6.6H, Eosinophils (%) (Auto) 2.5, Basophils (%) (Auto) 0.4 , Neutrophils # (Auto) 4.8, Lymphocytes # (Auto) 0.7L, Monocytes # (Auto) 0.4, Eosinophils # (Auto) 0.2, Basophils # (Auto) 0.0, Blood Urea Nitrogen 26H, Creatinine 1.17, Sodium Level 134L, Potassium Level 4.5, Chloride Level 102, Carbon Dioxide Level 26, Calcium Level 7.6L, Glomerular Filtration Rate > 60.0, Large Unclassified Cells # 0.1, Large Unclassified Cells % 1.7, Prothromb Time International Ratio 2.30, Prothrombin Time 25.4H CBC/BMP Laboratory Tests 03/04/17 06:02 Calcium Level 7.6 L, Red Blood Count 3.05 L, Mean Corpuscular Volume 93.4, Mean Corpuscular Hemoglobin 30.1, Mean Corpuscular Hemoglobin Concent 32.2, Red Cell Distribution Width 13.7, Neutrophils (%) (Auto) 78.5 H, Lymphocytes (%) (Auto) 10.3 L, Monocytes (%) (Auto) 6.6 H, Eosinophils (%) (Auto) 2.5, Basophils (%) ( Auto) 0.4, Neutrophils # (Auto) 4.8, Lymphocytes # (Auto) 0.7 L, Monocytes # ( Auto) 0.4, Eosinophils # (Auto) 0.2, Basophils # (Auto) 0.0 Microbiology Microbiology 03/03/17 Urine Culture, Received Pending ALDO WALLACE MD Mar 04, 2017 18:08
--- NOTE | 2017-03-04 20:19 | ECGEPIP ---
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
[2017-03-04 22:00] VITALS: BP 120/66
[2017-03-05] MEDS: cefTRIAXone SOD 1 GM in D5W MINI-BAG PLUS 50 ML IV SCH (05:52)
[2017-03-05 06:00] VITALS: BP 140/67
[2017-03-05 07:09] LABS: BASO % 0.4 % (0.0-1.0); EOS # 0.4 K/mm3 (0.0-0.50); EOS % 7.6 % (0.0-3.0); LARGE UNSTAINED CELL # 0.1 K/mm3 (0.0-0.4); LARGE UNSTAINED CELL % 1.7 % (0.0-4.0); LYMPH # 0.9 K/mm3 (1.5-4.5); LYMPH % 13.7 % (24.0-44.0); MEAN CORPUSCULAR HEMOGLOBIN 29.8 pg (27.0-33.0); MEAN CORPUSCULAR HGB CONC 32.1 g/dl (32.0-36.5); MEAN CORPUSCULAR VOLUME 92.9 fl (80.0-96.0); MONO # 0.3 K/mm3 (0.0-0.8); MONO % 5.4 % (0.0-5.0); NEUTROPHILS # 4.3 K/mm3 (1.8-7.7); NEUTROPHILS % 71.2 % (36.0-66.0); PLATELET COUNT, AUTOMATED 102 k/mm3 (150-450); RED CELL DISTRIBUTION WIDTH 13.4 % (11.5-14.5)
[2017-03-05 07:11] LABS: INR 1.75
[2017-03-05 07:23] LABS: ANION GAP 4 MEQ/L (8-16); BLOOD UREA NITROGEN 26 MG/DL (7-18); CALCIUM LEVEL 7.8 MG/DL (8.8-10.2); CARBON DIOXIDE LEVEL 31 MEQ/L (21-32); CHLORIDE LEVEL 102 MEQ/L (98-107); CREATININE FOR GFR 1.13 MG/DL (0.70-1.30); GLOMERULAR FILTRATION RATE > 60.0 (>35); GLUCOSE, FASTING 103 MG/DL (83-110); POTASSIUM SERUM 4.3 MEQ/L (3.5-5.1); SODIUM LEVEL 137 MEQ/L (136-145)
[2017-03-05] MEDS: PANTOPRAZOLE 40MG INJ (PROTONIX) (C9113) IV SCH (08:07)
[2017-03-05] MEDS: NICOTINE 7 MG/24 HR TRANSDERMAL TD SCH (08:08)
[2017-03-05] MEDS: SENOKOT S TAB PO SCH ×2 (08:08→20:06)
[2017-03-05] MEDS: MIRALAX *UNIT DOSE* 17GM PACKET PO SCH (08:08)
[2017-03-05] MEDS: MOM 30ML SUSPENSION UDC PO SCH (08:08)
[2017-03-05] MEDS: IPRATROPIUM 0.5MG/ALBUTEROL 2.5MG INH SOL UD 3ML (DUONEB)(J7620) NEB SCH ×3 (08:46→20:28)
[2017-03-05] MEDS: TIOTROPIUM INHALER/CAPSULE (SPIRIVA) INH SCH (08:46)
--- NOTE | 2017-03-05 12:16 | IPNPDOC ---
Subjective Date Seen The patient was seen on 03/05/17. Subjective Chief Complaint/HPI The patient is a 86-year-old male admitted with a reason for visit of Left Hip Fracture. Events since last encounter no c/o Constitutional: Denies: Chills, Fever, Night Sweats Pulmonary: Denies: Cough, Dyspnea Cardiovascular: Denies: Chest Pain, Lt Headedness, Orthopnea, Palpitations, Paroxysmal Noc. Dyspnea Gastrointestinal: Denies: Abdominal Pain, Constipation, Diarrhea, Nausea, Vomiting Genitourinary: Denies: Dysuria, Frequency, Incontinence, Retention Objective Physical Examination General Exam: Positive: Alert, No Acute Distress, Other (sleeping comfortably) ENT Exam: Positive: Mucous membr. moist/pink Neck Exam: Positive: Supple, Negative: JVD Chest Exam: Positive: Clear to auscultation, Diminished, Other (appears to have obstructive sleep apnea; retractions of the abdomen with inspiration and oral sounds of obstruction), Negative: Rales, Rhonchi, Wheezing Heart Exam: Positive: Irregular Rhythm, Murmurs (one out of 6 systolic ejection murmur), Normal S1, Normal S2, Rate Normal Abdomen Exam: Positive: Normal bowel sounds, Soft, Negative: Tenderness Extremity Exam: Positive: Edema (trace BLE) Psych Exam: Negative: Mental status NL (somnolent but arousable; responds to simple questions), Oriented x 3 Assessment /Plan Problems (1) Hip fracture, left Status: Acute Response to Treatment: Stable Discussed With: Nurse, Binder Stripper Machine, Patient, Family with Pt Consent Problem Specific Plan: Consult Specialist, Monitor Clinically Problem Text: Postop day [address] [address] Carney. Pain controlled. Blood pressures now stable. Slight fever overnight. Initial concern for changes and respirations, however this was decided to be mostly due to ERWIN, not change in baseline. Patient was slightly volume overloaded from surgery, with somewhat increased vascular congestion on chest x-ray. - Monitor for fever - will need physical therapy evaluation when mentating (2) A-fib Status: Chronic Response to Treatment: Stable Problem Specific Plan: Monitor Clinically Problem Text: no anticoagulation d/t bleeding in the past. (3) ERWIN (obstructive sleep apnea) Status: Chronic Problem Specific Plan: Monitor Clinically Problem Text: Pt refuses treatment. Had a long, and shaheed discussion with patient's family members regarding patient's obvious obstructive sleep apnea. Indicated this is likely contributing to his increased shortness of breath and anxiety. Family indicated that they will discuss getting a sleep study with PCP. (4) Dementia Status: Chronic Response to Treatment: Stable (5) HTN (hypertension) Status: Chronic Response to Treatment: Stable (6) History of DVT (deep vein thrombosis) Status: Chronic Response to Treatment: Stable Problem Specific Plan: Monitor Clinically Problem Text: Has IVC filter in place (7) COPD (chronic obstructive pulmonary disease) Status: Chronic Response to Treatment: Stable Problem Specific Plan: Monitor Clinically Problem Text: Cont Spiriva, nebs. Plan/VTE VTE Prophylaxis Ordered?: No (pre-op) Plan/Urinary Catheter Reason for insertion/continuin: Perioperative Plan Attending note: I saw and evaluated the patient, and I agree with the plan of care as discussed and documented above by Shasta Daugherty. Patients mentation clearing, oxygenation improving. Begin discharge planning. Aldo Wallace MD VS, I&O, 24H, [facility] Vital Signs/I&O Vital Signs Date Time Temp Pulse Resp B/P Pulse Ox O2 Delivery O2 Flow Rate FiO2 03/05/17 08:00 Nasal Cannula 03/05/17 06:00 98.5 70 18 140/67 97 2.0 I&O- Last 24 Hours up to 6 AM 03/05/17 06:00 Intake Total 710 ml Output Total 1300 ml Balance -590 ml Laboratory Data 24H LABS Laboratory Tests 2 03/05/17 06:43: Anion Gap 4L, White Blood Count 6.0, Red Blood Count 3.06L, Hemoglobin 9.1L, Hematocrit 28.4L, Mean Corpuscular Volume 92.9, Mean Corpuscular Hemoglobin 29.8 , Mean Corpuscular Hemoglobin Concent 32.1, Red Cell Distribution Width 13.4, Platelet Count 102L, Neutrophils (%) (Auto) 71.2H, Lymphocytes (%) (Auto) 13.7L , Monocytes (%) (Auto) 5.4H, Eosinophils (%) (Auto) 7.6H, Basophils (%) (Auto) 0.4, Neutrophils # (Auto) 4.3, Lymphocytes # (Auto) 0.9L, Monocytes # (Auto) 0.3 , Eosinophils # (Auto) 0.4, Basophils # (Auto) 0.0, Blood Urea Nitrogen 26H, Creatinine 1.13, Sodium Level 137, Potassium Level 4.3, Chloride Level 102, Carbon Dioxide Level 31, Calcium Level 7.8L, Glomerular Filtration Rate > 60.0, Large Unclassified Cells # 0.1, Large Unclassified Cells % 1.7, Prothromb Time International Ratio 1.75, Prothrombin Time 20.5H CBC/BMP Laboratory Tests 03/05/17 06:43 Calcium Level 7.8 L, Red Blood Count 3.06 L, Mean Corpuscular Volume 92.9, Mean Corpuscular Hemoglobin 29.8, Mean Corpuscular Hemoglobin Concent 32.1, Red Cell Distribution Width 13.4, Neutrophils (%) (Auto) 71.2 H, Lymphocytes (%) (Auto) 13.7 L, Monocytes (%) (Auto) 5.4 H, Eosinophils (%) (Auto) 7.6 H, Basophils (%) (Auto) 0.4, Neutrophils # (Auto) 4.3, Lymphocytes # (Auto) 0.9 L, Monocytes # ( Auto) 0.3, Eosinophils # (Auto) 0.4, Basophils # (Auto) 0.0 Microbiology Microbiology 03/03/17 Urine Culture - Final, Complete Jennifer Daugherty WEB CONTENT EDITOR Mar 05, 2017 12:16 ALDO WALLACE MD Mar 06, 2017 12:57
[2017-03-05 14:00] VITALS: BP 159/82
[2017-03-05] MEDS: ACETAMINOPHEN TAB 650MG DOSE (2X325MG) PO PRN (16:05)
[2017-03-05] MEDS ORDERED: WARFARIN SOD 5 MG TAB PO ONE (17:00)
[2017-03-05 22:00] VITALS: BP 131/64
[2017-03-06] MEDS: cefTRIAXone SOD 1 GM in D5W MINI-BAG PLUS 50 ML IV SCH (05:44)
[2017-03-06 06:00] VITALS: BP 136/77
[2017-03-06 06:43] LABS: BASO % 0.4 % (0.0-1.0); EOS # 0.5 K/mm3 (0.0-0.50); EOS % 8.7 % (0.0-3.0); LARGE UNSTAINED CELL # 0.1 K/mm3 (0.0-0.4); LARGE UNSTAINED CELL % 1.8 % (0.0-4.0); LYMPH # 0.8 K/mm3 (1.5-4.5); LYMPH % 13.6 % (24.0-44.0); MEAN CORPUSCULAR HEMOGLOBIN 29.5 pg (27.0-33.0); MEAN CORPUSCULAR HGB CONC 31.8 g/dl (32.0-36.5); MEAN CORPUSCULAR VOLUME 92.8 fl (80.0-96.0); MONO # 0.3 K/mm3 (0.0-0.8); MONO % 6.4 % (0.0-5.0); NEUTROPHILS # 3.7 K/mm3 (1.8-7.7); NEUTROPHILS % 69.2 % (36.0-66.0); PLATELET COUNT, AUTOMATED 134 k/mm3 (150-450); RED CELL DISTRIBUTION WIDTH 13.4 % (11.5-14.5); WHITE BLOOD COUNT 5.3 K/mm3 (4.0-10.0)
[2017-03-06 06:53] LABS: INR 1.99
[2017-03-06 07:08] LABS: ANION GAP 6 MEQ/L (8-16); BLOOD UREA NITROGEN 26 MG/DL (7-18); CALCIUM LEVEL 7.5 MG/DL (8.8-10.2); CARBON DIOXIDE LEVEL 29 MEQ/L (21-32); CHLORIDE LEVEL 103 MEQ/L (98-107); GLOMERULAR FILTRATION RATE > 60.0 (>35); GLUCOSE, FASTING 125 MG/DL (83-110); POTASSIUM SERUM 4.5 MEQ/L (3.5-5.1); SODIUM LEVEL 138 MEQ/L (136-145)
[2017-03-06] MEDS: IPRATROPIUM 0.5MG/ALBUTEROL 2.5MG INH SOL UD 3ML (DUONEB)(J7620) NEB SCH ×3 (08:00→22:35)
[2017-03-06] MEDS: TIOTROPIUM INHALER/CAPSULE (SPIRIVA) INH SCH (08:34)
[2017-03-06 08:36] VITALS: BP 132/70
[2017-03-06 08:37] VITALS: BP 132/70
[2017-03-06] MEDS: MOM 30ML SUSPENSION UDC PO SCH (08:48)
[2017-03-06] MEDS: SENOKOT S TAB PO SCH ×2 (08:49→21:40)
[2017-03-06] MEDS: NICOTINE 7 MG/24 HR TRANSDERMAL TD SCH (08:49)
[2017-03-06] MEDS: PANTOPRAZOLE 40MG INJ (PROTONIX) (C9113) IV SCH (08:49)
[2017-03-06] MEDS: MIRALAX *UNIT DOSE* 17GM PACKET PO SCH (09:00)
--- NOTE | 2017-03-06 12:20 | IPNPDOC ---
Subjective Date Seen The patient was seen on 03/06/17. Subjective Chief Complaint/HPI The patient is a 86-year-old male admitted with a reason for visit of Left Hip Fracture. Events since last encounter Responding to verbal cues. + for dementia, yet is cooperative. Slow to rehab. Family looking into options for STR Constitutional: Denies: Chills, Fever, Night Sweats ENT: Denies: Dysphagia, Ear Pain, Head Aches Skin: Denies: Breakdown, Lesions, Rash Pulmonary: Denies: Cough, Dyspnea Gastrointestinal: Denies: Abdominal Pain, Constipation, Diarrhea, Nausea, Vomiting Genitourinary: Denies: Dysuria, Frequency, Incontinence, Retention Objective Physical Examination General Exam: Positive: Alert, No Acute Distress, Other (sleeping comfortably) ENT Exam: Positive: Mucous membr. moist/pink Neck Exam: Positive: Supple, Negative: JVD Chest Exam: Positive: Clear to auscultation, Diminished, Other (appears to have obstructive sleep apnea; retractions of the abdomen with inspiration and oral sounds of obstruction), Negative: Rales, Rhonchi, Wheezing Heart Exam: Positive: Irregular Rhythm, Murmurs (one out of 6 systolic ejection murmur), Normal S1, Normal S2, Rate Normal Abdomen Exam: Positive: Normal bowel sounds, Soft, Negative: Tenderness Extremity Exam: Positive: Edema (trace BLE) Psych Exam: Negative: Mental status NL (somnolent but arousable; responds to simple questions), Oriented x 3 Assessment /Plan Problems (1) Hip fracture, left Status: Acute Response to Treatment: Stable Discussed With: Nurse, Filing And Polishing Supervisor, Patient, Family with Pt Consent Problem Specific Plan: Consult Specialist, Monitor Clinically Problem Text: Postop day [address] [facility] [address] Carney. Pain controlled. Blood pressures now stable. Continue with PT (2) A-fib Status: Chronic Response to Treatment: Stable Problem Specific Plan: Monitor Clinically Problem Text: no anticoagulation d/t bleeding in the past. (3) ERWIN (obstructive sleep apnea) Status: Chronic Problem Specific Plan: Monitor Clinically Problem Text: Pt refuses treatment. Had a long, and shahede discussion with patient's family members regarding patient's obvious obstructive sleep apnea. Indicated this is likely contributing to his increased shortness of breath and anxiety. Family indicated that they will discuss getting a sleep study with PCP. (4) Dementia Status: Chronic Response to Treatment: Stable (5) HTN (hypertension) Status: Chronic Response to Treatment: Stable (6) History of DVT (deep vein thrombosis) Status: Chronic Response to Treatment: Stable Problem Specific Plan: Monitor Clinically Problem Text: Has IVC filter in place (7) COPD (chronic obstructive pulmonary disease) Status: Chronic Response to Treatment: Stable Problem Specific Plan: Monitor Clinically Problem Text: Cont Spiriva, nebs. Plan/VTE VTE Prophylaxis Ordered?: No (pre-op) Plan/Urinary Catheter Reason for insertion/continuin: Perioperative Plan Attending attestation: I saw and evaluated the patient and agree with the plan of care as discussed and documented above by Merary Daugherty. Pt medically ready for discharge at this point. Will need outpt followup for sleep study for likely severe ERWIN. Discussed this plan with the family yesterday. Aldo Wallace MD VS, I&O, 24H, [facility] Vital Signs/I&O Vital Signs Date Time Temp Pulse Resp B/P Pulse Ox O2 Delivery O2 Flow Rate FiO2 03/06/17 10:00 Room Air 03/06/17 08:37 97.3 70 20 132/70 97 2.0 I&O- Last 24 Hours up to 6 AM 03/06/17 05:59 Intake Total 1220 ml Output Total 50 ml Balance 1170 ml Laboratory Data 24H LABS Laboratory Tests 2 03/06/17 06:26: Anion Gap 6L, White Blood Count 5.3, Red Blood Count 3.12L, Hemoglobin 9.2L, Hematocrit 28.9L, Mean Corpuscular Volume 92.8, Mean Corpuscular Hemoglobin 29.5 , Mean Corpuscular Hemoglobin Concent 31.8L, Red Cell Distribution Width 13.4, Platelet Count 134L, Neutrophils (%) (Auto) 69.2H, Lymphocytes (%) (Auto) 13.6L , Monocytes (%) (Auto) 6.4H, Eosinophils (%) (Auto) 8.7H, Basophils (%) (Auto) 0.4, Neutrophils # (Auto) 3.7, Lymphocytes # (Auto) 0.8L, Monocytes # (Auto) 0.3 , Eosinophils # (Auto) 0.5, Basophils # (Auto) 0.0, Blood Urea Nitrogen 26H, Creatinine 1.00, Sodium Level 138, Potassium Level 4.5, Chloride Level 103, Carbon Dioxide Level 29, Calcium Level 7.5L, Glomerular Filtration Rate > 60.0, Large Unclassified Cells # 0.1, Large Unclassified Cells % 1.8, Prothromb Time International Ratio 1.99, Prothrombin Time 22.7H CBC/BMP Laboratory Tests 03/06/17 06:26 Calcium Level 7.5 L, Red Blood Count 3.12 L, Mean Corpuscular Volume 92.8, Mean Corpuscular Hemoglobin 29.5, Mean Corpuscular Hemoglobin Concent 31.8 L, Red Cell Distribution Width 13.4, Neutrophils (%) (Auto) 69.2 H, Lymphocytes (%) ( Auto) 13.6 L, Monocytes (%) (Auto) 6.4 H, Eosinophils (%) (Auto) 8.7 H, Basophils (%) (Auto) 0.4, Neutrophils # (Auto) 3.7, Lymphocytes # (Auto) 0.8 L, Monocytes # (Auto) 0.3, Eosinophils # (Auto) 0.5, Basophils # (Auto) 0.0 Microbiology Microbiology 03/03/17 Urine Culture - Final, Complete Jennifer Daugherty Mar 06, 2017 12:20 ALDO WALLACE MD Mar 06, 2017 12:55
[2017-03-06 14:00] VITALS: BP 164/76
[2017-03-06] MEDS ORDERED: WARFARIN SOD 2.5 MG TAB PO ONE (17:00)
[2017-03-06] MEDS: ACETAMINOPHEN TAB 650MG DOSE (2X325MG) PO PRN (21:40)
[2017-03-06 22:00] VITALS: BP 143/66
[2017-03-07] MEDS: ACETAMINOPHEN TAB 650MG DOSE (2X325MG) PO PRN ×3 (02:12→20:15)
[2017-03-07 06:00] VITALS: BP 156/75
[2017-03-07] MEDS: cefTRIAXone SOD 1 GM in D5W MINI-BAG PLUS 50 ML IV SCH (06:09)
[2017-03-07 07:23] LABS: BASO % 0.6 % (0.0-1.0); EOS # 0.4 K/mm3 (0.0-0.50); EOS % 9.6 % (0.0-3.0); LARGE UNSTAINED CELL # 0.1 K/mm3 (0.0-0.4); LARGE UNSTAINED CELL % 2.2 % (0.0-4.0); LYMPH # 0.9 K/mm3 (1.5-4.5); MEAN CORPUSCULAR HEMOGLOBIN 29.9 pg (27.0-33.0); MEAN CORPUSCULAR HGB CONC 32.1 g/dl (32.0-36.5); MEAN CORPUSCULAR VOLUME 93.3 fl (80.0-96.0); MONO # 0.3 K/mm3 (0.0-0.8); MONO % 6.7 % (0.0-5.0); PLATELET COUNT, AUTOMATED 144 k/mm3 (150-450); RED CELL DISTRIBUTION WIDTH 13.3 % (11.5-14.5); WHITE BLOOD COUNT 4.6 K/mm3 (4.0-10.0)
[2017-03-07 07:25] LABS: INR 1.6
[2017-03-07] MEDS: TIOTROPIUM INHALER/CAPSULE (SPIRIVA) INH SCH (07:28)
[2017-03-07] MEDS: IPRATROPIUM 0.5MG/ALBUTEROL 2.5MG INH SOL UD 3ML (DUONEB)(J7620) NEB SCH ×3 (07:28→23:42)
[2017-03-07 07:51] LABS: ANION GAP 5 MEQ/L (8-16); BLOOD UREA NITROGEN 24 MG/DL (7-18); CALCIUM LEVEL 8.1 MG/DL (8.8-10.2); CARBON DIOXIDE LEVEL 30 MEQ/L (21-32); CHLORIDE LEVEL 101 MEQ/L (98-107); GLOMERULAR FILTRATION RATE > 60.0 (>35); GLUCOSE, FASTING 102 MG/DL (83-110); POTASSIUM SERUM 4.7 MEQ/L (3.5-5.1); SODIUM LEVEL 136 MEQ/L (136-145)
[2017-03-07] MEDS: NICOTINE 7 MG/24 HR TRANSDERMAL TD SCH (08:52)
[2017-03-07] MEDS: PANTOPRAZOLE 40MG INJ (PROTONIX) (C9113) IV SCH (08:52)
[2017-03-07] MEDS: MOM 30ML SUSPENSION UDC PO SCH (08:53)
[2017-03-07] MEDS: MIRALAX *UNIT DOSE* 17GM PACKET PO SCH (08:53)
[2017-03-07] MEDS: SENOKOT S TAB PO SCH ×2 (08:54→20:14)
--- NOTE | 2017-03-07 11:00 | DSES ---
DATE OF ADMISSION: 03/01/2017 DATE OF DISCHARGE: PRIMARY CARE PROVIDER: Corine Parker ATTENDING PHYSICIAN: HISTORY OF PRESENT ILLNESS: The patient is status post trip and fall at home with a left sided hip fracture after tripping over his dog and falling onto his left side. The patient was subsequently brought to the emergency room and found to have a fracture of the left hip. Orthopedics was consulted. Dr. Ej Price evaluated the patient. The patient is status post left hip fracture fixation with cephalomedullary nail made by [employer] on 03/02/2017. Please see the surgical note for further information. HOSPITAL COURSE: The patient has continued with significant confusion and has been slow to rehabilitation. He is pleasant and cooperative. The patient has been deemed appropriate for transfer to a facility with rehabilitation capabilities. PAST MEDICAL HISTORY: 1. Atrial fibrillation with severe pulmonary hypertension. 2. Moderate aortic stenosis. 3. History of deep vein thrombosis with inferior vena cava filter. 4. Dementia. 5. Chronic obstructive pulmonary disease. 6. Hypertension. 7. Chronic urinary tract infections with bladder outlet obstruction. PHYSICAL EXAMINATION: Today, vital signs are stable. He is afebrile. HEENT: Neck is supple, without lymphadenopathy or jugular venous distention. CARDIOVASCULAR: Heart rate and rhythm are regular. PULMONARY: Lungs are clear to auscultation bilaterally. ABDOMEN: Soft. Nontender. Positive bowel sounds times all four quadrants. BILATERAL LOWER EXTREMITIES: Without any edema. NEUROLOGIC: Patient is alert to self only. He is cooperative and pleasant. PRIMARY DISCHARGE DIAGNOSIS: Left hip fracture status post repair. SECONDARY DIAGNOSES: 1. Chronic obstructive pulmonary disease. 2. Asthma. 3. Sleep apnea. 4. Hypertension. 5. Atrial fibrillation. 6. Dementia. 7. History of deep vein thrombosis. 8. Pulmonary hypertension. 9. HORACIO in the setting of slight fld overload from surgery, patient received IV Lasix with increase in Cr post diuresis. PLAN: The patient will be discharged to a rehabilitation facility once a bed is available. DISCHARGE MEDICATIONS: - Tylenol 1000 mg by mouth twice a day - albuterol sulfate 1 inhalation three times a day as needed - albuterol inhaler 2 puffs every 4 hours as needed - amlodipine 10 mg by mouth daily - aspirin 325 mg daily - dutasteride 0.5 mg by mouth daily - fish oil 1000 mg twice a day - furosemide 20 mg daily - Incruse Ellipta 62.5 mcg one inhalation daily - lactobacillus acidophilus 1 tablet daily - mometasone furoate 1 dose externally to calf, ankles and feet daily - Mucinex 1 tablet by mouth twice a day - multivitamin 1 daily - primidone 250 mg tablet 1/2 tablet by mouth twice a day - Ocuvite 1 tablet daily - tamsulosin 0.4 mg by mouth every p.m. - Visine 1 drop to each eye four times a day as needed for dry eyes Attending note: I saw and evaluated the patient, and agree with the plan of care as discussed and documented above. Sterling Amezcua MD [facility] HOSPITALElisabeth
--- NOTE | 2017-03-07 11:25 | IPNPDOC ---
Text Note Date of Service The patient was seen on 03/07/17. NOTE HPI: Pts mentation back to baseline. Continues PT. Awaiting placement. Transitioned to SNF today. Note dictated by Shasta Daugherty. Pt c/o eye itching and mid-back pain. Family states that he has chronic mid-back pain due to hx of compression fx. He also states that he feels a little more short of breath this afternoon, although his morning oxygen was 97% on room air. Vitals: T 98.2, P 70, RR 16, BP 156/75, SAT 97% on RA Exam: Gen: alert, sitting in chair, slumping, NAD Eyes: conjunctiva injected JESS, extropion of R eye with continued calcific meibobian glands. Cardio: RRR, S1, S2, 2/6 CLARISSE, no heave Respiratory: JESS rhonchi, no rales, decreased air movement, normal work of breathing, JESS wheeze Abdomen: soft, nontender Extremities: no edema Musculoskeletal: mild muscle soreness of mid-back; no ttp of vertebra A/P: 1. Awaiting placement; cont PT 2. itching eyes: ordered Naphcon-A 3. mid-back pain; very low dose gabapentin due to age and renal fx; 100 TID 4. SOB; pt is slumping significantly which may be contributing, but also wheezy , added pred for 5 days to current abx Aldo Wallace MD VS,Demetrio, I+O VS, Demetrio, I+O Laboratory Tests 03/07/17 06:40 Calcium Level 8.1 L, Red Blood Count 3.03 L, Mean Corpuscular Volume 93.3, Mean Corpuscular Hemoglobin 29.9, Mean Corpuscular Hemoglobin Concent 32.1, Red Cell Distribution Width 13.3, Neutrophils (%) (Auto) 64.0, Lymphocytes (%) (Auto) 17.0 L, Monocytes (%) (Auto) 6.7 H, Eosinophils (%) (Auto) 9.6 H, Basophils (%) (Auto) 0.6, Neutrophils # (Auto) 3.0, Lymphocytes # (Auto) 0.9 L, Monocytes # ( Auto) 0.3, Eosinophils # (Auto) 0.4, Basophils # (Auto) 0.0 Vital Signs Date Time Temp Pulse Resp B/P Pulse Ox O2 Delivery O2 Flow Rate FiO2 03/07/17 06:00 98.2 70 16 156/75 97 Room Air 03/06/17 22:30 2.0 I&O- Last 24 Hours up to 6 AM 03/07/17 05:59 Intake Total 2150 ml Output Total 550 ml Balance 1600 ml ALDO WALLACE MD Mar 07, 2017 11:25
[2017-03-07] MEDS ORDERED: NAPHCON-A OPHTH SOLN 15 ML OU PRN (13:15)
[2017-03-07] MEDS: predniSONE 20 MG TAB PO SCH ×2 (13:25→20:14)
[2017-03-07] MEDS: GABAPENTIN 100 MG CAP PO SCH ×2 (16:32→20:14)
[2017-03-07 22:00] VITALS: BP 122/62
[2017-03-08] MEDS: cefTRIAXone SOD 1 GM in D5W MINI-BAG PLUS 50 ML IV SCH (05:20)
[2017-03-08 06:00] VITALS: BP 138/75
[2017-03-08] MEDS: TIOTROPIUM INHALER/CAPSULE (SPIRIVA) INH SCH (07:07)
[2017-03-08 07:16] LABS: BASO % 0.4 % (0.0-1.0); EOS % 0.4 % (0.0-3.0); LARGE UNSTAINED CELL % 0.6 % (0.0-4.0); LYMPH # 0.4 K/mm3 (1.5-4.5); LYMPH % 8.1 % (24.0-44.0); MEAN CORPUSCULAR HEMOGLOBIN 29.8 pg (27.0-33.0); MEAN CORPUSCULAR HGB CONC 32.3 g/dl (32.0-36.5); MEAN CORPUSCULAR VOLUME 92.1 fl (80.0-96.0); MONO # 0.1 K/mm3 (0.0-0.8); MONO % 2.7 % (0.0-5.0); NEUTROPHILS # 3.6 K/mm3 (1.8-7.7); NEUTROPHILS % 87.7 % (36.0-66.0); PLATELET COUNT, AUTOMATED 171 k/mm3 (150-450); RED CELL DISTRIBUTION WIDTH 13.5 % (11.5-14.5); WHITE BLOOD COUNT 4.1 K/mm3 (4.0-10.0)
[2017-03-08 07:22] LABS: INR 1.24
[2017-03-08] MEDS: IPRATROPIUM 0.5MG/ALBUTEROL 2.5MG INH SOL UD 3ML (DUONEB)(J7620) NEB SCH ×3 (07:29→20:04)
[2017-03-08 07:31] LABS: ANION GAP 8 MEQ/L (8-16); BLOOD UREA NITROGEN 28 MG/DL (7-18); CARBON DIOXIDE LEVEL 25 MEQ/L (21-32); CHLORIDE LEVEL 101 MEQ/L (98-107); CREATININE FOR GFR 1.04 MG/DL (0.70-1.30); GLOMERULAR FILTRATION RATE > 60.0 (>35); GLUCOSE, FASTING 175 MG/DL (83-110); POTASSIUM SERUM 4.9 MEQ/L (3.5-5.1); SODIUM LEVEL 134 MEQ/L (136-145)
[2017-03-08] MEDS: GABAPENTIN 100 MG CAP PO SCH ×3 (07:55→20:34)
[2017-03-08] MEDS: NICOTINE 7 MG/24 HR TRANSDERMAL TD SCH (07:55)
[2017-03-08] MEDS: SENOKOT S TAB PO SCH ×2 (07:55→20:33)
[2017-03-08] MEDS: predniSONE 20 MG TAB PO SCH ×2 (07:55→20:34)
[2017-03-08] MEDS: PANTOPRAZOLE 40MG TAB (PROTONIX) PO SCH (07:55)
[2017-03-08] MEDS: ACETAMINOPHEN TAB 650MG DOSE (2X325MG) PO PRN ×2 (07:55→20:33)
[2017-03-08] MEDS: MIRALAX *UNIT DOSE* 17GM PACKET PO SCH (07:56)
[2017-03-08] MEDS: MOM 30ML SUSPENSION UDC PO SCH (07:56)
[2017-03-08] MEDS ORDERED: WARFARIN SOD 7.5 MG TAB PO ONE (17:00)
[2017-03-08 22:00] VITALS: BP 162/70
[2017-03-09] MEDS: cefTRIAXone SOD 1 GM in D5W MINI-BAG PLUS 50 ML IV SCH (05:03)
[2017-03-09 06:58] LABS: INR 1.24
[2017-03-09 08:00] VITALS: BP 154/76
[2017-03-09] MEDS: IPRATROPIUM 0.5MG/ALBUTEROL 2.5MG INH SOL UD 3ML (DUONEB)(J7620) NEB SCH ×3 (09:04→20:32)
[2017-03-09] MEDS: TIOTROPIUM INHALER/CAPSULE (SPIRIVA) INH SCH (09:04)
[2017-03-09] MEDS: SENOKOT S TAB PO SCH ×2 (09:16→20:06)
[2017-03-09] MEDS: MOM 30ML SUSPENSION UDC PO SCH (09:16)
[2017-03-09] MEDS: PANTOPRAZOLE 40MG TAB (PROTONIX) PO SCH (09:17)
[2017-03-09] MEDS: GABAPENTIN 100 MG CAP PO SCH ×3 (09:17→20:06)
[2017-03-09] MEDS: MIRALAX *UNIT DOSE* 17GM PACKET PO SCH (09:18)
[2017-03-09] MEDS: predniSONE 20 MG TAB PO SCH ×2 (09:18→20:06)
[2017-03-09] MEDS: NICOTINE 7 MG/24 HR TRANSDERMAL TD SCH (09:18)
[2017-03-09 14:00] VITALS: BP 147/72
[2017-03-09] MEDS ORDERED: WARFARIN SOD 4 MG TAB PO ONE (17:00)
[2017-03-09] MEDS ORDERED: ENOXAPARIN 40 MG/0.4 ML SYRINGE (J1650) SC ONE (17:30)
[2017-03-09] MEDS: ACETAMINOPHEN TAB 650MG DOSE (2X325MG) PO PRN (20:06)
[2017-03-09 22:00] VITALS: BP 151/71
[2017-03-09] MEDS: ALBUTEROL SULFATE 2.5 MG/0.5 ML INH NEB SOLN NEB PRN (22:45)
[2017-03-10] MEDS: ACETAMINOPHEN TAB 650MG DOSE (2X325MG) PO PRN (04:26)
[2017-03-10 06:00] VITALS: BP 163/84
[2017-03-10] MEDS: cefTRIAXone SOD 1 GM in D5W MINI-BAG PLUS 50 ML IV SCH (06:04)
[2017-03-10] MEDS: IPRATROPIUM 0.5MG/ALBUTEROL 2.5MG INH SOL UD 3ML (DUONEB)(J7620) NEB SCH ×2 (07:14→15:56)
[2017-03-10] MEDS: TIOTROPIUM INHALER/CAPSULE (SPIRIVA) INH SCH (07:15)
[2017-03-10 08:36] LABS: INR 1.63
[2017-03-10] MEDS: MOM 30ML SUSPENSION UDC PO SCH (09:00)
[2017-03-10] MEDS: MIRALAX *UNIT DOSE* 17GM PACKET PO SCH (09:00)
[2017-03-10] MEDS: NICOTINE 7 MG/24 HR TRANSDERMAL TD SCH (09:00)
[2017-03-10] MEDS: GABAPENTIN 100 MG CAP PO SCH ×3 (09:00→20:44)
[2017-03-10] MEDS: predniSONE 20 MG TAB PO SCH ×2 (09:00→20:44)
[2017-03-10] MEDS: PANTOPRAZOLE 40MG TAB (PROTONIX) PO SCH (09:23)
[2017-03-10] MEDS: SENOKOT S TAB PO SCH ×2 (09:23→20:45)
[2017-03-10] MEDS: PERCOCET 5MG/325MG TAB PO PRN ×2 (09:25→22:35)
[2017-03-10 14:00] VITALS: BP 156/80
[2017-03-10] MEDS ORDERED: WARFARIN SOD 7.5 MG TAB PO ONE (17:00)
[2017-03-10 18:00] VITALS: BP 136/58
[2017-03-10 22:00] VITALS: BP 140/64
[2017-03-11] MEDS: cefTRIAXone SOD 1 GM in D5W MINI-BAG PLUS 50 ML IV SCH (05:28)
[2017-03-11 06:00] VITALS: BP 174/91
[2017-03-11 06:58] LABS: INR 1.98
[2017-03-11] MEDS: TIOTROPIUM INHALER/CAPSULE (SPIRIVA) INH SCH (07:38)
[2017-03-11] MEDS: IPRATROPIUM 0.5MG/ALBUTEROL 2.5MG INH SOL UD 3ML (DUONEB)(J7620) NEB SCH ×4 (07:38→23:01)
[2017-03-11] MEDS: NICOTINE 7 MG/24 HR TRANSDERMAL TD SCH (10:15)
[2017-03-11] MEDS: SENOKOT S TAB PO SCH ×2 (10:16→20:20)
[2017-03-11] MEDS: PANTOPRAZOLE 40MG TAB (PROTONIX) PO SCH (10:17)
[2017-03-11] MEDS: PERCOCET 5MG/325MG TAB PO PRN (10:17)
[2017-03-11] MEDS: MOM 30ML SUSPENSION UDC PO SCH (10:18)
[2017-03-11] MEDS: predniSONE 20 MG TAB PO SCH ×2 (10:18→20:20)
[2017-03-11] MEDS: MIRALAX *UNIT DOSE* 17GM PACKET PO SCH (10:18)
[2017-03-11] MEDS: GABAPENTIN 100 MG CAP PO SCH ×3 (10:18→20:20)
[2017-03-11 14:00] VITALS: BP 157/78
[2017-03-11 22:00] VITALS: BP 160/72
[2017-03-12] MEDS: cefTRIAXone SOD 1 GM in D5W MINI-BAG PLUS 50 ML IV SCH (05:24)
[2017-03-12 06:00] VITALS: BP 173/65
[2017-03-12 07:09] LABS: INR 1.97
[2017-03-12] MEDS: TIOTROPIUM INHALER/CAPSULE (SPIRIVA) INH SCH (08:12)
[2017-03-12] MEDS: IPRATROPIUM 0.5MG/ALBUTEROL 2.5MG INH SOL UD 3ML (DUONEB)(J7620) NEB SCH ×2 (08:12→15:50)
[2017-03-12] MEDS: MOM 30ML SUSPENSION UDC PO SCH (09:23)
[2017-03-12] MEDS: MIRALAX *UNIT DOSE* 17GM PACKET PO SCH (09:23)
[2017-03-12] MEDS: SENOKOT S TAB PO SCH ×2 (09:24→20:28)
[2017-03-12] MEDS: NICOTINE 7 MG/24 HR TRANSDERMAL TD SCH (09:24)
[2017-03-12] MEDS: PANTOPRAZOLE 40MG TAB (PROTONIX) PO SCH (09:24)
[2017-03-12] MEDS: GABAPENTIN 100 MG CAP PO SCH ×3 (09:24→20:28)
[2017-03-12] MEDS: PERCOCET 5MG/325MG TAB PO PRN ×2 (12:05→18:21)
[2017-03-12 14:00] VITALS: BP 140/64
[2017-03-12 22:00] VITALS: BP 177/65
[2017-03-13 06:00] VITALS: BP 161/84
[2017-03-13 07:22] LABS: INR 1.58
[2017-03-13] MEDS: IPRATROPIUM 0.5MG/ALBUTEROL 2.5MG INH SOL UD 3ML (DUONEB)(J7620) NEB SCH ×2 (07:22)
[2017-03-13] MEDS: TIOTROPIUM INHALER/CAPSULE (SPIRIVA) INH SCH (07:23)
[2017-03-13] MEDS ORDERED: NICO7PA TD (10:20)
[2017-03-13] MEDS ORDERED: PERCOCET PO (10:20)
[2017-03-13] MEDS: GABAPENTIN 100 MG CAP PO SCH (11:02)
[2017-03-13] MEDS: SENOKOT S TAB PO SCH (11:02)
[2017-03-13] MEDS: MOM 30ML SUSPENSION UDC PO SCH (11:02)
[2017-03-13] MEDS: PANTOPRAZOLE 40MG TAB (PROTONIX) PO SCH (11:02)
[2017-03-13] MEDS: MIRALAX *UNIT DOSE* 17GM PACKET PO SCH (11:02)
[2017-03-13] MEDS: PERCOCET 5MG/325MG TAB PO PRN (11:03)
[2017-03-13] MEDS: NICOTINE 7 MG/24 HR TRANSDERMAL TD SCH (11:03)
[2017-03-13] MEDS ORDERED: WARFARIN SOD 7.5 MG TAB PO ONE (17:00)
== END 2017-03-13 12:35 | DRG 481 ==
LOC: M ED 21:26 → M ED INP 23:34 → M MS5PR 03-02 00:15 → M ICU 03-02 18:21 → M MS5PR 03-03 10:25
PROVIDERS: ADMIT Internal Medicine Nephrology; ATTEND Family Medicine
PROC: 0QS706Z Reposition Left Upper Femur with Intramedullary Internal Fixation Device, Open Approach (ICD-10-PCS; principal; 2017-03-02 15:00)
DX: S72.142A Displaced intertrochanteric fracture of left femur, initial encounter for closed fracture (principal); N17.9 Acute kidney failure, unspecified; I87.2 Venous insufficiency (chronic) (peripheral); J44.9 Chronic obstructive pulmonary disease, unspecified; G47.33 Obstructive sleep apnea (adult) (pediatric); I10 Essential (primary) hypertension; I48.2 Chronic atrial fibrillation; N40.1 Benign prostatic hyperplasia with lower urinary tract symptoms; R33.9 Retention of urine, unspecified; F03.90 Unspecified dementia, unspecified severity, without behavioral disturbance, psychotic disturbance, mood disturbance, and anxiety; I49.5 Sick sinus syndrome; I27.2 Other secondary pulmonary hypertension; I08.3 Combined rheumatic disorders of mitral, aortic and tricuspid valves; W01.0XXA Fall on same level from slipping, tripping and stumbling without subsequent striking against object, initial encounter; Y92.018 Other place in single-family (private) house as the place of occurrence of the external cause; N32.0 Bladder-neck obstruction; Y99.9 Unspecified external cause status; Z86.711 Personal history of pulmonary embolism; Z96.653 Presence of artificial knee joint, bilateral; Z95.0 Presence of cardiac pacemaker; Z88.5 Allergy status to narcotic agent; Z88.8 Allergy status to other drugs, medicaments and biological substances; Z79.899 Other long term (current) drug therapy; Z87.891 Personal history of nicotine dependence; Z79.82 Long term (current) use of aspirin; Z87.440 Personal history of urinary (tract) infections; Z95.828 Presence of other vascular implants and grafts

== ENCOUNTER → 2017-05-10 | Outpatient (REF) | payer OTHER ==
[~2017-05-10] MED LIST changes: +ACET50TAOT PO; +AMLO10TA2 PO; +AZIT25TA PO; +BACITAB3 PO; +CEFD300CAP PO; +FISH1000 PO; +FLOM5CAP PO; +FURO40TA2 PO; +INCR1INH INH; +MOME0.1O20 EXT; +MUCI1TAB18 PO; +NICO7PA TD; +OCUVTAB PO; +PERCOCET PO; +PRED10TA PO; +VISI0.054 OU; +VITMTA PO; +WARF-21 PO
[2017-05-10 20:11] LABS: MEAN CORPUSCULAR HEMOGLOBIN 29.9 pg (27.0-33.0); MEAN CORPUSCULAR HGB CONC 32.7 g/dl (32.0-36.5); MEAN CORPUSCULAR VOLUME 91.3 fl (80.0-96.0); RED CELL DISTRIBUTION WIDTH 13.9 % (11.5-14.5); WHITE BLOOD COUNT 5.8 K/mm3 (4.0-10.0)
[2017-05-10 20:17] LABS: ANION GAP 4 MEQ/L (8-16); BLOOD UREA NITROGEN 16 MG/DL (7-18); CALCIUM LEVEL 8.3 MG/DL (8.8-10.2); CARBON DIOXIDE LEVEL 31 MEQ/L (21-32); CHLORIDE LEVEL 95 MEQ/L (98-107); CREATININE FOR GFR 0.97 MG/DL (0.70-1.30); GLOMERULAR FILTRATION RATE > 60.0 (>35); GLUCOSE, FASTING 85 MG/DL (83-110); POTASSIUM SERUM 4.9 MEQ/L (3.5-5.1); SODIUM LEVEL 130 MEQ/L (136-145)
== END ==
LOC: M LABDRWAD 19:45 → M LAB REF 19:45
PROVIDERS: ATTEND Internal Medicine Cardiovascular Disease
DX: Z51.81 Encounter for therapeutic drug level monitoring (principal); Z79.01 Long term (current) use of anticoagulants; I48.91 Unspecified atrial fibrillation

== ENCOUNTER 2017-05-11 18:30 | Inpatient (IN) | payer OTHER ==
[~2017-05-11] VITALS: Ht 167.6 cm; Wt 68.5 kg
[~2017-05-11 18:30] MED LIST changes: -AZIT25TA PO; -CEFD300CAP PO; -FURO40TA2 PO; -PRED10TA PO; -WARF-21 PO
[2017-05-11] MEDS ORDERED: NS 1,000 ML IV SCH ×2 (18:40→22:15)
[2017-05-11] MEDS ORDERED: WARF-21 PO (18:57)
--- NOTE | 2017-05-11 19:44 | ECGEPIP ---
Stationary ECG Study [facility] - ED Test Date: 2017-05-11 Pat Name: YESICA VELAZQUEZ Department: Room: - Gender: M Gardener: : 1930 Requested By: Sophie De La Cruz Order Number: [id number] Reading MD: Braden Earl Measurements Intervals [place] Rate: 72 P: DE: 0 QRS: -76 QRSD: 197 T: 94 QT: 476 QTc: 523 Interpretive Statements ELECTRONIC VENTRICULAR PACEMAKER ABNORMAL RHYTHM ECG SIMILAR TO 03/02/17 Electronically Signed On 05-11-2017 19:43:56 EDT by Braden Earl
[2017-05-11 19:55] LABS: BASO % 0.8 % (0.0-1.0); EOS # 0.3 K/mm3 (0.0-0.50); EOS % 6.7 % (0.0-3.0); LARGE UNSTAINED CELL # 0.1 K/mm3 (0.0-0.4); LARGE UNSTAINED CELL % 1.6 % (0.0-4.0); LYMPH # 0.9 K/mm3 (1.5-4.5); LYMPH % 19.5 % (24.0-44.0); MEAN CORPUSCULAR HEMOGLOBIN 28.5 pg (27.0-33.0); MEAN CORPUSCULAR HGB CONC 32.1 g/dl (32.0-36.5); MEAN CORPUSCULAR VOLUME 88.8 fl (80.0-96.0); MONO # 0.2 K/mm3 (0.0-0.8); MONO % 5.1 % (0.0-5.0); NEUTROPHILS # 2.9 K/mm3 (1.8-7.7); NEUTROPHILS % 66.3 % (36.0-66.0); PLATELET COUNT, AUTOMATED 176 k/mm3 (150-450); RED CELL DISTRIBUTION WIDTH 13.9 % (11.5-14.5); WHITE BLOOD COUNT 4.4 K/mm3 (4.0-10.0)
[2017-05-11 20:16] LABS: ALBUMIN 3.5 GM/DL (3.2-5.2); ALBUMIN/GLOBULIN RATIO 1.25 (1.00-1.93); ALKALINE PHOSPHATASE 213 U/L (45-117); ALT/SGPT 16 U/L (12-78); ANION GAP 8 MEQ/L (8-16); AST/SGOT 15 U/L (15-37); BILIRUBIN,DIRECT 0.1 MG/DL (0.0-0.2); BILIRUBIN,TOTAL 0.4 MG/DL (0.2-1.0); BLOOD UREA NITROGEN 16 MG/DL (7-18); CARBON DIOXIDE LEVEL 27 MEQ/L (21-32); CHLORIDE LEVEL 94 MEQ/L (98-107); CREATININE FOR GFR 0.82 MG/DL (0.70-1.30); GLOMERULAR FILTRATION RATE > 60.0 (>35); GLUCOSE, FASTING 99 MG/DL (83-110); POTASSIUM SERUM 4.2 MEQ/L (3.5-5.1); SODIUM LEVEL 129 MEQ/L (136-145); TOTAL PROTEIN 6.3 GM/DL (6.4-8.2)
--- NOTE | 2017-05-11 20:40 | REP ---
Head CT without contrast: History: Altered mental status. Comparison study: April 19, 2015. Findings: Digital lateral steam tank operator view of the skull is unremarkable. Bone window settings demonstrate an intact bony calvarium. There is mucosal thickening in the frontal, maxillary and ethmoid air cells bilaterally, similar to the prior study of April 19, 2015 consistent with chronic mucosal changes. There is vascular calcification in the distal carotid arteries bilaterally. There is diffuse moderate cerebral atrophy again noted. There is no evidence of intracranial hemorrhage. No extra-axial fluid collection is seen. No mass, infarct or midline shift is seen. Impression: Diffuse cerebral atrophy, moderate in degree. Vascular calcification. No acute intracranial abnormality. Signed by Delgado Bee MD 05/12/2017 07:43 A
[2017-05-11 21:07] LABS: INR 1.05
[2017-05-11 21:18] LABS: ABG BASE EXCESS 1.8 (-2.0-2.0); ABG HCO3 26.5 MEQ/L (22.0-26.0); ABG PARTIAL PRESSURE O2 80.9 mmHg (75.0-100.0); ABG TOTAL CO2 27.8 MEQ/L (23.0-31.0); ABG pH (ARTERIAL) 7.418 UNITS (7.350-7.450)
[2017-05-11] MEDS ORDERED: FURO40TA2 PO (21:33)
[2017-05-11] MEDS ORDERED: TETRAHYDROZOLINE OPHTH 0.05% 15 ML BTL OU PRN (22:00)
[2017-05-11] MEDS ORDERED: IPRATROPIUM 0.5MG/ALBUTEROL 2.5MG INH SOL UD 3ML (DUONEB)(J7620) NEB PRN (22:00)
[2017-05-11] MEDS ORDERED: ACETAMINOPHEN TAB 650MG DOSE (2X325MG) PO PRN (22:15)
[2017-05-11] MEDS ORDERED: ONDANSETRON 4MG/2ML VIAL (J2405) IV PRN (22:15)
[2017-05-11] MEDS ORDERED: ISOVUE-370 76% 100ML VIAL (Q9967) As Ordered ONE (23:05)
[2017-05-11 23:40] LABS: OSMOLALITY SERUM 272 MOSM/KG (280-301)
[2017-05-12 00:27] VITALS: BP 141/64
--- NOTE | 2017-05-12 00:40 | REPUSA ---
CLINICAL HISTORY: Suspected pneumonia. TECHNIQUE: Multiple axial CT images were obtained through the thorax with IV contrast material. COMMENTS: Comparison to the prior exam on 01/22/2017. Unchanged moderate cardiomegaly. Pacemaker wires remain in good position. 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 Increased left pleural effusion. Increased passive atelectatic airspace disease of the left lower lobe. Subsegmental airspace consolidation of the right lower lobe. Groundglass densities of the lingula. Severe chronic compression deformities of the thoracic vertebral bodies. Secondary increase in the dorsal kyphosis. There is no evidence of pleural or parenchymal mass. There is no evidence of hilar or mediastinal lym phadenopathy. The visualized portions of the liver are of uniform attenuation without mass or defect. There is no i ntra or extrahepatic biliary ductal dilatation. The spleen is unremarkable. The visualized pancreas i s of normal contour and attenuation characteristics. There is no evidence of adrenal mass. The visual ized portions of the kidneys present no abnormalities. The bony structures are free of lytic or blastic lesions. IMPRESSION: Comparison to the prior exam on 01/22/2017. Unchanged moderate cardiomegaly. Pacemaker wires remain in good position. 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 Enlarged pulmonary artery suggestive of pulmonary hypertension. Increased left pleural effusion. Increased passive atelectatic airspace disease of the left lower lobe. Subsegmental airspace consolidation of the right lower lobe. Groundglass densities of the lingula. Severe chronic compression deformities of the thoracic vertebral bodies. Secondary increase in the dorsal kyphosis. Thank you for your kind referral of this patient.
[2017-05-12] MEDS: ENOXAPARIN 40 MG/0.4 ML SYRINGE (J1650) SC SCH ×2 (00:44→20:07)
[2017-05-12] MEDS: methylPREDNISolone INJ 40 MG/1 ML VIAL (J2920) IV SCH ×3 (00:44→22:20)
[2017-05-12] MEDS: cefTRIAXone SOD 2 GM in D5W MINI-BAG PLUS 50 ML IV SCH (00:45)
[2017-05-12] MEDS: AZITHROMYCIN INJ 500 MG, VIAL MATE ADAPTER 1 EACH in D5W 250 ML IV SCH (00:45)
[2017-05-12 04:00] VITALS: BP 131/76
[2017-05-12] MEDS: IPRATROPIUM 0.5MG/ALBUTEROL 2.5MG INH SOL UD 3ML (DUONEB)(J7620) NEB SCH ×4 (05:11→20:00)
[2017-05-12 05:32] LABS: MEAN CORPUSCULAR HEMOGLOBIN 29.6 pg (27.0-33.0); MEAN CORPUSCULAR HGB CONC 33.3 g/dl (32.0-36.5); RED CELL DISTRIBUTION WIDTH 13.9 % (11.5-14.5); WHITE BLOOD COUNT 3.6 K/mm3 (4.0-10.0)
[2017-05-12 05:42] LABS: ANION GAP 4 MEQ/L (8-16); BLOOD UREA NITROGEN 14 MG/DL (7-18); CALCIUM LEVEL 8.2 MG/DL (8.8-10.2); CARBON DIOXIDE LEVEL 28 MEQ/L (21-32); CHLORIDE LEVEL 95 MEQ/L (98-107); CREATININE FOR GFR 0.79 MG/DL (0.70-1.30); GLOMERULAR FILTRATION RATE > 60.0 (>35); GLUCOSE, FASTING 110 MG/DL (83-110); MAGNESIUM LEVEL 2.1 MG/DL (1.8-2.4); POTASSIUM SERUM 4.2 MEQ/L (3.5-5.1); SODIUM LEVEL 127 MEQ/L (136-145)
[2017-05-12 07:17] VITALS: BP 128/78
[2017-05-12] MEDS: ADVAIR DISKUS 250/50 INH PWD INH SCH ×2 (07:36→20:23)
--- NOTE | 2017-05-12 09:11 | REP ---
Chest and abdomen series: Four views. History: Shortness of breath. Comparison study: March 04, 2017. Findings: Supine chest x-ray demonstrates moderate cardiomegaly with unipolar pacemaker in the right heart via the left side as before. The left hemidiaphragm appears to be somewhat elevated. No definite infiltrate. Pulmonary vasculature is not increased. Supine and cross-table lateral supine views of the abdomen and chest show no evidence of free intraperitoneal air. There is moderate stool in the colon. No large or small bowel dilation is seen. The patient is status post pinning of the left hip. There is a dextroconvex curvature in the lumbar spine along with degenerative change and there is a vena cava filter in place to the right of the lumbar spine. There is previous collapse of the T12 vertebral body. Impression: Unremarkable bowel gas pattern. Cardiomegaly with pacemaker. Vena cava filter. Signed by Delgado Bee MD 05/12/2017 09:55 A
[2017-05-12] MEDS: amLODIPine 10 MG TAB PO SCH (09:23)
[2017-05-12] MEDS: OMEGA-3 1050MG CAPSULE PO SCH ×2 (09:23→20:07)
[2017-05-12] MEDS: SENOKOT S TAB PO SCH ×2 (09:24→20:07)
[2017-05-12] MEDS: TAMSULOSIN 0.4 MG CAP PO SCH (09:24)
[2017-05-12] MEDS: MULTIVITAMINS/MINERALS THERAP 1 TAB PO SCH (09:24)
[2017-05-12] MEDS: DUTASTERIDE 0.5 MG CAP (AVODART) PO SCH (09:24)
[2017-05-12] MEDS: ASPIRIN 325 MG TAB PO SCH (09:24)
[2017-05-12] MEDS: LACTOBACILLUS ACIDOPHILUS CAP (BACID) PO SCH (09:24)
[2017-05-12 11:33] VITALS: BP 109/58
[2017-05-12 15:45] VITALS: BP 121/61
[2017-05-12 20:00] VITALS: BP 120/68
--- NOTE | 2017-05-12 20:48 | IPN ---
DATE: 05/12/2017 SUBJECTIVE: The patient is seen today on progressive care unit (PCU). He was admitted last evening with change in mental status. He was signed out to me by Dr. Devries, the hospitalist, this morning. Basically they are treating him for a pneumonia. He is getting azithromycin and ceftriaxone and nebulizers. He is also on Norvasc, aspirin, Avodart, fish oil, Bacid, multivitamins, Flomax, Advair, Senokot-S, Solu-Medrol, as-needed medication for pain, for nausea, for dry eyes, for wheezing. He is on Lovenox prophylaxis. He does have a history of dementia and chronic obstructive pulmonary disease (COPD). OBJECTIVE: VITAL SIGNS: On examination his temperature is 99.7, pulse 72 and regular, respirations 18, blood pressure 109/58, O2 saturation on room air is 97%. GENERAL: He is [id number], awake, reasonably pleasant. He is not oriented to time. He indicated that it was Sunday in November in 1988 and that he was in [facility]. Otherwise, he knew that he was in [place]. HEENT: His eyes are clear. No facial weakness. Speech is clear. NECK: There is no neck masses, tenderness or adenopathy. No carotid bruits. RESPIRATORY: His lungs showed some end-expiratory rhonchi. HEART: Has regular rhythm without any murmur, click or gallop. ABDOMEN: Soft, nontender without any masses or organomegaly. Bowel sounds are active. EXTREMITIES: There is some trace lower extremity edema. LABORATORY DATA: Labs done today showed a white count of 3600, hemoglobin 12.5. BUN 14, creatinine 0.79, glucose 110, potassium 4.7, sodium was 127. He had been admitted with a sodium of 129. Cardiac enzymes are negative. C-reactive protein slightly elevated at 2.33. TSH was normal last night at 1.6. IMAGING: Chest x-ray was reported as showing a moderate cardiomegaly unchanged, pacemaker , unchanged aneurysmal ascending aorta, pulmonary hypertension manifested by enlarged pulmonary artery and left pleural effusion. Subsegmental air space consolidation the right lower lobe, ground-glass densities in the lingula, compression deformity of the thoracic vertebral bodies with dorsal kyphosis. PLAN: The patient will continue on the current recommendation. He did get some IV fluids that these were discontinued. Overnight it seemed that he was getting some fluid overload as well as making his sodium go down instead of up. I am not clear what his baseline is, although certainly he is not agitated or delusional or hallucinating at all, but his mental status may be at baseline today. He did have a sitter with him this morning. We will be sending him to the floor since we are not seeing anything that requires cardiac monitoring. Will attempt to speak more with the family about what their expectations of him are. BEVERLY
--- NOTE | 2017-05-12 23:04 | HPE ---
DATE OF ADMISSION: 05/11/2017 PRIMARY CARE PROVIDER: Corine Parker. CHIEF COMPLAINT: Altered mental status. HISTORY OF PRESENT ILLNESS: This is an 86-year-old male patient with underlying medical history of chronic obstructive pulmonary disease (COPD) not on home oxygen, obstructive sleep apnea not compliant with continuous positive airway pressure (CPAP) does not use CPAP, hypertension, atrial fibrillation with a pacemaker, benign prostatic hypertrophy (BPH), history of urinary retention, dementia, history of deep venous thrombosis (DVT) 2010, 2011, and 2014, has an inferior vena cava (IVC) filter, chronic venous insufficiency, severe pulmonary artery hypertension, moderate calcified aortic stenosis, moderate mitral regurgitation, severe tricuspid regurgitation, compression fracture of T12 with chronic back pain as per patient's family, also dementia as per patient's family. The patient earlier this afternoon around 4 p.m., the patient had an episode of staring blindly and nonverbal, stopped talking. Baseline is alert and oriented times three with no dementia. Recently had a left hip fracture, was in the rehabilitation, was okay since discharge from rehab. The patient had another episode of staring blindly into deep space at around 5 p.m. Subsequently, for concerns of transient ischemic attack (TIA), the patient was brought to the hospital for further evaluation. Family did report that patient had poor oral intake for the past 2-3 days. Denies any fevers, chills. Does report shortness of breath. Does not use oxygen at home. Denies any significant cough or productive cough. Denies any chest pain, nausea, vomiting, diarrhea. No sick contact at home. Does not use illicit drugs. Baseline ambulating with a walker. Does have a history of alcohol abuse. ALLERGIES: 1. CODEINE. 2. LACTOSE INTOLERANCE. 3. XARELTO. PAST MEDICAL HISTORY: 1. COPD. 2. Obstructive sleep apnea. 3. Hypertension. 4. Atrial fibrillation with pacemaker. 5. BPH. 6. Dementia. 7. DVT multiple with IVC filter. 8. Chronic venous insufficiency. 9. Severe pulmonary artery hypertension. 10. Moderate aortic calcification, moderate mitral regurgitation, severe tricuspid regurgitation. 11. Compression fracture of T12. PAST SURGICAL HISTORY: 1. IVC filter. 2. Bilateral knee replacement. 3. Colonoscopy. 4. Pacemaker. FAMILY HISTORY: Noncontributory. SOCIAL HISTORY: Quit smoking 30 years ago. Used to have a history of alcohol abuse. Has not drank any alcoholic beverages for 10 years. REVIEW OF SYSTEMS: 10-point review of systems was negative except for confusion. Review of systems is significantly limited secondary to patient's mental status. HOME MEDICATIONS: - acetaminophen 500 mg by mouth twice a day as needed - albuterol inhalation three times a day - ProAir every four hours as needed - Norvasc 10 mg by mouth daily - aspirin 325 mg by mouth daily - Avodart 0.5 mg by mouth daily - fish oil by mouth twice a day - Lasix 40 mg by mouth twice a day - Ellipta inhalation daily - Bacid by mouth daily - multivitamin by mouth daily - Flomax 0.4 mg by mouth daily PHYSICAL EXAMINATION: VITAL SIGNS: Temperature 97.7, pulse 72, respirations 20, blood pressure 142/76, pulse oximetry 98% on room air. GENERAL: The patient very hard of hearing, alert and oriented times two. HEENT: Normocephalic, atraumatic. PULMONARY: Bilateral wheezing, rhonchi. CARDIAC: Regular S1, S2. Systolic murmur 2/6 detected. ABDOMEN: Obese, soft, nontender. Positive bowel sounds. EXTREMITIES: Arterial shiny skin with venous stasis skin changes and trace edema bilateral lower extremities. Dorsalis pedis (DP) and posterior tibial (PT) pulses thready to 1+ bilaterally, but skin seems to be warm and well perfused. LABORATORY DATA: WBC 4.4, hemoglobin and hematocrit 12.7 over 39.7, platelets 176. Chemistry: Sodium 129, potassium 4.2, chloride 94, BUN 16, creatinine 0.8, lactic acid 0.9. Cardiac enzymes negative times one. C-reactive protein 2.3. TSH 1.6. IMAGING: EKG: Ventricular paced rhythm, rate of 70. CT of the head shows diffuse cerebral atrophy, moderate in degree, vascular calcifications. No acute intracranial pathology. X-ray of the abdomen within normal limits. Chest x-ray shows left-sided increasing infiltrate with right hilar opacity that was also present previously. ASSESSMENT AND PLAN: This is an 86-year-old male patient with underlying medical history of COPD, sleep apnea, hypertension, atrial fibrillation, BPH, dementia, DVT with IVC filter, chronic venous insufficiency, severe pulmonary artery hypertension, valvular heart disease, also recent left hip fracture, presented with altered mental status. 1. Altered mental status, encephalopathy. Differential diagnosis includes hyponatremia secondary to metabolic encephalopathy versus transient ischemic attack (TIA), versus seizures. Will get electroencephalogram (EEG). Unable to perform MRI given patient has a pacemaker. Repeat CT scan tomorrow. Neurologic checks. Seizure precaution. Fall precaution. Ammonia appreciated. Arterial blood gas (ABG) is appreciated. One-to-one observation. 2. Hyponatremia. Hyponatremia workup was sent. The patient is likely secondary to volume depletion. Given patient has poor oral intake, holding Lasix. Intravenous (IV) fluid normal saline for gentle hydration. Followup sodium. Followup urine studies. 3. Shortness of breath possibly secondary to chronic obstructive pulmonary disease (COPD) exacerbation due to community-acquired bacterial pneumonia. Will get CT scan of the lung for further evaluation, given x-ray of the chest is inconclusive. Solu-Medrol nebulizer treatments, inhalers. Azithromycin and Rocephin given C-reactive protein is elevated. Followup cultures. 4. Benign prostatic hypertrophy (BPH). Continue current medication. 5. History of atrial fibrillation. The patient not on any anticoagulation. Aspirin 325. Continue current regimen for now. The patient has allergy to anticoagulation before. The patient currently is ventricular paced. 6. Hypertension. Continue current medication. 7. History of deep venous thrombosis (DVT). Lovenox subcutaneous. The patient has an IVC filter. Continue to monitor. 8. Severe pulmonary hypertension with obstructive sleep apnea (ERWIN) noncompliant to CPAP. ERWIN protocol. Monitor. Oxygen supplementation as needed. Close monitoring. Need outpatient sleep study. Encourage compliance. 9. Valvular heart disease. Outpatient followup. Supportive care at this point. 10. Dementia. Supportive care. One-to-one observation. 11. Deep venous thrombosis (DVT) prophylaxis. Patient on Lovenox. Patient also has an IVC filter. DISPOSITION: Pending clinical improvement, pending further workup.
[2017-05-13] VITALS: BP 118/63
[2017-05-13] MEDS: cefTRIAXone SOD 2 GM in D5W MINI-BAG PLUS 50 ML IV SCH (00:29)
[2017-05-13] MEDS: AZITHROMYCIN INJ 500 MG, VIAL MATE ADAPTER 1 EACH in D5W 250 ML IV SCH (01:28)
[2017-05-13] MEDS: IPRATROPIUM 0.5MG/ALBUTEROL 2.5MG INH SOL UD 3ML (DUONEB)(J7620) NEB SCH ×4 (02:40→20:00)
[2017-05-13 04:00] VITALS: BP 120/69
[2017-05-13 05:12] LABS: MEAN CORPUSCULAR HEMOGLOBIN 29.4 pg (27.0-33.0); MEAN CORPUSCULAR HGB CONC 32.2 g/dl (32.0-36.5); MEAN CORPUSCULAR VOLUME 91.3 fl (80.0-96.0); RED CELL DISTRIBUTION WIDTH 13.8 % (11.5-14.5); WHITE BLOOD COUNT 3.5 K/mm3 (4.0-10.0)
[2017-05-13 05:34] LABS: ANION GAP 7 MEQ/L (8-16); BLOOD UREA NITROGEN 18 MG/DL (7-18); CALCIUM LEVEL 7.9 MG/DL (8.8-10.2); CARBON DIOXIDE LEVEL 26 MEQ/L (21-32); CHLORIDE LEVEL 99 MEQ/L (98-107); CREATININE FOR GFR 0.91 MG/DL (0.70-1.30); GLOMERULAR FILTRATION RATE > 60.0 (>35); GLUCOSE, FASTING 129 MG/DL (83-110); POTASSIUM SERUM 4.2 MEQ/L (3.5-5.1); SODIUM LEVEL 132 MEQ/L (136-145)
[2017-05-13] MEDS: ADVAIR DISKUS 250/50 INH PWD INH SCH ×2 (07:15→20:26)
--- NOTE | 2017-05-13 07:27 | REP ---
Head CT without contrast: History: TIA. Comparison head CT study May 11, 2017. CT findings: There is mild mucosal thickening again seen in the ethmoid sinuses unchanged. Diffuse moderate atrophy is noted. There is no evidence of intracranial hemorrhage. Mild small vessel changes are again noted. No new infarction is visible. Impression: Stable CT findings of diffuse atrophy, small vessel changes and vascular calcification. No acute intracranial lesion. Signed by Delgado Bee MD 05/13/2017 08:58 A
[2017-05-13 08:00] VITALS: BP 128/70
[2017-05-13] MEDS: LACTOBACILLUS ACIDOPHILUS CAP (BACID) PO SCH (08:51)
[2017-05-13] MEDS: ASPIRIN 325 MG TAB PO SCH (08:51)
[2017-05-13] MEDS: DUTASTERIDE 0.5 MG CAP (AVODART) PO SCH (08:51)
[2017-05-13] MEDS: TAMSULOSIN 0.4 MG CAP PO SCH (08:51)
[2017-05-13] MEDS: SENOKOT S TAB PO SCH ×2 (08:51→20:01)
[2017-05-13] MEDS: amLODIPine 10 MG TAB PO SCH (08:52)
[2017-05-13] MEDS: MULTIVITAMINS/MINERALS THERAP 1 TAB PO SCH (08:52)
[2017-05-13] MEDS: OMEGA-3 1050MG CAPSULE PO SCH ×2 (08:52→20:01)
[2017-05-13] MEDS: methylPREDNISolone INJ 40 MG/1 ML VIAL (J2920) IV SCH ×2 (11:16→22:55)
[2017-05-13 12:00] VITALS: BP 153/73
[2017-05-13 14:00] VITALS: BP 143/68
--- NOTE | 2017-05-13 15:17 | IPN ---
DATE: 05/13/2017 Patient is seen today on the progressive care unit (PCU). He says he is feeling well. Denies any cough or dyspnea. Denies any abdominal pain. Not complaining of any back pain today. He is awake and alert, although not oriented to time. His current medication regimen includes: - Norvasc 10 mg daily - aspirin 325 mg daily - Avodart 0.5 mg daily - fish oil 1000 mg daily twice a day - Bacid one a day - multivitamin daily - tamsulosin 0.4 mg daily - Advair one inhalation twice daily - Senokot-S one by mouth twice a day. - DuoNebs [id number], although this morning it was held per parameters. - azithromycin - ceftriaxone. - Solu-Medrol - as-needed medications for pain, for nausea, for dry eyes, for wheezing - He is getting Lovenox prophylactically. On examination, his temperature is 98.0, pulse is 70 and regular, blood pressure 128/70, respiratory rate is 20, oxygen saturations 97% on room air. He is alert, pleasant, cooperative, not in any distress. I do not see any jugular venous distension or hepatojugular reflux. Lungs sounds at the base are diminished. Heart has a regular rhythm without any murmur, click or gallop. There is pacemaker palpable under the left clavicle. Abdomen is soft and nontender without any masses or organomegaly. He has dependent rubor and some trace lower extremity edema. Small scabbed over areas on his shins. They are small. Hemoglobin today is 11.8, WBC 3500. Glucose 129, BUN 18, creatinine 0.91, sodium 132, potassium 4.2. Cardiac enzymes negative. C-reactive protein yesterday was 2.33. ASSESSMENT: 1. Mental status changes seemed to be improved. 2. Hyponatremia, improved. 3. Air space disease, possible pneumonia. On antibiotics and nebulizer treatments. 4. Baseline cognitive problems. 5. Chronic obstructive pulmonary disease (COPD). PLAN: Patient will be continued on his current medications. I have not made any changes today. I think he can come off the unit and go to a regular floor, but he does have a sitter. Not able to speak yet with his family about how they see his current physical status. I do note that his cardiac rn today shows pacemaker rhythm, with a heart rate of 70. (Note: did speak to his daughter in [place] this afternoon.) BEVERLY
[2017-05-13] MEDS: ENOXAPARIN 40 MG/0.4 ML SYRINGE (J1650) SC SCH (20:01)
[2017-05-13 22:00] VITALS: BP 159/60
[2017-05-14] MEDS: cefTRIAXone SOD 2 GM in D5W MINI-BAG PLUS 50 ML IV SCH (01:05)
[2017-05-14] MEDS: IPRATROPIUM 0.5MG/ALBUTEROL 2.5MG INH SOL UD 3ML (DUONEB)(J7620) NEB SCH ×2 (01:24→07:30)
[2017-05-14] MEDS: AZITHROMYCIN INJ 500 MG, VIAL MATE ADAPTER 1 EACH in D5W 250 ML IV SCH (01:43)
[2017-05-14 06:00] VITALS: BP 139/80
[2017-05-14 06:49] LABS: MEAN CORPUSCULAR HEMOGLOBIN 29.9 pg (27.0-33.0); MEAN CORPUSCULAR HGB CONC 32.7 g/dl (32.0-36.5); MEAN CORPUSCULAR VOLUME 91.3 fl (80.0-96.0); RED CELL DISTRIBUTION WIDTH 13.9 % (11.5-14.5); WHITE BLOOD COUNT 3.8 K/mm3 (4.0-10.0)
[2017-05-14 07:12] LABS: ANION GAP 5 MEQ/L (8-16); BLOOD UREA NITROGEN 16 MG/DL (7-18); CALCIUM LEVEL 8.4 MG/DL (8.8-10.2); CARBON DIOXIDE LEVEL 29 MEQ/L (21-32); CHLORIDE LEVEL 101 MEQ/L (98-107); GLOMERULAR FILTRATION RATE > 60.0 (>35); GLUCOSE, FASTING 112 MG/DL (83-110); MAGNESIUM LEVEL 2.1 MG/DL (1.8-2.4); POTASSIUM SERUM 4.2 MEQ/L (3.5-5.1); SODIUM LEVEL 135 MEQ/L (136-145)
[2017-05-14] MEDS: ADVAIR DISKUS 250/50 INH PWD INH SCH (07:30)
[2017-05-14] MEDS ORDERED: predniSONE 20 MG TAB PO SCH (09:00)
[2017-05-14 09:25] VITALS: BP 139/80
[2017-05-14] MEDS: LACTOBACILLUS ACIDOPHILUS CAP (BACID) PO SCH (09:25)
[2017-05-14] MEDS: ASPIRIN 325 MG TAB PO SCH (09:25)
[2017-05-14] MEDS: SENOKOT S TAB PO SCH (09:25)
[2017-05-14] MEDS: TAMSULOSIN 0.4 MG CAP PO SCH (09:25)
[2017-05-14] MEDS: amLODIPine 10 MG TAB PO SCH (09:25)
[2017-05-14] MEDS: OMEGA-3 1050MG CAPSULE PO SCH (09:25)
[2017-05-14] MEDS: MULTIVITAMINS/MINERALS THERAP 1 TAB PO SCH (09:25)
[2017-05-14] MEDS: DUTASTERIDE 0.5 MG CAP (AVODART) PO SCH (09:26)
[2017-05-14] MEDS ORDERED: AZIT25TA PO (10:25)
[2017-05-14] MEDS ORDERED: CEFD300CAP PO (10:25)
[2017-05-14] MEDS ORDERED: PRED10TA PO (10:25)
--- NOTE | 2017-05-14 12:34 | DSES ---
DATE OF ADMISSION: 05/11/2017 DATE OF DISCHARGE: PRIMARY CARE PROVIDER: Corine Parker Attending today is Dr. Fidel Gonzalez. HISTORY: This is an 86-year-old male patient who resides at home with 24-hour care, who presented to [facility] Emergency Room with altered mental status. He noted to have an episode after presentation of staring blankly and nonverbal, which recurred again a short time later. The family was concerned for a transient ischemic attack (TIA). They also noted poor oral intake for 2-3 days prior to these symptoms occurring. They denied any other change in his symptoms, including increased shortness of breath, difficulty with ambulation, chest pain, nausea, vomiting. He was brought to the hospital for further monitoring. He was found to likely have altered mental status secondary to hyponatremia, as well as shortness of breath with a community-acquired bacteria pneumonia. During his hospitalization, he was put on seizure and fall precautions. He was seen and followed by Dr. Patterson over the weekend. His mental status did gradually improve. He had a CT scan of the head on presentation to the emergency room without any acute abnormalities. This was subsequently repeated and was found to be stable. There was discussion over performing an electroencephalogram (EEG), although given the patient's symptoms did improve, this was not obtained. Given concern for sleep apnea, the patient did have an overnight pulse oximetry ordered by Dr. Patterson. His respiratory status has improved; and, therefore, his azithromycin and Rocephin started on admission had been changed to oral. His Solu-Medrol has also been changed to oral prednisone. The patient has been seen by physical therapy, who feel as though he would benefit from physical therapy, although if he has 24-hour care, he would be safe to return home. We can coordinate home care in the outpatient setting, where physical therapy might be able to work with him from his home. His sodium level has improved, and he is 135 this morning, up from 129 on admission. His diet has also consistently improved during his hospitalization, as well. I spoke with his sister, Komal Middleton, today, who confirms, in fact, that they do have 24-hour care in place. They are eager to take him back home. His discharge diagnoses include altered mental status, likely secondary to hyponatremia and pneumonia with history of chronic obstructive pulmonary disease (COPD). DISCHARGE MEDICATIONS: Include: - azithromycin 500 mg daily times 2 days - cefdinir 300 mg by mouth twice a day times 5 days - prednisone taper 40 mg daily times 3 days, 20 mg daily times 3 days, 10 mg daily times 3 days - acetaminophen 500 mg twice daily as needed for pain - albuterol sulfate inhaled three times daily - albuterol sulfate inhaler two puffs inhaled every 4 hours as needed for shortness of breath - amlodipine 10 mg daily - aspirin 325 mg daily - Avodart 0.5 mg by mouth daily - fish oil 1000 mg by mouth twice a day - furosemide 40 mg twice daily - Incruse Ellipta 62.5 mcg daily - lactobacillus one tablet daily - multivitamin one tablet daily - Flomax 0.4 mg subcutaneous daily - Visine drops each eye four times daily as needed for dry eye DISCHARGE PLAN: Will be to followup with Corine Parker in 1 week. Activity should be as tolerated. Diet should be [id number], low-cholesterol.
--- NOTE | 2017-05-14 14:24 | NOCOX ---
DATE OF PROCEDURE: 05/13 and into the morning of 05/14/2017 ORDERING PROVIDER: Dr. Gonzalez The study was performed on room air. The log reports that the patient was awake most of the night. Mean oxygen saturation for the study was 96.2%. The lowest reliably recorded oxygen desaturation was at approximately 0010 hours with an event that lasted less than several minutes. A brief desaturation to about 64% but with rapid recovery. The remainder of the night, saturations remained well above 90. IMPRESSION: Borderline study. In view of the above, please correlate clinically.
[2017-05-14] MEDS ORDERED: CEFDINIR 300 MG CAP (OMNICEF) PO SCH (21:00)
--- NOTE | 2017-05-15 05:15 | EEG ---
DATE OF PROCEDURE: 05/14/2017 REFERRING PHYSICIAN: Dr. Fidel Gonzalez DIAGNOSIS: Altered mental status. EEG NUMBER: [id number]. HISTORY: Patient is an 86-year-old man who had episode of staring blankly and unresponsiveness and he stopped talking. This EEG was done to rule out epileptic potential. He is currently on ceftriaxone, Zithromax, amlodipine, aspirin, Omnicef, prednisone, etc. TECHNICAL DESCRIPTION: This digital EEG was recorded by 21 scalp, ear and two EKG electrodes and was reviewed in bipolar and referential montages following reformatting in 10-20 international electrode placement system. INTERPRETATION: Patient was noted to be in awake and drowsy states during this EEG. Resting awake background rhythm consisted of 6-7 Hz theta activity measuring 15-40 microvolts in amplitude. No sleep was achieved. Hyperventilation could not be performed. Photic stimulation remained unremarkable. EKG revealed normal sinus rhythm. No focal, lateralizing or epileptiform abnormalities were seen. No clinical or electrographic seizures were recorded. CONCLUSION: This EEG in awake and drowsy states is abnormal due to presence of mild generalized slowing and disorganization of background consistent with nonspecific diffuse cerebral dysfunction such as seen in encephalopathy due to multiple potential causes including toxic, metabolic, autoimmune, infectious, medication related or multifocal structural abnormalities of brain. Clinical correlation is recommended.
[2017-05-15] MEDS ORDERED: AZITHROMYCIN 250 MG TAB PO SCH (09:00)
[2017-05-17] MEDS ORDERED: predniSONE 20 MG TAB PO SCH (09:00)
[2017-05-20] MEDS ORDERED: predniSONE 10 MG TAB PO SCH (09:00)
== END 2017-05-14 14:00 | disposition home or self-care (01) | DRG 190 ==
LOC: M ED 19:44 → M ED INP 22:06 → M PCU 23:52 → M MS5PR 05-13 11:32
PROVIDERS: ADMIT Hospitalist; ATTEND Family Medicine
DX: J44.0 Chronic obstructive pulmonary disease with (acute) lower respiratory infection (principal); J18.9 Pneumonia, unspecified organism; E87.1 Hypo-osmolality and hyponatremia; J44.1 Chronic obstructive pulmonary disease with (acute) exacerbation; G47.33 Obstructive sleep apnea (adult) (pediatric); I10 Essential (primary) hypertension; I48.91 Unspecified atrial fibrillation; N40.1 Benign prostatic hyperplasia with lower urinary tract symptoms; F03.90 Unspecified dementia, unspecified severity, without behavioral disturbance, psychotic disturbance, mood disturbance, and anxiety; R33.9 Retention of urine, unspecified; E73.9 Lactose intolerance, unspecified; I87.2 Venous insufficiency (chronic) (peripheral); E66.9 Obesity, unspecified; I27.2 Other secondary pulmonary hypertension; I08.2 Rheumatic disorders of both aortic and tricuspid valves; Z86.718 Personal history of other venous thrombosis and embolism; Z95.0 Presence of cardiac pacemaker; Z91.19 Patient's noncompliance with other medical treatment and regimen; Z88.5 Allergy status to narcotic agent; Z88.8 Allergy status to other drugs, medicaments and biological substances; Z96.653 Presence of artificial knee joint, bilateral; Z95.828 Presence of other vascular implants and grafts; Z87.891 Personal history of nicotine dependence; Z79.82 Long term (current) use of aspirin; Z79.51 Long term (current) use of inhaled steroids; Z79.899 Other long term (current) drug therapy; Z68.24 Body mass index [BMI] 24.0-24.9, adult

== ENCOUNTER → 2017-05-28 | Outpatient (REF) | payer OTHER ==
[~2017-05-28] MED LIST changes: -APAP325T PO; +APAP325T4 PO; +AZIT250T8 PO; +BACITAB PO; -BACITAB3 PO; +CEFD300CAP PO; +FURO40TA2 PO; -INCR1INH INH; +INCR1INH PO; +MOME0.1O EXT; -MOME0.1O20 EXT; -PRIM250T5 PO; +PRIM250T8 PO; -PROA1AER INH; +PROAAER10 INH; +TYLE500T78 PO; +WARF-21 PO
[2017-05-28 12:44] LABS: BASO % 0.6 % (0.0-1.0); EOS # 0.2 K/mm3 (0.0-0.50); EOS % 3.9 % (0.0-3.0); LARGE UNSTAINED CELL # 0.1 K/mm3 (0.0-0.4); LARGE UNSTAINED CELL % 1.6 % (0.0-4.0); LYMPH % 16.9 % (24.0-44.0); MEAN CORPUSCULAR HGB CONC 32.2 g/dl (32.0-36.5); MONO # 0.4 K/mm3 (0.0-0.8); MONO % 5.9 % (0.0-5.0); NEUTROPHILS # 4.4 K/mm3 (1.8-7.7); PLATELET COUNT, AUTOMATED 133 k/mm3 (150-450); RED CELL DISTRIBUTION WIDTH 13.8 % (11.5-14.5); WHITE BLOOD COUNT 6.1 K/mm3 (4.0-10.0)
[2017-05-28 13:15] LABS: ANION GAP 8 MEQ/L (8-16); BLOOD UREA NITROGEN 27 MG/DL (7-18); CARBON DIOXIDE LEVEL 29 MEQ/L (21-32); CHLORIDE LEVEL 98 MEQ/L (98-107); FERRITIN 72 NG/ML (26-388); GLOMERULAR FILTRATION RATE > 60.0 (>35); GLUCOSE, FASTING 61 MG/DL (83-110); PERCENT SATURATION 13.2 % (19.7-37.4); POTASSIUM SERUM 3.9 MEQ/L (3.5-5.1); SODIUM LEVEL 135 MEQ/L (136-145); TOTAL IRON BINDING CAPACITY 296 UG/DL (250-450)
[2017-05-28 13:46] LABS: FOLATE > 24.0 NG/ML; VITAMIN B12 LEVEL 653 PG/ML
== END ==
LOC: M SFHCADAM 09:11
PROVIDERS: ATTEND Physician Assistant Medical
DX: F03.90 Unspecified dementia, unspecified severity, without behavioral disturbance, psychotic disturbance, mood disturbance, and anxiety (principal); I48.2 Chronic atrial fibrillation; D64.9 Anemia, unspecified